=== PATIENT | female | born 1955 | race Caucasian/White ===

== ENCOUNTER 2022-11-17 13:17 | Inpatient (IN) | payer OTHER ==
[2022-11-17] MEDS ORDERED: SODIUM CHLORIDE 0.9% 500 ML INFUS.BAG IV ONE (14:03)
[2022-11-17] MEDS ORDERED: PIPERACILLIN/TAZOB 4.5 GM 4.5 GM in DEXTROSE 5%-WATER - 100 ML IVPB ONE (14:14)
[2022-11-17] MEDS ORDERED: PIPERACILLIN/TAZOB 4.5 GM 4.5 GM/100 ML BAG IVPB ONE (14:53)
[2022-11-17] MEDS ORDERED: VANCOMYCIN/WATER FOR INJ (PEG) 1,000 MG/200 ML BAG IVPB ONE (14:53)
[2022-11-17 14:56] LABS: VENOUS BASE EXCESS 1.3 mmol/L (-2-2); VENOUS O2 SATURATION 34.9 % (70-80)
[2022-11-17 14:58] LABS: VENOUS PH 7.189 (7.310-7.410)
[2022-11-17 14:59] LABS: VENOUS PCO2 88.9 mmHg (38-52)
[2022-11-17] MEDS ORDERED: AZITHROMYCIN IVPB 500 MG in DEXTROSE 5%-WATER - 250 ML IVPB ONE (15:01)
[2022-11-17] MEDS ORDERED: NOREPINEPHRINE BITARTRATE/D5W 8 MG/250 ML BAG IVPB ONE (15:26)
[2022-11-17 15:29] LABS: HEMATOCRIT 33.6 % (32.4-45.2); HEMOGLOBIN 10.1 GM/dL (10.7-15.3); MCH 27.7 pg (25.7-33.7); MCHC 30.1 g/dl (32.0-36.0); MEAN CELL VOLUME 92.3 fl (80-96); MEAN PLT VOLUME 8.8 fl (7.5-11.1); PLATELET COUNT 490 10^3/uL (134-434); RBC 3.64 M/mm3 (3.60-5.2); RDW 21.6 % (11.6-15.6); WHITE BLOOD COUNT 13.9 K/mm3 (4.0-10.0)
[2022-11-17 15:43] LABS: CHLORIDE 101 mmol/L (98-107); SODIUM 137 mmol/L (136-145)
[2022-11-17 15:45] LABS: BLOOD UREA NITROGEN 29.1 mg/dL (7-18); CALCIUM 9.4 mg/dL (8.5-10.1); CO2 33 mmol/L (21-32); GLUCOSE,RANDOM 143 mg/dL (74-106)
[2022-11-17 15:47] LABS: CREATININE 0.8 mg/dL (0.55-1.3)
[2022-11-17 15:49] LABS: SGOT/AST 71 U/L (15-37); SGPT/ALT 28 U/L (13-61)
[2022-11-17] MEDS ORDERED: HYDROCORTISONE SOD SUCCINATE 100 MG/2 ML VIAL IVPUSH ONE (15:49)
[2022-11-17 15:50] LABS: ALK PHOS 126 U/L (45-117); BILIRUBIN,TOTAL 0.4 mg/dL (0.2-1); TOT PROT 7.6 g/dl (6.4-8.2)
[2022-11-17 15:53] LABS: ANION GAP 3 MMOL/L (8-16); POTASSIUM 7.2 mmol/L (3.5-5.1)
[2022-11-17] MEDS ORDERED: HYDROCORTISONE SOD SUCCINATE 100 MG/2 ML VIAL ONE (16:20)
[2022-11-17] MEDS: VANCOMYCIN 1,000 MG in DEXTROSE 5%-WATER - 250 ML IVPB ONE ×2 (16:26→20:58)
[2022-11-17] MEDS: NOREPINEPHRINE BITARTRATE/D5W 8 MG/250 ML BAG IVPB SCH ×2 (16:28→20:00)
[2022-11-17] MEDS ORDERED: VANCOMYCIN 1 GM in D5W (PRE-DOCKED) 1,000 MG/250 ML (RESTRICTED TO ID ONLY IVPB SCH (16:30)
[2022-11-17] MEDS ORDERED: VANCOMYCIN 1 GM/200 ML PREMIX BAG (RESTRICTED TO ID ONLY) IVPB SCH (17:00)
[2022-11-17] MEDS: ALBUTEROL SO4 2.5/IPRATROPIUM 0.5 INH SOL 3 ML VIAL.NEB. NEB SCH ×4 (17:00→17:42)
[2022-11-17] MEDS: oxyCODONE HCL 5 MG TABLET GT SCH ×2 (18:56→21:27)
[2022-11-17] MEDS: MIDODRINE HCL 5 MG TABLET GT SCH (19:04)
[2022-11-17 20:16] LABS: ARTERIAL BLD GAS O2 SATURATION 97.3 % (95-98); ARTERIAL BLOOD GAS BASE EXCESS 3.8 mmol/L (-2-2); ARTERIAL BLOOD GAS PO2 95.4 mmHg (80-100); ARTERIAL BLOOD GAS pH 7.409 (7.350-7.450)
[2022-11-17 20:17] LABS: ALLENS TEST POSITIVE
[2022-11-17 20:18] LABS: VENT MODE A/C; VENT RATE 18
[2022-11-17 20:42] LABS: POTASSIUM 5.3 mmol/L (3.5-5.1)
[2022-11-17 20:42] LABS: VENOUS BASE EXCESS 2.7 mmol/L (-2-2); VENOUS O2 SATURATION 52.4 % (70-80); VENOUS PCO2 62.7 mmHg (38-52); VENOUS PH 7.307 (7.310-7.410)
[2022-11-17 20:45] LABS: CALCIUM 8.5 mg/dL (8.5-10.1)
[2022-11-17 20:46] LABS: BLOOD UREA NITROGEN 30.1 mg/dL (7-18)
[2022-11-17 20:48] LABS: CREATININE 0.6 mg/dL (0.55-1.3); PHOSPHOROUS 4.8 mg/dL (2.5-4.9)
[2022-11-17] MEDS: MUPIROCIN 2% TOPICAL OINTMENT FOR DECOLONIZATION NS SCH (21:25)
[2022-11-17] MEDS: methylPREDNISolone NA SUCC 40 MG/1 ML VIAL IVPUSH SCH (21:25)
[2022-11-17] MEDS: busPIRone HCL 10 MG TABLET (FP) NR SCH (21:25)
[2022-11-17] MEDS: LACTULOSE 20 GM/30 ML UDC (FOR ORAL USE ONLY) GT SCH (21:25)
[2022-11-17] MEDS: LORazepam 0.5 MG TABLET GT SCH (21:26)
[2022-11-17] MEDS: CHLORHEXIDINE GLUCONATE 4% CLEANSER FOR DECOLONIZATION TP SCH (21:27)
[2022-11-17] MEDS: CYCLOBENZAPRINE HCL 10 MG TABLET (FP) GT SCH (21:27)
[2022-11-17] MEDS: APIXABAN 5 MG TABLET GT SCH (21:27)
[2022-11-17] MEDS: BUDESONIDE/FORMETEROL FUMARATE 80/4.5 mcg INHALER IH SCH (21:28)
[2022-11-17] MEDS: METOPROLOL TARTRATE 50 MG TABLET (FP) GT SCH (21:28)
[2022-11-17] MEDS: GABAPENTIN 300 MG CAPSULE GT SCH (21:28)
[2022-11-17] MEDS: INSULIN SLIDING SCALE (NOVOLOG) 1 VIAL SQ SCH (21:38)
[2022-11-18] MEDS: oxyCODONE HCL 5 MG TABLET GT SCH ×6 (01:35→21:15)
[2022-11-18] MEDS: methylPREDNISolone NA SUCC 40 MG/1 ML VIAL IVPUSH SCH ×2 (02:14→09:46)
[2022-11-18] MEDS: GABAPENTIN 300 MG CAPSULE GT SCH ×3 (05:56→21:16)
[2022-11-18] MEDS: LACTULOSE 20 GM/30 ML UDC (FOR ORAL USE ONLY) GT SCH ×3 (05:57→21:15)
[2022-11-18] MEDS: CYCLOBENZAPRINE HCL 10 MG TABLET (FP) GT SCH ×3 (05:57→21:15)
[2022-11-18] MEDS: LEVOTHYROXINE NA 125 MCG TABLET (FP) GT SCH (06:00)
[2022-11-18] MEDS: busPIRone HCL 10 MG TABLET (FP) NR SCH ×3 (06:05→21:15)
[2022-11-18] MEDS: INSULIN SLIDING SCALE (NOVOLOG) 1 VIAL SQ SCH ×4 (06:05→21:32)
[2022-11-18 07:44] LABS: HEMATOCRIT 26.9 % (32.4-45.2); HEMOGLOBIN 8.2 GM/dL (10.7-15.3); MCH 28.2 pg (25.7-33.7); MCHC 30.6 g/dl (32.0-36.0); MEAN CELL VOLUME 92.1 fl (80-96); MEAN PLT VOLUME 8.7 fl (7.5-11.1); PLATELET COUNT 599 10^3/uL (134-434); RBC 2.92 M/mm3 (3.60-5.2); RDW 20.2 % (11.6-15.6); WHITE BLOOD COUNT 13.9 K/mm3 (4.0-10.0)
[2022-11-18 07:50] LABS: INR 1.44 (0.83-1.09); PROTHROMBIN TIME (PATIENT) 16.6 SEC (9.7-13.0)
[2022-11-18 08:04] LABS: POTASSIUM 5.8 mmol/L (3.5-5.1)
[2022-11-18 08:09] LABS: CALCIUM 8.8 mg/dL (8.5-10.1)
[2022-11-18 08:11] LABS: BLOOD UREA NITROGEN 29.6 mg/dL (7-18); CREATININE 0.7 mg/dL (0.55-1.3)
[2022-11-18 08:14] LABS: PHOSPHOROUS 5.2 mg/dL (2.5-4.9)
[2022-11-18 08:15] LABS: BILIRUBIN,TOTAL 0.2 mg/dL (0.2-1); TOT PROT 6.1 g/dl (6.4-8.2)
[2022-11-18] MEDS: PIPERACILLIN/TAZOB 4.5 GM 4.5 GM in DEXTROSE 5%-WATER 100 ML IVPB SCH ×2 (09:44→17:16)
[2022-11-18] MEDS: POLYETHYLENE GLYCOL (HEALTHYLAX) 3350 17 GM PACKET GT SCH ×2 (09:45→10:50)
[2022-11-18] MEDS: MIDODRINE HCL 5 MG TABLET GT SCH ×3 (09:46→17:16)
[2022-11-18] MEDS: FOLIC ACID 1 MG TABLET (FP) GT SCH (09:46)
[2022-11-18] MEDS: LORazepam 0.5 MG TABLET GT SCH ×2 (09:47→21:15)
[2022-11-18] MEDS: METOPROLOL TARTRATE 50 MG TABLET (FP) GT SCH (09:47)
[2022-11-18] MEDS: APIXABAN 5 MG TABLET GT SCH ×2 (09:47→21:16)
[2022-11-18] MEDS: BUDESONIDE/FORMETEROL FUMARATE 80/4.5 mcg INHALER IH SCH (09:48)
[2022-11-18 10:12] LABS: ANISOCYTOSIS 2+; MACROCYTOSIS 0; OVALOCYTE 2+; TOXIC GRANULATION 2+
[2022-11-18] MEDS: MUPIROCIN 2% TOPICAL OINTMENT FOR DECOLONIZATION NS SCH ×2 (10:40→21:15)
[2022-11-18] MEDS ORDERED: SODIUM ZIRCONIUM CYCLOSILICATE (LOKELMA) 5 GM PACKET PO ONE (13:34)
[2022-11-18] MEDS ORDERED: ALBUTEROL SO4 2.5/IPRATROPIUM 0.5 INH SOL 3 ML VIAL.NEB. NEB ONE (13:38)
[2022-11-18] MEDS ORDERED: LACTATED RINGERS SOLUTION 1,000 ML/1,000 ML INFUS.BAG IV STA (14:01)
[2022-11-18] MEDS ORDERED: LEVALBUTEROL HCL 0.31 MG/3 ML VIAL.NEB IH ONE (14:30)
[2022-11-18] MEDS: SODIUM HYPOCHLORITE 0.25%- 473 ML BULK BOTTLE TP SCH (15:11)
[2022-11-18] MEDS: COLLAGENASE CLOSTRIDIUM HIST. 30 GRAMS TUBE TP SCH (15:11)
[2022-11-18] MEDS: NYSTATIN POWDER 100,000 UNITS/GM - 15 GM TOPICAL POWDER TP SCH (17:14)
[2022-11-18] MEDS: VANCOMYCIN/WATER FOR INJ (PEG) 1,000 MG/200 ML BAG IVPB SCH (18:05)
[2022-11-18] MEDS: NOREPINEPHRINE BITARTRATE/D5W 8 MG/250 ML BAG IVPB SCH (21:13)
[2022-11-18] MEDS: SODIUM ZIRCONIUM CYCLOSILICATE (LOKELMA) 5 GM PACKET PO SCH (21:14)
[2022-11-18] MEDS: CHLORHEXIDINE GLUCONATE 4% CLEANSER FOR DECOLONIZATION TP SCH (21:16)
[2022-11-18 22:53] LABS: PH,URINE 5.5 (5.0-8.0); URINE APPEARANCE CLEAR; URINE BILIRUBIN NEGATIVE (NEGATIVE); URINE COLOR YELLOW; URINE GLUCOSE (UA) NEGATIVE (NEGATIVE); URINE KETONE NEGATIVE (NEGATIVE); URINE LEUK ESTERASE NEGATIVE (NEGATIVE); URINE NITRITE NEGATIVE (NEGATIVE); URINE PROTEIN NEGATIVE (NEGATIVE); URINE UROBILINOGEN 0.2 mg/dL (0.2-1.0)
[2022-11-19] MEDS: oxyCODONE HCL 5 MG TABLET GT SCH ×6 (02:08→21:39)
[2022-11-19] MEDS: PIPERACILLIN/TAZOB 4.5 GM 4.5 GM in DEXTROSE 5%-WATER 100 ML IVPB SCH ×2 (02:30→09:23)
[2022-11-19] MEDS: LEVOTHYROXINE NA 125 MCG TABLET (FP) GT SCH (06:36)
[2022-11-19] MEDS: busPIRone HCL 10 MG TABLET (FP) NR SCH ×3 (06:36→21:40)
[2022-11-19] MEDS: GABAPENTIN 300 MG CAPSULE GT SCH ×3 (06:36→21:39)
[2022-11-19] MEDS: CYCLOBENZAPRINE HCL 10 MG TABLET (FP) GT SCH ×3 (06:36→21:39)
[2022-11-19] MEDS: LACTULOSE 20 GM/30 ML UDC (FOR ORAL USE ONLY) GT SCH ×3 (06:36→21:40)
[2022-11-19] MEDS: INSULIN SLIDING SCALE (NOVOLOG) 1 VIAL SQ SCH ×4 (06:37→21:59)
[2022-11-19 07:25] LABS: HEMATOCRIT 24.4 % (32.4-45.2); HEMOGLOBIN 7.8 GM/dL (10.7-15.3); MCH 28.7 pg (25.7-33.7); MCHC 32.2 g/dl (32.0-36.0); MEAN CELL VOLUME 89.3 fl (80-96); MEAN PLT VOLUME 7.5 fl (7.5-11.1); PLATELET COUNT 481 10^3/uL (134-434); RBC 2.73 M/mm3 (3.60-5.2); RDW 21.3 % (11.6-15.6); WHITE BLOOD COUNT 15.9 K/mm3 (4.0-10.0)
[2022-11-19 07:30] LABS: POTASSIUM 4.6 mmol/L (3.5-5.1)
[2022-11-19 07:33] LABS: BLOOD UREA NITROGEN 32.8 mg/dL (7-18); CALCIUM 8.3 mg/dL (8.5-10.1)
[2022-11-19 07:38] LABS: BILIRUBIN,TOTAL 0.1 mg/dL (0.2-1); CREATININE 0.8 mg/dL (0.55-1.3); TOT PROT 5.8 g/dl (6.4-8.2)
[2022-11-19 07:39] LABS: PHOSPHOROUS 4.9 mg/dL (2.5-4.9)
[2022-11-19] MEDS: LORazepam 0.5 MG TABLET GT SCH ×2 (09:21→21:39)
[2022-11-19] MEDS: APIXABAN 5 MG TABLET GT SCH ×2 (09:22→21:40)
[2022-11-19] MEDS: FOLIC ACID 1 MG TABLET (FP) GT SCH (09:22)
[2022-11-19] MEDS: MIDODRINE HCL 5 MG TABLET GT SCH ×3 (09:22→18:04)
[2022-11-19] MEDS: PANTOPRAZOLE SODIUM 40 MG VIAL IVPUSH SCH (09:23)
[2022-11-19] MEDS: POLYETHYLENE GLYCOL (HEALTHYLAX) 3350 17 GM PACKET GT SCH (09:24)
[2022-11-19] MEDS: SODIUM HYPOCHLORITE 0.25%- 473 ML BULK BOTTLE TP SCH (09:25)
[2022-11-19] MEDS: COLLAGENASE CLOSTRIDIUM HIST. 30 GRAMS TUBE TP SCH (09:25)
[2022-11-19] MEDS: SODIUM ZIRCONIUM CYCLOSILICATE (LOKELMA) 5 GM PACKET PO SCH ×2 (09:26→15:00)
[2022-11-19] MEDS: NYSTATIN POWDER 100,000 UNITS/GM - 15 GM TOPICAL POWDER TP SCH (09:27)
[2022-11-19] MEDS: MUPIROCIN 2% TOPICAL OINTMENT FOR DECOLONIZATION NS SCH ×2 (09:27→21:41)
[2022-11-19 10:34] LABS: ANISOCYTOSIS 2+; MACROCYTOSIS 0
[2022-11-19] MEDS ORDERED: INSULIN (NOVOLOG) ASPART 100 UNITS/ML 10ML VIAL ONE ×2 (11:56→17:00)
[2022-11-19] MEDS: NOREPINEPHRINE BITARTRATE/D5W 8 MG/250 ML BAG IVPB SCH (18:01)
[2022-11-19] MEDS: MEROPENEM 1 GM in DEXTROSE 5%-WATER 100 ML IVPB SCH (18:02)
[2022-11-19] MEDS: VANCOMYCIN/WATER FOR INJ (PEG) 1,000 MG/200 ML BAG IVPB SCH (18:04)
[2022-11-19] MEDS: CHLORHEXIDINE GLUCONATE 4% CLEANSER FOR DECOLONIZATION TP SCH (21:41)
[2022-11-20] MEDS: MEROPENEM 1 GM in DEXTROSE 5%-WATER 100 ML IVPB SCH ×3 (02:31→17:33)
[2022-11-20] MEDS: oxyCODONE HCL 5 MG TABLET GT SCH ×6 (02:31→21:49)
[2022-11-20] MEDS: LACTULOSE 20 GM/30 ML UDC (FOR ORAL USE ONLY) GT SCH ×3 (05:31→21:50)
[2022-11-20] MEDS: GABAPENTIN 300 MG CAPSULE GT SCH ×3 (05:31→21:51)
[2022-11-20] MEDS: CYCLOBENZAPRINE HCL 10 MG TABLET (FP) GT SCH ×3 (05:31→21:49)
[2022-11-20] MEDS: busPIRone HCL 10 MG TABLET (FP) NR SCH ×3 (05:31→21:49)
[2022-11-20] MEDS: LEVOTHYROXINE NA 125 MCG TABLET (FP) GT SCH (06:09)
[2022-11-20] MEDS: INSULIN SLIDING SCALE (NOVOLOG) 1 VIAL SQ SCH ×4 (06:10→22:12)
[2022-11-20 07:33] LABS: POTASSIUM 3.7 mmol/L (3.5-5.1)
[2022-11-20 07:37] LABS: CALCIUM 8.3 mg/dL (8.5-10.1); MAGNESIUM 1.9 mg/dL (1.8-2.4)
[2022-11-20 07:38] LABS: BLOOD UREA NITROGEN 30.9 mg/dL (7-18)
[2022-11-20 07:39] LABS: PHOSPHOROUS 3.9 mg/dL (2.5-4.9)
[2022-11-20 07:41] LABS: CREATININE 0.7 mg/dL (0.55-1.3)
[2022-11-20 07:55] LABS: HEMATOCRIT 23.2 % (32.4-45.2); HEMOGLOBIN 7.5 GM/dL (10.7-15.3); MCH 29.2 pg (25.7-33.7); MCHC 32.3 g/dl (32.0-36.0); MEAN CELL VOLUME 90.7 fl (80-96); MEAN PLT VOLUME 7.6 fl (7.5-11.1); PLATELET COUNT 377 10^3/uL (134-434); RBC 2.56 M/mm3 (3.60-5.2); RDW 21.2 % (11.6-15.6); WHITE BLOOD COUNT 13.3 K/mm3 (4.0-10.0)
[2022-11-20] MEDS: POLYETHYLENE GLYCOL (HEALTHYLAX) 3350 17 GM PACKET GT SCH (09:42)
[2022-11-20] MEDS: PANTOPRAZOLE SODIUM 40 MG VIAL IVPUSH SCH (09:43)
[2022-11-20] MEDS: LORazepam 0.5 MG TABLET GT SCH ×2 (09:45→21:49)
[2022-11-20] MEDS: FOLIC ACID 1 MG TABLET (FP) GT SCH (09:47)
[2022-11-20] MEDS: APIXABAN 5 MG TABLET GT SCH ×2 (09:47→22:12)
[2022-11-20] MEDS: MIDODRINE HCL 5 MG TABLET GT SCH ×3 (09:47→17:33)
[2022-11-20] MEDS: SODIUM HYPOCHLORITE 0.25%- 473 ML BULK BOTTLE TP SCH (09:48)
[2022-11-20] MEDS: COLLAGENASE CLOSTRIDIUM HIST. 30 GRAMS TUBE TP SCH (09:49)
[2022-11-20] MEDS: NYSTATIN POWDER 100,000 UNITS/GM - 15 GM TOPICAL POWDER TP SCH (09:49)
[2022-11-20] MEDS: MUPIROCIN 2% TOPICAL OINTMENT FOR DECOLONIZATION NS SCH ×2 (09:50→21:50)
[2022-11-20] MEDS ORDERED: SODIUM ZIRCONIUM CYCLOSILICATE (LOKELMA) 5 GM PACKET PO SCH (10:00)
[2022-11-20 12:24] VITALS: BMI 27.1
[2022-11-20] MEDS: AMINO ACIDS/PROTEIN HYDROLYS 30 ML LIQUID.PKT GT SCH (17:34)
[2022-11-20] MEDS: VANCOMYCIN/WATER FOR INJ (PEG) 1,000 MG/200 ML BAG IVPB SCH (18:39)
[2022-11-20] MEDS: NOREPINEPHRINE BITARTRATE/D5W 8 MG/250 ML BAG IVPB SCH (18:44)
[2022-11-20] MEDS ORDERED: ALBUMIN HUMAN 5% 250 ML IV SOLUTION IV ONE (21:47)
[2022-11-20] MEDS: CHLORHEXIDINE GLUCONATE 4% CLEANSER FOR DECOLONIZATION TP SCH (21:50)
[2022-11-21] MEDS: oxyCODONE HCL 5 MG TABLET GT SCH ×6 (02:29→21:16)
[2022-11-21] MEDS: MEROPENEM 1 GM in DEXTROSE 5%-WATER 100 ML IVPB SCH ×3 (02:30→17:08)
[2022-11-21] MEDS: CYCLOBENZAPRINE HCL 10 MG TABLET (FP) GT SCH ×3 (05:06→21:18)
[2022-11-21] MEDS: GABAPENTIN 300 MG CAPSULE GT SCH ×3 (05:06→21:18)
[2022-11-21] MEDS: busPIRone HCL 10 MG TABLET (FP) NR SCH ×3 (05:07→21:18)
[2022-11-21] MEDS: LACTULOSE 20 GM/30 ML UDC (FOR ORAL USE ONLY) GT SCH ×3 (05:07→21:18)
[2022-11-21] MEDS: LEVOTHYROXINE NA 125 MCG TABLET (FP) GT SCH (06:29)
[2022-11-21] MEDS: INSULIN SLIDING SCALE (NOVOLOG) 1 VIAL SQ SCH ×4 (06:29→21:19)
[2022-11-21 07:18] LABS: BASO % 0.3 % (0-2.0); EOS % 1.9 % (0-4.5); HEMATOCRIT 21.6 % (32.4-45.2); HEMOGLOBIN 7.1 GM/dL (10.7-15.3); LYMPH % 10.5 % (8-40); MCH 30.1 pg (25.7-33.7); MCHC 32.9 g/dl (32.0-36.0); MEAN CELL VOLUME 91.5 fl (80-96); MEAN PLT VOLUME 7.5 fl (7.5-11.1); MONO % 3.2 % (3.8-10.2); NEUT % 84.1 % (42.8-82.8); PLATELET COUNT 335 10^3/uL (134-434); RBC 2.37 M/mm3 (3.60-5.2); RDW 22.8 % (11.6-15.6); WHITE BLOOD COUNT 12.9 K/mm3 (4.0-10.0)
[2022-11-21 07:35] LABS: POTASSIUM 3.4 mmol/L (3.5-5.1)
[2022-11-21 07:43] LABS: BLOOD UREA NITROGEN 25.3 mg/dL (7-18); PHOSPHOROUS 3.5 mg/dL (2.5-4.9)
[2022-11-21 07:44] LABS: BILIRUBIN,TOTAL 0.3 mg/dL (0.2-1); TOT PROT 5.3 g/dl (6.4-8.2)
[2022-11-21 07:45] LABS: CALCIUM 8.4 mg/dL (8.5-10.1); MAGNESIUM 1.9 mg/dL (1.8-2.4)
[2022-11-21 07:46] LABS: CREATININE 0.6 mg/dL (0.55-1.3)
[2022-11-21] MEDS ORDERED: POTASSIUM CHLORIDE ORAL LIQUID 20 MEQ/15 ML GT ONE (08:00)
[2022-11-21 08:09] LABS: ALBUMIN 1.3 g/dl (3.4-5.0)
[2022-11-21] MEDS: LORazepam 0.5 MG TABLET GT SCH ×2 (09:49→21:17)
[2022-11-21] MEDS: APIXABAN 5 MG TABLET GT SCH ×2 (09:50→21:18)
[2022-11-21] MEDS: PANTOPRAZOLE SODIUM 40 MG VIAL IVPUSH SCH (09:51)
[2022-11-21] MEDS: POLYETHYLENE GLYCOL (HEALTHYLAX) 3350 17 GM PACKET GT SCH (09:51)
[2022-11-21] MEDS: MIDODRINE HCL 5 MG TABLET GT SCH ×3 (09:51→17:07)
[2022-11-21] MEDS: AMINO ACIDS/PROTEIN HYDROLYS 30 ML LIQUID.PKT GT SCH ×2 (09:51→17:07)
[2022-11-21] MEDS: MUPIROCIN 2% TOPICAL OINTMENT FOR DECOLONIZATION NS SCH ×2 (09:56→21:18)
[2022-11-21] MEDS: NYSTATIN POWDER 100,000 UNITS/GM - 15 GM TOPICAL POWDER TP SCH (09:56)
[2022-11-21] MEDS: COLLAGENASE CLOSTRIDIUM HIST. 30 GRAMS TUBE TP SCH (09:57)
[2022-11-21] MEDS: SODIUM HYPOCHLORITE 0.25%- 473 ML BULK BOTTLE TP SCH (09:57)
[2022-11-21] MEDS: ASCORBIC ACID 500 MG/5 ML UNIT DOSE CUP GT SCH (10:14)
[2022-11-21] MEDS: FOLIC ACID 1 MG TABLET (FP) GT SCH (10:15)
[2022-11-21 12:16] LABS: ANISOCYTOSIS 2+; MACROCYTOSIS 0; OVALOCYTE 2+; TEAR DROP CELLS 1+
[2022-11-21] MEDS: NOREPINEPHRINE BITARTRATE/D5W 8 MG/250 ML BAG IVPB SCH (16:00)
[2022-11-21] MEDS: CHLORHEXIDINE GLUCONATE 4% CLEANSER FOR DECOLONIZATION TP SCH (21:18)
[2022-11-22] MEDS: MEROPENEM 1 GM in DEXTROSE 5%-WATER 100 ML IVPB SCH ×3 (01:30→17:33)
[2022-11-22] MEDS: oxyCODONE HCL 5 MG TABLET GT SCH ×6 (01:31→21:44)
[2022-11-22] MEDS: NOREPINEPHRINE BITARTRATE/D5W 8 MG/250 ML BAG IVPB SCH ×2 (03:08→19:27)
[2022-11-22] MEDS: LACTULOSE 20 GM/30 ML UDC (FOR ORAL USE ONLY) GT SCH ×3 (06:31→21:44)
[2022-11-22] MEDS: GABAPENTIN 300 MG CAPSULE GT SCH ×3 (06:32→21:43)
[2022-11-22] MEDS: LEVOTHYROXINE NA 125 MCG TABLET (FP) GT SCH (06:32)
[2022-11-22] MEDS: CYCLOBENZAPRINE HCL 10 MG TABLET (FP) GT SCH ×3 (06:32→21:43)
[2022-11-22] MEDS: busPIRone HCL 10 MG TABLET (FP) NR SCH ×3 (06:34→21:44)
[2022-11-22] MEDS: INSULIN SLIDING SCALE (NOVOLOG) 1 VIAL SQ SCH ×4 (06:34→23:05)
[2022-11-22 07:46] LABS: BASO % 0.6 % (0-2.0); EOS % 4.6 % (0-4.5); HEMATOCRIT 22.8 % (32.4-45.2); HEMOGLOBIN 7.4 GM/dL (10.7-15.3); LYMPH % 17.6 % (8-40); MCH 29.4 pg (25.7-33.7); MCHC 32.2 g/dl (32.0-36.0); MEAN CELL VOLUME 91.3 fl (80-96); MEAN PLT VOLUME 7.8 fl (7.5-11.1); MONO % 3.6 % (3.8-10.2); NEUT % 73.6 % (42.8-82.8); PLATELET COUNT 319 10^3/uL (134-434); RDW 22.9 % (11.6-15.6); WHITE BLOOD COUNT 11.2 K/mm3 (4.0-10.0)
[2022-11-22 07:51] LABS: POTASSIUM 3.7 mmol/L (3.5-5.1)
[2022-11-22 07:53] LABS: CALCIUM 8.6 mg/dL (8.5-10.1)
[2022-11-22 07:54] LABS: ALBUMIN 1.1 g/dl (3.4-5.0); BLOOD UREA NITROGEN 23.2 mg/dL (7-18); MAGNESIUM 1.7 mg/dL (1.8-2.4)
[2022-11-22 07:57] LABS: CREATININE 0.5 mg/dL (0.55-1.3); PHOSPHOROUS 3.2 mg/dL (2.5-4.9)
[2022-11-22 07:59] LABS: BILIRUBIN,TOTAL 0.2 mg/dL (0.2-1)
[2022-11-22] MEDS: AMINO ACIDS/PROTEIN HYDROLYS 30 ML LIQUID.PKT GT SCH ×2 (09:11→17:33)
[2022-11-22] MEDS: MIDODRINE HCL 5 MG TABLET GT SCH ×3 (09:12→17:42)
[2022-11-22] MEDS: FOLIC ACID 1 MG TABLET (FP) GT SCH (09:13)
[2022-11-22] MEDS: LORazepam 0.5 MG TABLET GT SCH ×2 (09:13→21:43)
[2022-11-22] MEDS: APIXABAN 5 MG TABLET GT SCH ×2 (09:13→21:44)
[2022-11-22] MEDS: PANTOPRAZOLE SODIUM 40 MG VIAL IVPUSH SCH (09:19)
[2022-11-22] MEDS ORDERED: METOPROLOL TARTRATE 25 MG TABLET (FP) PO SCH (12:30)
[2022-11-22] MEDS: POLYETHYLENE GLYCOL (HEALTHYLAX) 3350 17 GM PACKET GT SCH (13:59)
[2022-11-22] MEDS: MUPIROCIN 2% TOPICAL OINTMENT FOR DECOLONIZATION NS SCH (14:26)
[2022-11-22] MEDS: METOPROLOL TARTRATE 25 MG TABLET (FP) GT SCH ×2 (14:26→21:41)
[2022-11-22] MEDS: SODIUM HYPOCHLORITE 0.25%- 473 ML BULK BOTTLE TP SCH (14:27)
[2022-11-22] MEDS: COLLAGENASE CLOSTRIDIUM HIST. 30 GRAMS TUBE TP SCH (14:27)
[2022-11-22] MEDS: NYSTATIN POWDER 100,000 UNITS/GM - 15 GM TOPICAL POWDER TP SCH (14:27)
[2022-11-22] MEDS: ASCORBIC ACID 500 MG/5 ML UNIT DOSE CUP GT SCH (14:33)
[2022-11-22] MEDS ORDERED: MAGNESIUM SULF 50% (8.12 MEQ/2 ML-1 GM VIAL) IVPB ONE (16:41)
[2022-11-22] MEDS: CHLORHEXIDINE GLUCONATE 4% CLEANSER FOR DECOLONIZATION TP SCH (21:44)
[2022-11-23] MEDS: MEROPENEM 1 GM in DEXTROSE 5%-WATER 100 ML IVPB SCH ×3 (01:17→17:34)
[2022-11-23] MEDS: METOPROLOL TARTRATE 25 MG TABLET (FP) GT SCH ×3 (06:04→21:22)
[2022-11-23] MEDS: INSULIN SLIDING SCALE (NOVOLOG) 1 VIAL SQ SCH ×4 (06:04→21:02)
[2022-11-23] MEDS: busPIRone HCL 10 MG TABLET (FP) NR SCH ×3 (06:11→21:22)
[2022-11-23] MEDS: GABAPENTIN 300 MG CAPSULE GT SCH ×3 (06:11→21:17)
[2022-11-23] MEDS: oxyCODONE HCL 5 MG TABLET GT SCH ×6 (06:11→21:18)
[2022-11-23] MEDS: CYCLOBENZAPRINE HCL 10 MG TABLET (FP) GT SCH ×3 (06:11→21:17)
[2022-11-23] MEDS: LEVOTHYROXINE NA 125 MCG TABLET (FP) GT SCH (06:11)
[2022-11-23] MEDS: LACTULOSE 20 GM/30 ML UDC (FOR ORAL USE ONLY) GT SCH (06:12)
[2022-11-23 07:28] LABS: HEMATOCRIT 23.2 % (32.4-45.2); HEMOGLOBIN 7.5 GM/dL (10.7-15.3); MCH 29.8 pg (25.7-33.7); MCHC 32.4 g/dl (32.0-36.0); PLATELET COUNT 339 10^3/uL (134-434); RBC 2.52 M/mm3 (3.60-5.2); RDW 23.6 % (11.6-15.6); WHITE BLOOD COUNT 10.4 K/mm3 (4.0-10.0)
[2022-11-23 07:42] LABS: POTASSIUM 3.5 mmol/L (3.5-5.1)
[2022-11-23 07:45] LABS: CALCIUM 8.5 mg/dL (8.5-10.1)
[2022-11-23 07:46] LABS: BLOOD UREA NITROGEN 22.8 mg/dL (7-18); MAGNESIUM 1.6 mg/dL (1.8-2.4)
[2022-11-23 07:48] LABS: CREATININE 0.5 mg/dL (0.55-1.3); PHOSPHOROUS 3.1 mg/dL (2.5-4.9)
[2022-11-23 07:50] LABS: BILIRUBIN,TOTAL 0.2 mg/dL (0.2-1); TOT PROT 4.8 g/dl (6.4-8.2)
[2022-11-23 09:09] LABS: ANISOCYTOSIS 1+; MACROCYTOSIS 0
[2022-11-23] MEDS ORDERED: DIGOXIN 0.5 MG/2 ML AMPUL IVPUSH ONE (09:20)
[2022-11-23] MEDS: LORazepam 0.5 MG TABLET GT SCH ×2 (10:04→21:17)
[2022-11-23] MEDS: APIXABAN 5 MG TABLET GT SCH ×2 (10:05→21:17)
[2022-11-23] MEDS: SODIUM HYPOCHLORITE 0.25%- 473 ML BULK BOTTLE TP SCH (10:05)
[2022-11-23] MEDS: MIDODRINE HCL 5 MG TABLET GT SCH ×3 (10:05→17:35)
[2022-11-23] MEDS: FOLIC ACID 1 MG TABLET (FP) GT SCH (10:05)
[2022-11-23] MEDS: POLYETHYLENE GLYCOL (HEALTHYLAX) 3350 17 GM PACKET GT SCH (10:06)
[2022-11-23] MEDS: AMINO ACIDS/PROTEIN HYDROLYS 30 ML LIQUID.PKT GT SCH ×2 (10:06→17:34)
[2022-11-23] MEDS: PANTOPRAZOLE SODIUM 40 MG VIAL IVPUSH SCH (10:29)
[2022-11-23] MEDS: NYSTATIN POWDER 100,000 UNITS/GM - 15 GM TOPICAL POWDER TP SCH (12:00)
[2022-11-23] MEDS ORDERED: INSULIN (NOVOLOG) ASPART 100 UNITS/ML 10ML VIAL ONE (12:46)
[2022-11-23] MEDS: ASCORBIC ACID 500 MG/5 ML UNIT DOSE CUP GT SCH (12:48)
[2022-11-23] MEDS: COLLAGENASE CLOSTRIDIUM HIST. 30 GRAMS TUBE TP SCH (15:22)
[2022-11-23] MEDS ORDERED: DEXMEDETOMIDINE PREMIX 400 MCG/100 ML BAG IVPB SCH (16:00)
[2022-11-23] MEDS: DIGOXIN 0.5 MG/2 ML AMPUL IVPUSH SCH ×2 (16:14→21:18)
[2022-11-23] MEDS: NOREPINEPHRINE BITARTRATE/D5W 8 MG/250 ML BAG IVPB SCH (19:15)
[2022-11-23] MEDS: CHLORHEXIDINE GLUCONATE 4% CLEANSER FOR DECOLONIZATION TP SCH (21:22)
[2022-11-23] MEDS: ALBUTEROL SO4 2.5/IPRATROPIUM 0.5 INH SOL 3 ML VIAL.NEB. NEB PRN (21:44)
[2022-11-24] MEDS: oxyCODONE HCL 5 MG TABLET GT SCH ×6 (02:37→22:19)
[2022-11-24] MEDS: MEROPENEM 1 GM in DEXTROSE 5%-WATER 100 ML IVPB SCH ×3 (02:38→17:37)
[2022-11-24] MEDS: CYCLOBENZAPRINE HCL 10 MG TABLET (FP) GT SCH (05:55)
[2022-11-24] MEDS: GABAPENTIN 300 MG CAPSULE GT SCH ×3 (05:55→22:22)
[2022-11-24] MEDS: METOPROLOL TARTRATE 25 MG TABLET (FP) GT SCH ×3 (05:55→22:25)
[2022-11-24] MEDS: busPIRone HCL 10 MG TABLET (FP) NR SCH (05:55)
[2022-11-24] MEDS: LEVOTHYROXINE NA 125 MCG TABLET (FP) GT SCH (06:00)
[2022-11-24] MEDS: INSULIN SLIDING SCALE (NOVOLOG) 1 VIAL SQ SCH ×4 (06:00→23:00)
[2022-11-24] MEDS: ALBUTEROL SO4 2.5/IPRATROPIUM 0.5 INH SOL 3 ML VIAL.NEB. NEB PRN ×2 (06:29→10:07)
[2022-11-24 06:57] LABS: BASO % 0.7 % (0-2.0); EOS % 5.3 % (0-4.5); HEMATOCRIT 24.3 % (32.4-45.2); HEMOGLOBIN 7.8 GM/dL (10.7-15.3); LYMPH % 16.1 % (8-40); MCH 29.4 pg (25.7-33.7); MCHC 32.1 g/dl (32.0-36.0); MEAN CELL VOLUME 91.5 fl (80-96); MEAN PLT VOLUME 8.1 fl (7.5-11.1); MONO % 4.3 % (3.8-10.2); NEUT % 73.6 % (42.8-82.8); PLATELET COUNT 347 10^3/uL (134-434); RBC 2.65 M/mm3 (3.60-5.2); RDW 23.1 % (11.6-15.6); WHITE BLOOD COUNT 13.2 K/mm3 (4.0-10.0)
[2022-11-24 07:20] LABS: POTASSIUM 3.7 mmol/L (3.5-5.1)
[2022-11-24 07:23] LABS: BLOOD UREA NITROGEN 23.9 mg/dL (7-18)
[2022-11-24 07:25] LABS: MAGNESIUM 1.7 mg/dL (1.8-2.4)
[2022-11-24 07:26] LABS: CREATININE 0.4 mg/dL (0.55-1.3); PHOSPHOROUS 2.9 mg/dL (2.5-4.9)
[2022-11-24 07:27] LABS: BILIRUBIN,TOTAL 0.1 mg/dL (0.2-1); TOT PROT 4.9 g/dl (6.4-8.2)
[2022-11-24] MEDS ORDERED: MAGNESIUM SULF 50% (8.12 MEQ/2 ML-1 GM VIAL) IVPB ONE ×3 (08:15→09:00)
[2022-11-24] MEDS: LORazepam 0.5 MG TABLET GT SCH ×2 (09:20→22:21)
[2022-11-24] MEDS: PANTOPRAZOLE SODIUM 40 MG VIAL IVPUSH SCH (09:21)
[2022-11-24] MEDS: POLYETHYLENE GLYCOL (HEALTHYLAX) 3350 17 GM PACKET GT SCH (09:21)
[2022-11-24] MEDS: FOLIC ACID 1 MG TABLET (FP) GT SCH (09:21)
[2022-11-24] MEDS: APIXABAN 5 MG TABLET GT SCH ×2 (09:21→23:05)
[2022-11-24] MEDS: AMINO ACIDS/PROTEIN HYDROLYS 30 ML LIQUID.PKT GT SCH ×2 (09:21→17:37)
[2022-11-24] MEDS: MIDODRINE HCL 5 MG TABLET GT SCH ×3 (09:23→17:37)
[2022-11-24 10:24] LABS: ANISOCYTOSIS 2+; MACROCYTOSIS 0
[2022-11-24] MEDS: ASCORBIC ACID 500 MG/5 ML UNIT DOSE CUP GT SCH (11:06)
[2022-11-24] MEDS: COLLAGENASE CLOSTRIDIUM HIST. 30 GRAMS TUBE TP SCH (11:08)
[2022-11-24] MEDS: NYSTATIN POWDER 100,000 UNITS/GM - 15 GM TOPICAL POWDER TP SCH (11:08)
[2022-11-24] MEDS: SODIUM HYPOCHLORITE 0.25%- 473 ML BULK BOTTLE TP SCH (11:09)
[2022-11-24] MEDS ORDERED: INSULIN (NOVOLOG) ASPART 100 UNITS/ML 10ML VIAL ONE (11:41)
[2022-11-24] MEDS: NOREPINEPHRINE BITARTRATE/D5W 8 MG/250 ML BAG IVPB SCH (17:37)
[2022-11-24] MEDS: CHLORHEXIDINE GLUCONATE 4% CLEANSER FOR DECOLONIZATION TP SCH (22:23)
[2022-11-25] MEDS: oxyCODONE HCL 5 MG TABLET GT SCH ×2 (02:40→05:53)
[2022-11-25] MEDS: MEROPENEM 1 GM in DEXTROSE 5%-WATER 100 ML IVPB SCH ×2 (02:40→11:06)
[2022-11-25] MEDS: GABAPENTIN 300 MG CAPSULE GT SCH ×3 (05:53→21:20)
[2022-11-25] MEDS: METOPROLOL TARTRATE 25 MG TABLET (FP) GT SCH ×3 (05:54→21:21)
[2022-11-25] MEDS: LEVOTHYROXINE NA 125 MCG TABLET (FP) GT SCH (06:00)
[2022-11-25] MEDS: INSULIN SLIDING SCALE (NOVOLOG) 1 VIAL SQ SCH ×4 (06:06→21:21)
[2022-11-25 07:24] LABS: BASO % 0.9 % (0-2.0); EOS % 5.4 % (0-4.5); HEMATOCRIT 22.4 % (32.4-45.2); HEMOGLOBIN 7.4 GM/dL (10.7-15.3); LYMPH % 17.2 % (8-40); MCH 30.2 pg (25.7-33.7); MEAN CELL VOLUME 91.6 fl (80-96); MEAN PLT VOLUME 7.9 fl (7.5-11.1); MONO % 6.7 % (3.8-10.2); NEUT % 69.8 % (42.8-82.8); PLATELET COUNT 339 10^3/uL (134-434); RBC 2.45 M/mm3 (3.60-5.2); RDW 22.5 % (11.6-15.6); WHITE BLOOD COUNT 10.6 K/mm3 (4.0-10.0)
[2022-11-25 07:39] LABS: POTASSIUM 3.8 mmol/L (3.5-5.1)
[2022-11-25 07:41] LABS: BLOOD UREA NITROGEN 25.6 mg/dL (7-18); CALCIUM 9.2 mg/dL (8.5-10.1)
[2022-11-25 07:42] LABS: MAGNESIUM 1.9 mg/dL (1.8-2.4)
[2022-11-25 07:44] LABS: CREATININE 0.4 mg/dL (0.55-1.3); PHOSPHOROUS 2.9 mg/dL (2.5-4.9)
[2022-11-25 07:46] LABS: BILIRUBIN,TOTAL 0.2 mg/dL (0.2-1); TOT PROT 4.7 g/dl (6.4-8.2)
[2022-11-25] MEDS: AMINO ACIDS/PROTEIN HYDROLYS 30 ML LIQUID.PKT GT SCH ×2 (08:13→16:46)
[2022-11-25] MEDS ORDERED: MORPHINE SULFATE/0.9% NACL/PF 100 MG/100 ML BAG IVPB SCH (10:45)
[2022-11-25] MEDS: MIDODRINE HCL 5 MG TABLET GT SCH ×3 (11:06→18:30)
[2022-11-25] MEDS: POLYETHYLENE GLYCOL (HEALTHYLAX) 3350 17 GM PACKET GT SCH (11:06)
[2022-11-25] MEDS: PANTOPRAZOLE SODIUM 40 MG VIAL IVPUSH SCH (11:06)
[2022-11-25] MEDS: COLLAGENASE CLOSTRIDIUM HIST. 30 GRAMS TUBE TP SCH (11:06)
[2022-11-25] MEDS: LORazepam 0.5 MG TABLET GT SCH ×2 (11:07→21:21)
[2022-11-25] MEDS: FOLIC ACID 1 MG TABLET (FP) GT SCH (11:07)
[2022-11-25] MEDS: ASCORBIC ACID 500 MG/5 ML UNIT DOSE CUP GT SCH (11:07)
[2022-11-25] MEDS: APIXABAN 5 MG TABLET GT SCH ×2 (11:07→21:20)
[2022-11-25] MEDS: SODIUM HYPOCHLORITE 0.25%- 473 ML BULK BOTTLE TP SCH (11:08)
[2022-11-25] MEDS: NYSTATIN POWDER 100,000 UNITS/GM - 15 GM TOPICAL POWDER TP SCH (11:08)
[2022-11-25] MEDS ORDERED: LACTATED RINGERS SOLUTION 1000 ML INFUS.BAG IV ONE (11:11)
[2022-11-25] MEDS: NOREPINEPHRINE BITARTRATE/D5W 8 MG/250 ML BAG IVPB SCH (13:23)
[2022-11-25] MEDS ORDERED: INSULIN (NOVOLOG) ASPART 100 UNITS/ML 10ML VIAL ONE (16:37)
[2022-11-25] MEDS: CHLORHEXIDINE GLUCONATE 4% CLEANSER FOR DECOLONIZATION TP SCH (21:21)
[2022-11-26] MEDS: NOREPINEPHRINE BITARTRATE/D5W 8 MG/250 ML BAG IVPB SCH ×2 (03:29→12:00)
[2022-11-26] MEDS: GABAPENTIN 300 MG CAPSULE GT SCH ×3 (05:21→21:01)
[2022-11-26] MEDS: METOPROLOL TARTRATE 25 MG TABLET (FP) GT SCH ×3 (05:21→21:10)
[2022-11-26] MEDS: INSULIN SLIDING SCALE (NOVOLOG) 1 VIAL SQ SCH ×4 (06:25→21:00)
[2022-11-26] MEDS: LEVOTHYROXINE NA 125 MCG TABLET (FP) GT SCH (06:31)
[2022-11-26 07:07] LABS: EOS % 4.5 % (0-4.5); HEMATOCRIT 22.5 % (32.4-45.2); HEMOGLOBIN 7.3 GM/dL (10.7-15.3); LYMPH % 23.6 % (8-40); MCH 29.7 pg (25.7-33.7); MCHC 32.5 g/dl (32.0-36.0); MEAN CELL VOLUME 91.3 fl (80-96); MEAN PLT VOLUME 7.9 fl (7.5-11.1); MONO % 7.3 % (3.8-10.2); NEUT % 63.6 % (42.8-82.8); PLATELET COUNT 370 10^3/uL (134-434); RBC 2.46 M/mm3 (3.60-5.2); RDW 22.7 % (11.6-15.6); WHITE BLOOD COUNT 9.6 K/mm3 (4.0-10.0)
[2022-11-26 07:26] LABS: POTASSIUM 4.3 mmol/L (3.5-5.1)
[2022-11-26 07:28] LABS: CALCIUM 8.5 mg/dL (8.5-10.1)
[2022-11-26 07:29] LABS: ALBUMIN 0.9 g/dl (3.4-5.0); BLOOD UREA NITROGEN 23.1 mg/dL (7-18); MAGNESIUM 1.9 mg/dL (1.8-2.4)
[2022-11-26 07:31] LABS: CREATININE 0.4 mg/dL (0.55-1.3); PHOSPHOROUS 2.7 mg/dL (2.5-4.9)
[2022-11-26 07:33] LABS: BILIRUBIN,TOTAL 0.2 mg/dL (0.2-1)
[2022-11-26] MEDS: AMINO ACIDS/PROTEIN HYDROLYS 30 ML LIQUID.PKT GT SCH ×2 (09:18→17:56)
[2022-11-26] MEDS: FOLIC ACID 1 MG TABLET (FP) GT SCH (09:43)
[2022-11-26] MEDS: POLYETHYLENE GLYCOL (HEALTHYLAX) 3350 17 GM PACKET GT SCH (09:43)
[2022-11-26] MEDS: APIXABAN 5 MG TABLET GT SCH ×2 (09:43→21:01)
[2022-11-26] MEDS: PANTOPRAZOLE SODIUM 40 MG VIAL IVPUSH SCH (09:43)
[2022-11-26] MEDS: MIDODRINE HCL 5 MG TABLET GT SCH ×3 (09:43→17:55)
[2022-11-26] MEDS: LORazepam 0.5 MG TABLET GT SCH ×2 (09:44→21:02)
[2022-11-26] MEDS: ASCORBIC ACID 500 MG/5 ML UNIT DOSE CUP GT SCH (09:56)
[2022-11-26] MEDS: NYSTATIN POWDER 100,000 UNITS/GM - 15 GM TOPICAL POWDER TP SCH (11:00)
[2022-11-26] MEDS: COLLAGENASE CLOSTRIDIUM HIST. 30 GRAMS TUBE TP SCH (13:40)
[2022-11-26] MEDS: SODIUM HYPOCHLORITE 0.25%- 473 ML BULK BOTTLE TP SCH (13:40)
[2022-11-26] MEDS: CHLORHEXIDINE GLUCONATE 4% CLEANSER FOR DECOLONIZATION TP SCH (21:02)
[2022-11-27] MEDS: NOREPINEPHRINE BITARTRATE/D5W 8 MG/250 ML BAG IVPB SCH ×2 (03:09→21:34)
[2022-11-27] MEDS: GABAPENTIN 300 MG CAPSULE GT SCH ×3 (05:00→21:35)
[2022-11-27] MEDS: METOPROLOL TARTRATE 25 MG TABLET (FP) GT SCH ×3 (05:00→21:35)
[2022-11-27] MEDS: LEVOTHYROXINE NA 125 MCG TABLET (FP) GT SCH (06:24)
[2022-11-27] MEDS: INSULIN SLIDING SCALE (NOVOLOG) 1 VIAL SQ SCH ×3 (06:35→21:42)
[2022-11-27 07:22] LABS: POTASSIUM 4.2 mmol/L (3.5-5.1)
[2022-11-27 07:25] LABS: CALCIUM 8.3 mg/dL (8.5-10.1)
[2022-11-27 07:26] LABS: BLOOD UREA NITROGEN 23.6 mg/dL (7-18); MAGNESIUM 1.8 mg/dL (1.8-2.4)
[2022-11-27 07:29] LABS: CREATININE 0.4 mg/dL (0.55-1.3); PHOSPHOROUS 2.6 mg/dL (2.5-4.9)
[2022-11-27 07:30] LABS: BILIRUBIN,TOTAL 0.3 mg/dL (0.2-1); HEMATOCRIT 23.5 % (32.4-45.2); HEMOGLOBIN 7.5 GM/dL (10.7-15.3); MCH 29.1 pg (25.7-33.7); MCHC 31.8 g/dl (32.0-36.0); MEAN CELL VOLUME 91.4 fl (80-96); MEAN PLT VOLUME 7.9 fl (7.5-11.1); PLATELET COUNT 460 10^3/uL (134-434); RBC 2.57 M/mm3 (3.60-5.2); RDW 22.3 % (11.6-15.6); TOT PROT 5.4 g/dl (6.4-8.2); WHITE BLOOD COUNT 37.2 K/mm3 (4.0-10.0)
[2022-11-27] MEDS ORDERED: HYDROCORTISONE SOD SUCCINATE 100 MG/2 ML VIAL IVPUSH SCH (08:00)
[2022-11-27] MEDS ORDERED: VANCOMYCIN 1,000 MG in DEXTROSE 5%-WATER - 250 ML IVPB ONE (09:06)
[2022-11-27] MEDS ORDERED: VANCOMYCIN/WATER FOR INJ (PEG) 1,000 MG/200 ML BAG IVPB ONE (09:16)
[2022-11-27 09:21] LABS: ANISOCYTOSIS 1+; MACROCYTOSIS 0; ROULEAU 1+; TARGET CELLS 1+
[2022-11-27] MEDS ORDERED: LACTATED RINGERS SOLUTION 1,000 ML/1,000 ML INFUS.BAG IV STA (09:28)
[2022-11-27] MEDS: AMINO ACIDS/PROTEIN HYDROLYS 30 ML LIQUID.PKT GT SCH ×2 (09:49→17:00)
[2022-11-27] MEDS: PANTOPRAZOLE SODIUM 40 MG VIAL IVPUSH SCH (10:09)
[2022-11-27] MEDS: methylPREDNISolone NA SUCC 40 MG/1 ML VIAL IVPUSH SCH ×2 (10:09→17:04)
[2022-11-27] MEDS: PIPERACILLIN/TAZOB 3.375 GM 3.375 GM in DEXTROSE 5%-WATER - 50 ML IVPB SCH ×2 (10:10→17:03)
[2022-11-27] MEDS: FOLIC ACID 1 MG TABLET (FP) GT SCH (10:37)
[2022-11-27] MEDS: FLUDROCORTISONE ACETATE 0.1 MG TABLET (FP) PEG SCH (10:37)
[2022-11-27] MEDS: APIXABAN 5 MG TABLET GT SCH ×2 (10:37→21:35)
[2022-11-27] MEDS: LORazepam 0.5 MG TABLET GT SCH ×2 (10:37→21:35)
[2022-11-27] MEDS: NYSTATIN POWDER 100,000 UNITS/GM - 15 GM TOPICAL POWDER TP SCH (10:37)
[2022-11-27] MEDS: SODIUM HYPOCHLORITE 0.25%- 473 ML BULK BOTTLE TP SCH (10:37)
[2022-11-27] MEDS: ASCORBIC ACID 500 MG/5 ML UNIT DOSE CUP GT SCH (10:38)
[2022-11-27] MEDS: MIDODRINE HCL 5 MG TABLET GT SCH ×3 (10:38→17:04)
[2022-11-27] MEDS: COLLAGENASE CLOSTRIDIUM HIST. 30 GRAMS TUBE TP SCH (10:38)
[2022-11-27 12:09] LABS: EPI CELLS 5 /uL (0-25.1); HYALINE CASTS 10 /uL (0-3.1); PH,URINE 5.5 (5.0-8.0); URINE APPEARANCE CLOUDY; URINE BACTERIA 246 /uL (0-1359); URINE BILIRUBIN NEGATIVE (NEGATIVE); URINE COLOR DK YELLOW; URINE GLUCOSE (UA) NEGATIVE (NEGATIVE); URINE KETONE TRACE (NEGATIVE); URINE LEUK ESTERASE 2+ (NEGATIVE); URINE NITRITE NEGATIVE (NEGATIVE); URINE PROTEIN 1+ (NEGATIVE); URINE RBC 9 /uL (0-23.9); URINE UROBILINOGEN 0.2 mg/dL (0.2-1.0); URINE WBC 369 /uL (0-25.8)
[2022-11-27] MEDS: VANCOMYCIN ORAL SOLUTION 125 MG/2.5 ML PO SCH ×2 (13:00→17:04)
[2022-11-27] MEDS ORDERED: INSULIN (NOVOLOG) ASPART 100 UNITS/ML 10ML VIAL ONE ×2 (16:31→21:29)
[2022-11-27] MEDS: CHLORHEXIDINE GLUCONATE 4% CLEANSER FOR DECOLONIZATION TP SCH (21:35)
[2022-11-28] MEDS: VANCOMYCIN ORAL SOLUTION 125 MG/2.5 ML PO SCH ×4 (00:14→17:04)
[2022-11-28] MEDS: methylPREDNISolone NA SUCC 40 MG/1 ML VIAL IVPUSH SCH ×3 (01:55→17:02)
[2022-11-28] MEDS: PIPERACILLIN/TAZOB 3.375 GM 3.375 GM in DEXTROSE 5%-WATER - 50 ML IVPB SCH ×3 (01:55→17:03)
[2022-11-28] MEDS: INSULIN SLIDING SCALE (NOVOLOG) 1 VIAL SQ SCH ×5 (06:35→21:25)
[2022-11-28] MEDS: GABAPENTIN 300 MG CAPSULE GT SCH ×3 (06:36→21:25)
[2022-11-28] MEDS: METOPROLOL TARTRATE 25 MG TABLET (FP) GT SCH ×3 (06:36→21:25)
[2022-11-28] MEDS: LEVOTHYROXINE NA 125 MCG TABLET (FP) GT SCH (06:36)
[2022-11-28 07:06] LABS: HEMATOCRIT 24.8 % (32.4-45.2); HEMOGLOBIN 7.9 GM/dL (10.7-15.3); MCHC 31.8 g/dl (32.0-36.0); MEAN CELL VOLUME 91.4 fl (80-96); MEAN PLT VOLUME 7.8 fl (7.5-11.1); PLATELET COUNT 493 10^3/uL (134-434); RBC 2.71 M/mm3 (3.60-5.2); RDW 22.6 % (11.6-15.6)
[2022-11-28 07:27] LABS: POTASSIUM 4.6 mmol/L (3.5-5.1)
[2022-11-28 07:30] LABS: CALCIUM 8.1 mg/dL (8.5-10.1)
[2022-11-28 07:31] LABS: BLOOD UREA NITROGEN 34.3 mg/dL (7-18)
[2022-11-28 07:33] LABS: BILIRUBIN,DIRECT 0.1 mg/dL (0.0-0.2); CREATININE 0.5 mg/dL (0.55-1.3); PHOSPHOROUS 3.2 mg/dL (2.5-4.9)
[2022-11-28 07:35] LABS: BILIRUBIN,TOTAL 0.3 mg/dL (0.2-1); TOT PROT 5.6 g/dl (6.4-8.2)
[2022-11-28] MEDS: AMINO ACIDS/PROTEIN HYDROLYS 30 ML LIQUID.PKT GT SCH ×2 (08:14→16:32)
[2022-11-28] MEDS: PANTOPRAZOLE SODIUM 40 MG VIAL IVPUSH SCH (09:03)
[2022-11-28] MEDS: ASCORBIC ACID 500 MG/5 ML UNIT DOSE CUP GT SCH (09:03)
[2022-11-28] MEDS: APIXABAN 5 MG TABLET GT SCH ×2 (09:04→21:25)
[2022-11-28] MEDS: LORazepam 0.5 MG TABLET GT SCH ×2 (09:04→21:25)
[2022-11-28] MEDS: FOLIC ACID 1 MG TABLET (FP) GT SCH (09:04)
[2022-11-28] MEDS: FLUDROCORTISONE ACETATE 0.1 MG TABLET (FP) PEG SCH (09:04)
[2022-11-28] MEDS: MIDODRINE HCL 5 MG TABLET GT SCH ×3 (09:04→17:03)
[2022-11-28 09:17] LABS: ANISOCYTOSIS 1+; MACROCYTOSIS 0
[2022-11-28] MEDS ORDERED: INSULIN (NOVOLOG) ASPART 100 UNITS/ML 10ML VIAL ONE ×3 (11:00→21:04)
[2022-11-28] MEDS: COLLAGENASE CLOSTRIDIUM HIST. 30 GRAMS TUBE TP SCH (13:48)
[2022-11-28] MEDS: SODIUM HYPOCHLORITE 0.25%- 473 ML BULK BOTTLE TP SCH (13:48)
[2022-11-28] MEDS: NYSTATIN POWDER 100,000 UNITS/GM - 15 GM TOPICAL POWDER TP SCH (13:48)
[2022-11-28] MEDS: NOREPINEPHRINE BITARTRATE/D5W 8 MG/250 ML BAG IVPB SCH (16:16)
[2022-11-28] MEDS: CHLORHEXIDINE GLUCONATE 4% CLEANSER FOR DECOLONIZATION TP SCH (21:25)
[2022-11-29] MEDS: VANCOMYCIN ORAL SOLUTION 125 MG/2.5 ML PO SCH ×4 (00:50→17:20)
[2022-11-29] MEDS: PIPERACILLIN/TAZOB 3.375 GM 3.375 GM in DEXTROSE 5%-WATER - 50 ML IVPB SCH ×3 (01:38→17:19)
[2022-11-29] MEDS: methylPREDNISolone NA SUCC 40 MG/1 ML VIAL IVPUSH SCH ×3 (01:39→17:19)
[2022-11-29] MEDS: GABAPENTIN 300 MG CAPSULE GT SCH ×3 (05:59→21:29)
[2022-11-29] MEDS: LEVOTHYROXINE NA 125 MCG TABLET (FP) GT SCH (05:59)
[2022-11-29] MEDS: METOPROLOL TARTRATE 25 MG TABLET (FP) GT SCH ×3 (05:59→21:29)
[2022-11-29] MEDS: INSULIN SLIDING SCALE (NOVOLOG) 1 VIAL SQ SCH ×4 (05:59→22:50)
[2022-11-29 06:44] LABS: HEMATOCRIT 21.6 % (32.4-45.2); MCHC 31.8 g/dl (32.0-36.0); MEAN PLT VOLUME 7.9 fl (7.5-11.1); PLATELET COUNT 462 10^3/uL (134-434); RBC 2.38 M/mm3 (3.60-5.2); RDW 22.1 % (11.6-15.6); WHITE BLOOD COUNT 22.9 K/mm3 (4.0-10.0)
[2022-11-29 06:56] LABS: HEMOGLOBIN 6.9 GM/dL (10.7-15.3)
[2022-11-29 07:11] LABS: POTASSIUM 4.2 mmol/L (3.5-5.1)
[2022-11-29 07:14] LABS: CALCIUM 7.8 mg/dL (8.5-10.1)
[2022-11-29 07:15] LABS: BLOOD UREA NITROGEN 42.7 mg/dL (7-18); MAGNESIUM 2.1 mg/dL (1.8-2.4)
[2022-11-29 07:18] LABS: CREATININE 0.5 mg/dL (0.55-1.3); PHOSPHOROUS 3.2 mg/dL (2.5-4.9)
[2022-11-29 07:19] LABS: BILIRUBIN,TOTAL 0.2 mg/dL (0.2-1); TOT PROT 5.1 g/dl (6.4-8.2)
[2022-11-29 08:48] LABS: ANISOCYTOSIS 1+; MACROCYTOSIS 1+
[2022-11-29] MEDS ORDERED: oxyCODONE HCL 5 MG TABLET PO SCH (08:53)
[2022-11-29] MEDS ORDERED: oxyCODONE HCL 5 MG TABLET GT SCH (09:00)
[2022-11-29] MEDS: AMINO ACIDS/PROTEIN HYDROLYS 30 ML LIQUID.PKT GT SCH ×2 (09:08→17:20)
[2022-11-29] MEDS: MIDODRINE HCL 5 MG TABLET GT SCH ×3 (09:09→17:20)
[2022-11-29] MEDS: FLUDROCORTISONE ACETATE 0.1 MG TABLET (FP) PEG SCH (09:10)
[2022-11-29] MEDS: APIXABAN 5 MG TABLET GT SCH ×2 (09:10→21:28)
[2022-11-29] MEDS: LORazepam 0.5 MG TABLET GT SCH ×2 (09:10→21:27)
[2022-11-29] MEDS: FOLIC ACID 1 MG TABLET (FP) GT SCH (09:10)
[2022-11-29] MEDS: PANTOPRAZOLE SODIUM 40 MG VIAL IVPUSH SCH (09:11)
[2022-11-29] MEDS: NYSTATIN POWDER 100,000 UNITS/GM - 15 GM TOPICAL POWDER TP SCH (09:32)
[2022-11-29] MEDS: SODIUM HYPOCHLORITE 0.25%- 473 ML BULK BOTTLE TP SCH (09:33)
[2022-11-29] MEDS: COLLAGENASE CLOSTRIDIUM HIST. 30 GRAMS TUBE TP SCH (09:33)
[2022-11-29] MEDS: ASCORBIC ACID 500 MG/5 ML UNIT DOSE CUP GT SCH (09:35)
[2022-11-29] MEDS ORDERED: INSULIN (NOVOLOG) ASPART 100 UNITS/ML 10ML VIAL ONE ×2 (11:19→17:12)
[2022-11-29] MEDS: oxyCODONE HCL 5 MG TABLET GT SCH ×3 (14:18→21:25)
[2022-11-29] MEDS: NOREPINEPHRINE BITARTRATE/D5W 8 MG/250 ML BAG IVPB SCH (15:45)
[2022-11-29 19:39] LABS: HEMOGLOBIN 8.5 GM/dL (10.7-15.3); MCH 29.8 pg (25.7-33.7); MCHC 32.6 g/dl (32.0-36.0); MEAN CELL VOLUME 91.4 fl (80-96); MEAN PLT VOLUME 7.9 fl (7.5-11.1); PLATELET COUNT 472 10^3/uL (134-434); RBC 2.85 M/mm3 (3.60-5.2); RDW 19.4 % (11.6-15.6); WHITE BLOOD COUNT 15.9 K/mm3 (4.0-10.0)
[2022-11-29] MEDS: CHLORHEXIDINE GLUCONATE 4% CLEANSER FOR DECOLONIZATION TP SCH (21:28)
[2022-11-30] MEDS: VANCOMYCIN ORAL SOLUTION 125 MG/2.5 ML PO SCH ×4 (00:15→17:24)
[2022-11-30] MEDS: oxyCODONE HCL 5 MG TABLET GT SCH ×6 (00:45→21:29)
[2022-11-30] MEDS: methylPREDNISolone NA SUCC 40 MG/1 ML VIAL IVPUSH SCH ×3 (02:06→18:26)
[2022-11-30] MEDS: PIPERACILLIN/TAZOB 3.375 GM 3.375 GM in DEXTROSE 5%-WATER - 50 ML IVPB SCH ×2 (02:07→10:18)
[2022-11-30] MEDS ORDERED: INSULIN (NOVOLOG) ASPART 100 UNITS/ML 10ML VIAL ONE ×3 (05:45→17:17)
[2022-11-30] MEDS: METOPROLOL TARTRATE 25 MG TABLET (FP) GT SCH ×3 (05:59→21:29)
[2022-11-30] MEDS: GABAPENTIN 300 MG CAPSULE GT SCH ×3 (06:00→21:30)
[2022-11-30] MEDS: INSULIN SLIDING SCALE (NOVOLOG) 1 VIAL SQ SCH ×4 (06:00→22:34)
[2022-11-30] MEDS: LEVOTHYROXINE NA 125 MCG TABLET (FP) GT SCH (06:00)
[2022-11-30 06:48] LABS: BASO % 0.4 % (0-2.0); EOS % 0.3 % (0-4.5); HEMATOCRIT 25.7 % (32.4-45.2); HEMOGLOBIN 8.4 GM/dL (10.7-15.3); LYMPH % 13.3 % (8-40); MCH 29.6 pg (25.7-33.7); MCHC 32.5 g/dl (32.0-36.0); MEAN CELL VOLUME 91.1 fl (80-96); MEAN PLT VOLUME 7.9 fl (7.5-11.1); MONO % 4.1 % (3.8-10.2); NEUT % 81.9 % (42.8-82.8); PLATELET COUNT 437 10^3/uL (134-434); RBC 2.82 M/mm3 (3.60-5.2); RDW 19.3 % (11.6-15.6); WHITE BLOOD COUNT 11.2 K/mm3 (4.0-10.0)
[2022-11-30 07:08] LABS: POTASSIUM 4.1 mmol/L (3.5-5.1)
[2022-11-30 07:11] LABS: ALBUMIN 1.1 g/dl (3.4-5.0); CALCIUM 7.9 mg/dL (8.5-10.1)
[2022-11-30 07:12] LABS: BLOOD UREA NITROGEN 37.8 mg/dL (7-18)
[2022-11-30 07:14] LABS: CREATININE 0.5 mg/dL (0.55-1.3); PHOSPHOROUS 2.7 mg/dL (2.5-4.9)
[2022-11-30 07:16] LABS: BILIRUBIN,TOTAL 0.6 mg/dL (0.2-1); TOT PROT 5.2 g/dl (6.4-8.2)
[2022-11-30] MEDS: AMINO ACIDS/PROTEIN HYDROLYS 30 ML LIQUID.PKT GT SCH ×2 (08:25→17:24)
[2022-11-30] MEDS ORDERED: MIDODRINE HCL 5 MG TABLET GT SCH (10:04)
[2022-11-30] MEDS: PANTOPRAZOLE SODIUM 40 MG VIAL IVPUSH SCH (10:18)
[2022-11-30] MEDS: FOLIC ACID 1 MG TABLET (FP) GT SCH (10:18)
[2022-11-30] MEDS: APIXABAN 5 MG TABLET GT SCH ×2 (10:18→21:30)
[2022-11-30] MEDS: FLUDROCORTISONE ACETATE 0.1 MG TABLET (FP) PEG SCH (10:21)
[2022-11-30] MEDS: LORazepam 0.5 MG TABLET GT SCH ×2 (10:21→21:29)
[2022-11-30] MEDS: ASCORBIC ACID 500 MG/5 ML UNIT DOSE CUP GT SCH (10:22)
[2022-11-30] MEDS: MIDODRINE HCL 5 MG TABLET GT SCH ×3 (11:43→21:28)
[2022-11-30] MEDS: COLLAGENASE CLOSTRIDIUM HIST. 30 GRAMS TUBE TP SCH (11:52)
[2022-11-30] MEDS: NYSTATIN POWDER 100,000 UNITS/GM - 15 GM TOPICAL POWDER TP SCH (11:53)
[2022-11-30] MEDS: SODIUM HYPOCHLORITE 0.25%- 473 ML BULK BOTTLE TP SCH (11:53)
[2022-11-30] MEDS ORDERED: ARTIFICIAL TEARS (POLYVINYL ALCOHOL) OPTH DROPS OU PRN (14:03)
[2022-11-30] MEDS: NOREPINEPHRINE BITARTRATE/D5W 8 MG/250 ML BAG IVPB SCH (16:00)
[2022-11-30] MEDS: guaiFENesin/D-M SUGAR-FREE/ACLHOL-FREE 5 ML UNIT DOSE GT PRN (17:24)
[2022-11-30] MEDS: ALBUTEROL SO4 2.5/IPRATROPIUM 0.5 INH SOL 3 ML VIAL.NEB. NEB PRN (20:05)
[2022-11-30] MEDS: CHLORHEXIDINE GLUCONATE 4% CLEANSER FOR DECOLONIZATION TP SCH (21:30)
[2022-12-01] MEDS: VANCOMYCIN ORAL SOLUTION 125 MG/2.5 ML PO SCH ×4 (00:14→17:21)
[2022-12-01] MEDS: methylPREDNISolone NA SUCC 40 MG/1 ML VIAL IVPUSH SCH ×2 (01:21→09:43)
[2022-12-01] MEDS: oxyCODONE HCL 5 MG TABLET GT SCH ×6 (01:21→21:26)
[2022-12-01] MEDS: MIDODRINE HCL 5 MG TABLET GT SCH ×2 (04:09→17:20)
[2022-12-01] MEDS: METOPROLOL TARTRATE 25 MG TABLET (FP) GT SCH ×3 (05:28→21:26)
[2022-12-01] MEDS: GABAPENTIN 300 MG CAPSULE GT SCH ×3 (05:28→21:25)
[2022-12-01] MEDS: LEVOTHYROXINE NA 125 MCG TABLET (FP) GT SCH (06:35)
[2022-12-01] MEDS: INSULIN SLIDING SCALE (NOVOLOG) 1 VIAL SQ SCH ×4 (06:35→21:41)
[2022-12-01] MEDS ORDERED: INSULIN (NOVOLOG) ASPART 100 UNITS/ML 10ML VIAL ONE ×5 (06:37→21:41)
[2022-12-01 07:03] LABS: HEMATOCRIT 25.5 % (32.4-45.2); HEMOGLOBIN 8.4 GM/dL (10.7-15.3); MCH 30.2 pg (25.7-33.7); MCHC 33.1 g/dl (32.0-36.0); MEAN CELL VOLUME 91.4 fl (80-96); MEAN PLT VOLUME 7.9 fl (7.5-11.1); PLATELET COUNT 422 10^3/uL (134-434); RBC 2.79 M/mm3 (3.60-5.2); RDW 19.3 % (11.6-15.6); WHITE BLOOD COUNT 10.3 K/mm3 (4.0-10.0)
[2022-12-01 07:31] LABS: POTASSIUM 4.6 mmol/L (3.5-5.1)
[2022-12-01 07:34] LABS: ALBUMIN 1.2 g/dl (3.4-5.0); BLOOD UREA NITROGEN 40.4 mg/dL (7-18); CALCIUM 7.7 mg/dL (8.5-10.1); MAGNESIUM 2.1 mg/dL (1.8-2.4)
[2022-12-01 07:37] LABS: CREATININE 0.6 mg/dL (0.55-1.3); PHOSPHOROUS 2.9 mg/dL (2.5-4.9)
[2022-12-01 07:39] LABS: BILIRUBIN,TOTAL 0.2 mg/dL (0.2-1); TOT PROT 5.6 g/dl (6.4-8.2)
[2022-12-01 08:48] LABS: ANISOCYTOSIS 1+; MACROCYTOSIS 0
[2022-12-01] MEDS: AMINO ACIDS/PROTEIN HYDROLYS 30 ML LIQUID.PKT GT SCH ×2 (09:42→17:22)
[2022-12-01] MEDS: PANTOPRAZOLE SODIUM 40 MG VIAL IVPUSH SCH (09:45)
[2022-12-01] MEDS: FOLIC ACID 1 MG TABLET (FP) GT SCH (09:47)
[2022-12-01] MEDS: APIXABAN 5 MG TABLET GT SCH ×2 (09:47→21:26)
[2022-12-01] MEDS: LORazepam 0.5 MG TABLET GT SCH ×2 (09:48→21:25)
[2022-12-01] MEDS: ASCORBIC ACID 500 MG/5 ML UNIT DOSE CUP GT SCH (09:48)
[2022-12-01] MEDS: FLUDROCORTISONE ACETATE 0.1 MG TABLET (FP) PEG SCH (09:48)
[2022-12-01] MEDS: NYSTATIN POWDER 100,000 UNITS/GM - 15 GM TOPICAL POWDER TP SCH (09:49)
[2022-12-01] MEDS: SODIUM HYPOCHLORITE 0.25%- 473 ML BULK BOTTLE TP SCH (09:49)
[2022-12-01] MEDS: COLLAGENASE CLOSTRIDIUM HIST. 30 GRAMS TUBE TP SCH (09:49)
[2022-12-01] MEDS ORDERED: MIDODRINE HCL 5 MG TABLET GT SCH (10:02)
[2022-12-01] MEDS: LYTES/YERBA SANTA 240 ML BOTTLE MM SCH (11:36)
[2022-12-01] MEDS: CHLORHEXIDINE GLUCONATE 4% CLEANSER FOR DECOLONIZATION TP SCH (21:27)
[2022-12-01] MEDS ORDERED: methylPREDNISolone NA SUCC 40 MG/1 ML VIAL IVPUSH SCH (22:00)
[2022-12-02] MEDS: MIDODRINE HCL 5 MG TABLET GT SCH ×4 (01:20→21:09)
[2022-12-02] MEDS: VANCOMYCIN ORAL SOLUTION 125 MG/2.5 ML PO SCH ×4 (01:20→17:22)
[2022-12-02] MEDS: oxyCODONE HCL 5 MG TABLET GT SCH ×6 (01:21→21:09)
[2022-12-02] MEDS: METOPROLOL TARTRATE 25 MG TABLET (FP) GT SCH ×3 (05:31→21:09)
[2022-12-02] MEDS: GABAPENTIN 300 MG CAPSULE GT SCH ×3 (05:31→21:09)
[2022-12-02] MEDS: INSULIN SLIDING SCALE (NOVOLOG) 1 VIAL SQ SCH ×4 (06:20→21:17)
[2022-12-02] MEDS: LEVOTHYROXINE NA 125 MCG TABLET (FP) GT SCH (06:21)
[2022-12-02] MEDS ORDERED: INSULIN (NOVOLOG) ASPART 100 UNITS/ML 10ML VIAL ONE ×3 (06:38→16:26)
[2022-12-02 07:04] LABS: HEMATOCRIT 29.3 % (32.4-45.2); HEMOGLOBIN 9.4 GM/dL (10.7-15.3); MCH 29.3 pg (25.7-33.7); MEAN CELL VOLUME 91.7 fl (80-96); MEAN PLT VOLUME 7.8 fl (7.5-11.1); PLATELET COUNT 427 10^3/uL (134-434); RDW 19.6 % (11.6-15.6); WHITE BLOOD COUNT 11.8 K/mm3 (4.0-10.0)
[2022-12-02 07:17] LABS: POTASSIUM 4.7 mmol/L (3.5-5.1)
[2022-12-02 07:21] LABS: ALBUMIN 1.4 g/dl (3.4-5.0); BLOOD UREA NITROGEN 41.2 mg/dL (7-18); MAGNESIUM 2.1 mg/dL (1.8-2.4)
[2022-12-02 07:24] LABS: CREATININE 0.5 mg/dL (0.55-1.3); PHOSPHOROUS 2.6 mg/dL (2.5-4.9)
[2022-12-02 07:26] LABS: BILIRUBIN,TOTAL 0.5 mg/dL (0.2-1); TOT PROT 5.6 g/dl (6.4-8.2)
[2022-12-02 08:45] LABS: ANISOCYTOSIS 1+; MACROCYTOSIS 0
[2022-12-02] MEDS: AMINO ACIDS/PROTEIN HYDROLYS 30 ML LIQUID.PKT GT SCH ×3 (09:14→16:33)
[2022-12-02] MEDS: NYSTATIN POWDER 100,000 UNITS/GM - 15 GM TOPICAL POWDER TP SCH ×2 (09:16→09:17)
[2022-12-02] MEDS: LYTES/YERBA SANTA 240 ML BOTTLE MM SCH ×2 (09:16→09:40)
[2022-12-02] MEDS: PANTOPRAZOLE SODIUM 40 MG VIAL IVPUSH SCH (09:16)
[2022-12-02] MEDS: FOLIC ACID 1 MG TABLET (FP) GT SCH (09:16)
[2022-12-02] MEDS: LORazepam 0.5 MG TABLET GT SCH ×2 (09:16→21:10)
[2022-12-02] MEDS: COLLAGENASE CLOSTRIDIUM HIST. 30 GRAMS TUBE TP SCH ×2 (09:16→09:17)
[2022-12-02] MEDS: APIXABAN 5 MG TABLET GT SCH ×2 (09:17→21:09)
[2022-12-02] MEDS: SODIUM HYPOCHLORITE 0.25%- 473 ML BULK BOTTLE TP SCH ×2 (09:17)
[2022-12-02] MEDS: ASCORBIC ACID 500 MG/5 ML UNIT DOSE CUP GT SCH (09:19)
[2022-12-02] MEDS ORDERED: FLUDROCORTISONE ACETATE 0.1 MG TABLET (FP) PO ONE (10:00)
[2022-12-02] MEDS ORDERED: methylPREDNISolone NA SUCC 40 MG/1 ML VIAL IVPUSH SCH (10:00)
[2022-12-02] MEDS: ALBUTEROL SO4 2.5/IPRATROPIUM 0.5 INH SOL 3 ML VIAL.NEB. NEB PRN (20:12)
[2022-12-02] MEDS: CHLORHEXIDINE GLUCONATE 4% CLEANSER FOR DECOLONIZATION TP SCH (21:10)
[2022-12-02] MEDS: MELATONIN 5 MG TABLETS GT SCH (21:10)
[2022-12-03] MEDS: VANCOMYCIN ORAL SOLUTION 125 MG/2.5 ML PO SCH ×4 (00:45→18:16)
[2022-12-03] MEDS: oxyCODONE HCL 5 MG TABLET GT SCH ×6 (00:45→21:09)
[2022-12-03] MEDS: guaiFENesin/D-M SUGAR-FREE/ACLHOL-FREE 5 ML UNIT DOSE GT PRN ×2 (00:46→09:48)
[2022-12-03] MEDS: METOPROLOL TARTRATE 25 MG TABLET (FP) GT SCH ×3 (05:14→21:12)
[2022-12-03] MEDS: GABAPENTIN 300 MG CAPSULE GT SCH ×3 (05:14→21:12)
[2022-12-03] MEDS: MIDODRINE HCL 5 MG TABLET GT SCH ×3 (05:15→21:12)
[2022-12-03] MEDS ORDERED: INSULIN (NOVOLOG) ASPART 100 UNITS/ML 10ML VIAL ONE ×3 (06:14→11:14)
[2022-12-03] MEDS: INSULIN SLIDING SCALE (NOVOLOG) 1 VIAL SQ SCH ×4 (06:16→22:43)
[2022-12-03] MEDS: LEVOTHYROXINE NA 125 MCG TABLET (FP) GT SCH (06:16)
[2022-12-03] MEDS: FOLIC ACID 1 MG TABLET (FP) GT SCH (09:28)
[2022-12-03] MEDS: AMINO ACIDS/PROTEIN HYDROLYS 30 ML LIQUID.PKT GT SCH ×2 (09:29→18:16)
[2022-12-03] MEDS: APIXABAN 5 MG TABLET GT SCH ×2 (09:30→21:10)
[2022-12-03] MEDS: ASCORBIC ACID 500 MG/5 ML UNIT DOSE CUP GT SCH (09:30)
[2022-12-03] MEDS: PANTOPRAZOLE SODIUM 40 MG VIAL IVPUSH SCH (09:30)
[2022-12-03] MEDS: LORazepam 0.5 MG TABLET GT SCH ×2 (09:30→21:10)
[2022-12-03] MEDS: LYTES/YERBA SANTA 240 ML BOTTLE MM SCH (09:31)
[2022-12-03] MEDS: COLLAGENASE CLOSTRIDIUM HIST. 30 GRAMS TUBE TP SCH (10:00)
[2022-12-03] MEDS ORDERED: methylPREDNISolone NA SUCC 40 MG/1 ML VIAL IVPUSH ONE (10:00)
[2022-12-03] MEDS: NYSTATIN POWDER 100,000 UNITS/GM - 15 GM TOPICAL POWDER TP SCH (10:00)
[2022-12-03] MEDS: SODIUM HYPOCHLORITE 0.25%- 473 ML BULK BOTTLE TP SCH (10:00)
[2022-12-03] MEDS ORDERED: INSULIN (LEVEMIR) 100 UNITS/ML UNITS SQ ONE (11:12)
[2022-12-03] MEDS: CHLORHEXIDINE GLUCONATE 4% CLEANSER FOR DECOLONIZATION TP SCH (21:11)
[2022-12-03] MEDS: MELATONIN 5 MG TABLETS GT SCH (21:12)
[2022-12-04] MEDS: VANCOMYCIN ORAL SOLUTION 125 MG/2.5 ML PO SCH ×4 (00:17→17:56)
[2022-12-04] MEDS: oxyCODONE HCL 5 MG TABLET GT SCH ×6 (01:41→21:40)
[2022-12-04] MEDS: METOPROLOL TARTRATE 25 MG TABLET (FP) GT SCH ×3 (05:17→21:41)
[2022-12-04] MEDS: GABAPENTIN 300 MG CAPSULE GT SCH ×3 (05:17→21:42)
[2022-12-04] MEDS: MIDODRINE HCL 5 MG TABLET GT SCH ×3 (05:17→21:42)
[2022-12-04] MEDS: LEVOTHYROXINE NA 125 MCG TABLET (FP) GT SCH (06:12)
[2022-12-04] MEDS ORDERED: INSULIN (NOVOLOG) ASPART 100 UNITS/ML 10ML VIAL ONE ×2 (06:12→17:50)
[2022-12-04] MEDS: INSULIN SLIDING SCALE (NOVOLOG) 1 VIAL SQ SCH ×4 (06:13→22:10)
[2022-12-04 06:57] LABS: HEMATOCRIT 27.4 % (32.4-45.2); HEMOGLOBIN 8.9 GM/dL (10.7-15.3); MCHC 32.4 g/dl (32.0-36.0); MEAN CELL VOLUME 92.7 fl (80-96); MEAN PLT VOLUME 8.3 fl (7.5-11.1); PLATELET COUNT 459 10^3/uL (134-434); RBC 2.96 M/mm3 (3.60-5.2); RDW 19.5 % (11.6-15.6); WHITE BLOOD COUNT 14.4 K/mm3 (4.0-10.0)
[2022-12-04 07:16] LABS: POTASSIUM 4.9 mmol/L (3.5-5.1)
[2022-12-04 07:20] LABS: ALBUMIN 1.4 g/dl (3.4-5.0); BLOOD UREA NITROGEN 35.9 mg/dL (7-18); CALCIUM 7.7 mg/dL (8.5-10.1)
[2022-12-04 07:23] LABS: CREATININE 0.4 mg/dL (0.55-1.3); PHOSPHOROUS 2.4 mg/dL (2.5-4.9)
[2022-12-04 07:25] LABS: TOT PROT 5.5 g/dl (6.4-8.2)
[2022-12-04 07:26] LABS: BILIRUBIN,TOTAL 0.2 mg/dL (0.2-1)
[2022-12-04] MEDS: ASCORBIC ACID 500 MG/5 ML UNIT DOSE CUP GT SCH (10:46)
[2022-12-04] MEDS: AMINO ACIDS/PROTEIN HYDROLYS 30 ML LIQUID.PKT GT SCH ×2 (10:47→17:56)
[2022-12-04] MEDS: LORazepam 0.5 MG TABLET GT SCH ×2 (10:48→21:42)
[2022-12-04] MEDS: APIXABAN 5 MG TABLET GT SCH ×2 (10:51→21:42)
[2022-12-04] MEDS: FOLIC ACID 1 MG TABLET (FP) GT SCH (10:51)
[2022-12-04] MEDS: PANTOPRAZOLE SODIUM 40 MG VIAL IVPUSH SCH (10:53)
[2022-12-04] MEDS: SODIUM HYPOCHLORITE 0.25%- 473 ML BULK BOTTLE TP SCH (16:07)
[2022-12-04] MEDS: NYSTATIN POWDER 100,000 UNITS/GM - 15 GM TOPICAL POWDER TP SCH (16:07)
[2022-12-04] MEDS: LYTES/YERBA SANTA 240 ML BOTTLE MM SCH (16:07)
[2022-12-04] MEDS: COLLAGENASE CLOSTRIDIUM HIST. 30 GRAMS TUBE TP SCH (16:07)
[2022-12-04] MEDS ORDERED: INSULIN (LEVEMIR) 100 UNITS/ML UNITS SQ ONE (17:50)
[2022-12-04] MEDS: MELATONIN 5 MG TABLETS GT SCH (21:41)
[2022-12-04] MEDS: CHLORHEXIDINE GLUCONATE 4% CLEANSER FOR DECOLONIZATION TP SCH (21:42)
[2022-12-05] MEDS: VANCOMYCIN ORAL SOLUTION 125 MG/2.5 ML PO SCH ×4 (00:09→17:42)
[2022-12-05] MEDS: oxyCODONE HCL 5 MG TABLET GT SCH ×6 (01:09→20:29)
[2022-12-05] MEDS: GABAPENTIN 300 MG CAPSULE GT SCH ×3 (06:08→21:24)
[2022-12-05] MEDS: MIDODRINE HCL 5 MG TABLET GT SCH ×3 (06:08→21:24)
[2022-12-05] MEDS: METOPROLOL TARTRATE 25 MG TABLET (FP) GT SCH ×3 (06:08→21:24)
[2022-12-05] MEDS: LEVOTHYROXINE NA 125 MCG TABLET (FP) GT SCH ×2 (06:08→06:46)
[2022-12-05] MEDS: INSULIN SLIDING SCALE (NOVOLOG) 1 VIAL SQ SCH ×4 (06:09→23:30)
[2022-12-05 07:36] LABS: BASO % 0.4 % (0-2.0); EOS % 5.1 % (0-4.5); HEMATOCRIT 24.7 % (32.4-45.2); HEMOGLOBIN 8.1 GM/dL (10.7-15.3); LYMPH % 22.5 % (8-40); MCH 30.7 pg (25.7-33.7); MEAN CELL VOLUME 93.1 fl (80-96); MEAN PLT VOLUME 8.2 fl (7.5-11.1); MONO % 6.3 % (3.8-10.2); NEUT % 65.7 % (42.8-82.8); PLATELET COUNT 342 10^3/uL (134-434); RBC 2.65 M/mm3 (3.60-5.2); RDW 19.8 % (11.6-15.6); WHITE BLOOD COUNT 6.3 K/mm3 (4.0-10.0)
[2022-12-05 07:54] LABS: POTASSIUM 4.7 mmol/L (3.5-5.1)
[2022-12-05 07:55] LABS: CALCIUM 7.7 mg/dL (8.5-10.1)
[2022-12-05 07:56] LABS: BLOOD UREA NITROGEN 29.8 mg/dL (7-18); MAGNESIUM 1.9 mg/dL (1.8-2.4)
[2022-12-05 07:59] LABS: CREATININE 0.3 mg/dL (0.55-1.3)
[2022-12-05 08:00] LABS: PHOSPHOROUS 3.3 mg/dL (2.5-4.9)
[2022-12-05] MEDS: AMINO ACIDS/PROTEIN HYDROLYS 30 ML LIQUID.PKT GT SCH ×2 (10:48→17:42)
[2022-12-05] MEDS: PANTOPRAZOLE SODIUM 40 MG VIAL IVPUSH SCH (10:48)
[2022-12-05] MEDS: APIXABAN 5 MG TABLET GT SCH ×2 (10:48→21:23)
[2022-12-05] MEDS: ASCORBIC ACID 500 MG/5 ML UNIT DOSE CUP GT SCH (10:49)
[2022-12-05] MEDS: FOLIC ACID 1 MG TABLET (FP) GT SCH (10:49)
[2022-12-05] MEDS: LYTES/YERBA SANTA 240 ML BOTTLE MM SCH (10:50)
[2022-12-05] MEDS ORDERED: INSULIN (NOVOLOG) ASPART 100 UNITS/ML 10ML VIAL ONE (11:58)
[2022-12-05] MEDS: COLLAGENASE CLOSTRIDIUM HIST. 30 GRAMS TUBE TP SCH (13:00)
[2022-12-05] MEDS: NYSTATIN POWDER 100,000 UNITS/GM - 15 GM TOPICAL POWDER TP SCH (13:00)
[2022-12-05] MEDS: SODIUM HYPOCHLORITE 0.25%- 473 ML BULK BOTTLE TP SCH (13:00)
[2022-12-05] MEDS: MELATONIN 5 MG TABLETS GT SCH (21:24)
[2022-12-05] MEDS: CHLORHEXIDINE GLUCONATE 4% CLEANSER FOR DECOLONIZATION TP SCH (21:24)
[2022-12-06] MEDS ORDERED: ARTIFICIAL TEARS (POLYVINYL ALCOHOL) OPTH DROPS OU PRN (01:21)
[2022-12-06] MEDS ORDERED: guaiFENesin/D-M SUGAR-FREE/ACLHOL-FREE 5 ML UNIT DOSE GT PRN (01:21)
[2022-12-06] MEDS ORDERED: ALBUTEROL SO4 2.5/IPRATROPIUM 0.5 INH SOL 3 ML VIAL.NEB. NEB PRN ×2 (01:21→10:53)
[2022-12-06] MEDS: VANCOMYCIN ORAL SOLUTION 125 MG/2.5 ML GT SCH ×4 (02:35→18:03)
[2022-12-06] MEDS: oxyCODONE HCL 5 MG TABLET GT SCH ×6 (02:37→21:27)
[2022-12-06] MEDS ORDERED: VANCOMYCIN ORAL SOLUTION 125 MG/2.5 ML PO SCH (06:00)
[2022-12-06] MEDS: METOPROLOL TARTRATE 25 MG TABLET (FP) GT SCH ×3 (06:40→21:34)
[2022-12-06] MEDS: GABAPENTIN 300 MG CAPSULE GT SCH ×3 (06:41→21:33)
[2022-12-06] MEDS: MIDODRINE HCL 5 MG TABLET GT SCH ×3 (06:41→21:32)
[2022-12-06] MEDS: LEVOTHYROXINE NA 125 MCG TABLET (FP) GT SCH (06:47)
[2022-12-06] MEDS: INSULIN SLIDING SCALE (NOVOLOG) 1 VIAL SQ SCH ×4 (07:14→21:52)
[2022-12-06] MEDS: VANCOMYCIN ORAL SOLUTION 125 MG/2.5 ML PO SCH (08:02)
[2022-12-06] MEDS: APIXABAN 5 MG TABLET GT SCH ×2 (10:46→21:34)
[2022-12-06] MEDS: PANTOPRAZOLE SODIUM 40 MG VIAL IVPUSH SCH (10:57)
[2022-12-06] MEDS: AMINO ACIDS/PROTEIN HYDROLYS 30 ML LIQUID.PKT GT SCH ×2 (11:39→18:04)
[2022-12-06] MEDS: ASCORBIC ACID 500 MG/5 ML UNIT DOSE CUP GT SCH (11:40)
[2022-12-06] MEDS: SODIUM HYPOCHLORITE 0.25%- 473 ML BULK BOTTLE TP SCH (11:40)
[2022-12-06] MEDS: FOLIC ACID 1 MG TABLET (FP) GT SCH (11:40)
[2022-12-06] MEDS: NYSTATIN POWDER 100,000 UNITS/GM - 15 GM TOPICAL POWDER TP SCH (11:46)
[2022-12-06] MEDS: LYTES/YERBA SANTA 240 ML BOTTLE MM SCH (11:46)
[2022-12-06] MEDS: COLLAGENASE CLOSTRIDIUM HIST. 30 GRAMS TUBE TP SCH (11:47)
[2022-12-06] MEDS: MELATONIN 5 MG TABLETS GT SCH (21:33)
[2022-12-06] MEDS ORDERED: CHLORHEXIDINE GLUCONATE 4% CLEANSER FOR DECOLONIZATION TP SCH (22:00)
[2022-12-07] MEDS: oxyCODONE HCL 5 MG TABLET GT SCH ×6 (01:21→21:49)
[2022-12-07] MEDS: VANCOMYCIN ORAL SOLUTION 125 MG/2.5 ML GT SCH ×4 (03:58→18:01)
[2022-12-07] MEDS: MIDODRINE HCL 5 MG TABLET GT SCH ×3 (06:15→21:49)
[2022-12-07] MEDS: GABAPENTIN 300 MG CAPSULE GT SCH ×3 (06:15→21:50)
[2022-12-07] MEDS: METOPROLOL TARTRATE 25 MG TABLET (FP) GT SCH ×3 (06:37→21:49)
[2022-12-07] MEDS: INSULIN SLIDING SCALE (NOVOLOG) 1 VIAL SQ SCH ×4 (06:44→22:31)
[2022-12-07] MEDS: LEVOTHYROXINE NA 125 MCG TABLET (FP) GT SCH (06:53)
[2022-12-07] MEDS: APIXABAN 5 MG TABLET GT SCH ×2 (10:54→21:49)
[2022-12-07] MEDS: FOLIC ACID 1 MG TABLET (FP) GT SCH (10:57)
[2022-12-07] MEDS: PANTOPRAZOLE SODIUM 40 MG VIAL IVPUSH SCH (11:02)
[2022-12-07] MEDS: AMINO ACIDS/PROTEIN HYDROLYS 30 ML LIQUID.PKT GT SCH ×2 (11:02→17:57)
[2022-12-07] MEDS: ASCORBIC ACID 500 MG/5 ML UNIT DOSE CUP GT SCH (11:21)
[2022-12-07] MEDS: COLLAGENASE CLOSTRIDIUM HIST. 30 GRAMS TUBE TP SCH (11:44)
[2022-12-07] MEDS: NYSTATIN POWDER 100,000 UNITS/GM - 15 GM TOPICAL POWDER TP SCH (11:44)
[2022-12-07] MEDS: SODIUM HYPOCHLORITE 0.25%- 473 ML BULK BOTTLE TP SCH (11:46)
[2022-12-07] MEDS ORDERED: INSULIN (NOVOLOG) ASPART 100 UNITS/ML 10ML VIAL ONE (11:54)
[2022-12-07] MEDS: LYTES/YERBA SANTA 240 ML BOTTLE MM SCH (17:58)
[2022-12-07] MEDS: MELATONIN 5 MG TABLETS GT SCH (21:49)
[2022-12-08] MEDS: oxyCODONE HCL 5 MG TABLET GT SCH ×5 (01:50→16:48)
[2022-12-08] MEDS: VANCOMYCIN ORAL SOLUTION 125 MG/2.5 ML GT SCH ×4 (01:51→17:33)
[2022-12-08 04:50] VITALS: RESP 20
[2022-12-08] MEDS: LEVOTHYROXINE NA 125 MCG TABLET (FP) GT SCH (06:11)
[2022-12-08] MEDS: GABAPENTIN 300 MG CAPSULE GT SCH ×2 (06:11→13:03)
[2022-12-08] MEDS: MIDODRINE HCL 5 MG TABLET GT SCH ×2 (06:12→13:02)
[2022-12-08] MEDS: METOPROLOL TARTRATE 25 MG TABLET (FP) GT SCH ×2 (06:13→13:02)
[2022-12-08] MEDS: INSULIN SLIDING SCALE (NOVOLOG) 1 VIAL SQ SCH ×3 (06:15→16:50)
[2022-12-08] MEDS: AMINO ACIDS/PROTEIN HYDROLYS 30 ML LIQUID.PKT GT SCH ×2 (09:47→16:50)
[2022-12-08] MEDS: FOLIC ACID 1 MG TABLET (FP) GT SCH (09:47)
[2022-12-08] MEDS: APIXABAN 5 MG TABLET GT SCH (09:47)
[2022-12-08] MEDS: PANTOPRAZOLE SODIUM 40 MG VIAL IVPUSH SCH (09:48)
[2022-12-08] MEDS: COLLAGENASE CLOSTRIDIUM HIST. 30 GRAMS TUBE TP SCH (09:49)
[2022-12-08] MEDS: NYSTATIN POWDER 100,000 UNITS/GM - 15 GM TOPICAL POWDER TP SCH (09:50)
[2022-12-08] MEDS: SODIUM HYPOCHLORITE 0.25%- 473 ML BULK BOTTLE TP SCH (09:50)
[2022-12-08] MEDS: LYTES/YERBA SANTA 240 ML BOTTLE MM SCH (09:50)
[2022-12-08] MEDS: ASCORBIC ACID 500 MG/5 ML UNIT DOSE CUP GT SCH (09:52)
[2022-12-08] MEDS ORDERED: INSULIN (NOVOLOG) ASPART 100 UNITS/ML 10ML VIAL ONE (11:32)
[2022-12-08] MEDS ORDERED: METOPROLOL TARTRATE 50 MG TABLET (FP) GT SCH (13:48)
[2022-12-08] MEDS ORDERED: METOPROLOL TARTRATE 25 MG TABLET (FP) GT SCH (14:31)
[2022-12-08] MEDS ORDERED: METOPROLOL TARTRATE 25 MG TABLET (FP) GT ONE (14:33)
[2022-12-08 19:27] VITALS: BP 118/74; TEMP 98.4
[2022-12-08 21:10] VITALS: PULSE 112
== END 2022-12-08 21:15 | DRG 870 ==
LOC: JER 13:17 → JERBED 15:29 → JICU 17:11 → J8W 12-05 22:23
PROVIDERS: ADMIT Internal Medicine; ATTEND Nurse Practitioner Acute Care
PROC: 5A1955Z Respiratory Ventilation, Greater than 96 Consecutive Hours (ICD-10-PCS; principal; 2022-11-17)
PROC: 05HM33Z Insertion of Infusion Device into Right Internal Jugular Vein, Percutaneous Approach (ICD-10-PCS; 2022-11-17)
PROC: B543ZZA Ultrasonography of Right Jugular Veins, Guidance (ICD-10-PCS; 2022-11-17)
PROC: 05HN33Z Insertion of Infusion Device into Left Internal Jugular Vein, Percutaneous Approach (ICD-10-PCS; 2022-11-23)
PROC: B544ZZA Ultrasonography of Left Jugular Veins, Guidance (ICD-10-PCS; 2022-11-23)
PROC: 30233N1 Transfusion of Nonautologous Red Blood Cells into Peripheral Vein, Percutaneous Approach (ICD-10-PCS; 2022-11-29)
DX: A41.89 Other specified sepsis (principal); I50.33 Acute on chronic diastolic (congestive) heart failure; L89.154 Pressure ulcer of sacral region, stage 4; R65.21 Severe sepsis with septic shock; J96.21 Acute and chronic respiratory failure with hypoxia; I13.0 Hypertensive heart and chronic kidney disease with heart failure and stage 1 through stage 4 chronic kidney disease, or unspecified chronic kidney disease; E87.20 Acidosis, unspecified; A04.72 Enterocolitis due to Clostridium difficile, not specified as recurrent; N39.0 Urinary tract infection, site not specified; J93.9 Pneumothorax, unspecified; A04.8 Other specified bacterial intestinal infections; N18.9 Chronic kidney disease, unspecified; I73.9 Peripheral vascular disease, unspecified; I48.91 Unspecified atrial fibrillation; E03.9 Hypothyroidism, unspecified; E11.9 Type 2 diabetes mellitus without complications; D64.9 Anemia, unspecified; Z93.1 Gastrostomy status; Z93.0 Tracheostomy status; L89.320 Pressure ulcer of left buttock, unstageable; L89.222 Pressure ulcer of left hip, stage 2; L89.132 Pressure ulcer of right lower back, stage 2; K21.9 Gastro-esophageal reflux disease without esophagitis
CPT/HCPCS: 0241U-QW; 36415; 36430; 36600; 71045-TC-FY; 74018-TC-FY; 74177-TC; 74230-TC-FY; 80048; 80053; 80076; 80162; 81003; 82272; 82550; 82553; 82803; 82962; 83036; 83605; 83735; 84100; 84439; 84443; 84484; 85025; 85027; 85610; 86850; 86900; 86901; 86922; 87040; 87070; 87077; 87081; 87086; 87186; 87205; 87324; 87449; 87493; 87635; 92611-GN; 93005; 93010; 93306-TC; 94002; 94640; 99291; E0186; P9058; Q9967

== ENCOUNTER 2022-12-12 10:42 | Inpatient (IN) | payer MEDICARE, OTHER ==
[2022-12-12] MEDS ORDERED: PIPERACILLIN/TAZOBACTAM 4.5 GM VIAL IVPB ONE (10:44)
[2022-12-12] MEDS ORDERED: VANCOMYCIN 1,000 MG in DEXTROSE 5%-WATER - 250 ML IVPB ONE (10:44)
[2022-12-12] MEDS ORDERED: SODIUM CHLORIDE 0.9% 500 ML INFUS.BAG IV ONE (11:11)
[2022-12-12] MEDS ORDERED: PIPERACILLIN/TAZOB 4.5 GM 4.5 GM/100 ML BAG IVPB ONE (11:24)
[2022-12-12 11:41] LABS: HEMATOCRIT 25.7 % (32.4-45.2); MCH 30.4 pg (25.7-33.7); MCHC 31.1 g/dl (32.0-36.0); MEAN CELL VOLUME 97.7 fl (80-96); MEAN PLT VOLUME 8.4 fl (7.5-11.1); PLATELET COUNT 560 10^3/uL (134-434); RBC 2.63 M/mm3 (3.60-5.2); RDW 19.5 % (11.6-15.6); WHITE BLOOD COUNT 26.4 K/mm3 (4.0-10.0)
[2022-12-12 11:44] LABS: INR 2.05 (0.83-1.09); PROTHROMBIN TIME (PATIENT) 23.6 SEC (9.7-13.0)
[2022-12-12 11:47] LABS: ACTIVATED PTT 38.3 SECONDS (25.2-36.5)
[2022-12-12] MEDS ORDERED: VANCOMYCIN/WATER FOR INJ (PEG) 1,000 MG/200 ML BAG IVPB ONE (12:18)
[2022-12-12] MEDS ORDERED: SODIUM CHLORIDE 250 ML IV STA (12:21)
[2022-12-12 12:29] LABS: URINE APPEARANCE TURBID; URINE BILIRUBIN NEGATIVE (NEGATIVE); URINE COLOR YELLOW; URINE GLUCOSE (UA) NEGATIVE (NEGATIVE); URINE KETONE NEGATIVE (NEGATIVE)
[2022-12-12 12:30] LABS: URINE BACTERIA 3+ /uL (0-1359); URINE LEUK ESTERASE 4+ (NEGATIVE); URINE NITRITE NEGATIVE (NEGATIVE); URINE PROTEIN 2+ (NEGATIVE); URINE RBC 50-100 /uL (0-23.9); URINE UROBILINOGEN 0.2 mg/dL (0.2-1.0); URINE WBC TMTC /uL (0-25.8)
[2022-12-12 12:32] LABS: ANISOCYTOSIS 1+; MACROCYTOSIS 0
[2022-12-12 12:33] LABS: LACTIC ACID 6.4 mmol/L (0.4-2.0)
[2022-12-12 12:50] LABS: POTASSIUM 5.9 mmol/L (3.5-5.1)
[2022-12-12 12:53] LABS: ALBUMIN 1.3 g/dl (3.4-5.0); BLOOD UREA NITROGEN 30.8 mg/dL (7-18)
[2022-12-12 12:58] LABS: BILIRUBIN,TOTAL 0.2 mg/dL (0.2-1)
[2022-12-12 13:02] LABS: CALCIUM 9.1 mg/dL (8.5-10.1)
[2022-12-12] MEDS ORDERED: NOREPINEPHRINE BITARTRATE 16,000 MCG in SODIUM CHLORIDE 484 ML IV SCH (13:15)
[2022-12-12] MEDS ORDERED: NOREPINEPHRINE BITARTRATE/D5W 8 MG/250 ML BAG IVPB ONE (13:16)
[2022-12-12 13:24] LABS: ARTERIAL BLD GAS O2 SATURATION 82.6 % (95-98); ARTERIAL BLOOD GAS BASE EXCESS -11.7 mmol/L (-2-2); ARTERIAL BLOOD GAS PO2 67.3 mmHg (80-100); ARTERIAL BLOOD GAS pH 7.035 (7.350-7.450)
[2022-12-12 13:25] LABS: ALLENS TEST POSITIVE
[2022-12-12 13:26] LABS: VENT RATE 20
[2022-12-12] MEDS: NOREPINEPHRINE BITARTRATE/D5W 8 MG/250 ML BAG IVPB SCH ×2 (13:29→22:11)
[2022-12-12] MEDS ORDERED: INSULIN REGULAR HUMAN 100 UNITS/ML *VIAL IVPUSH ONE (14:56)
[2022-12-12] MEDS ORDERED: DEXTROSE 50%-WATER - 25 GM/50 ML VIAL IVPUSH ONE (14:56)
[2022-12-12] MEDS ORDERED: SODIUM ZIRCONIUM CYCLOSILICATE (LOKELMA) 5 GM PACKET GT SCH (14:57)
[2022-12-12] MEDS ORDERED: SODIUM CHLORIDE 1,000 ML IV STA (14:59)
[2022-12-12] MEDS ORDERED: PANTOPRAZOLE 40 MG TABLET PO SCH (15:45)
[2022-12-12] MEDS ORDERED: LEVOTHYROXINE NA 25 MCG TABLET (FP) GT SCH (15:45)
[2022-12-12] MEDS ORDERED: DEXMEDETOMIDINE PREMIX 400 MCG/100 ML BAG IVPB SCH (16:00)
[2022-12-12] MEDS ORDERED: PANTOPRAZOLE SODIUM 40 MG VIAL IVPUSH SCH (16:00)
[2022-12-12 16:20] LABS: LACTIC ACID 3.7 mmol/L (0.4-2.0)
[2022-12-12] MEDS: MEROPENEM 1 GM in DEXTROSE 5%-WATER 100 ML IVPB SCH ×2 (16:53→23:11)
[2022-12-12] MEDS: INSULIN SLIDING SCALE (NOVOLOG) 1 VIAL SQ SCH ×2 (17:13→21:22)
[2022-12-12] MEDS ORDERED: ALBUTEROL SO4 2.5/IPRATROPIUM 0.5 INH SOL 3 ML VIAL.NEB. NEB PRN (17:14)
[2022-12-12 17:28] LABS: HEMATOCRIT 25.2 % (32.4-45.2); HEMOGLOBIN 7.6 GM/dL (10.7-15.3); MCH 29.2 pg (25.7-33.7); MCHC 30.1 g/dl (32.0-36.0); MEAN PLT VOLUME 8.2 fl (7.5-11.1); PLATELET COUNT 496 10^3/uL (134-434)
[2022-12-12 17:53] LABS: WHITE BLOOD COUNT 33.1 K/mm3 (4.0-10.0)
[2022-12-12 17:57] LABS: POTASSIUM 4.9 mmol/L (3.5-5.1)
[2022-12-12 17:59] LABS: CALCIUM 7.8 mg/dL (8.5-10.1); MAGNESIUM 2.1 mg/dL (1.8-2.4)
[2022-12-12] MEDS ORDERED: ALBUTEROL SO4 HFA INHALER IH PRN (18:00)
[2022-12-12] MEDS ORDERED: MIDODRINE HCL 5 MG TABLET GT SCH (18:00)
[2022-12-12 18:02] LABS: CREATININE 0.8 mg/dL (0.55-1.3)
[2022-12-12 18:04] LABS: BILIRUBIN,TOTAL 0.3 mg/dL (0.2-1); TOT PROT 5.2 g/dl (6.4-8.2)
[2022-12-12] MEDS: SODIUM CHLORIDE 1,000 ML IV SCH (18:09)
[2022-12-12] MEDS ORDERED: dilTIAZem HCL 50 MG/10 ML - 10 ML VIAL IVPUSH ONE (18:30)
[2022-12-12 19:26] LABS: INR 1.98 (0.83-1.09); PROTHROMBIN TIME (PATIENT) 22.8 SEC (9.7-13.0)
[2022-12-12 19:30] LABS: HEMATOCRIT 26.8 % (32.4-45.2); HEMOGLOBIN 8.1 GM/dL (10.7-15.3); MCHC 30.1 g/dl (32.0-36.0); MEAN CELL VOLUME 96.2 fl (80-96); MEAN PLT VOLUME 7.8 fl (7.5-11.1); PLATELET COUNT 557 10^3/uL (134-434); RBC 2.79 M/mm3 (3.60-5.2); RDW 19.9 % (11.6-15.6)
[2022-12-12 19:32] LABS: WHITE BLOOD COUNT 38.6 K/mm3 (4.0-10.0)
[2022-12-12 19:35] LABS: ANISOCYTOSIS 1+; MACROCYTOSIS 0
[2022-12-12] MEDS: VASOPRESSIN 40 UNITS/100 ML BAG IV SCH (20:21)
[2022-12-12 20:23] LABS: ARTERIAL BLD GAS O2 SATURATION 88.4 % (95-98); ARTERIAL BLOOD GAS PO2 72.4 mmHg (80-100)
[2022-12-12 20:29] LABS: ARTERIAL BLOOD GAS pH 7.119 (7.350-7.450)
[2022-12-12 20:32] LABS: VENT RATE 24
[2022-12-12] MEDS: VANCOMYCIN/WATER 1250 MG 1,250 MG/250 ML BAG IVPB SCH (21:04)
[2022-12-12] MEDS: MUPIROCIN 2% TOPICAL OINTMENT FOR DECOLONIZATION NS SCH (21:16)
[2022-12-12] MEDS: CHLORHEXIDINE GLUCONATE 4% CLEANSER FOR DECOLONIZATION TP SCH (21:17)
[2022-12-12] MEDS: BUDESONIDE/FORMETEROL FUMARATE 80/4.5 mcg INHALER IH SCH (21:17)
[2022-12-12] MEDS ORDERED: LACTATED RINGERS SOLUTION 1,000 ML/1,000 ML INFUS.BAG IV ONE (22:35)
[2022-12-12] MEDS ORDERED: LACTATED RINGERS SOLUTION 1,000 ML/1,000 ML INFUS.BAG SCH (22:45)
[2022-12-12] MEDS: VANCOMYCIN ORAL SOLUTION 125 MG/2.5 ML PO SCH (23:12)
[2022-12-13 01:13] LABS: HEMOGLOBIN 7.8 GM/dL (10.7-15.3); MCH 29.6 pg (25.7-33.7); MCHC 31.3 g/dl (32.0-36.0); MEAN CELL VOLUME 94.6 fl (80-96); MEAN PLT VOLUME 7.9 fl (7.5-11.1); PLATELET COUNT 418 10^3/uL (134-434); RBC 2.65 M/mm3 (3.60-5.2); RDW 19.6 % (11.6-15.6)
[2022-12-13 01:14] LABS: ARTERIAL BLOOD GAS BASE EXCESS -8.3 mmol/L (-2-2); ARTERIAL BLOOD GAS PO2 42.6 mmHg (80-100); ARTERIAL BLOOD GAS pH 7.226 (7.350-7.450)
[2022-12-13 01:18] LABS: VENT MODE AC; VENT RATE 24
[2022-12-13 01:50] LABS: LACTIC ACID 3.2 mmol/L (0.4-2.0)
[2022-12-13] MEDS ORDERED: LACTATED RINGERS SOLUTION 1,000 ML/1,000 ML INFUS.BAG IV ONE (01:53)
[2022-12-13] MEDS ORDERED: DEXMEDETOMIDINE PREMIX 400 MCG/100 ML BAG IVPB SCH (02:15)
[2022-12-13] MEDS: PANTOPRAZOLE SODIUM 40 MG VIAL IVPUSH SCH ×3 (02:45→21:40)
[2022-12-13] MEDS ORDERED: AMIODARONE IN DEXTROSE,ISO-OSM 150 MG/100 ML BAG ONE (06:41)
[2022-12-13 06:53] LABS: ARTERIAL BLD GAS O2 SATURATION 98.9 % (95-98); ARTERIAL BLOOD GAS PO2 173.9 mmHg (80-100); ARTERIAL BLOOD GAS pH 7.232 (7.350-7.450)
[2022-12-13] MEDS: VANCOMYCIN ORAL SOLUTION 125 MG/2.5 ML PO SCH ×3 (06:56→17:26)
[2022-12-13] MEDS: INSULIN SLIDING SCALE (NOVOLOG) 1 VIAL SQ SCH ×4 (06:59→21:43)
[2022-12-13] MEDS: LEVOTHYROXINE SODIUM 100 MCG 5 ML VIAL IVPUSH SCH (07:01)
[2022-12-13] MEDS: MEROPENEM 1 GM in DEXTROSE 5%-WATER 100 ML IVPB SCH ×3 (07:01→09:35)
[2022-12-13] MEDS: AMIODARONE IN DEXTROSE,ISO-OSM 360 MG/200 ML BAG IV SCH ×2 (07:18→17:24)
[2022-12-13 07:25] LABS: HEMATOCRIT 25.4 % (32.4-45.2); HEMOGLOBIN 7.7 GM/dL (10.7-15.3); MCH 28.9 pg (25.7-33.7); MCHC 30.4 g/dl (32.0-36.0); MEAN PLT VOLUME 8.2 fl (7.5-11.1); PLATELET COUNT 430 10^3/uL (134-434); RBC 2.67 M/mm3 (3.60-5.2); RDW 19.6 % (11.6-15.6)
[2022-12-13 07:30] LABS: INR 1.85 (0.83-1.09); PROTHROMBIN TIME (PATIENT) 21.3 SEC (9.7-13.0)
[2022-12-13 07:34] LABS: WHITE BLOOD COUNT 42.4 K/mm3 (4.0-10.0)
[2022-12-13 07:39] LABS: POTASSIUM 4.8 mmol/L (3.5-5.1)
[2022-12-13 07:42] LABS: ALBUMIN 1.1 g/dl (3.4-5.0); BLOOD UREA NITROGEN 31.6 mg/dL (7-18); CALCIUM 8.1 mg/dL (8.5-10.1); MAGNESIUM 1.9 mg/dL (1.8-2.4)
[2022-12-13 07:45] LABS: CREATININE 0.9 mg/dL (0.55-1.3); PHOSPHOROUS 5.3 mg/dL (2.5-4.9)
[2022-12-13 07:47] LABS: BILIRUBIN,TOTAL 0.4 mg/dL (0.2-1); TOT PROT 5.3 g/dl (6.4-8.2)
[2022-12-13] MEDS: VANCOMYCIN/WATER 1250 MG 1,250 MG/250 ML BAG IVPB SCH (08:46)
[2022-12-13] MEDS: HYDROCORTISONE SOD SUCCINATE 100 MG/2 ML VIAL IVPB SCH ×2 (08:48→17:26)
[2022-12-13 08:55] LABS: ANISOCYTOSIS 0; HELMET CELLS 0; HOWELL-JOLLY BODIES 0; MACROCYTOSIS 0; OVALOCYTE 0; ROULEAU 0; SICKELED CELLS 0; TARGET CELLS 0; TEAR DROP CELLS 0; TOXIC GRANULATION 0
[2022-12-13] MEDS: MUPIROCIN 2% TOPICAL OINTMENT FOR DECOLONIZATION NS SCH ×2 (09:22→21:41)
[2022-12-13] MEDS: BUDESONIDE/FORMETEROL FUMARATE 80/4.5 mcg INHALER IH SCH ×2 (09:23→21:05)
[2022-12-13] MEDS: COLLAGENASE CLOSTRIDIUM HIST. 30 GRAMS TUBE TP SCH (09:23)
[2022-12-13] MEDS: VANCOMYCIN/WATER 1,250 MG/250 ML BAG (RESTRICTED TO ID ONLY) IVPB SCH (09:35)
[2022-12-13] MEDS: NOREPINEPHRINE BITARTRATE/D5W 8 MG/250 ML BAG IVPB SCH ×2 (10:32→19:31)
[2022-12-13] MEDS ORDERED: ALBUTEROL SO4 HFA INHALER IH PRN (10:33)
[2022-12-13] MEDS: SODIUM CHLORIDE 1,000 ML IV SCH (10:33)
[2022-12-13] MEDS: FLUDROCORTISONE ACETATE 0.1 MG TABLET (FP) PO SCH (10:46)
[2022-12-13] MEDS: PIPERACILLIN/TAZOB 3.375 GM 3.375 GM in DEXTROSE 5%-WATER - 50 ML IVPB SCH ×2 (11:18→17:24)
[2022-12-13 12:53] LABS: HEMOGLOBIN 7.2 GM/dL (10.7-15.3); MCHC 31.1 g/dl (32.0-36.0); MEAN CELL VOLUME 93.3 fl (80-96); MEAN PLT VOLUME 7.9 fl (7.5-11.1); PLATELET COUNT 339 10^3/uL (134-434); RBC 2.47 M/mm3 (3.60-5.2); RDW 19.4 % (11.6-15.6)
[2022-12-13] MEDS: DAPTOMYCIN 650 MG in SODIUM CHLORIDE 50 ML IVPB SCH (13:24)
[2022-12-13 13:57] LABS: ANISOCYTOSIS 1+; MACROCYTOSIS 0
[2022-12-13] MEDS ORDERED: ENOXAPARIN NA (PORCINE) 40 MG/0.4 ML DISP.SYRIN SQ SCH (14:00)
[2022-12-13] MEDS: DEXMEDETOMIDINE PREMIX 400 MCG/100 ML BAG IVPB SCH (16:24)
[2022-12-13] MEDS: CHLORHEXIDINE GLUCONATE 4% CLEANSER FOR DECOLONIZATION TP SCH (21:41)
[2022-12-14] MEDS: DEXMEDETOMIDINE PREMIX 400 MCG/100 ML BAG IVPB SCH (01:16)
[2022-12-14] MEDS: PIPERACILLIN/TAZOB 3.375 GM 3.375 GM in DEXTROSE 5%-WATER - 50 ML IVPB SCH ×2 (01:27→09:35)
[2022-12-14] MEDS: HYDROCORTISONE SOD SUCCINATE 100 MG/2 ML VIAL IVPB SCH ×3 (01:27→16:59)
[2022-12-14] MEDS: SODIUM CHLORIDE 1,000 ML IV SCH (01:33)
[2022-12-14] MEDS: VANCOMYCIN ORAL SOLUTION 125 MG/2.5 ML PO SCH ×5 (01:56→23:36)
[2022-12-14] MEDS: LEVOTHYROXINE SODIUM 100 MCG 5 ML VIAL IVPUSH SCH (06:23)
[2022-12-14] MEDS: INSULIN SLIDING SCALE (NOVOLOG) 1 VIAL SQ SCH ×4 (07:00→21:28)
[2022-12-14] MEDS ORDERED: CALCIUM GLUCONATE 10% - 1,000 MG/10 ML VIAL ONE (07:32)
[2022-12-14 07:35] LABS: HEMATOCRIT 20.8 % (32.4-45.2); MCH 29.6 pg (25.7-33.7); MCHC 31.6 g/dl (32.0-36.0); MEAN CELL VOLUME 93.8 fl (80-96); MEAN PLT VOLUME 8.2 fl (7.5-11.1); PLATELET COUNT 309 10^3/uL (134-434); RBC 2.22 M/mm3 (3.60-5.2); WHITE BLOOD COUNT 23.6 K/mm3 (4.0-10.0)
[2022-12-14 07:44] LABS: HEMOGLOBIN 6.6 GM/dL (10.7-15.3)
[2022-12-14] MEDS: NOREPINEPHRINE BITARTRATE/D5W 8 MG/250 ML BAG IVPB SCH ×2 (07:45→19:45)
[2022-12-14 08:00] LABS: POTASSIUM 4.5 mmol/L (3.5-5.1)
[2022-12-14 08:08] LABS: ALBUMIN 1.1 g/dl (3.4-5.0); BLOOD UREA NITROGEN 31.8 mg/dL (7-18)
[2022-12-14 08:09] LABS: BILIRUBIN,TOTAL 0.3 mg/dL (0.2-1)
[2022-12-14 08:10] LABS: CALCIUM 7.9 mg/dL (8.5-10.1)
[2022-12-14 08:11] LABS: CREATININE 0.7 mg/dL (0.55-1.3); MAGNESIUM 1.9 mg/dL (1.8-2.4); PHOSPHOROUS 4.3 mg/dL (2.5-4.9)
[2022-12-14] MEDS: AMIODARONE IN DEXTROSE,ISO-OSM 360 MG/200 ML BAG IV SCH ×2 (08:25→19:35)
[2022-12-14 08:55] LABS: ANISOCYTOSIS 1+; MACROCYTOSIS 1+
[2022-12-14] MEDS: ENOXAPARIN NA (PORCINE) 30 MG/0.3 ML DISP.SYRIN SQ SCH (09:35)
[2022-12-14] MEDS: PANTOPRAZOLE SODIUM 40 MG VIAL IVPUSH SCH ×2 (09:35→21:25)
[2022-12-14] MEDS: FLUDROCORTISONE ACETATE 0.1 MG TABLET (FP) PO SCH (09:36)
[2022-12-14] MEDS: BUDESONIDE/FORMETEROL FUMARATE 80/4.5 mcg INHALER IH SCH ×2 (09:36→21:34)
[2022-12-14] MEDS: MUPIROCIN 2% TOPICAL OINTMENT FOR DECOLONIZATION NS SCH ×2 (09:36→21:26)
[2022-12-14] MEDS ORDERED: INSULIN (NOVOLOG) ASPART 100 UNITS/ML 10ML VIAL ONE (10:13)
[2022-12-14] MEDS: VASOPRESSIN 40 UNITS/100 ML BAG IV SCH (10:16)
[2022-12-14] MEDS: COLLAGENASE CLOSTRIDIUM HIST. 30 GRAMS TUBE TP SCH (10:17)
[2022-12-14] MEDS: DAPTOMYCIN 650 MG in SODIUM CHLORIDE 50 ML IVPB SCH (12:08)
[2022-12-14] MEDS: ALPRAZolam 0.25 MG TABLET PO PRN (12:08)
[2022-12-14] MEDS: metoPROLOL SUCCINATE 25 MG TAB.SR.24H (FP) PO SCH (13:02)
[2022-12-14] MEDS ORDERED: METOPROLOL TARTRATE 5 MG/5 ML VIAL IVPUSH PRN (16:36)
[2022-12-14] MEDS ORDERED: METOPROLOL TARTRATE 5 MG/5 ML VIAL ONE (16:36)
[2022-12-14 16:54] LABS: BASO % 0.2 % (0-2.0); HEMATOCRIT 25.6 % (32.4-45.2); LYMPH % 4.4 % (8-40); MCH 28.6 pg (25.7-33.7); MCHC 31.3 g/dl (32.0-36.0); MEAN CELL VOLUME 91.4 fl (80-96); MEAN PLT VOLUME 7.6 fl (7.5-11.1); MONO % 1.8 % (3.8-10.2); NEUT % 92.6 % (42.8-82.8); PLATELET COUNT 369 10^3/uL (134-434); RDW 19.4 % (11.6-15.6)
[2022-12-14 16:56] LABS: WHITE BLOOD COUNT 35.6 K/mm3 (4.0-10.0)
[2022-12-14] MEDS: MEROPENEM 1 GM in DEXTROSE 5%-WATER 100 ML IVPB SCH (17:00)
[2022-12-14 17:59] LABS: ANISOCYTOSIS 1+; MACROCYTOSIS 1+
[2022-12-14] MEDS: CHLORHEXIDINE GLUCONATE 4% CLEANSER FOR DECOLONIZATION TP SCH (21:25)
[2022-12-15] MEDS: HYDROCORTISONE SOD SUCCINATE 100 MG/2 ML VIAL IVPB SCH ×3 (02:12→17:01)
[2022-12-15] MEDS: MEROPENEM 1 GM in DEXTROSE 5%-WATER 100 ML IVPB SCH ×3 (02:12→17:01)
[2022-12-15] MEDS: AMIODARONE IN DEXTROSE,ISO-OSM 360 MG/200 ML BAG IV SCH (05:09)
[2022-12-15] MEDS ORDERED: ONDANSETRON 4 MG/2 ML VIAL IVPUSH ONE (05:46)
[2022-12-15] MEDS: VANCOMYCIN ORAL SOLUTION 125 MG/2.5 ML PO SCH ×3 (05:54→17:01)
[2022-12-15] MEDS: LEVOTHYROXINE SODIUM 100 MCG 5 ML VIAL IVPUSH SCH (06:02)
[2022-12-15] MEDS: INSULIN SLIDING SCALE (NOVOLOG) 1 VIAL SQ SCH ×4 (06:22→21:34)
[2022-12-15 07:50] LABS: HEMATOCRIT 23.9 % (32.4-45.2); HEMOGLOBIN 7.7 GM/dL (10.7-15.3); MCH 29.9 pg (25.7-33.7); MCHC 32.1 g/dl (32.0-36.0); MEAN CELL VOLUME 93.1 fl (80-96); MEAN PLT VOLUME 8.2 fl (7.5-11.1); PLATELET COUNT 325 10^3/uL (134-434); RBC 2.57 M/mm3 (3.60-5.2); RDW 19.6 % (11.6-15.6); WHITE BLOOD COUNT 25.6 K/mm3 (4.0-10.0)
[2022-12-15 08:23] LABS: POTASSIUM 4.4 mmol/L (3.5-5.1)
[2022-12-15] MEDS: NOREPINEPHRINE BITARTRATE/D5W 8 MG/250 ML BAG IVPB SCH ×2 (08:28→22:13)
[2022-12-15 08:35] LABS: ALBUMIN 1.3 g/dl (3.4-5.0); BLOOD UREA NITROGEN 32.5 mg/dL (7-18); CALCIUM 8.1 mg/dL (8.5-10.1); MAGNESIUM 1.9 mg/dL (1.8-2.4)
[2022-12-15 08:38] LABS: CREATININE 0.9 mg/dL (0.55-1.3); PHOSPHOROUS 4.4 mg/dL (2.5-4.9)
[2022-12-15 08:39] LABS: BILIRUBIN,TOTAL 0.4 mg/dL (0.2-1); TOT PROT 5.7 g/dl (6.4-8.2)
[2022-12-15] MEDS: ENOXAPARIN NA (PORCINE) 30 MG/0.3 ML DISP.SYRIN SQ SCH (09:06)
[2022-12-15] MEDS: ALPRAZolam 0.25 MG TABLET PO PRN (09:07)
[2022-12-15] MEDS: PANTOPRAZOLE SODIUM 40 MG VIAL IVPUSH SCH ×2 (09:08→21:12)
[2022-12-15] MEDS: metoPROLOL SUCCINATE 25 MG TAB.SR.24H (FP) PO SCH (09:08)
[2022-12-15] MEDS: BUDESONIDE/FORMETEROL FUMARATE 80/4.5 mcg INHALER IH SCH ×3 (09:08→21:21)
[2022-12-15] MEDS: MUPIROCIN 2% TOPICAL OINTMENT FOR DECOLONIZATION NS SCH ×2 (09:08→21:12)
[2022-12-15] MEDS: FLUDROCORTISONE ACETATE 0.1 MG TABLET (FP) PO SCH (09:08)
[2022-12-15 09:31] LABS: ANISOCYTOSIS 1+; MACROCYTOSIS 1+
[2022-12-15] MEDS: COLLAGENASE CLOSTRIDIUM HIST. 30 GRAMS TUBE TP SCH (11:01)
[2022-12-15] MEDS ORDERED: INSULIN (NOVOLOG) ASPART 100 UNITS/ML 10ML VIAL ONE (11:31)
[2022-12-15] MEDS: DAPTOMYCIN 650 MG in SODIUM CHLORIDE 50 ML IVPB SCH (12:44)
[2022-12-15] MEDS: MIDODRINE HCL 5 MG TABLET GT SCH (17:01)
[2022-12-15] MEDS: METOPROLOL TARTRATE 50 MG TABLET (FP) GT SCH (21:12)
[2022-12-15] MEDS: CHLORHEXIDINE GLUCONATE 4% CLEANSER FOR DECOLONIZATION TP SCH (21:12)
[2022-12-16] MEDS: VANCOMYCIN ORAL SOLUTION 125 MG/2.5 ML PO SCH ×2 (00:56→06:50)
[2022-12-16] MEDS: MEROPENEM 1 GM in DEXTROSE 5%-WATER 100 ML IVPB SCH ×3 (01:01→17:11)
[2022-12-16] MEDS: HYDROCORTISONE SOD SUCCINATE 100 MG/2 ML VIAL IVPB SCH ×3 (01:02→17:11)
[2022-12-16] MEDS: INSULIN SLIDING SCALE (NOVOLOG) 1 VIAL SQ SCH ×4 (06:19→23:20)
[2022-12-16] MEDS: LEVOTHYROXINE SODIUM 100 MCG 5 ML VIAL IVPUSH SCH (06:50)
[2022-12-16 08:49] LABS: BASO % 0.2 % (0-2.0); HEMATOCRIT 24.5 % (32.4-45.2); HEMOGLOBIN 7.6 GM/dL (10.7-15.3); LYMPH % 4.1 % (8-40); MCH 29.1 pg (25.7-33.7); MEAN CELL VOLUME 93.7 fl (80-96); MEAN PLT VOLUME 8.1 fl (7.5-11.1); NEUT % 93.7 % (42.8-82.8); PLATELET COUNT 268 10^3/uL (134-434); RBC 2.62 M/mm3 (3.60-5.2); RDW 20.2 % (11.6-15.6); WHITE BLOOD COUNT 15.6 K/mm3 (4.0-10.0)
[2022-12-16 09:07] LABS: POTASSIUM 4.4 mmol/L (3.5-5.1)
[2022-12-16 09:12] LABS: ALBUMIN 1.3 g/dl (3.4-5.0); CALCIUM 8.4 mg/dL (8.5-10.1)
[2022-12-16 09:15] LABS: CREATININE 0.8 mg/dL (0.55-1.3); PHOSPHOROUS 3.9 mg/dL (2.5-4.9)
[2022-12-16 09:17] LABS: BILIRUBIN,TOTAL 0.1 mg/dL (0.2-1); TOT PROT 5.6 g/dl (6.4-8.2)
[2022-12-16 09:24] LABS: ANISOCYTOSIS 1+; MACROCYTOSIS 1+
[2022-12-16] MEDS: ENOXAPARIN NA (PORCINE) 30 MG/0.3 ML DISP.SYRIN SQ SCH (10:10)
[2022-12-16] MEDS: FLUDROCORTISONE ACETATE 0.1 MG TABLET (FP) PO SCH (10:10)
[2022-12-16] MEDS: PANTOPRAZOLE SODIUM 40 MG VIAL IVPUSH SCH ×2 (10:10→23:44)
[2022-12-16] MEDS: MIDODRINE HCL 5 MG TABLET GT SCH ×3 (10:10→17:11)
[2022-12-16] MEDS: METOPROLOL TARTRATE 50 MG TABLET (FP) GT SCH ×2 (10:10→23:44)
[2022-12-16] MEDS: MUPIROCIN 2% TOPICAL OINTMENT FOR DECOLONIZATION NS SCH ×2 (10:10→22:54)
[2022-12-16] MEDS: COLLAGENASE CLOSTRIDIUM HIST. 30 GRAMS TUBE TP SCH (10:31)
[2022-12-16 12:02] VITALS: BMI 28.6
[2022-12-16] MEDS: DAPTOMYCIN 650 MG in SODIUM CHLORIDE 50 ML IVPB SCH (12:40)
[2022-12-16] MEDS ORDERED: ONDANSETRON 4 MG/2 ML VIAL IVPUSH PRN (12:47)
[2022-12-16] MEDS: BUDESONIDE/FORMETEROL FUMARATE 80/4.5 mcg INHALER IH SCH (22:53)
[2022-12-16] MEDS: CHLORHEXIDINE GLUCONATE 4% CLEANSER FOR DECOLONIZATION TP SCH (22:54)
[2022-12-17] MEDS: HYDROCORTISONE SOD SUCCINATE 100 MG/2 ML VIAL IVPB SCH (02:03)
[2022-12-17] MEDS: MEROPENEM 1 GM in DEXTROSE 5%-WATER 100 ML IVPB SCH ×3 (02:03→17:41)
[2022-12-17] MEDS: INSULIN SLIDING SCALE (NOVOLOG) 1 VIAL SQ SCH ×4 (06:30→21:14)
[2022-12-17] MEDS: LEVOTHYROXINE SODIUM 100 MCG 5 ML VIAL IVPUSH SCH (06:32)
[2022-12-17] MEDS: VASOPRESSIN 40 UNITS/100 ML BAG IV SCH (07:00)
[2022-12-17 07:20] LABS: HEMATOCRIT 22.6 % (32.4-45.2); HEMOGLOBIN 7.3 GM/dL (10.7-15.3); MCHC 32.2 g/dl (32.0-36.0); MEAN CELL VOLUME 93.3 fl (80-96); MEAN PLT VOLUME 8.2 fl (7.5-11.1); PLATELET COUNT 209 10^3/uL (134-434); RBC 2.42 M/mm3 (3.60-5.2); RDW 19.7 % (11.6-15.6); WHITE BLOOD COUNT 11.5 K/mm3 (4.0-10.0)
[2022-12-17 07:37] LABS: POTASSIUM 4.6 mmol/L (3.5-5.1)
[2022-12-17 07:46] LABS: CALCIUM 8.3 mg/dL (8.5-10.1)
[2022-12-17 07:47] LABS: ALBUMIN 1.2 g/dl (3.4-5.0); BLOOD UREA NITROGEN 35.2 mg/dL (7-18)
[2022-12-17 07:50] LABS: CREATININE 0.7 mg/dL (0.55-1.3); PHOSPHOROUS 2.9 mg/dL (2.5-4.9)
[2022-12-17 07:51] LABS: BILIRUBIN,TOTAL 0.3 mg/dL (0.2-1)
[2022-12-17 07:52] LABS: TOT PROT 5.5 g/dl (6.4-8.2)
[2022-12-17] MEDS ORDERED: ALBUTEROL SO4 0.083% IH SOL 2.5 MG/3 ML VIAL.NEB. NEB PRN (08:48)
[2022-12-17 10:10] LABS: ANISOCYTOSIS 3+; MACROCYTOSIS 3+
[2022-12-17] MEDS: PANTOPRAZOLE 20 MG TABLET PO SCH ×2 (10:38→21:13)
[2022-12-17] MEDS: APIXABAN 5 MG TABLET PEG SCH ×2 (10:38→21:13)
[2022-12-17] MEDS: AMIODARONE HCL 200 MG TABLET PO SCH ×2 (10:39→21:13)
[2022-12-17] MEDS: LORazepam 0.5 MG TABLET GT PRN ×2 (10:39→21:13)
[2022-12-17] MEDS: MIDODRINE HCL 5 MG TABLET GT SCH ×3 (10:39→18:11)
[2022-12-17] MEDS: MUPIROCIN 2% TOPICAL OINTMENT FOR DECOLONIZATION NS SCH (10:40)
[2022-12-17] MEDS: COLLAGENASE CLOSTRIDIUM HIST. 30 GRAMS TUBE TP SCH (10:40)
[2022-12-17] MEDS ORDERED: INSULIN (NOVOLOG) ASPART 100 UNITS/ML 10ML VIAL ONE ×2 (11:06→18:07)
[2022-12-17] MEDS: DAPTOMYCIN 650 MG in SODIUM CHLORIDE 50 ML IVPB SCH (12:31)
[2022-12-17] MEDS: CHLORHEXIDINE GLUCONATE 4% CLEANSER FOR DECOLONIZATION TP SCH (21:13)
[2022-12-18] MEDS: MEROPENEM 1 GM in DEXTROSE 5%-WATER 100 ML IVPB SCH ×3 (01:37→18:23)
[2022-12-18] MEDS: LEVOTHYROXINE SODIUM 100 MCG 5 ML VIAL IVPUSH SCH (06:19)
[2022-12-18] MEDS: INSULIN SLIDING SCALE (NOVOLOG) 1 VIAL SQ SCH ×4 (06:23→22:09)
[2022-12-18 07:58] LABS: BASO % 0.3 % (0-2.0); EOS % 0.3 % (0-4.5); HEMATOCRIT 26.3 % (32.4-45.2); HEMOGLOBIN 8.1 GM/dL (10.7-15.3); LYMPH % 12.2 % (8-40); MCH 29.1 pg (25.7-33.7); MEAN CELL VOLUME 94.1 fl (80-96); MEAN PLT VOLUME 8.6 fl (7.5-11.1); MONO % 2.7 % (3.8-10.2); NEUT % 84.5 % (42.8-82.8); PLATELET COUNT 243 10^3/uL (134-434); RBC 2.79 M/mm3 (3.60-5.2); WHITE BLOOD COUNT 13.7 K/mm3 (4.0-10.0)
[2022-12-18] MEDS: AMIODARONE HCL 200 MG TABLET PO SCH ×3 (08:11→21:50)
[2022-12-18] MEDS: LORazepam 0.5 MG TABLET GT PRN (08:11)
[2022-12-18 08:13] LABS: POTASSIUM 4.7 mmol/L (3.5-5.1)
[2022-12-18 08:16] LABS: ALBUMIN 1.4 g/dl (3.4-5.0); CALCIUM 8.3 mg/dL (8.5-10.1)
[2022-12-18 08:17] LABS: BLOOD UREA NITROGEN 34.9 mg/dL (7-18)
[2022-12-18 08:19] LABS: CREATININE 0.5 mg/dL (0.55-1.3); PHOSPHOROUS 2.1 mg/dL (2.5-4.9)
[2022-12-18 08:21] LABS: BILIRUBIN,TOTAL 0.1 mg/dL (0.2-1); TOT PROT 5.8 g/dl (6.4-8.2)
[2022-12-18] MEDS ORDERED: METOPROLOL TARTRATE 5 MG/5 ML VIAL IVPUSH ONE (09:52)
[2022-12-18] MEDS ORDERED: METOPROLOL TARTRATE 5 MG/5 ML VIAL IVPUSH PRN (09:52)
[2022-12-18] MEDS: APIXABAN 5 MG TABLET PEG SCH ×2 (10:00→21:50)
[2022-12-18] MEDS: MIDODRINE HCL 5 MG TABLET GT SCH ×2 (10:01→18:22)
[2022-12-18] MEDS: PANTOPRAZOLE 20 MG TABLET PO SCH (10:31)
[2022-12-18] MEDS: METOPROLOL TARTRATE 50 MG TABLET (FP) PO SCH ×2 (10:31→21:50)
[2022-12-18] MEDS: COLLAGENASE CLOSTRIDIUM HIST. 30 GRAMS TUBE TP SCH (10:32)
[2022-12-18] MEDS: DAPTOMYCIN 650 MG in SODIUM CHLORIDE 50 ML IVPB SCH (12:59)
[2022-12-18] MEDS: FAMOTIDINE 40 MG/5 ML ORAL SUSPENSION GT SCH ×2 (13:26→21:51)
[2022-12-18] MEDS ORDERED: FUROSEMIDE 40 MG/4 ML INJECTABLE VIAL IVPUSH ONE (14:51)
[2022-12-18] MEDS ORDERED: FUROSEMIDE 40 MG/4 ML INJECTABLE VIAL ONE (14:54)
[2022-12-18] MEDS ORDERED: INSULIN (NOVOLOG) ASPART 100 UNITS/ML 10ML VIAL ONE ×2 (18:47→21:53)
[2022-12-18] MEDS: CHLORHEXIDINE GLUCONATE 4% CLEANSER FOR DECOLONIZATION TP SCH (21:51)
[2022-12-19] MEDS: MEROPENEM 1 GM in DEXTROSE 5%-WATER 100 ML IVPB SCH ×3 (02:24→17:13)
[2022-12-19] MEDS: MIDODRINE HCL 5 MG TABLET GT SCH ×3 (02:24→17:15)
[2022-12-19] MEDS: INSULIN SLIDING SCALE (NOVOLOG) 1 VIAL SQ SCH ×4 (06:29→21:22)
[2022-12-19] MEDS: LEVOTHYROXINE SODIUM 100 MCG 5 ML VIAL IVPUSH SCH (06:29)
[2022-12-19 07:11] LABS: HEMATOCRIT 22.9 % (32.4-45.2); HEMOGLOBIN 7.5 GM/dL (10.7-15.3); MCH 30.9 pg (25.7-33.7); MCHC 32.7 g/dl (32.0-36.0); MEAN CELL VOLUME 94.6 fl (80-96); MEAN PLT VOLUME 8.9 fl (7.5-11.1); PLATELET COUNT 186 10^3/uL (134-434); RBC 2.42 M/mm3 (3.60-5.2); WHITE BLOOD COUNT 7.3 K/mm3 (4.0-10.0)
[2022-12-19 07:26] LABS: POTASSIUM 4.8 mmol/L (3.5-5.1)
[2022-12-19 07:31] LABS: ALBUMIN 1.2 g/dl (3.4-5.0)
[2022-12-19 07:32] LABS: BLOOD UREA NITROGEN 34.3 mg/dL (7-18); MAGNESIUM 1.8 mg/dL (1.8-2.4)
[2022-12-19 07:35] LABS: CREATININE 0.5 mg/dL (0.55-1.3); PHOSPHOROUS 1.8 mg/dL (2.5-4.9)
[2022-12-19 07:36] LABS: BILIRUBIN,TOTAL 0.3 mg/dL (0.2-1); TOT PROT 5.1 g/dl (6.4-8.2)
[2022-12-19 08:41] LABS: ANISOCYTOSIS 1+; MACROCYTOSIS 0
[2022-12-19] MEDS: APIXABAN 5 MG TABLET PEG SCH ×2 (09:16→21:02)
[2022-12-19] MEDS: AMIODARONE HCL 200 MG TABLET PO SCH (09:16)
[2022-12-19] MEDS ORDERED: FAMOTIDINE 20 MG/2.5 ML ORAL LIQUID GT SCH (10:00)
[2022-12-19] MEDS: COLLAGENASE CLOSTRIDIUM HIST. 30 GRAMS TUBE TP SCH (10:01)
[2022-12-19] MEDS: METOPROLOL TARTRATE 50 MG TABLET (FP) PO SCH ×2 (12:16→21:03)
[2022-12-19] MEDS: LORazepam 0.5 MG TABLET GT PRN (12:18)
[2022-12-19] MEDS: DAPTOMYCIN 650 MG in SODIUM CHLORIDE 50 ML IVPB SCH (12:58)
[2022-12-19] MEDS ORDERED: ONDANSETRON 4 MG/2 ML VIAL IVPUSH PRN (14:35)
[2022-12-19] MEDS ORDERED: METOPROLOL TARTRATE 5 MG/5 ML VIAL IVPUSH PRN (14:35)
[2022-12-19] MEDS: AMIODARONE HCL 200 MG TABLET GT SCH (21:02)
[2022-12-19] MEDS: CHLORHEXIDINE GLUCONATE 4% CLEANSER FOR DECOLONIZATION TP SCH (21:03)
[2022-12-19] MEDS: FAMOTIDINE 20 MG/2.5 ML ORAL LIQUID GT SCH (21:03)
[2022-12-20] MEDS: MEROPENEM 1 GM in DEXTROSE 5%-WATER 100 ML IVPB SCH ×3 (01:24→18:24)
[2022-12-20] MEDS: MIDODRINE HCL 5 MG TABLET GT SCH ×3 (01:25→18:25)
[2022-12-20] MEDS: INSULIN SLIDING SCALE (NOVOLOG) 1 VIAL SQ SCH ×4 (06:06→21:49)
[2022-12-20] MEDS: LEVOTHYROXINE SODIUM 100 MCG 5 ML VIAL IVPUSH SCH (06:51)
[2022-12-20 07:11] LABS: HEMATOCRIT 26.5 % (32.4-45.2); HEMOGLOBIN 8.6 GM/dL (10.7-15.3); MCH 30.4 pg (25.7-33.7); MCHC 32.6 g/dl (32.0-36.0); MEAN CELL VOLUME 93.4 fl (80-96); MEAN PLT VOLUME 8.7 fl (7.5-11.1); PLATELET COUNT 231 10^3/uL (134-434); RBC 2.83 M/mm3 (3.60-5.2); RDW 19.7 % (11.6-15.6); WHITE BLOOD COUNT 8.6 K/mm3 (4.0-10.0)
[2022-12-20 07:41] LABS: POTASSIUM 4.6 mmol/L (3.5-5.1)
[2022-12-20 07:43] LABS: ALBUMIN 1.3 g/dl (3.4-5.0); CALCIUM 8.4 mg/dL (8.5-10.1)
[2022-12-20 07:44] LABS: BLOOD UREA NITROGEN 27.7 mg/dL (7-18); MAGNESIUM 1.8 mg/dL (1.8-2.4)
[2022-12-20 07:46] LABS: CREATININE 0.5 mg/dL (0.55-1.3); PHOSPHOROUS 1.6 mg/dL (2.5-4.9)
[2022-12-20 07:48] LABS: BILIRUBIN,TOTAL 0.5 mg/dL (0.2-1); TOT PROT 5.6 g/dl (6.4-8.2)
[2022-12-20 08:56] LABS: ANISOCYTOSIS 2+; MACROCYTOSIS 0
[2022-12-20] MEDS: APIXABAN 5 MG TABLET PEG SCH ×2 (10:14→21:46)
[2022-12-20] MEDS: ASCORBIC ACID 500 MG TABLET (FP) GT SCH (10:14)
[2022-12-20] MEDS: AMIODARONE HCL 200 MG TABLET GT SCH ×2 (10:14→21:46)
[2022-12-20] MEDS: AMINO ACIDS/PROTEIN HYDROLYS 30 ML LIQUID.PKT GT SCH (10:14)
[2022-12-20] MEDS: LORazepam 0.5 MG TABLET GT PRN (10:15)
[2022-12-20] MEDS: METOPROLOL TARTRATE 50 MG TABLET (FP) PO SCH (10:15)
[2022-12-20] MEDS: FAMOTIDINE 20 MG/2.5 ML ORAL LIQUID GT SCH ×2 (10:40→21:46)
[2022-12-20] MEDS: DAPTOMYCIN 650 MG in SODIUM CHLORIDE 50 ML IVPB SCH (12:55)
[2022-12-20] MEDS: COLLAGENASE CLOSTRIDIUM HIST. 30 GRAMS TUBE TP SCH (13:40)
[2022-12-20] MEDS ORDERED: METOPROLOL TARTRATE 50 MG TABLET (FP) GT SCH (18:00)
[2022-12-20] MEDS: METOPROLOL TARTRATE 25 MG TABLET (FP) GT SCH ×2 (18:25→21:45)
[2022-12-20] MEDS: CHLORHEXIDINE GLUCONATE 4% CLEANSER FOR DECOLONIZATION TP SCH (21:46)
[2022-12-21] MEDS ORDERED: SODIUM CHLORIDE 500 ML IV STA (00:13)
[2022-12-21] MEDS: MIDODRINE HCL 5 MG TABLET GT SCH ×3 (01:02→18:14)
[2022-12-21] MEDS: MEROPENEM 1 GM in DEXTROSE 5%-WATER 100 ML IVPB SCH ×3 (01:02→18:14)
[2022-12-21] MEDS: INSULIN SLIDING SCALE (NOVOLOG) 1 VIAL SQ SCH ×4 (06:17→21:08)
[2022-12-21] MEDS: LEVOTHYROXINE SODIUM 100 MCG 5 ML VIAL IVPUSH SCH (06:18)
[2022-12-21 07:14] LABS: HEMATOCRIT 25.5 % (32.4-45.2); HEMOGLOBIN 8.5 GM/dL (10.7-15.3); MCH 31.9 pg (25.7-33.7); MCHC 33.4 g/dl (32.0-36.0); MEAN CELL VOLUME 95.4 fl (80-96); MEAN PLT VOLUME 9.4 fl (7.5-11.1); PLATELET COUNT 275 10^3/uL (134-434); RBC 2.67 M/mm3 (3.60-5.2); RDW 20.2 % (11.6-15.6); WHITE BLOOD COUNT 7.8 K/mm3 (4.0-10.0)
[2022-12-21 07:33] LABS: POTASSIUM 5.1 mmol/L (3.5-5.1)
[2022-12-21 07:48] LABS: ALBUMIN 1.2 g/dl (3.4-5.0); BLOOD UREA NITROGEN 27.2 mg/dL (7-18); CALCIUM 8.4 mg/dL (8.5-10.1); MAGNESIUM 1.9 mg/dL (1.8-2.4)
[2022-12-21 07:51] LABS: CREATININE 0.5 mg/dL (0.55-1.3); PHOSPHOROUS 2.2 mg/dL (2.5-4.9)
[2022-12-21 07:52] LABS: BILIRUBIN,TOTAL 0.4 mg/dL (0.2-1)
[2022-12-21 07:53] LABS: TOT PROT 5.3 g/dl (6.4-8.2)
[2022-12-21] MEDS: AMINO ACIDS/PROTEIN HYDROLYS 30 ML LIQUID.PKT GT SCH (08:12)
[2022-12-21 09:01] LABS: ANISOCYTOSIS 1+; MACROCYTOSIS 0
[2022-12-21] MEDS: FAMOTIDINE 20 MG/2.5 ML ORAL LIQUID GT SCH ×2 (10:15→21:08)
[2022-12-21] MEDS: APIXABAN 5 MG TABLET PEG SCH ×2 (10:16→21:07)
[2022-12-21] MEDS: METOPROLOL TARTRATE 25 MG TABLET (FP) GT SCH ×4 (10:16→21:08)
[2022-12-21] MEDS: ASCORBIC ACID 500 MG TABLET (FP) GT SCH (10:16)
[2022-12-21] MEDS: DIGOXIN 0.125 MG TABLET PO SCH (10:16)
[2022-12-21] MEDS: AMIODARONE HCL 200 MG TABLET GT SCH ×2 (10:16→21:07)
[2022-12-21] MEDS: COLLAGENASE CLOSTRIDIUM HIST. 30 GRAMS TUBE TP SCH (10:17)
[2022-12-21] MEDS: DAPTOMYCIN 650 MG in SODIUM CHLORIDE 50 ML IVPB SCH (13:22)
[2022-12-21] MEDS: LORazepam 0.5 MG TABLET GT PRN (21:08)
[2022-12-21] MEDS: CHLORHEXIDINE GLUCONATE 4% CLEANSER FOR DECOLONIZATION TP SCH (21:08)
[2022-12-22] MEDS: MEROPENEM 1 GM in DEXTROSE 5%-WATER 100 ML IVPB SCH ×3 (02:20→17:58)
[2022-12-22] MEDS: MIDODRINE HCL 5 MG TABLET GT SCH ×3 (02:21→17:57)
[2022-12-22] MEDS: INSULIN SLIDING SCALE (NOVOLOG) 1 VIAL SQ SCH ×4 (06:30→21:36)
[2022-12-22] MEDS: LEVOTHYROXINE SODIUM 100 MCG 5 ML VIAL IVPUSH SCH (06:42)
[2022-12-22] MEDS: LORazepam 0.5 MG TABLET GT PRN (07:51)
[2022-12-22 08:00] LABS: MCH 29.5 pg (25.7-33.7); MEAN CELL VOLUME 95.2 fl (80-96); MEAN PLT VOLUME 9.7 fl (7.5-11.1); PLATELET COUNT 345 10^3/uL (134-434); RBC 3.04 M/mm3 (3.60-5.2); RDW 20.6 % (11.6-15.6); WHITE BLOOD COUNT 12.8 K/mm3 (4.0-10.0)
[2022-12-22 08:11] LABS: POTASSIUM 5.1 mmol/L (3.5-5.1)
[2022-12-22 08:14] LABS: CALCIUM 8.1 mg/dL (8.5-10.1)
[2022-12-22 08:15] LABS: ALBUMIN 1.2 g/dl (3.4-5.0); BLOOD UREA NITROGEN 25.2 mg/dL (7-18); MAGNESIUM 1.9 mg/dL (1.8-2.4)
[2022-12-22 08:18] LABS: CREATININE 0.4 mg/dL (0.55-1.3); PHOSPHOROUS 2.9 mg/dL (2.5-4.9)
[2022-12-22 08:19] LABS: BILIRUBIN,TOTAL 0.2 mg/dL (0.2-1); TOT PROT 5.5 g/dl (6.4-8.2)
[2022-12-22 08:39] LABS: ANISOCYTOSIS 1+; MACROCYTOSIS 1+
[2022-12-22] MEDS: FAMOTIDINE 20 MG/2.5 ML ORAL LIQUID GT SCH ×2 (10:08→21:39)
[2022-12-22] MEDS: ASCORBIC ACID 500 MG TABLET (FP) GT SCH (10:08)
[2022-12-22] MEDS: APIXABAN 5 MG TABLET PEG SCH ×2 (10:08→21:36)
[2022-12-22] MEDS: AMINO ACIDS/PROTEIN HYDROLYS 30 ML LIQUID.PKT GT SCH (10:08)
[2022-12-22] MEDS: METOPROLOL TARTRATE 25 MG TABLET (FP) GT SCH ×4 (10:08→21:35)
[2022-12-22] MEDS: AMIODARONE HCL 200 MG TABLET GT SCH ×2 (10:08→21:36)
[2022-12-22] MEDS: COLLAGENASE CLOSTRIDIUM HIST. 30 GRAMS TUBE TP SCH (10:09)
[2022-12-22] MEDS: DIGOXIN 0.125 MG TABLET PO SCH (10:10)
[2022-12-22] MEDS ORDERED: INSULIN (NOVOLOG) ASPART 100 UNITS/ML 10ML VIAL ONE ×2 (12:01→21:24)
[2022-12-22] MEDS: DAPTOMYCIN 650 MG in SODIUM CHLORIDE 50 ML IVPB SCH (12:21)
[2022-12-22] MEDS: CHLORHEXIDINE GLUCONATE 4% CLEANSER FOR DECOLONIZATION TP SCH (21:36)
[2022-12-23] MEDS: MEROPENEM 1 GM in DEXTROSE 5%-WATER 100 ML IVPB SCH ×2 (01:02→10:20)
[2022-12-23] MEDS: MIDODRINE HCL 5 MG TABLET GT SCH ×3 (01:02→17:30)
[2022-12-23] MEDS: AMIODARONE HCL 200 MG TABLET GT SCH ×3 (06:03→21:35)
[2022-12-23] MEDS: INSULIN SLIDING SCALE (NOVOLOG) 1 VIAL SQ SCH ×4 (06:21→21:36)
[2022-12-23] MEDS: LEVOTHYROXINE SODIUM 100 MCG 5 ML VIAL IVPUSH SCH (06:53)
[2022-12-23 07:24] LABS: HEMATOCRIT 23.8 % (32.4-45.2); HEMOGLOBIN 7.6 GM/dL (10.7-15.3); MCH 30.2 pg (25.7-33.7); MEAN CELL VOLUME 94.4 fl (80-96); MEAN PLT VOLUME 9.2 fl (7.5-11.1); PLATELET COUNT 285 10^3/uL (134-434); RBC 2.52 M/mm3 (3.60-5.2); RDW 20.3 % (11.6-15.6); WHITE BLOOD COUNT 12.2 K/mm3 (4.0-10.0)
[2022-12-23 07:42] LABS: POTASSIUM 4.9 mmol/L (3.5-5.1)
[2022-12-23 07:48] LABS: ALBUMIN 1.1 g/dl (3.4-5.0); CALCIUM 7.9 mg/dL (8.5-10.1)
[2022-12-23 07:49] LABS: BLOOD UREA NITROGEN 26.5 mg/dL (7-18)
[2022-12-23 07:51] LABS: CREATININE 0.5 mg/dL (0.55-1.3)
[2022-12-23 07:52] LABS: BILIRUBIN,TOTAL 0.3 mg/dL (0.2-1); PHOSPHOROUS 2.9 mg/dL (2.5-4.9); TOT PROT 5.1 g/dl (6.4-8.2)
[2022-12-23] MEDS: FAMOTIDINE 20 MG/2.5 ML ORAL LIQUID GT SCH ×2 (10:20→21:35)
[2022-12-23] MEDS: ASCORBIC ACID 500 MG TABLET (FP) GT SCH (10:20)
[2022-12-23] MEDS: METOPROLOL TARTRATE 25 MG TABLET (FP) GT SCH ×4 (10:21→21:35)
[2022-12-23] MEDS: APIXABAN 5 MG TABLET PEG SCH ×2 (10:21→21:35)
[2022-12-23] MEDS: COLLAGENASE CLOSTRIDIUM HIST. 30 GRAMS TUBE TP SCH (10:22)
[2022-12-23] MEDS: AMINO ACIDS/PROTEIN HYDROLYS 30 ML LIQUID.PKT GT SCH (10:23)
[2022-12-23] MEDS: DIGOXIN 0.125 MG TABLET PO SCH (10:23)
[2022-12-23] MEDS: DAPTOMYCIN 650 MG in SODIUM CHLORIDE 50 ML IVPB SCH (12:40)
[2022-12-23] MEDS: ALBUTEROL SO4 0.083% IH SOL 2.5 MG/3 ML VIAL.NEB. NEB PRN (18:39)
[2022-12-23] MEDS: CHLORHEXIDINE GLUCONATE 4% CLEANSER FOR DECOLONIZATION TP SCH (21:35)
[2022-12-23] MEDS: BANATROL PLUS POWDER PACKET PO SCH (21:35)
[2022-12-24] MEDS: MIDODRINE HCL 5 MG TABLET GT SCH ×3 (02:07→18:10)
[2022-12-24] MEDS: AMIODARONE HCL 200 MG TABLET GT SCH ×3 (05:04→22:03)
[2022-12-24] MEDS: BANATROL PLUS POWDER PACKET PO SCH ×3 (05:04→22:03)
[2022-12-24] MEDS: LEVOTHYROXINE SODIUM 100 MCG 5 ML VIAL IVPUSH SCH (06:03)
[2022-12-24] MEDS: INSULIN SLIDING SCALE (NOVOLOG) 1 VIAL SQ SCH ×4 (06:19→22:03)
[2022-12-24] MEDS ORDERED: INSULIN (NOVOLOG) ASPART 100 UNITS/ML 10ML VIAL ONE ×2 (06:19→21:54)
[2022-12-24 07:17] LABS: HEMATOCRIT 26.3 % (32.4-45.2); HEMOGLOBIN 8.3 GM/dL (10.7-15.3); MCH 29.9 pg (25.7-33.7); MCHC 31.7 g/dl (32.0-36.0); MEAN CELL VOLUME 94.2 fl (80-96); MEAN PLT VOLUME 9.4 fl (7.5-11.1); PLATELET COUNT 387 10^3/uL (134-434); RBC 2.79 M/mm3 (3.60-5.2); RDW 18.9 % (11.6-15.6); WHITE BLOOD COUNT 12.8 K/mm3 (4.0-10.0)
[2022-12-24 07:39] LABS: CHLORIDE 102 mmol/L (98-107); POTASSIUM 5.3 mmol/L (3.5-5.1); SODIUM 138 mmol/L (136-145)
[2022-12-24 07:41] LABS: ALBUMIN 1.1 g/dl (3.4-5.0); ANION GAP 5 MMOL/L (8-16); CO2 32 mmol/L (21-32); GLUCOSE,RANDOM 182 mg/dL (74-106)
[2022-12-24 07:42] LABS: BLOOD UREA NITROGEN 25.3 mg/dL (7-18)
[2022-12-24 07:44] LABS: CREATININE 0.5 mg/dL (0.55-1.3); PHOSPHOROUS 3.5 mg/dL (2.5-4.9); SGPT/ALT 23 U/L (13-61)
[2022-12-24 07:45] LABS: SGOT/AST 34 U/L (15-37)
[2022-12-24 07:46] LABS: BILIRUBIN,TOTAL < 0.1 mg/dL (0.2-1); TOT PROT 5.8 g/dl (6.4-8.2)
[2022-12-24 07:47] LABS: ALK PHOS 140 U/L (45-117)
[2022-12-24] MEDS: AMINO ACIDS/PROTEIN HYDROLYS 30 ML LIQUID.PKT GT SCH (08:59)
[2022-12-24] MEDS: DIGOXIN 0.125 MG TABLET PO SCH (09:05)
[2022-12-24] MEDS: APIXABAN 5 MG TABLET PEG SCH ×2 (09:05→22:05)
[2022-12-24] MEDS: FAMOTIDINE 20 MG/2.5 ML ORAL LIQUID GT SCH ×2 (09:06→22:38)
[2022-12-24] MEDS: ASCORBIC ACID 500 MG TABLET (FP) GT SCH (09:06)
[2022-12-24] MEDS: METOPROLOL TARTRATE 25 MG TABLET (FP) GT SCH ×4 (09:06→22:03)
[2022-12-24] MEDS: LORazepam 0.5 MG TABLET GT PRN (10:00)
[2022-12-24] MEDS: DAPTOMYCIN 650 MG in SODIUM CHLORIDE 50 ML IVPB SCH (11:24)
[2022-12-24] MEDS: COLLAGENASE CLOSTRIDIUM HIST. 30 GRAMS TUBE TP SCH (11:25)
[2022-12-24] MEDS ORDERED: LORazepam 0.5 MG TABLET PO PRN (17:31)
[2022-12-24] MEDS: CHLORHEXIDINE GLUCONATE 4% CLEANSER FOR DECOLONIZATION TP SCH (22:05)
[2022-12-25] MEDS: MIDODRINE HCL 5 MG TABLET GT SCH ×3 (01:03→18:13)
[2022-12-25] MEDS: AMIODARONE HCL 200 MG TABLET GT SCH ×3 (05:15→21:07)
[2022-12-25] MEDS: BANATROL PLUS POWDER PACKET PO SCH ×3 (05:15→21:07)
[2022-12-25] MEDS: INSULIN SLIDING SCALE (NOVOLOG) 1 VIAL SQ SCH ×4 (06:11→21:08)
[2022-12-25] MEDS: LEVOTHYROXINE SODIUM 100 MCG 5 ML VIAL IVPUSH SCH (06:41)
[2022-12-25] MEDS: AMINO ACIDS/PROTEIN HYDROLYS 30 ML LIQUID.PKT GT SCH (09:10)
[2022-12-25] MEDS: DIGOXIN 0.125 MG TABLET GT SCH (09:11)
[2022-12-25] MEDS: ASCORBIC ACID 500 MG TABLET (FP) GT SCH (09:11)
[2022-12-25] MEDS: APIXABAN 5 MG TABLET PEG SCH ×2 (09:12→21:07)
[2022-12-25] MEDS: COLLAGENASE CLOSTRIDIUM HIST. 30 GRAMS TUBE TP SCH (09:13)
[2022-12-25 09:22] LABS: BASO % 0.6 % (0-2.0); EOS % 0.6 % (0-4.5); HEMATOCRIT 24.2 % (32.4-45.2); HEMOGLOBIN 7.7 GM/dL (10.7-15.3); LYMPH % 10.1 % (8-40); MCHC 31.8 g/dl (32.0-36.0); MEAN CELL VOLUME 94.3 fl (80-96); MEAN PLT VOLUME 9.3 fl (7.5-11.1); MONO % 4.4 % (3.8-10.2); NEUT % 84.3 % (42.8-82.8); PLATELET COUNT 312 10^3/uL (134-434); RBC 2.57 M/mm3 (3.60-5.2); RDW 19.1 % (11.6-15.6); WHITE BLOOD COUNT 13.2 K/mm3 (4.0-10.0)
[2022-12-25] MEDS: METOPROLOL TARTRATE 25 MG TABLET (FP) GT SCH ×4 (09:25→21:07)
[2022-12-25 10:02] LABS: POTASSIUM 5.2 mmol/L (3.5-5.1)
[2022-12-25 10:04] LABS: BLOOD UREA NITROGEN 25.9 mg/dL (7-18); CALCIUM 8.1 mg/dL (8.5-10.1)
[2022-12-25 10:07] LABS: PHOSPHOROUS 3.7 mg/dL (2.5-4.9)
[2022-12-25 10:08] LABS: CREATININE 0.5 mg/dL (0.55-1.3)
[2022-12-25 10:09] LABS: TOT PROT 5.2 g/dl (6.4-8.2)
[2022-12-25] MEDS: FAMOTIDINE 20 MG/2.5 ML ORAL LIQUID GT SCH ×2 (11:51→21:08)
[2022-12-25] MEDS: DAPTOMYCIN 650 MG in SODIUM CHLORIDE 50 ML IVPB SCH (13:22)
[2022-12-25] MEDS ORDERED: ACETYLCYSTEINE 20% 200MG/ML 4 ML VIAL *FOR ORAL / INH USE ONLY NEB ONE (17:00)
[2022-12-25] MEDS: ALBUTEROL SO4 0.083% IH SOL 2.5 MG/3 ML VIAL.NEB. NEB PRN (20:07)
[2022-12-25] MEDS ORDERED: PIPERACILLIN/TAZOB 3.375 GM 3.375 GM in DEXTROSE 5%-WATER - 50 ML IVPB SCH (21:00)
[2022-12-25] MEDS: CHLORHEXIDINE GLUCONATE 4% CLEANSER FOR DECOLONIZATION TP SCH (21:08)
[2022-12-25] MEDS: PIPERACILLIN/TAZOB 3.375 GM 3.375 GM in DEXTROSE 5%-WATER - 50 ML IVPB SCH (21:20)
[2022-12-26] MEDS: PIPERACILLIN/TAZOB 3.375 GM 3.375 GM in DEXTROSE 5%-WATER - 50 ML IVPB SCH ×3 (01:43→19:17)
[2022-12-26] MEDS: MIDODRINE HCL 5 MG TABLET GT SCH ×3 (01:43→19:18)
[2022-12-26] MEDS ORDERED: SODIUM CHLORIDE 500 ML IV STA ×2 (04:14→05:16)
[2022-12-26] MEDS: INSULIN SLIDING SCALE (NOVOLOG) 1 VIAL SQ SCH ×3 (06:43→21:18)
[2022-12-26] MEDS: LEVOTHYROXINE SODIUM 100 MCG 5 ML VIAL IVPUSH SCH (06:43)
[2022-12-26] MEDS: AMIODARONE HCL 200 MG TABLET GT SCH (06:43)
[2022-12-26] MEDS: BANATROL PLUS POWDER PACKET PO SCH ×3 (06:43→21:19)
[2022-12-26 07:20] LABS: POTASSIUM 5.2 mmol/L (3.5-5.1)
[2022-12-26 07:29] LABS: BLOOD UREA NITROGEN 29.6 mg/dL (7-18); CALCIUM 7.5 mg/dL (8.5-10.1)
[2022-12-26 07:30] LABS: ALBUMIN 0.9 g/dl (3.4-5.0); BASO % 0.6 % (0-2.0); EOS % 0.7 % (0-4.5); HEMATOCRIT 20.6 % (32.4-45.2); LYMPH % 14.6 % (8-40); MCH 29.7 pg (25.7-33.7); MCHC 31.5 g/dl (32.0-36.0); MEAN CELL VOLUME 94.1 fl (80-96); MONO % 3.7 % (3.8-10.2); NEUT % 80.4 % (42.8-82.8); PLATELET COUNT 303 10^3/uL (134-434); RBC 2.18 M/mm3 (3.60-5.2); RDW 18.1 % (11.6-15.6); WHITE BLOOD COUNT 11.4 K/mm3 (4.0-10.0)
[2022-12-26 07:33] LABS: BILIRUBIN,TOTAL 0.1 mg/dL (0.2-1); CREATININE 0.6 mg/dL (0.55-1.3); PHOSPHOROUS 4.1 mg/dL (2.5-4.9); TOT PROT 4.9 g/dl (6.4-8.2)
[2022-12-26 07:45] LABS: HEMOGLOBIN 6.5 GM/dL (10.7-15.3)
[2022-12-26] MEDS ORDERED: SODIUM CHLORIDE 0.9% 500 ML INFUS.BAG IV ONE (08:58)
[2022-12-26] MEDS ORDERED: DIGOXIN 0.125 MG TABLET GT SCH (10:00)
[2022-12-26] MEDS ORDERED: PANTOPRAZOLE SODIUM 40 MG VIAL IVPUSH SCH ×2 (10:00→22:00)
[2022-12-26] MEDS ORDERED: SODIUM CHLORIDE 1,000 ML IV STA ×3 (10:19→12:38)
[2022-12-26] MEDS: ASCORBIC ACID 500 MG TABLET (FP) GT SCH (10:20)
[2022-12-26] MEDS: DIGOXIN 0.125 MG TABLET GT SCH (10:20)
[2022-12-26] MEDS: AMINO ACIDS/PROTEIN HYDROLYS 30 ML LIQUID.PKT GT SCH (10:20)
[2022-12-26] MEDS: METOPROLOL TARTRATE 25 MG TABLET (FP) GT SCH ×4 (10:21→21:19)
[2022-12-26] MEDS: COLLAGENASE CLOSTRIDIUM HIST. 30 GRAMS TUBE TP SCH (10:22)
[2022-12-26] MEDS ORDERED: METOPROLOL TARTRATE 5 MG/5 ML VIAL IVPUSH PRN ×2 (10:41→12:38)
[2022-12-26] MEDS ORDERED: LORazepam 0.5 MG TABLET PO PRN (10:41)
[2022-12-26] MEDS ORDERED: ALBUTEROL SO4 0.083% IH SOL 2.5 MG/3 ML VIAL.NEB. NEB PRN ×2 (10:41→12:38)
[2022-12-26] MEDS ORDERED: INSULIN SLIDING SCALE (NOVOLOG) 1 VIAL SQ SCH (11:00)
[2022-12-26] MEDS ORDERED: MUPIROCIN 2% TOPICAL OINTMENT FOR DECOLONIZATION NS SCH ×2 (11:30→22:00)
[2022-12-26] MEDS ORDERED: FAMOTIDINE 20 MG/50 ML IVPB 20 MG/50 ML MG IVPB SCH (11:30)
[2022-12-26] MEDS ORDERED: DAPTOMYCIN 650 MG in SODIUM CHLORIDE 50 ML IVPB SCH (12:00)
[2022-12-26] MEDS ORDERED: AMIODARONE HCL 200 MG TABLET GT SCH ×2 (14:00)
[2022-12-26] MEDS ORDERED: BANATROL PLUS POWDER PACKET PO SCH (14:00)
[2022-12-26] MEDS ORDERED: METOPROLOL TARTRATE 25 MG TABLET (FP) GT SCH (14:00)
[2022-12-26] MEDS: NOREPINEPHRINE 0.9 % NACL 8 MG/250 ML BAG IVPB SCH (15:43)
[2022-12-26] MEDS ORDERED: PIPERACILLIN/TAZOB 3.375 GM 3.375 GM in DEXTROSE 5%-WATER - 50 ML IVPB SCH (18:00)
[2022-12-26] MEDS ORDERED: MIDODRINE HCL 5 MG TABLET GT SCH (18:00)
[2022-12-26 20:11] LABS: BASO % 0.4 % (0-2.0); EOS % 0.3 % (0-4.5); HEMATOCRIT 23.9 % (32.4-45.2); HEMOGLOBIN 7.6 GM/dL (10.7-15.3); LYMPH % 7.2 % (8-40); MCHC 31.7 g/dl (32.0-36.0); MEAN CELL VOLUME 91.4 fl (80-96); MEAN PLT VOLUME 8.9 fl (7.5-11.1); MONO % 3.2 % (3.8-10.2); NEUT % 88.9 % (42.8-82.8); PLATELET COUNT 308 10^3/uL (134-434); RBC 2.62 M/mm3 (3.60-5.2); RDW 20.2 % (11.6-15.6)
[2022-12-26 20:18] LABS: INR 1.79 (0.83-1.09); PROTHROMBIN TIME (PATIENT) 20.6 SEC (9.7-13.0)
[2022-12-26 20:21] LABS: ACTIVATED PTT 36.3 SECONDS (25.2-36.5)
[2022-12-26] MEDS: MUPIROCIN 2% TOPICAL OINTMENT FOR DECOLONIZATION NS SCH (21:18)
[2022-12-26] MEDS: PANTOPRAZOLE SODIUM 40 MG VIAL IVPUSH SCH (21:19)
[2022-12-26] MEDS: CHLORHEXIDINE GLUCONATE 4% CLEANSER FOR DECOLONIZATION TP SCH (21:19)
[2022-12-26] MEDS ORDERED: CHLORHEXIDINE GLUCONATE 4% CLEANSER FOR DECOLONIZATION TP SCH (22:00)
[2022-12-27] MEDS: PIPERACILLIN/TAZOB 3.375 GM 3.375 GM in DEXTROSE 5%-WATER - 50 ML IVPB SCH ×3 (01:19→17:58)
[2022-12-27] MEDS: MIDODRINE HCL 5 MG TABLET GT SCH ×3 (01:19→17:58)
[2022-12-27] MEDS: BANATROL PLUS POWDER PACKET PO SCH ×3 (05:41→21:19)
[2022-12-27] MEDS ORDERED: INSULIN (NOVOLOG) ASPART 100 UNITS/ML 10ML VIAL ONE ×2 (05:48→15:50)
[2022-12-27] MEDS: LEVOTHYROXINE SODIUM 100 MCG 5 ML VIAL IVPUSH SCH (06:39)
[2022-12-27] MEDS: INSULIN SLIDING SCALE (NOVOLOG) 1 VIAL SQ SCH ×4 (06:40→21:19)
[2022-12-27 06:56] LABS: BASO % 0.6 % (0-2.0); EOS % 0.8 % (0-4.5); HEMOGLOBIN 7.7 GM/dL (10.7-15.3); LYMPH % 10.7 % (8-40); MCH 29.1 pg (25.7-33.7); MCHC 31.8 g/dl (32.0-36.0); MEAN CELL VOLUME 91.5 fl (80-96); MEAN PLT VOLUME 8.9 fl (7.5-11.1); MONO % 3.7 % (3.8-10.2); NEUT % 84.2 % (42.8-82.8); PLATELET COUNT 324 10^3/uL (134-434); RBC 2.63 M/mm3 (3.60-5.2); RDW 20.3 % (11.6-15.6); WHITE BLOOD COUNT 11.2 K/mm3 (4.0-10.0)
[2022-12-27] MEDS ORDERED: LEVOTHYROXINE SODIUM 100 MCG 5 ML VIAL IVPUSH SCH (07:00)
[2022-12-27 07:06] LABS: CALCIUM 7.6 mg/dL (8.5-10.1)
[2022-12-27 07:08] LABS: BLOOD UREA NITROGEN 25.2 mg/dL (7-18); MAGNESIUM 1.8 mg/dL (1.8-2.4)
[2022-12-27 07:10] LABS: CREATININE 0.6 mg/dL (0.55-1.3); PHOSPHOROUS 3.6 mg/dL (2.5-4.9)
[2022-12-27 07:12] LABS: TOT PROT 5.4 g/dl (6.4-8.2)
[2022-12-27 07:13] LABS: BILIRUBIN,TOTAL 0.2 mg/dL (0.2-1)
[2022-12-27] MEDS ORDERED: AMINO ACIDS/PROTEIN HYDROLYS 30 ML LIQUID.PKT GT SCH (08:00)
[2022-12-27] MEDS: COLLAGENASE CLOSTRIDIUM HIST. 30 GRAMS TUBE TP SCH (08:55)
[2022-12-27] MEDS ORDERED: DIGOXIN 0.125 MG TABLET GT SCH (10:00)
[2022-12-27] MEDS ORDERED: COLLAGENASE CLOSTRIDIUM HIST. 30 GRAMS TUBE TP SCH (10:00)
[2022-12-27] MEDS ORDERED: ASCORBIC ACID 500 MG/5 ML UNIT DOSE CUP GT SCH (10:00)
[2022-12-27] MEDS: PANTOPRAZOLE SODIUM 40 MG VIAL IVPUSH SCH ×2 (10:18→21:19)
[2022-12-27] MEDS: DIGOXIN 0.125 MG TABLET GT SCH (10:19)
[2022-12-27] MEDS: AMINO ACIDS/PROTEIN HYDROLYS 30 ML LIQUID.PKT GT SCH (10:19)
[2022-12-27] MEDS: ASCORBIC ACID 500 MG TABLET (FP) GT SCH (10:20)
[2022-12-27] MEDS: METOPROLOL TARTRATE 25 MG TABLET (FP) GT SCH (10:20)
[2022-12-27] MEDS: MUPIROCIN 2% TOPICAL OINTMENT FOR DECOLONIZATION NS SCH ×2 (10:24→21:19)
[2022-12-27] MEDS ORDERED: DAPTOMYCIN 650 MG in SODIUM CHLORIDE 50 ML IVPB SCH (12:00)
[2022-12-27] MEDS: NOREPINEPHRINE 0.9 % NACL 8 MG/250 ML BAG IVPB SCH (15:31)
[2022-12-27] MEDS: CHLORHEXIDINE GLUCONATE 4% CLEANSER FOR DECOLONIZATION TP SCH (21:19)
[2022-12-27] MEDS: LORazepam 0.5 MG TABLET PO PRN (21:19)
[2022-12-28] MEDS: MIDODRINE HCL 5 MG TABLET GT SCH ×4 (02:39→21:02)
[2022-12-28] MEDS: PIPERACILLIN/TAZOB 3.375 GM 3.375 GM in DEXTROSE 5%-WATER - 50 ML IVPB SCH ×3 (02:39→17:23)
[2022-12-28] MEDS: LEVOTHYROXINE SODIUM 100 MCG 5 ML VIAL IVPUSH SCH (06:23)
[2022-12-28] MEDS: BANATROL PLUS POWDER PACKET PO SCH ×3 (06:23→21:02)
[2022-12-28] MEDS: INSULIN SLIDING SCALE (NOVOLOG) 1 VIAL SQ SCH ×4 (06:23→21:02)
[2022-12-28 07:29] LABS: CALCIUM 7.7 mg/dL (8.5-10.1)
[2022-12-28 07:31] LABS: ALBUMIN 0.9 g/dl (3.4-5.0); BLOOD UREA NITROGEN 24.4 mg/dL (7-18)
[2022-12-28 07:34] LABS: BASO % 1.1 % (0-2.0); CREATININE 0.5 mg/dL (0.55-1.3); EOS % 2.7 % (0-4.5); HEMATOCRIT 21.8 % (32.4-45.2); HEMOGLOBIN 7.2 GM/dL (10.7-15.3); LYMPH % 12.2 % (8-40); MCH 30.1 pg (25.7-33.7); MCHC 33.2 g/dl (32.0-36.0); MEAN CELL VOLUME 90.7 fl (80-96); MEAN PLT VOLUME 8.1 fl (7.5-11.1); MONO % 5.3 % (3.8-10.2); NEUT % 78.7 % (42.8-82.8); PHOSPHOROUS 3.6 mg/dL (2.5-4.9); PLATELET COUNT 300 10^3/uL (134-434); RDW 19.9 % (11.6-15.6); WHITE BLOOD COUNT 7.4 K/mm3 (4.0-10.0)
[2022-12-28 07:35] LABS: BILIRUBIN,TOTAL 0.2 mg/dL (0.2-1)
[2022-12-28] MEDS: PANTOPRAZOLE SODIUM 40 MG VIAL IVPUSH SCH ×2 (09:20→21:02)
[2022-12-28] MEDS: DIGOXIN 0.125 MG TABLET GT SCH (09:21)
[2022-12-28] MEDS: AMINO ACIDS/PROTEIN HYDROLYS 30 ML LIQUID.PKT GT SCH (09:21)
[2022-12-28] MEDS: ASCORBIC ACID 500 MG TABLET (FP) GT SCH (09:21)
[2022-12-28] MEDS: MUPIROCIN 2% TOPICAL OINTMENT FOR DECOLONIZATION NS SCH ×2 (09:22→21:02)
[2022-12-28] MEDS: COLLAGENASE CLOSTRIDIUM HIST. 30 GRAMS TUBE TP SCH (09:22)
[2022-12-28] MEDS ORDERED: FENTANYL PATCH WASTE TD PRN (11:08)
[2022-12-28] MEDS ORDERED: MIDODRINE HCL 5 MG TABLET GT ONE (11:10)
[2022-12-28] MEDS ORDERED: fentaNYL 12mcg/hr PATCH.TD72 TD SCH (11:15)
[2022-12-28] MEDS: NOREPINEPHRINE 0.9 % NACL 8 MG/250 ML BAG IVPB SCH (19:31)
[2022-12-28] MEDS: LORazepam 0.5 MG TABLET PO PRN (21:02)
[2022-12-28] MEDS: CHLORHEXIDINE GLUCONATE 4% CLEANSER FOR DECOLONIZATION TP SCH (21:02)
[2022-12-29] MEDS: PIPERACILLIN/TAZOB 3.375 GM 3.375 GM in DEXTROSE 5%-WATER - 50 ML IVPB SCH (01:37)
[2022-12-29] MEDS: BANATROL PLUS POWDER PACKET PO SCH ×3 (06:20→21:29)
[2022-12-29] MEDS: LEVOTHYROXINE SODIUM 100 MCG 5 ML VIAL IVPUSH SCH (06:20)
[2022-12-29] MEDS: MIDODRINE HCL 5 MG TABLET GT SCH ×3 (06:20→21:29)
[2022-12-29] MEDS: INSULIN SLIDING SCALE (NOVOLOG) 1 VIAL SQ SCH ×4 (06:24→21:30)
[2022-12-29 07:31] LABS: BASO % 1.1 % (0-2.0); EOS % 2.3 % (0-4.5); HEMATOCRIT 22.4 % (32.4-45.2); HEMOGLOBIN 7.2 GM/dL (10.7-15.3); LYMPH % 16.4 % (8-40); MCH 29.3 pg (25.7-33.7); MCHC 32.4 g/dl (32.0-36.0); MEAN CELL VOLUME 90.7 fl (80-96); MEAN PLT VOLUME 7.9 fl (7.5-11.1); MONO % 5.9 % (3.8-10.2); NEUT % 74.3 % (42.8-82.8); PLATELET COUNT 314 10^3/uL (134-434); RBC 2.47 M/mm3 (3.60-5.2); RDW 19.4 % (11.6-15.6); WHITE BLOOD COUNT 6.4 K/mm3 (4.0-10.0)
[2022-12-29 07:53] LABS: POTASSIUM 4.8 mmol/L (3.5-5.1)
[2022-12-29 08:07] LABS: CALCIUM 7.8 mg/dL (8.5-10.1)
[2022-12-29 08:08] LABS: ALBUMIN 0.9 g/dl (3.4-5.0); BLOOD UREA NITROGEN 22.4 mg/dL (7-18)
[2022-12-29 08:11] LABS: CREATININE 0.5 mg/dL (0.55-1.3); PHOSPHOROUS 3.4 mg/dL (2.5-4.9)
[2022-12-29 08:12] LABS: BILIRUBIN,TOTAL 0.9 mg/dL (0.2-1)
[2022-12-29] MEDS: ASCORBIC ACID 500 MG TABLET (FP) GT SCH (09:06)
[2022-12-29] MEDS: PANTOPRAZOLE SODIUM 40 MG VIAL IVPUSH SCH ×2 (09:06→21:29)
[2022-12-29] MEDS: AMINO ACIDS/PROTEIN HYDROLYS 30 ML LIQUID.PKT GT SCH (09:06)
[2022-12-29] MEDS: DIGOXIN 0.125 MG TABLET GT SCH (09:06)
[2022-12-29] MEDS: MUPIROCIN 2% TOPICAL OINTMENT FOR DECOLONIZATION NS SCH ×2 (09:07→21:31)
[2022-12-29] MEDS ORDERED: ERTAPENEM SODIUM 1 GM in SODIUM CHLORIDE 50 ML IVPB SCH (10:00)
[2022-12-29] MEDS: LORazepam 0.5 MG TABLET PO PRN (14:41)
[2022-12-29] MEDS: COLLAGENASE CLOSTRIDIUM HIST. 30 GRAMS TUBE TP SCH (14:42)
[2022-12-29] MEDS ORDERED: METOPROLOL TARTRATE 5 MG/5 ML VIAL ONE (15:37)
[2022-12-29] MEDS: NOREPINEPHRINE 0.9 % NACL 8 MG/250 ML BAG IVPB SCH (16:46)
[2022-12-29] MEDS: METOPROLOL TARTRATE 25 MG TABLET (FP) GT SCH ×2 (16:47→21:30)
[2022-12-29] MEDS: CHLORHEXIDINE GLUCONATE 4% CLEANSER FOR DECOLONIZATION TP SCH (21:31)
[2022-12-30] MEDS: LEVOTHYROXINE SODIUM 100 MCG 5 ML VIAL IVPUSH SCH (06:27)
[2022-12-30] MEDS: BANATROL PLUS POWDER PACKET PO SCH ×3 (06:28→21:12)
[2022-12-30] MEDS: MIDODRINE HCL 5 MG TABLET GT SCH ×3 (06:28→21:13)
[2022-12-30] MEDS: INSULIN SLIDING SCALE (NOVOLOG) 1 VIAL SQ SCH ×4 (06:28→21:13)
[2022-12-30 07:06] LABS: EOS % 0.9 % (0-4.5); HEMATOCRIT 22.2 % (32.4-45.2); HEMOGLOBIN 7.2 GM/dL (10.7-15.3); LYMPH % 20.3 % (8-40); MCH 29.8 pg (25.7-33.7); MCHC 32.3 g/dl (32.0-36.0); MEAN CELL VOLUME 92.1 fl (80-96); MEAN PLT VOLUME 8.1 fl (7.5-11.1); MONO % 2.9 % (3.8-10.2); NEUT % 73.9 % (42.8-82.8); PLATELET COUNT 362 10^3/uL (134-434); RBC 2.41 M/mm3 (3.60-5.2); RDW 18.8 % (11.6-15.6)
[2022-12-30 07:19] LABS: POTASSIUM 4.9 mmol/L (3.5-5.1)
[2022-12-30 07:27] LABS: ALBUMIN 0.9 g/dl (3.4-5.0); BLOOD UREA NITROGEN 23.1 mg/dL (7-18); CALCIUM 7.8 mg/dL (8.5-10.1)
[2022-12-30 07:29] LABS: PHOSPHOROUS 3.6 mg/dL (2.5-4.9)
[2022-12-30 07:30] LABS: CREATININE 0.6 mg/dL (0.55-1.3)
[2022-12-30 07:32] LABS: BILIRUBIN,TOTAL 0.1 mg/dL (0.2-1); TOT PROT 5.3 g/dl (6.4-8.2)
[2022-12-30] MEDS: DIGOXIN 0.125 MG TABLET GT SCH (09:24)
[2022-12-30] MEDS: ERTAPENEM SODIUM 1 GM in SODIUM CHLORIDE 50 ML IVPB SCH (09:24)
[2022-12-30] MEDS: PANTOPRAZOLE SODIUM 40 MG VIAL IVPUSH SCH ×2 (09:24→21:13)
[2022-12-30] MEDS: MUPIROCIN 2% TOPICAL OINTMENT FOR DECOLONIZATION NS SCH ×2 (09:24→21:12)
[2022-12-30] MEDS: AMINO ACIDS/PROTEIN HYDROLYS 30 ML LIQUID.PKT GT SCH (09:24)
[2022-12-30] MEDS: ASCORBIC ACID 500 MG TABLET (FP) GT SCH (09:25)
[2022-12-30] MEDS ORDERED: FENTANYL PATCH WASTE TD PRN (11:17)
[2022-12-30] MEDS: fentaNYL 25mcg/hr PATCH.TD72 TD SCH (12:23)
[2022-12-30] MEDS: COLLAGENASE CLOSTRIDIUM HIST. 30 GRAMS TUBE TP SCH (14:00)
[2022-12-30] MEDS: morphine SULFATE 4 MG/ML VIAL IVPUSH PRN ×4 (14:25→23:57)
[2022-12-30] MEDS ORDERED: INSULIN (NOVOLOG) ASPART 100 UNITS/ML 10ML VIAL ONE (20:49)
[2022-12-30] MEDS: CHLORHEXIDINE GLUCONATE 4% CLEANSER FOR DECOLONIZATION TP SCH (21:13)
[2022-12-30] MEDS: NOREPINEPHRINE 0.9 % NACL 8 MG/250 ML BAG IVPB SCH (23:57)
[2022-12-31] MEDS: morphine SULFATE 4 MG/ML VIAL IVPUSH PRN ×3 (06:01→14:48)
[2022-12-31] MEDS: INSULIN SLIDING SCALE (NOVOLOG) 1 VIAL SQ SCH ×4 (06:02→21:55)
[2022-12-31] MEDS: MIDODRINE HCL 5 MG TABLET GT SCH ×3 (06:02→21:55)
[2022-12-31] MEDS: BANATROL PLUS POWDER PACKET PO SCH ×3 (06:02→21:55)
[2022-12-31 07:03] LABS: BASO % 1.3 % (0-2.0); EOS % 2.2 % (0-4.5); HEMATOCRIT 22.1 % (32.4-45.2); HEMOGLOBIN 7.3 GM/dL (10.7-15.3); MCH 30.5 pg (25.7-33.7); MEAN CELL VOLUME 92.6 fl (80-96); MEAN PLT VOLUME 7.9 fl (7.5-11.1); MONO % 3.4 % (3.8-10.2); NEUT % 73.1 % (42.8-82.8); PLATELET COUNT 297 10^3/uL (134-434); RBC 2.39 M/mm3 (3.60-5.2); RDW 19.2 % (11.6-15.6); WHITE BLOOD COUNT 6.9 K/mm3 (4.0-10.0)
[2022-12-31 07:21] LABS: POTASSIUM 5.2 mmol/L (3.5-5.1)
[2022-12-31 07:28] LABS: ALBUMIN 0.9 g/dl (3.4-5.0); CALCIUM 7.7 mg/dL (8.5-10.1); MAGNESIUM 1.9 mg/dL (1.8-2.4)
[2022-12-31 07:29] LABS: BLOOD UREA NITROGEN 24.2 mg/dL (7-18)
[2022-12-31 07:32] LABS: CREATININE 0.6 mg/dL (0.55-1.3); PHOSPHOROUS 3.6 mg/dL (2.5-4.9)
[2022-12-31 07:33] LABS: BILIRUBIN,TOTAL 0.2 mg/dL (0.2-1); TOT PROT 5.4 g/dl (6.4-8.2)
[2022-12-31] MEDS: AMINO ACIDS/PROTEIN HYDROLYS 30 ML LIQUID.PKT GT SCH (08:35)
[2022-12-31] MEDS: LEVOTHYROXINE SODIUM 100 MCG 5 ML VIAL IVPUSH SCH (10:13)
[2022-12-31] MEDS: DIGOXIN 0.125 MG TABLET GT SCH (10:17)
[2022-12-31] MEDS: ASCORBIC ACID 500 MG TABLET (FP) GT SCH (10:18)
[2022-12-31] MEDS: PANTOPRAZOLE SODIUM 40 MG VIAL IVPUSH SCH ×2 (10:21→21:54)
[2022-12-31] MEDS: ERTAPENEM SODIUM 1 GM in SODIUM CHLORIDE 50 ML IVPB SCH (10:55)
[2022-12-31] MEDS: MUPIROCIN 2% TOPICAL OINTMENT FOR DECOLONIZATION NS SCH (10:55)
[2022-12-31] MEDS ORDERED: SODIUM ZIRCONIUM CYCLOSILICATE (LOKELMA) 5 GM PACKET PO ONE (11:30)
[2022-12-31] MEDS: COLLAGENASE CLOSTRIDIUM HIST. 30 GRAMS TUBE TP SCH (13:37)
[2022-12-31] MEDS: CHLORHEXIDINE GLUCONATE 4% CLEANSER FOR DECOLONIZATION TP SCH (21:55)
[2023-01-01] MEDS: MIDODRINE HCL 5 MG TABLET GT SCH ×3 (06:09→22:06)
[2023-01-01] MEDS: BANATROL PLUS POWDER PACKET PO SCH ×3 (06:09→22:06)
[2023-01-01] MEDS: morphine SULFATE 4 MG/ML VIAL IVPUSH PRN ×5 (06:09→22:14)
[2023-01-01] MEDS: INSULIN SLIDING SCALE (NOVOLOG) 1 VIAL SQ SCH ×4 (06:16→22:15)
[2023-01-01] MEDS: NOREPINEPHRINE 0.9 % NACL 8 MG/250 ML BAG IVPB SCH ×2 (07:17→16:18)
[2023-01-01 07:44] LABS: CALCIUM 7.4 mg/dL (8.5-10.1)
[2023-01-01 07:45] LABS: BLOOD UREA NITROGEN 23.1 mg/dL (7-18)
[2023-01-01 07:48] LABS: CREATININE 0.5 mg/dL (0.55-1.3)
[2023-01-01 07:49] LABS: BILIRUBIN,TOTAL 0.2 mg/dL (0.2-1); TOT PROT 5.4 g/dl (6.4-8.2)
[2023-01-01] MEDS: ASCORBIC ACID 500 MG TABLET (FP) GT SCH (09:11)
[2023-01-01] MEDS: DIGOXIN 0.125 MG TABLET GT SCH (09:11)
[2023-01-01] MEDS: LEVOTHYROXINE SODIUM 100 MCG 5 ML VIAL IVPUSH SCH (09:11)
[2023-01-01] MEDS: PANTOPRAZOLE SODIUM 40 MG VIAL IVPUSH SCH ×2 (09:11→22:06)
[2023-01-01] MEDS: COLLAGENASE CLOSTRIDIUM HIST. 30 GRAMS TUBE TP SCH (09:12)
[2023-01-01] MEDS: ERTAPENEM SODIUM 1 GM in SODIUM CHLORIDE 50 ML IVPB SCH (09:12)
[2023-01-01] MEDS: AMINO ACIDS/PROTEIN HYDROLYS 30 ML LIQUID.PKT GT SCH (09:12)
[2023-01-01] MEDS: CHLORHEXIDINE GLUCONATE 4% CLEANSER FOR DECOLONIZATION TP SCH (22:06)
[2023-01-02] MEDS: morphine SULFATE 4 MG/ML VIAL IVPUSH PRN (03:11)
[2023-01-02] MEDS: BANATROL PLUS POWDER PACKET PO SCH ×3 (05:53→21:51)
[2023-01-02] MEDS: MIDODRINE HCL 5 MG TABLET GT SCH ×3 (05:54→21:51)
[2023-01-02] MEDS: INSULIN SLIDING SCALE (NOVOLOG) 1 VIAL SQ SCH ×4 (06:09→21:45)
[2023-01-02 07:31] LABS: HEMATOCRIT 22.7 % (32.4-45.2); HEMOGLOBIN 7.2 GM/dL (10.7-15.3); MCH 29.5 pg (25.7-33.7); MCHC 31.8 g/dl (32.0-36.0); MEAN CELL VOLUME 92.8 fl (80-96); MEAN PLT VOLUME 8.1 fl (7.5-11.1); PLATELET COUNT 299 10^3/uL (134-434); RBC 2.44 M/mm3 (3.60-5.2); RDW 18.9 % (11.6-15.6); WHITE BLOOD COUNT 5.8 K/mm3 (4.0-10.0)
[2023-01-02 07:48] LABS: POTASSIUM 5.1 mmol/L (3.5-5.1)
[2023-01-02 07:54] LABS: ALBUMIN 0.9 g/dl (3.4-5.0); BLOOD UREA NITROGEN 23.8 mg/dL (7-18); CALCIUM 7.5 mg/dL (8.5-10.1); MAGNESIUM 1.9 mg/dL (1.8-2.4)
[2023-01-02 07:57] LABS: CREATININE 0.5 mg/dL (0.55-1.3); PHOSPHOROUS 3.6 mg/dL (2.5-4.9)
[2023-01-02 07:59] LABS: BILIRUBIN,TOTAL 0.2 mg/dL (0.2-1); TOT PROT 5.4 g/dl (6.4-8.2)
[2023-01-02 09:07] LABS: ANISOCYTOSIS 2+
[2023-01-02] MEDS: DIGOXIN 0.125 MG TABLET GT SCH (09:31)
[2023-01-02] MEDS: AMINO ACIDS/PROTEIN HYDROLYS 30 ML LIQUID.PKT GT SCH (09:31)
[2023-01-02] MEDS: PANTOPRAZOLE SODIUM 40 MG VIAL IVPUSH SCH ×2 (09:31→22:03)
[2023-01-02] MEDS: LEVOTHYROXINE SODIUM 100 MCG 5 ML VIAL IVPUSH SCH (09:31)
[2023-01-02] MEDS: ERTAPENEM SODIUM 1 GM in SODIUM CHLORIDE 50 ML IVPB SCH (09:31)
[2023-01-02] MEDS: ASCORBIC ACID 500 MG TABLET (FP) GT SCH (09:31)
[2023-01-02] MEDS: FENTANYL PATCH WASTE TD PRN (10:45)
[2023-01-02] MEDS: fentaNYL 25mcg/hr PATCH.TD72 TD SCH (11:55)
[2023-01-02] MEDS: GABAPENTIN 100 MG CAPSULE GT SCH ×2 (15:00→21:51)
[2023-01-02] MEDS: COLLAGENASE CLOSTRIDIUM HIST. 30 GRAMS TUBE TP SCH (15:47)
[2023-01-02] MEDS: MULTIVIT-MINERALS ORAL LIQUID GT SCH (15:47)
[2023-01-02] MEDS: CHLORHEXIDINE GLUCONATE 4% CLEANSER FOR DECOLONIZATION TP SCH (21:51)
[2023-01-02] MEDS: NOREPINEPHRINE 0.9 % NACL 8 MG/250 ML BAG IVPB SCH (22:04)
[2023-01-03] MEDS: BANATROL PLUS POWDER PACKET PO SCH ×3 (06:41→22:02)
[2023-01-03] MEDS: MIDODRINE HCL 5 MG TABLET GT SCH ×3 (06:42→22:02)
[2023-01-03] MEDS: GABAPENTIN 100 MG CAPSULE GT SCH ×3 (06:42→22:01)
[2023-01-03] MEDS ORDERED: INSULIN (NOVOLOG) ASPART 100 UNITS/ML 10ML VIAL ONE (06:48)
[2023-01-03] MEDS: INSULIN SLIDING SCALE (NOVOLOG) 1 VIAL SQ SCH ×4 (06:50→22:02)
[2023-01-03] MEDS: ASCORBIC ACID 500 MG TABLET (FP) GT SCH (09:37)
[2023-01-03] MEDS: PANTOPRAZOLE SODIUM 40 MG VIAL IVPUSH SCH ×2 (09:37→22:01)
[2023-01-03] MEDS: AMINO ACIDS/PROTEIN HYDROLYS 30 ML LIQUID.PKT GT SCH (09:38)
[2023-01-03] MEDS: DIGOXIN 0.125 MG TABLET GT SCH (09:38)
[2023-01-03] MEDS: MULTIVIT-MINERALS ORAL LIQUID GT SCH (09:38)
[2023-01-03] MEDS: LEVOTHYROXINE SODIUM 100 MCG 5 ML VIAL IVPUSH SCH (09:38)
[2023-01-03] MEDS: ERTAPENEM SODIUM 1 GM in SODIUM CHLORIDE 50 ML IVPB SCH (09:40)
[2023-01-03] MEDS ORDERED: fentaNYL 50mcg/hr PATCH.TD72 TD SCH (10:30)
[2023-01-03 10:46] LABS: HEMATOCRIT 22.3 % (32.4-45.2); HEMOGLOBIN 7.2 GM/dL (10.7-15.3); MCH 29.7 pg (25.7-33.7); MCHC 32.2 g/dl (32.0-36.0); MEAN CELL VOLUME 92.3 fl (80-96); MEAN PLT VOLUME 7.9 fl (7.5-11.1); PLATELET COUNT 306 10^3/uL (134-434); RBC 2.42 M/mm3 (3.60-5.2); RDW 18.9 % (11.6-15.6); WHITE BLOOD COUNT 5.7 K/mm3 (4.0-10.0)
[2023-01-03 11:06] LABS: CHLORIDE 102 mmol/L (98-107); SODIUM 140 mmol/L (136-145)
[2023-01-03 11:08] LABS: CALCIUM 7.5 mg/dL (8.5-10.1)
[2023-01-03 11:09] LABS: ALBUMIN 0.9 g/dl (3.4-5.0); ANION GAP 4 MMOL/L (8-16); BLOOD UREA NITROGEN 21.2 mg/dL (7-18); CO2 33 mmol/L (21-32); GLUCOSE,RANDOM 147 mg/dL (74-106)
[2023-01-03 11:12] LABS: CREATININE 0.5 mg/dL (0.55-1.3); PHOSPHOROUS 3.6 mg/dL (2.5-4.9); SGOT/AST 27 U/L (15-37); SGPT/ALT 23 U/L (13-61)
[2023-01-03 11:13] LABS: BILIRUBIN,TOTAL < 0.1 mg/dL (0.2-1)
[2023-01-03 11:14] LABS: TOT PROT 5.4 g/dl (6.4-8.2)
[2023-01-03 11:15] LABS: ALK PHOS 110 U/L (45-117)
[2023-01-03] MEDS ORDERED: FENTANYL PATCH WASTE TD PRN (12:08)
[2023-01-03 12:56] LABS: ANISOCYTOSIS 2+; MACROCYTOSIS 0
[2023-01-03] MEDS: fentaNYL 25mcg/hr PATCH.TD72 TD SCH (15:16)
[2023-01-03] MEDS: fentaNYL 12mcg/hr PATCH.TD72 TD SCH (15:16)
[2023-01-03] MEDS: FENTANYL PATCH WASTE TD PRN (15:26)
[2023-01-03] MEDS: CHLORHEXIDINE GLUCONATE 4% CLEANSER FOR DECOLONIZATION TP SCH (22:02)
[2023-01-04] MEDS: NOREPINEPHRINE 0.9 % NACL 8 MG/250 ML BAG IVPB SCH (01:11)
[2023-01-04] MEDS: BANATROL PLUS POWDER PACKET PO SCH ×3 (05:34→21:09)
[2023-01-04] MEDS: MIDODRINE HCL 5 MG TABLET GT SCH ×3 (05:34→21:10)
[2023-01-04] MEDS: GABAPENTIN 100 MG CAPSULE GT SCH ×3 (05:35→21:10)
[2023-01-04] MEDS: INSULIN SLIDING SCALE (NOVOLOG) 1 VIAL SQ SCH ×4 (06:07→21:09)
[2023-01-04] MEDS: LEVOTHYROXINE SODIUM 100 MCG 5 ML VIAL IVPUSH SCH (06:38)
[2023-01-04 08:07] LABS: HEMATOCRIT 22.4 % (32.4-45.2); HEMOGLOBIN 7.4 GM/dL (10.7-15.3); MCH 30.4 pg (25.7-33.7); MCHC 32.9 g/dl (32.0-36.0); MEAN CELL VOLUME 92.4 fl (80-96); MEAN PLT VOLUME 8.4 fl (7.5-11.1); PLATELET COUNT 355 10^3/uL (134-434); RBC 2.42 M/mm3 (3.60-5.2); RDW 19.3 % (11.6-15.6); WHITE BLOOD COUNT 7.1 K/mm3 (4.0-10.0)
[2023-01-04 08:18] LABS: POTASSIUM 5.4 mmol/L (3.5-5.1)
[2023-01-04 08:22] LABS: ALBUMIN 0.9 g/dl (3.4-5.0); CALCIUM 7.4 mg/dL (8.5-10.1)
[2023-01-04 08:23] LABS: BLOOD UREA NITROGEN 22.6 mg/dL (7-18); MAGNESIUM 1.9 mg/dL (1.8-2.4)
[2023-01-04 08:26] LABS: CREATININE 0.5 mg/dL (0.55-1.3)
[2023-01-04 08:27] LABS: BILIRUBIN,TOTAL 0.2 mg/dL (0.2-1); TOT PROT 5.3 g/dl (6.4-8.2)
[2023-01-04 08:56] LABS: ANISOCYTOSIS 1+; MACROCYTOSIS 1+
[2023-01-04] MEDS: ASCORBIC ACID 500 MG TABLET (FP) GT SCH (09:58)
[2023-01-04] MEDS: PANTOPRAZOLE SODIUM 40 MG VIAL IVPUSH SCH ×2 (09:58→21:10)
[2023-01-04] MEDS: AMINO ACIDS/PROTEIN HYDROLYS 30 ML LIQUID.PKT GT SCH (09:58)
[2023-01-04] MEDS: MULTIVIT-MINERALS ORAL LIQUID GT SCH (09:58)
[2023-01-04] MEDS: DIGOXIN 0.125 MG TABLET GT SCH (10:18)
[2023-01-04] MEDS: ERTAPENEM SODIUM 1 GM in SODIUM CHLORIDE 50 ML IVPB SCH (10:50)
[2023-01-04] MEDS ORDERED: LEVOTHYROXINE NA 125 MCG TABLET (FP) GT SCH (14:00)
[2023-01-04] MEDS: COLLAGENASE CLOSTRIDIUM HIST. 30 GRAMS TUBE TP SCH (15:08)
[2023-01-04] MEDS: CHLORHEXIDINE GLUCONATE 4% CLEANSER FOR DECOLONIZATION TP SCH (21:10)
[2023-01-05] MEDS: MIDODRINE HCL 5 MG TABLET GT SCH ×3 (05:22→21:36)
[2023-01-05] MEDS: BANATROL PLUS POWDER PACKET PO SCH ×3 (05:22→21:36)
[2023-01-05] MEDS: GABAPENTIN 100 MG CAPSULE GT SCH ×3 (05:22→21:37)
[2023-01-05] MEDS: INSULIN SLIDING SCALE (NOVOLOG) 1 VIAL SQ SCH ×4 (06:00→21:37)
[2023-01-05] MEDS: LEVOTHYROXINE NA 125 MCG TABLET (FP) GT SCH (06:01)
[2023-01-05] MEDS ORDERED: LEVOTHYROXINE NA 125 MCG TABLET (FP) GT SCH (07:00)
[2023-01-05 07:56] LABS: HEMATOCRIT 23.2 % (32.4-45.2); HEMOGLOBIN 7.5 GM/dL (10.7-15.3); MCH 30.2 pg (25.7-33.7); MCHC 32.5 g/dl (32.0-36.0); MEAN PLT VOLUME 8.2 fl (7.5-11.1); PLATELET COUNT 396 10^3/uL (134-434); RDW 19.2 % (11.6-15.6); WHITE BLOOD COUNT 8.3 K/mm3 (4.0-10.0)
[2023-01-05 08:20] LABS: CHLORIDE 99 mmol/L (98-107); POTASSIUM 5.4 mmol/L (3.5-5.1); SODIUM 137 mmol/L (136-145)
[2023-01-05 08:51] LABS: SGPT/ALT 25 U/L (13-61)
[2023-01-05 08:52] LABS: BLOOD UREA NITROGEN 22.6 mg/dL (7-18); CALCIUM 7.6 mg/dL (8.5-10.1); GLUCOSE,RANDOM 144 mg/dL (74-106); PHOSPHOROUS 4.2 mg/dL (2.5-4.9)
[2023-01-05 08:53] LABS: ANION GAP 3 MMOL/L (8-16); BILIRUBIN,TOTAL < 0.1 mg/dL (0.2-1); CO2 35 mmol/L (21-32); MAGNESIUM 2.1 mg/dL (1.8-2.4); TOT PROT 5.7 g/dl (6.4-8.2)
[2023-01-05 08:54] LABS: ALK PHOS 116 U/L (45-117)
[2023-01-05 08:55] LABS: CREATININE 0.5 mg/dL (0.55-1.3); SGOT/AST 31 U/L (15-37)
[2023-01-05] MEDS: ERTAPENEM SODIUM 1 GM in SODIUM CHLORIDE 50 ML IVPB SCH (09:21)
[2023-01-05] MEDS: PANTOPRAZOLE SODIUM 40 MG VIAL IVPUSH SCH ×2 (09:24→21:36)
[2023-01-05] MEDS: ASCORBIC ACID 500 MG TABLET (FP) GT SCH (09:24)
[2023-01-05] MEDS: DIGOXIN 0.125 MG TABLET GT SCH (09:24)
[2023-01-05] MEDS: AMINO ACIDS/PROTEIN HYDROLYS 30 ML LIQUID.PKT GT SCH (09:25)
[2023-01-05] MEDS: MULTIVIT-MINERALS ORAL LIQUID GT SCH (09:25)
[2023-01-05] MEDS: COLLAGENASE CLOSTRIDIUM HIST. 30 GRAMS TUBE TP SCH (09:25)
[2023-01-05 09:42] LABS: ANISOCYTOSIS 1+; MACROCYTOSIS 0
[2023-01-05] MEDS: NOREPINEPHRINE 0.9 % NACL 8 MG/250 ML BAG IVPB SCH (13:32)
[2023-01-05] MEDS ORDERED: MIDODRINE HCL 5 MG TABLET GT SCH (21:30)
[2023-01-05] MEDS: CHLORHEXIDINE GLUCONATE 4% CLEANSER FOR DECOLONIZATION TP SCH (21:37)
[2023-01-06] MEDS: MIDODRINE HCL 5 MG TABLET GT SCH ×3 (05:21→21:40)
[2023-01-06] MEDS: BANATROL PLUS POWDER PACKET PO SCH ×3 (05:21→21:40)
[2023-01-06] MEDS: GABAPENTIN 100 MG CAPSULE GT SCH ×3 (05:22→21:40)
[2023-01-06] MEDS: LEVOTHYROXINE NA 125 MCG TABLET (FP) GT SCH (06:22)
[2023-01-06] MEDS: INSULIN SLIDING SCALE (NOVOLOG) 1 VIAL SQ SCH (06:51)
[2023-01-06] MEDS: AMINO ACIDS/PROTEIN HYDROLYS 30 ML LIQUID.PKT GT SCH (09:01)
[2023-01-06 09:06] LABS: CHLORIDE 100 mmol/L (98-107); POTASSIUM 5.3 mmol/L (3.5-5.1); SODIUM 138 mmol/L (136-145)
[2023-01-06 09:09] LABS: ALBUMIN 0.9 g/dl (3.4-5.0); ANION GAP 2 MMOL/L (8-16); BLOOD UREA NITROGEN 21.6 mg/dL (7-18); CALCIUM 7.4 mg/dL (8.5-10.1); CO2 36 mmol/L (21-32); GLUCOSE,RANDOM 136 mg/dL (74-106)
[2023-01-06 09:12] LABS: CREATININE 0.5 mg/dL (0.55-1.3); SGOT/AST 37 U/L (15-37); SGPT/ALT 25 U/L (13-61)
[2023-01-06 09:14] LABS: BILIRUBIN,TOTAL < 0.1 mg/dL (0.2-1); TOT PROT 5.7 g/dl (6.4-8.2)
[2023-01-06 09:15] LABS: ALK PHOS 110 U/L (45-117)
[2023-01-06] MEDS: ERTAPENEM SODIUM 1 GM in SODIUM CHLORIDE 50 ML IVPB SCH (09:57)
[2023-01-06] MEDS: PANTOPRAZOLE SODIUM 40 MG VIAL IVPUSH SCH ×2 (09:57→21:39)
[2023-01-06] MEDS: MULTIVIT-MINERALS ORAL LIQUID GT SCH (09:57)
[2023-01-06] MEDS: DIGOXIN 0.125 MG TABLET GT SCH (09:59)
[2023-01-06] MEDS: ASCORBIC ACID 500 MG TABLET (FP) GT SCH (09:59)
[2023-01-06 11:10] LABS: HEMATOCRIT 22.7 % (32.4-45.2); HEMOGLOBIN 7.2 GM/dL (10.7-15.3); MCH 29.5 pg (25.7-33.7); MCHC 31.5 g/dl (32.0-36.0); MEAN CELL VOLUME 93.7 fl (80-96); MEAN PLT VOLUME 8.1 fl (7.5-11.1); PLATELET COUNT 374 10^3/uL (134-434); RBC 2.42 M/mm3 (3.60-5.2); RDW 19.7 % (11.6-15.6); WHITE BLOOD COUNT 6.6 K/mm3 (4.0-10.0)
[2023-01-06] MEDS ORDERED: LACTATED RINGERS SOLUTION 1000 ML INFUS.BAG IV ONE (11:31)
[2023-01-06] MEDS: COLLAGENASE CLOSTRIDIUM HIST. 30 GRAMS TUBE TP SCH (11:57)
[2023-01-06] MEDS: fentaNYL 25mcg/hr PATCH.TD72 TD SCH (11:58)
[2023-01-06] MEDS: fentaNYL 12mcg/hr PATCH.TD72 TD SCH (11:59)
[2023-01-06 12:01] LABS: ANISOCYTOSIS 1+; MACROCYTOSIS 1+
[2023-01-06] MEDS: ACETAMINOPHEN 1000 MG/100 ML BAG IVPB PRN (12:57)
[2023-01-06] MEDS: CHLORHEXIDINE GLUCONATE 4% CLEANSER FOR DECOLONIZATION TP SCH (21:40)
[2023-01-06] MEDS: NOREPINEPHRINE 0.9 % NACL 8 MG/250 ML BAG IVPB SCH (21:42)
[2023-01-07] MEDS: LEVOTHYROXINE NA 125 MCG TABLET (FP) GT SCH (06:47)
[2023-01-07] MEDS: GABAPENTIN 100 MG CAPSULE GT SCH ×3 (06:47→21:07)
[2023-01-07] MEDS: BANATROL PLUS POWDER PACKET PO SCH ×3 (06:47→21:07)
[2023-01-07] MEDS: MIDODRINE HCL 5 MG TABLET GT SCH ×3 (06:47→21:06)
[2023-01-07 08:59] LABS: HEMATOCRIT 24.4 % (32.4-45.2); HEMOGLOBIN 7.9 GM/dL (10.7-15.3); MCHC 32.2 g/dl (32.0-36.0); MEAN CELL VOLUME 93.3 fl (80-96); MEAN PLT VOLUME 8.1 fl (7.5-11.1); PLATELET COUNT 398 10^3/uL (134-434); RBC 2.62 M/mm3 (3.60-5.2); RDW 19.3 % (11.6-15.6); WHITE BLOOD COUNT 7.5 K/mm3 (4.0-10.0)
[2023-01-07] MEDS ORDERED: TUBE FEED DECLOGGING SOLUTION 12,000 UNITS GT ONE (09:00)
[2023-01-07] MEDS: PANTOPRAZOLE SODIUM 40 MG VIAL IVPUSH SCH ×2 (09:16→21:07)
[2023-01-07] MEDS: ERTAPENEM SODIUM 1 GM in SODIUM CHLORIDE 50 ML IVPB SCH (09:16)
[2023-01-07 09:23] LABS: CHLORIDE 100 mmol/L (98-107); SODIUM 138 mmol/L (136-145)
[2023-01-07 09:25] LABS: CALCIUM 7.4 mg/dL (8.5-10.1)
[2023-01-07 09:26] LABS: ANION GAP 3 MMOL/L (8-16); BLOOD UREA NITROGEN 19.8 mg/dL (7-18); CO2 36 mmol/L (21-32); GLUCOSE,RANDOM 101 mg/dL (74-106); MAGNESIUM 2.1 mg/dL (1.8-2.4)
[2023-01-07 09:29] LABS: CREATININE 0.5 mg/dL (0.55-1.3); PHOSPHOROUS 3.7 mg/dL (2.5-4.9); SGOT/AST 44 U/L (15-37); SGPT/ALT 27 U/L (13-61)
[2023-01-07 09:31] LABS: BILIRUBIN,TOTAL < 0.1 mg/dL (0.2-1); TOT PROT 5.6 g/dl (6.4-8.2)
[2023-01-07 09:32] LABS: ALK PHOS 105 U/L (45-117)
[2023-01-07 09:58] LABS: ANISOCYTOSIS 2+; MACROCYTOSIS 0
[2023-01-07] MEDS: MULTIVIT-MINERALS ORAL LIQUID GT SCH (11:02)
[2023-01-07] MEDS: AMINO ACIDS/PROTEIN HYDROLYS 30 ML LIQUID.PKT GT SCH (11:02)
[2023-01-07] MEDS: ASCORBIC ACID 500 MG TABLET (FP) GT SCH (11:03)
[2023-01-07] MEDS: DIGOXIN 0.125 MG TABLET GT SCH (11:03)
[2023-01-07] MEDS: ACETAMINOPHEN 1000 MG/100 ML BAG IVPB PRN (11:08)
[2023-01-07] MEDS: COLLAGENASE CLOSTRIDIUM HIST. 30 GRAMS TUBE TP SCH (16:36)
[2023-01-07] MEDS: CHLORHEXIDINE GLUCONATE 4% CLEANSER FOR DECOLONIZATION TP SCH (21:07)
[2023-01-08] MEDS: BANATROL PLUS POWDER PACKET PO SCH ×3 (05:51→23:04)
[2023-01-08] MEDS: LEVOTHYROXINE NA 125 MCG TABLET (FP) GT SCH (06:04)
[2023-01-08] MEDS: MIDODRINE HCL 5 MG TABLET GT SCH ×3 (06:04→21:34)
[2023-01-08] MEDS: GABAPENTIN 100 MG CAPSULE GT SCH ×3 (06:04→21:35)
[2023-01-08 07:38] LABS: BASO % 2.5 % (0-2.0); EOS % 5.2 % (0-4.5); HEMATOCRIT 23.5 % (32.4-45.2); HEMOGLOBIN 7.5 GM/dL (10.7-15.3); LYMPH % 39.9 % (8-40); MCH 29.5 pg (25.7-33.7); MCHC 31.8 g/dl (32.0-36.0); MEAN CELL VOLUME 92.6 fl (80-96); MONO % 8.2 % (3.8-10.2); NEUT % 44.2 % (42.8-82.8); PLATELET COUNT 427 10^3/uL (134-434); RBC 2.54 M/mm3 (3.60-5.2); RDW 19.7 % (11.6-15.6); WHITE BLOOD COUNT 5.6 K/mm3 (4.0-10.0)
[2023-01-08 07:51] LABS: POTASSIUM 4.8 mmol/L (3.5-5.1)
[2023-01-08 07:56] LABS: CALCIUM 7.2 mg/dL (8.5-10.1); MAGNESIUM 1.8 mg/dL (1.8-2.4)
[2023-01-08 07:57] LABS: BLOOD UREA NITROGEN 18.6 mg/dL (7-18)
[2023-01-08 07:59] LABS: CREATININE 0.5 mg/dL (0.55-1.3); PHOSPHOROUS 3.5 mg/dL (2.5-4.9)
[2023-01-08 08:53] LABS: ANISOCYTOSIS 3+; MACROCYTOSIS 0; OVALOCYTE 1+
[2023-01-08] MEDS: DIGOXIN 0.125 MG TABLET GT SCH (10:16)
[2023-01-08] MEDS: ASCORBIC ACID 500 MG TABLET (FP) GT SCH (10:16)
[2023-01-08] MEDS: ERTAPENEM SODIUM 1 GM in SODIUM CHLORIDE 50 ML IVPB SCH (10:17)
[2023-01-08] MEDS: PANTOPRAZOLE SODIUM 40 MG VIAL IVPUSH SCH ×2 (10:18→21:29)
[2023-01-08] MEDS: AMINO ACIDS/PROTEIN HYDROLYS 30 ML LIQUID.PKT GT SCH (10:18)
[2023-01-08] MEDS: COLLAGENASE CLOSTRIDIUM HIST. 30 GRAMS TUBE TP SCH (10:19)
[2023-01-08] MEDS ORDERED: NOREPINEPHRINE 0.9 % NACL 8 MG/250 ML BAG IVPB SCH (11:41)
[2023-01-08] MEDS: oxyCODONE HCL 5 MG TABLET PO PRN (14:48)
[2023-01-08] MEDS: MULTIVIT-MINERALS ORAL LIQUID GT SCH (14:55)
[2023-01-08] MEDS: CHLORHEXIDINE GLUCONATE 4% CLEANSER FOR DECOLONIZATION TP SCH (23:04)
[2023-01-09] MEDS: BANATROL PLUS POWDER PACKET PO SCH ×3 (06:01→21:07)
[2023-01-09] MEDS: GABAPENTIN 100 MG CAPSULE GT SCH ×3 (06:01→21:07)
[2023-01-09] MEDS: MIDODRINE HCL 5 MG TABLET GT SCH ×3 (06:02→21:07)
[2023-01-09] MEDS: oxyCODONE HCL 5 MG TABLET PO PRN (06:25)
[2023-01-09 07:52] LABS: POTASSIUM 4.9 mmol/L (3.5-5.1)
[2023-01-09 07:53] LABS: HEMATOCRIT 21.6 % (32.4-45.2); MCH 29.9 pg (25.7-33.7); MCHC 32.4 g/dl (32.0-36.0); MEAN CELL VOLUME 92.1 fl (80-96); MEAN PLT VOLUME 8.2 fl (7.5-11.1); PLATELET COUNT 404 10^3/uL (134-434); RBC 2.35 M/mm3 (3.60-5.2); RDW 18.9 % (11.6-15.6); WHITE BLOOD COUNT 5.4 K/mm3 (4.0-10.0)
[2023-01-09 07:55] LABS: ALBUMIN 0.9 g/dl (3.4-5.0); BLOOD UREA NITROGEN 18.1 mg/dL (7-18)
[2023-01-09 07:57] LABS: CALCIUM 7.4 mg/dL (8.5-10.1); MAGNESIUM 1.8 mg/dL (1.8-2.4)
[2023-01-09 07:58] LABS: CREATININE 0.4 mg/dL (0.55-1.3); PHOSPHOROUS 3.9 mg/dL (2.5-4.9)
[2023-01-09 07:59] LABS: BILIRUBIN,TOTAL 0.2 mg/dL (0.2-1)
[2023-01-09 08:00] LABS: TOT PROT 5.3 g/dl (6.4-8.2)
[2023-01-09] MEDS: LEVOTHYROXINE NA 125 MCG TABLET (FP) GT SCH (08:15)
[2023-01-09] MEDS: AMINO ACIDS/PROTEIN HYDROLYS 30 ML LIQUID.PKT GT SCH (08:15)
[2023-01-09] MEDS: ASCORBIC ACID 500 MG TABLET (FP) GT SCH (09:07)
[2023-01-09] MEDS: PANTOPRAZOLE SODIUM 40 MG VIAL IVPUSH SCH ×2 (09:07→21:07)
[2023-01-09] MEDS: DIGOXIN 0.125 MG TABLET GT SCH (09:07)
[2023-01-09 09:08] LABS: ANISOCYTOSIS 1+; MACROCYTOSIS 0
[2023-01-09] MEDS: ERTAPENEM SODIUM 1 GM in SODIUM CHLORIDE 50 ML IVPB SCH (09:11)
[2023-01-09] MEDS: MULTIVIT-MINERALS ORAL LIQUID GT SCH (09:13)
[2023-01-09] MEDS: FENTANYL PATCH WASTE TD PRN ×2 (13:04→13:05)
[2023-01-09] MEDS: fentaNYL 12mcg/hr PATCH.TD72 TD SCH (13:06)
[2023-01-09] MEDS: fentaNYL 25mcg/hr PATCH.TD72 TD SCH (13:07)
[2023-01-09] MEDS: morphine SULFATE 10 MG/5 ML UNIT-DOSE CUP GT PRN ×2 (15:05→21:08)
[2023-01-09] MEDS: COLLAGENASE CLOSTRIDIUM HIST. 30 GRAMS TUBE TP SCH (16:52)
[2023-01-09] MEDS: CHLORHEXIDINE GLUCONATE 4% CLEANSER FOR DECOLONIZATION TP SCH (21:08)
[2023-01-10] MEDS: morphine SULFATE 10 MG/5 ML UNIT-DOSE CUP GT PRN ×3 (05:58→21:36)
[2023-01-10] MEDS: MIDODRINE HCL 5 MG TABLET GT SCH ×3 (05:58→21:36)
[2023-01-10] MEDS: BANATROL PLUS POWDER PACKET PO SCH ×3 (05:58→21:39)
[2023-01-10] MEDS: GABAPENTIN 100 MG CAPSULE GT SCH ×3 (05:58→21:38)
[2023-01-10] MEDS: LEVOTHYROXINE NA 125 MCG TABLET (FP) GT SCH (05:59)
[2023-01-10] MEDS: ERTAPENEM SODIUM 1 GM in SODIUM CHLORIDE 50 ML IVPB SCH (10:09)
[2023-01-10] MEDS: DIGOXIN 0.125 MG TABLET GT SCH (10:10)
[2023-01-10] MEDS: MULTIVIT-MINERALS ORAL LIQUID GT SCH (10:10)
[2023-01-10] MEDS: PANTOPRAZOLE SODIUM 40 MG VIAL IVPUSH SCH ×2 (10:10→21:39)
[2023-01-10] MEDS: AMINO ACIDS/PROTEIN HYDROLYS 30 ML LIQUID.PKT GT SCH ×2 (10:11→18:07)
[2023-01-10] MEDS: COLLAGENASE CLOSTRIDIUM HIST. 30 GRAMS TUBE TP SCH (10:11)
[2023-01-10] MEDS: ASCORBIC ACID 500 MG TABLET (FP) GT SCH (10:12)
[2023-01-10 11:56] LABS: HEMATOCRIT 20.7 % (32.4-45.2); MCHC 32.4 g/dl (32.0-36.0); MEAN CELL VOLUME 92.6 fl (80-96); MEAN PLT VOLUME 7.4 fl (7.5-11.1); PLATELET COUNT 366 10^3/uL (134-434); RBC 2.24 M/mm3 (3.60-5.2); WHITE BLOOD COUNT 5.1 K/mm3 (4.0-10.0)
[2023-01-10 12:04] LABS: HEMOGLOBIN 6.7 GM/dL (10.7-15.3)
[2023-01-10 12:17] LABS: CHLORIDE 100 mmol/L (98-107); POTASSIUM 5.3 mmol/L (3.5-5.1); SODIUM 137 mmol/L (136-145)
[2023-01-10 12:22] LABS: CALCIUM 7.1 mg/dL (8.5-10.1)
[2023-01-10 12:23] LABS: ANION GAP 3 MMOL/L (8-16); CO2 34 mmol/L (21-32); GLUCOSE,RANDOM 123 mg/dL (74-106)
[2023-01-10 12:25] LABS: CREATININE 0.6 mg/dL (0.55-1.3); PHOSPHOROUS 4.5 mg/dL (2.5-4.9); SGPT/ALT 24 U/L (13-61)
[2023-01-10 12:26] LABS: ANISOCYTOSIS 2+; MACROCYTOSIS 0; SGOT/AST 22 U/L (15-37)
[2023-01-10 12:27] LABS: BILIRUBIN,TOTAL < 0.1 mg/dL (0.2-1); TOT PROT 5.6 g/dl (6.4-8.2)
[2023-01-10 12:28] LABS: ALK PHOS 107 U/L (45-117)
[2023-01-10] MEDS: CHLORHEXIDINE GLUCONATE 4% CLEANSER FOR DECOLONIZATION TP SCH (21:38)
[2023-01-11] MEDS ORDERED: METOPROLOL TARTRATE 5 MG/5 ML VIAL IVPUSH PRN (00:20)
[2023-01-11] MEDS ORDERED: FENTANYL PATCH WASTE TD PRN ×3 (00:20)
[2023-01-11] MEDS: MIDODRINE HCL 5 MG TABLET GT SCH ×3 (04:55→21:23)
[2023-01-11] MEDS: BANATROL PLUS POWDER PACKET PO SCH ×3 (05:34→21:23)
[2023-01-11] MEDS: GABAPENTIN 100 MG CAPSULE GT SCH ×3 (05:34→21:24)
[2023-01-11] MEDS: LEVOTHYROXINE NA 125 MCG TABLET (FP) GT SCH (06:25)
[2023-01-11 08:25] LABS: POTASSIUM 5.5 mmol/L (3.5-5.1)
[2023-01-11] MEDS ORDERED: SODIUM ZIRCONIUM CYCLOSILICATE (LOKELMA) 5 GM PACKET GT ONE (08:26)
[2023-01-11 08:28] LABS: BLOOD UREA NITROGEN 22.9 mg/dL (7-18); CALCIUM 7.4 mg/dL (8.5-10.1); MAGNESIUM 2.1 mg/dL (1.8-2.4)
[2023-01-11 08:31] LABS: CREATININE 0.7 mg/dL (0.55-1.3); PHOSPHOROUS 4.4 mg/dL (2.5-4.9)
[2023-01-11 08:33] LABS: BILIRUBIN,TOTAL 0.1 mg/dL (0.2-1); TOT PROT 5.8 g/dl (6.4-8.2)
[2023-01-11] MEDS: AMINO ACIDS/PROTEIN HYDROLYS 30 ML LIQUID.PKT GT SCH ×2 (09:39→17:02)
[2023-01-11] MEDS: MULTIVIT-MINERALS ORAL LIQUID GT SCH (09:40)
[2023-01-11] MEDS: PANTOPRAZOLE SODIUM 40 MG VIAL IVPUSH SCH ×2 (09:40→21:23)
[2023-01-11] MEDS: ERTAPENEM SODIUM 1 GM in SODIUM CHLORIDE 50 ML IVPB SCH (09:41)
[2023-01-11] MEDS: DIGOXIN 0.125 MG TABLET GT SCH (09:43)
[2023-01-11] MEDS: ASCORBIC ACID 500 MG TABLET (FP) GT SCH (09:43)
[2023-01-11] MEDS: morphine SULFATE 10 MG/5 ML UNIT-DOSE CUP GT PRN ×3 (10:21→21:46)
[2023-01-11] MEDS ORDERED: NALOXONE HCL 0.4 MG/ML VIAL IVPUSH PRN (11:12)
[2023-01-11 13:26] LABS: BASO % 0.6 % (0-2.0); EOS % 2.3 % (0-4.5); HEMATOCRIT 23.1 % (32.4-45.2); HEMOGLOBIN 7.7 GM/dL (10.7-15.3); LYMPH % 31.1 % (8-40); MCH 30.4 pg (25.7-33.7); MCHC 33.4 g/dl (32.0-36.0); MEAN CELL VOLUME 91.1 fl (80-96); MEAN PLT VOLUME 7.4 fl (7.5-11.1); MONO % 6.3 % (3.8-10.2); NEUT % 59.7 % (42.8-82.8); PLATELET COUNT 323 10^3/uL (134-434); RBC 2.54 M/mm3 (3.60-5.2); WHITE BLOOD COUNT 6.3 K/mm3 (4.0-10.0)
[2023-01-11] MEDS: COLLAGENASE CLOSTRIDIUM HIST. 30 GRAMS TUBE TP SCH (16:00)
[2023-01-11] MEDS: CHLORHEXIDINE GLUCONATE 4% CLEANSER FOR DECOLONIZATION TP SCH (21:24)
[2023-01-12] MEDS: GABAPENTIN 100 MG CAPSULE GT SCH ×3 (05:57→21:04)
[2023-01-12] MEDS: BANATROL PLUS POWDER PACKET PO SCH ×3 (05:58→21:05)
[2023-01-12] MEDS: MIDODRINE HCL 5 MG TABLET GT SCH ×3 (05:58→21:05)
[2023-01-12] MEDS: LEVOTHYROXINE NA 125 MCG TABLET (FP) GT SCH (06:01)
[2023-01-12] MEDS: oxyCODONE HCL 5 MG TABLET PO PRN ×3 (06:10→19:30)
[2023-01-12] MEDS: AMINO ACIDS/PROTEIN HYDROLYS 30 ML LIQUID.PKT GT SCH ×2 (07:36→16:50)
[2023-01-12] MEDS: MULTIVIT-MINERALS ORAL LIQUID GT SCH (09:20)
[2023-01-12] MEDS: DIGOXIN 0.125 MG TABLET GT SCH (09:20)
[2023-01-12] MEDS: PANTOPRAZOLE SODIUM 40 MG VIAL IVPUSH SCH ×2 (09:20→21:03)
[2023-01-12] MEDS: ASCORBIC ACID 500 MG TABLET (FP) GT SCH (09:20)
[2023-01-12] MEDS: ERTAPENEM SODIUM 1 GM in SODIUM CHLORIDE 50 ML IVPB SCH (09:20)
[2023-01-12] MEDS: COLLAGENASE CLOSTRIDIUM HIST. 30 GRAMS TUBE TP SCH (10:20)
[2023-01-12 14:07] LABS: BASO % 1.2 % (0-2.0); HEMATOCRIT 26.5 % (32.4-45.2); HEMOGLOBIN 8.1 GM/dL (10.7-15.3); LYMPH % 21.4 % (8-40); MCH 28.9 pg (25.7-33.7); MCHC 30.8 g/dl (32.0-36.0); MONO % 5.4 % (3.8-10.2); PLATELET COUNT 347 10^3/uL (134-434); RBC 2.82 M/mm3 (3.60-5.2); RDW 19.9 % (11.6-15.6); WHITE BLOOD COUNT 7.7 K/mm3 (4.0-10.0)
[2023-01-12 14:30] LABS: POTASSIUM 5.3 mmol/L (3.5-5.1)
[2023-01-12 14:32] LABS: ALBUMIN 1.1 g/dl (3.4-5.0); BLOOD UREA NITROGEN 24.1 mg/dL (7-18); CALCIUM 7.7 mg/dL (8.5-10.1)
[2023-01-12 14:35] LABS: CREATININE 0.6 mg/dL (0.55-1.3)
[2023-01-12 14:37] LABS: TOT PROT 6.2 g/dl (6.4-8.2)
[2023-01-12 14:40] LABS: BILIRUBIN,TOTAL 0.4 mg/dL (0.2-1)
[2023-01-12] MEDS: CHLORHEXIDINE GLUCONATE 4% CLEANSER FOR DECOLONIZATION TP SCH (21:04)
[2023-01-12] MEDS: morphine SULFATE 10 MG/5 ML UNIT-DOSE CUP GT PRN (22:06)
[2023-01-13] MEDS: BANATROL PLUS POWDER PACKET PO SCH ×3 (05:24→21:04)
[2023-01-13] MEDS: MIDODRINE HCL 5 MG TABLET GT SCH ×3 (05:24→21:05)
[2023-01-13] MEDS: GABAPENTIN 100 MG CAPSULE GT SCH ×3 (05:24→21:04)
[2023-01-13] MEDS: morphine SULFATE 10 MG/5 ML UNIT-DOSE CUP GT PRN ×2 (05:27→12:02)
[2023-01-13] MEDS: LEVOTHYROXINE NA 125 MCG TABLET (FP) GT SCH (06:11)
[2023-01-13] MEDS: DIGOXIN 0.125 MG TABLET GT SCH (09:07)
[2023-01-13] MEDS: oxyCODONE HCL 5 MG TABLET PO PRN ×2 (09:07→16:13)
[2023-01-13] MEDS: PANTOPRAZOLE SODIUM 40 MG VIAL IVPUSH SCH ×2 (09:07→21:04)
[2023-01-13] MEDS: COLLAGENASE CLOSTRIDIUM HIST. 30 GRAMS TUBE TP SCH (09:08)
[2023-01-13] MEDS: SODIUM ZIRCONIUM CYCLOSILICATE (LOKELMA) 5 GM PACKET PO SCH (09:08)
[2023-01-13] MEDS: ASCORBIC ACID 500 MG TABLET (FP) GT SCH (09:08)
[2023-01-13] MEDS: AMINO ACIDS/PROTEIN HYDROLYS 30 ML LIQUID.PKT GT SCH ×2 (09:08→18:00)
[2023-01-13] MEDS: MULTIVIT-MINERALS ORAL LIQUID GT SCH (10:45)
[2023-01-13 13:15] LABS: HEMATOCRIT 26.4 % (32.4-45.2); HEMOGLOBIN 8.5 GM/dL (10.7-15.3); MCH 29.7 pg (25.7-33.7); MEAN CELL VOLUME 92.8 fl (80-96); MEAN PLT VOLUME 8.3 fl (7.5-11.1); PLATELET COUNT 400 10^3/uL (134-434); RBC 2.84 M/mm3 (3.60-5.2); RDW 19.7 % (11.6-15.6); WHITE BLOOD COUNT 8.5 K/mm3 (4.0-10.0)
[2023-01-13 14:26] LABS: MAGNESIUM 2.3 mg/dL (1.8-2.4)
[2023-01-13 14:29] LABS: CREATININE 0.6 mg/dL (0.55-1.3)
[2023-01-13 14:33] LABS: ALBUMIN 1.1 g/dl (3.4-5.0); BILIRUBIN,TOTAL 0.2 mg/dL (0.2-1); BLOOD UREA NITROGEN 28.4 mg/dL (7-18); PHOSPHOROUS 4.9 mg/dL (2.5-4.9); POTASSIUM 5.5 mmol/L (3.5-5.1); TOT PROT 6.5 g/dl (6.4-8.2)
[2023-01-13 18:19] LABS: POTASSIUM 5.9 mmol/L (3.5-5.1)
[2023-01-13 18:20] LABS: CALCIUM 7.9 mg/dL (8.5-10.1)
[2023-01-13 18:21] LABS: BLOOD UREA NITROGEN 26.3 mg/dL (7-18)
[2023-01-13 18:24] LABS: CREATININE 0.6 mg/dL (0.55-1.3)
[2023-01-13] MEDS ORDERED: SODIUM ZIRCONIUM CYCLOSILICATE (LOKELMA) 5 GM PACKET PO ONE (18:29)
[2023-01-13] MEDS ORDERED: DEXTROSE 50%-WATER - 25 GM/50 ML VIAL IVPUSH ONE (19:07)
[2023-01-13] MEDS ORDERED: INSULIN (NOVOLOG) ASPART 100 UNITS/ML 10ML VIAL SQ ONE (19:07)
[2023-01-13] MEDS ORDERED: DEXTROSE 50%-WATER 25 GM/50 ML DISP.SYRIN ONE (19:35)
[2023-01-13] MEDS ORDERED: INSULIN REGULAR HUMAN 100 UNITS/ML *VIAL IVPUSH ONE (20:01)
[2023-01-13] MEDS: CHLORHEXIDINE GLUCONATE 4% CLEANSER FOR DECOLONIZATION TP SCH (21:05)
[2023-01-13 23:24] LABS: POTASSIUM 5.3 mmol/L (3.5-5.1)
[2023-01-13 23:26] LABS: CALCIUM 7.6 mg/dL (8.5-10.1)
[2023-01-13 23:27] LABS: BLOOD UREA NITROGEN 28.4 mg/dL (7-18); MAGNESIUM 2.2 mg/dL (1.8-2.4)
[2023-01-13 23:30] LABS: CREATININE 0.7 mg/dL (0.55-1.3)
[2023-01-14] MEDS ORDERED: SODIUM ZIRCONIUM CYCLOSILICATE (LOKELMA) 5 GM PACKET PO ONE (00:11)
[2023-01-14] MEDS: BANATROL PLUS POWDER PACKET PO SCH ×3 (06:10→21:14)
[2023-01-14] MEDS: LEVOTHYROXINE NA 125 MCG TABLET (FP) GT SCH (06:10)
[2023-01-14] MEDS: MIDODRINE HCL 5 MG TABLET GT SCH ×3 (06:10→21:15)
[2023-01-14] MEDS: GABAPENTIN 100 MG CAPSULE GT SCH ×3 (06:11→21:14)
[2023-01-14 07:17] LABS: HEMATOCRIT 23.2 % (32.4-45.2); HEMOGLOBIN 7.4 GM/dL (10.7-15.3); MCH 29.6 pg (25.7-33.7); MEAN CELL VOLUME 92.7 fl (80-96); PLATELET COUNT 322 10^3/uL (134-434); RDW 18.9 % (11.6-15.6); WHITE BLOOD COUNT 6.1 K/mm3 (4.0-10.0)
[2023-01-14 07:41] LABS: POTASSIUM 5.3 mmol/L (3.5-5.1)
[2023-01-14 07:42] LABS: CALCIUM 7.6 mg/dL (8.5-10.1)
[2023-01-14 07:43] LABS: BLOOD UREA NITROGEN 29.8 mg/dL (7-18); MAGNESIUM 2.2 mg/dL (1.8-2.4)
[2023-01-14 07:46] LABS: CREATININE 0.6 mg/dL (0.55-1.3); PHOSPHOROUS 4.7 mg/dL (2.5-4.9)
[2023-01-14 07:47] LABS: TOT PROT 5.8 g/dl (6.4-8.2)
[2023-01-14 07:48] LABS: BILIRUBIN,TOTAL 0.2 mg/dL (0.2-1)
[2023-01-14] MEDS: AMINO ACIDS/PROTEIN HYDROLYS 30 ML LIQUID.PKT GT SCH ×2 (08:20→16:59)
[2023-01-14 08:46] LABS: ANISOCYTOSIS 2+; MACROCYTOSIS 0; TARGET CELLS 1+
[2023-01-14] MEDS: COLLAGENASE CLOSTRIDIUM HIST. 30 GRAMS TUBE TP SCH (10:38)
[2023-01-14] MEDS: MULTIVIT-MINERALS ORAL LIQUID GT SCH (10:38)
[2023-01-14] MEDS: SODIUM ZIRCONIUM CYCLOSILICATE (LOKELMA) 5 GM PACKET PO SCH (10:39)
[2023-01-14] MEDS: DIGOXIN 0.125 MG TABLET GT SCH (10:39)
[2023-01-14] MEDS: ASCORBIC ACID 500 MG TABLET (FP) GT SCH (10:39)
[2023-01-14] MEDS: PANTOPRAZOLE SODIUM 40 MG VIAL IVPUSH SCH ×2 (10:39→21:14)
[2023-01-14] MEDS: morphine SULFATE 10 MG/5 ML UNIT-DOSE CUP GT PRN ×3 (10:55→21:15)
[2023-01-14] MEDS: CHLORHEXIDINE GLUCONATE 4% CLEANSER FOR DECOLONIZATION TP SCH (21:15)
[2023-01-15] MEDS: GABAPENTIN 100 MG CAPSULE GT SCH ×3 (06:04→21:04)
[2023-01-15] MEDS: morphine SULFATE 10 MG/5 ML UNIT-DOSE CUP GT PRN ×2 (06:04→12:19)
[2023-01-15] MEDS: MIDODRINE HCL 5 MG TABLET GT SCH ×3 (06:04→21:04)
[2023-01-15] MEDS: LEVOTHYROXINE NA 125 MCG TABLET (FP) GT SCH (06:04)
[2023-01-15] MEDS: BANATROL PLUS POWDER PACKET PO SCH ×3 (06:04→21:04)
[2023-01-15 07:28] LABS: POTASSIUM 5.4 mmol/L (3.5-5.1)
[2023-01-15 07:33] LABS: CALCIUM 7.6 mg/dL (8.5-10.1)
[2023-01-15 07:34] LABS: BLOOD UREA NITROGEN 30.1 mg/dL (7-18); MAGNESIUM 2.3 mg/dL (1.8-2.4)
[2023-01-15 07:37] LABS: CREATININE 0.6 mg/dL (0.55-1.3); PHOSPHOROUS 4.6 mg/dL (2.5-4.9)
[2023-01-15 07:38] LABS: BILIRUBIN,TOTAL 0.2 mg/dL (0.2-1)
[2023-01-15 07:52] LABS: HEMATOCRIT 23.4 % (32.4-45.2); HEMOGLOBIN 7.5 GM/dL (10.7-15.3); MCH 29.7 pg (25.7-33.7); MCHC 32.1 g/dl (32.0-36.0); MEAN CELL VOLUME 92.6 fl (80-96); MEAN PLT VOLUME 8.3 fl (7.5-11.1); PLATELET COUNT 282 10^3/uL (134-434); RBC 2.52 M/mm3 (3.60-5.2); WHITE BLOOD COUNT 6.3 K/mm3 (4.0-10.0)
[2023-01-15] MEDS: AMINO ACIDS/PROTEIN HYDROLYS 30 ML LIQUID.PKT GT SCH ×2 (08:26→17:35)
[2023-01-15] MEDS: SODIUM ZIRCONIUM CYCLOSILICATE (LOKELMA) 5 GM PACKET PO SCH (09:03)
[2023-01-15] MEDS: oxyCODONE HCL 5 MG TABLET PO PRN ×2 (09:04→23:00)
[2023-01-15] MEDS: ASCORBIC ACID 500 MG TABLET (FP) GT SCH (09:05)
[2023-01-15] MEDS: PANTOPRAZOLE SODIUM 40 MG VIAL IVPUSH SCH ×2 (09:05→21:04)
[2023-01-15] MEDS: DIGOXIN 0.125 MG TABLET GT SCH (09:08)
[2023-01-15] MEDS: COLLAGENASE CLOSTRIDIUM HIST. 30 GRAMS TUBE TP SCH (09:09)
[2023-01-15] MEDS: MULTIVIT-MINERALS ORAL LIQUID GT SCH (09:13)
[2023-01-15 09:33] LABS: ANISOCYTOSIS 0; MACROCYTOSIS 0
[2023-01-15] MEDS ORDERED: POLYETHYLENE GLYCOL (HEALTHYLAX) 3350 17 GM PACKET GT PRN (12:32)
[2023-01-15] MEDS: CHLORHEXIDINE GLUCONATE 4% CLEANSER FOR DECOLONIZATION TP SCH (21:04)
[2023-01-15] MEDS: ASCORBIC ACID 500 MG TABLET (FP) PO SCH (21:04)
[2023-01-16] MEDS: GABAPENTIN 100 MG CAPSULE GT SCH ×2 (06:05→13:50)
[2023-01-16] MEDS: BANATROL PLUS POWDER PACKET PO SCH ×3 (06:05→21:04)
[2023-01-16] MEDS: LEVOTHYROXINE NA 125 MCG TABLET (FP) GT SCH (06:05)
[2023-01-16] MEDS: MIDODRINE HCL 5 MG TABLET GT SCH ×3 (06:05→21:04)
[2023-01-16 07:16] LABS: HEMATOCRIT 23.4 % (32.4-45.2); HEMOGLOBIN 7.6 GM/dL (10.7-15.3); MCH 30.2 pg (25.7-33.7); MCHC 32.6 g/dl (32.0-36.0); MEAN CELL VOLUME 92.6 fl (80-96); MEAN PLT VOLUME 8.1 fl (7.5-11.1); PLATELET COUNT 283 10^3/uL (134-434); RBC 2.52 M/mm3 (3.60-5.2); RDW 18.9 % (11.6-15.6); WHITE BLOOD COUNT 6.6 K/mm3 (4.0-10.0)
[2023-01-16 08:21] LABS: POTASSIUM 5.2 mmol/L (3.5-5.1)
[2023-01-16 08:27] LABS: BLOOD UREA NITROGEN 28.9 mg/dL (7-18); CALCIUM 7.5 mg/dL (8.5-10.1)
[2023-01-16 08:29] LABS: ALBUMIN 1.1 g/dl (3.4-5.0); MAGNESIUM 2.4 mg/dL (1.8-2.4)
[2023-01-16 08:30] LABS: BILIRUBIN,TOTAL 0.2 mg/dL (0.2-1); TOT PROT 6.2 g/dl (6.4-8.2)
[2023-01-16 08:31] LABS: PHOSPHOROUS 4.4 mg/dL (2.5-4.9)
[2023-01-16 08:33] LABS: CREATININE 0.7 mg/dL (0.55-1.3)
[2023-01-16 09:10] LABS: ANISOCYTOSIS 0; HELMET CELLS 0; HOWELL-JOLLY BODIES 0; MACROCYTOSIS 0; OVALOCYTE 0; ROULEAU 0; SICKELED CELLS 0; TARGET CELLS 0; TEAR DROP CELLS 0; TOXIC GRANULATION 0
[2023-01-16] MEDS: oxyCODONE HCL 5 MG TABLET PO PRN ×3 (10:00→17:53)
[2023-01-16] MEDS: SODIUM ZIRCONIUM CYCLOSILICATE (LOKELMA) 5 GM PACKET PO SCH (10:06)
[2023-01-16] MEDS: PANTOPRAZOLE SODIUM 40 MG VIAL IVPUSH SCH ×2 (10:06→21:04)
[2023-01-16] MEDS: DIGOXIN 0.125 MG TABLET GT SCH (10:06)
[2023-01-16] MEDS: ZINC SULFATE 220 MG CAPSULE (FP) PO SCH (10:06)
[2023-01-16] MEDS: ASCORBIC ACID 500 MG TABLET (FP) GT SCH (10:06)
[2023-01-16] MEDS: AMINO ACIDS/PROTEIN HYDROLYS 30 ML LIQUID.PKT GT SCH ×2 (10:07→17:53)
[2023-01-16] MEDS: ASCORBIC ACID 500 MG TABLET (FP) PO SCH ×2 (10:07→21:04)
[2023-01-16] MEDS: MULTIVIT-MINERALS ORAL LIQUID GT SCH (10:07)
[2023-01-16] MEDS: COLLAGENASE CLOSTRIDIUM HIST. 30 GRAMS TUBE TP SCH (12:08)
[2023-01-16] MEDS: ALBUTEROL SO4 0.083% IH SOL 2.5 MG/3 ML VIAL.NEB. NEB SCH ×2 (14:45→20:36)
[2023-01-16] MEDS: GABAPENTIN 250 MG/5 ML ORAL SOLUTION, 470 ML BOTTLE GT SCH ×2 (15:00→21:05)
[2023-01-16] MEDS ORDERED: oxyCODONE HCL 5 MG TABLET PO PRN (16:49)
[2023-01-16] MEDS: CHLORHEXIDINE GLUCONATE 4% CLEANSER FOR DECOLONIZATION TP SCH (21:05)
[2023-01-16] MEDS ORDERED: IBUPROFEN 800 MG/8 ML IJ IVPB ONE (21:07)
[2023-01-17] MEDS: SODIUM ZIRCONIUM CYCLOSILICATE (LOKELMA) 5 GM PACKET PO SCH ×3 (00:45→21:12)
[2023-01-17] MEDS: MIDODRINE HCL 5 MG TABLET GT SCH ×3 (05:32→21:12)
[2023-01-17] MEDS: GABAPENTIN 250 MG/5 ML ORAL SOLUTION, 470 ML BOTTLE GT SCH ×3 (05:32→21:13)
[2023-01-17] MEDS: BANATROL PLUS POWDER PACKET PO SCH ×3 (05:32→21:12)
[2023-01-17] MEDS: oxyCODONE HCL 5 MG TABLET PO PRN ×6 (05:33→22:40)
[2023-01-17] MEDS: LEVOTHYROXINE NA 125 MCG TABLET (FP) GT SCH (06:33)
[2023-01-17 08:01] LABS: HEMATOCRIT 22.2 % (32.4-45.2); HEMOGLOBIN 7.3 GM/dL (10.7-15.3); MCH 30.6 pg (25.7-33.7); MEAN CELL VOLUME 92.6 fl (80-96); MEAN PLT VOLUME 8.3 fl (7.5-11.1); PLATELET COUNT 260 10^3/uL (134-434); RDW 18.3 % (11.6-15.6); WHITE BLOOD COUNT 5.8 K/mm3 (4.0-10.0)
[2023-01-17] MEDS: ALBUTEROL SO4 0.083% IH SOL 2.5 MG/3 ML VIAL.NEB. NEB SCH ×3 (08:30→20:05)
[2023-01-17 08:38] LABS: CHLORIDE 95 mmol/L (98-107); POTASSIUM 5.2 mmol/L (3.5-5.1); SODIUM 134 mmol/L (136-145)
[2023-01-17 08:40] LABS: CALCIUM 7.8 mg/dL (8.5-10.1)
[2023-01-17 08:41] LABS: ALBUMIN 1.1 g/dl (3.4-5.0); ANION GAP 3 MMOL/L (8-16); BLOOD UREA NITROGEN 31.3 mg/dL (7-18); CO2 36 mmol/L (21-32); GLUCOSE,RANDOM 116 mg/dL (74-106); MAGNESIUM 2.4 mg/dL (1.8-2.4)
[2023-01-17 08:43] LABS: SGPT/ALT 40 U/L (13-61)
[2023-01-17 08:44] LABS: CREATININE 0.7 mg/dL (0.55-1.3); PHOSPHOROUS 4.5 mg/dL (2.5-4.9); SGOT/AST 59 U/L (15-37)
[2023-01-17 08:46] LABS: BILIRUBIN,TOTAL < 0.1 mg/dL (0.2-1)
[2023-01-17 08:47] LABS: ALK PHOS 117 U/L (45-117)
[2023-01-17] MEDS: AMINO ACIDS/PROTEIN HYDROLYS 30 ML LIQUID.PKT GT SCH ×2 (09:24→18:03)
[2023-01-17] MEDS: PANTOPRAZOLE SODIUM 40 MG VIAL IVPUSH SCH ×2 (09:24→21:12)
[2023-01-17] MEDS: ASCORBIC ACID 500 MG TABLET (FP) GT SCH (09:25)
[2023-01-17] MEDS: MULTIVIT-MINERALS ORAL LIQUID GT SCH (09:25)
[2023-01-17] MEDS: ZINC SULFATE 220 MG CAPSULE (FP) PO SCH (09:26)
[2023-01-17] MEDS: DIGOXIN 0.125 MG TABLET GT SCH (09:26)
[2023-01-17] MEDS: COLLAGENASE CLOSTRIDIUM HIST. 30 GRAMS TUBE TP SCH (09:27)
[2023-01-17] MEDS: ASCORBIC ACID 500 MG TABLET (FP) PO SCH ×2 (09:27→21:12)
[2023-01-17 11:04] LABS: ANISOCYTOSIS 0; HELMET CELLS 0; HOWELL-JOLLY BODIES 0; MACROCYTOSIS 0; OVALOCYTE 0; ROULEAU 0; SICKELED CELLS 0; TARGET CELLS 0; TEAR DROP CELLS 0; TOXIC GRANULATION 0
[2023-01-17] MEDS: CHLORHEXIDINE GLUCONATE 4% CLEANSER FOR DECOLONIZATION TP SCH (21:13)
[2023-01-18] MEDS: GABAPENTIN 250 MG/5 ML ORAL SOLUTION, 470 ML BOTTLE GT SCH ×3 (05:45→21:29)
[2023-01-18] MEDS: MIDODRINE HCL 5 MG TABLET GT SCH ×3 (05:46→17:36)
[2023-01-18] MEDS: BANATROL PLUS POWDER PACKET PO SCH ×3 (05:46→21:29)
[2023-01-18] MEDS: LEVOTHYROXINE NA 125 MCG TABLET (FP) GT SCH (06:27)
[2023-01-18] MEDS: oxyCODONE HCL 5 MG TABLET PO PRN ×5 (06:58→17:37)
[2023-01-18 07:09] LABS: BASO % 0.7 % (0-2.0); EOS % 1.7 % (0-4.5); HEMATOCRIT 25.9 % (32.4-45.2); HEMOGLOBIN 8.3 GM/dL (10.7-15.3); MCH 29.7 pg (25.7-33.7); MCHC 31.9 g/dl (32.0-36.0); MEAN PLT VOLUME 8.2 fl (7.5-11.1); MONO % 7.9 % (3.8-10.2); NEUT % 59.7 % (42.8-82.8); PLATELET COUNT 322 10^3/uL (134-434); RBC 2.79 M/mm3 (3.60-5.2)
[2023-01-18 07:23] LABS: POTASSIUM 5.2 mmol/L (3.5-5.1)
[2023-01-18 07:26] LABS: ALBUMIN 1.2 g/dl (3.4-5.0); BLOOD UREA NITROGEN 32.7 mg/dL (7-18)
[2023-01-18 07:27] LABS: MAGNESIUM 2.4 mg/dL (1.8-2.4)
[2023-01-18 07:29] LABS: CREATININE 0.6 mg/dL (0.55-1.3); PHOSPHOROUS 4.8 mg/dL (2.5-4.9)
[2023-01-18 07:31] LABS: TOT PROT 6.8 g/dl (6.4-8.2)
[2023-01-18 07:37] LABS: BILIRUBIN,TOTAL 0.2 mg/dL (0.2-1)
[2023-01-18] MEDS: ALBUTEROL SO4 0.083% IH SOL 2.5 MG/3 ML VIAL.NEB. NEB SCH ×3 (08:10→20:05)
[2023-01-18] MEDS: ASCORBIC ACID 500 MG TABLET (FP) GT SCH (10:11)
[2023-01-18] MEDS: DIGOXIN 0.125 MG TABLET GT SCH (10:12)
[2023-01-18] MEDS: AMINO ACIDS/PROTEIN HYDROLYS 30 ML LIQUID.PKT GT SCH ×2 (10:12→17:42)
[2023-01-18] MEDS: SODIUM ZIRCONIUM CYCLOSILICATE (LOKELMA) 5 GM PACKET PO SCH ×2 (10:12→21:29)
[2023-01-18] MEDS: ZINC SULFATE 220 MG CAPSULE (FP) PO SCH (10:12)
[2023-01-18] MEDS: PANTOPRAZOLE SODIUM 40 MG VIAL IVPUSH SCH ×2 (10:12→21:29)
[2023-01-18] MEDS: COLLAGENASE CLOSTRIDIUM HIST. 30 GRAMS TUBE TP SCH (10:40)
[2023-01-18] MEDS: POLYETHYLENE GLYCOL (HEALTHYLAX) 3350 17 GM PACKET GT SCH (12:43)
[2023-01-18] MEDS: MULTIVIT-MINERALS ORAL LIQUID GT SCH (17:41)
[2023-01-18] MEDS: ASCORBIC ACID 500 MG TABLET (FP) PO SCH ×2 (17:41→21:29)
[2023-01-18] MEDS: CHLORHEXIDINE GLUCONATE 4% CLEANSER FOR DECOLONIZATION TP SCH (21:30)
[2023-01-19] MEDS: oxyCODONE HCL 5 MG TABLET PO PRN ×3 (00:14→21:33)
[2023-01-19] MEDS: GABAPENTIN 250 MG/5 ML ORAL SOLUTION, 470 ML BOTTLE GT SCH ×3 (05:06→22:16)
[2023-01-19] MEDS: BANATROL PLUS POWDER PACKET PO SCH ×3 (05:11→21:32)
[2023-01-19] MEDS: LEVOTHYROXINE NA 125 MCG TABLET (FP) GT SCH (06:23)
[2023-01-19] MEDS: ALBUTEROL SO4 0.083% IH SOL 2.5 MG/3 ML VIAL.NEB. NEB SCH ×4 (08:40→20:18)
[2023-01-19] MEDS: SODIUM HYPOCHLORITE 0.25%- 473 ML BULK BOTTLE TP SCH ×2 (08:55→11:34)
[2023-01-19 09:18] LABS: BASO % 0.9 % (0-2.0); EOS % 1.6 % (0-4.5); HEMATOCRIT 26.4 % (32.4-45.2); HEMOGLOBIN 8.3 GM/dL (10.7-15.3); MCH 29.5 pg (25.7-33.7); MCHC 31.5 g/dl (32.0-36.0); MEAN CELL VOLUME 93.6 fl (80-96); MEAN PLT VOLUME 8.3 fl (7.5-11.1); MONO % 6.5 % (3.8-10.2); PLATELET COUNT 289 10^3/uL (134-434); RBC 2.83 M/mm3 (3.60-5.2); WHITE BLOOD COUNT 6.8 K/mm3 (4.0-10.0)
[2023-01-19 09:40] LABS: CHLORIDE 96 mmol/L (98-107); POTASSIUM 5.5 mmol/L (3.5-5.1); SODIUM 135 mmol/L (136-145)
[2023-01-19 09:42] LABS: CALCIUM 8.2 mg/dL (8.5-10.1)
[2023-01-19 09:43] LABS: ALBUMIN 1.2 g/dl (3.4-5.0); ANION GAP 2 MMOL/L (8-16); BLOOD UREA NITROGEN 30.9 mg/dL (7-18); CO2 37 mmol/L (21-32); GLUCOSE,RANDOM 122 mg/dL (74-106); MAGNESIUM 2.4 mg/dL (1.8-2.4)
[2023-01-19 09:46] LABS: CREATININE 0.6 mg/dL (0.55-1.3); PHOSPHOROUS 4.5 mg/dL (2.5-4.9); SGOT/AST 64 U/L (15-37); SGPT/ALT 50 U/L (13-61)
[2023-01-19 09:47] LABS: TOT PROT 6.9 g/dl (6.4-8.2)
[2023-01-19 09:48] LABS: BILIRUBIN,TOTAL < 0.1 mg/dL (0.2-1)
[2023-01-19 09:49] LABS: ALK PHOS 139 U/L (45-117)
[2023-01-19] MEDS: AMINO ACIDS/PROTEIN HYDROLYS 30 ML LIQUID.PKT GT SCH ×2 (10:09→17:12)
[2023-01-19] MEDS: SODIUM ZIRCONIUM CYCLOSILICATE (LOKELMA) 5 GM PACKET PO SCH ×2 (10:09→21:32)
[2023-01-19] MEDS: MIDODRINE HCL 5 MG TABLET GT SCH ×3 (10:09→17:12)
[2023-01-19] MEDS: PANTOPRAZOLE SODIUM 40 MG VIAL IVPUSH SCH ×2 (10:09→22:13)
[2023-01-19] MEDS: DULoxetine HCL 20 MG CAPSULE.DR GT SCH (10:10)
[2023-01-19] MEDS: ZINC SULFATE 220 MG CAPSULE (FP) PO SCH (10:10)
[2023-01-19] MEDS: DIGOXIN 0.125 MG TABLET GT SCH (10:10)
[2023-01-19] MEDS: ASCORBIC ACID 500 MG TABLET (FP) PO SCH ×2 (10:10→21:32)
[2023-01-19] MEDS: POLYETHYLENE GLYCOL (HEALTHYLAX) 3350 17 GM PACKET GT SCH (10:11)
[2023-01-19] MEDS: MULTIVIT-MINERALS ORAL LIQUID GT SCH (10:11)
[2023-01-19] MEDS: COLLAGENASE CLOSTRIDIUM HIST. 30 GRAMS TUBE TP SCH (11:34)
[2023-01-19] MEDS ORDERED: ALBUTEROL SO4 2.5/IPRATROPIUM 0.5 INH SOL 3 ML VIAL.NEB. NEB ONE (14:00)
[2023-01-19] MEDS: CHLORHEXIDINE GLUCONATE 4% CLEANSER FOR DECOLONIZATION TP SCH (22:13)
[2023-01-20] MEDS: oxyCODONE HCL 5 MG TABLET PO PRN ×3 (01:18→22:33)
[2023-01-20] MEDS: LEVOTHYROXINE NA 125 MCG TABLET (FP) GT SCH (06:36)
[2023-01-20] MEDS: BANATROL PLUS POWDER PACKET PO SCH ×3 (06:36→21:09)
[2023-01-20] MEDS: GABAPENTIN 250 MG/5 ML ORAL SOLUTION, 470 ML BOTTLE GT SCH ×3 (06:36→21:08)
[2023-01-20 07:33] LABS: POTASSIUM 5.2 mmol/L (3.5-5.1)
[2023-01-20 07:34] LABS: BASO % 0.7 % (0-2.0); EOS % 1.4 % (0-4.5); HEMATOCRIT 22.8 % (32.4-45.2); HEMOGLOBIN 7.6 GM/dL (10.7-15.3); MCHC 33.5 g/dl (32.0-36.0); MEAN CELL VOLUME 92.6 fl (80-96); MEAN PLT VOLUME 8.3 fl (7.5-11.1); MONO % 7.3 % (3.8-10.2); NEUT % 68.6 % (42.8-82.8); PLATELET COUNT 232 10^3/uL (134-434); RBC 2.46 M/mm3 (3.60-5.2); RDW 18.8 % (11.6-15.6); WHITE BLOOD COUNT 6.3 K/mm3 (4.0-10.0)
[2023-01-20 07:37] LABS: ALBUMIN 1.2 g/dl (3.4-5.0); CALCIUM 7.9 mg/dL (8.5-10.1); MAGNESIUM 2.3 mg/dL (1.8-2.4)
[2023-01-20 07:40] LABS: CREATININE 0.6 mg/dL (0.55-1.3); PHOSPHOROUS 4.6 mg/dL (2.5-4.9)
[2023-01-20 07:42] LABS: BILIRUBIN,TOTAL 0.2 mg/dL (0.2-1); TOT PROT 6.6 g/dl (6.4-8.2)
[2023-01-20] MEDS: ALBUTEROL SO4 0.083% IH SOL 2.5 MG/3 ML VIAL.NEB. NEB SCH ×3 (08:15→20:35)
[2023-01-20] MEDS: AMINO ACIDS/PROTEIN HYDROLYS 30 ML LIQUID.PKT GT SCH ×2 (09:54→17:26)
[2023-01-20] MEDS: DULoxetine HCL 20 MG CAPSULE.DR GT SCH (09:55)
[2023-01-20] MEDS: DIGOXIN 0.125 MG TABLET GT SCH (09:55)
[2023-01-20] MEDS: SODIUM HYPOCHLORITE 0.25%- 473 ML BULK BOTTLE TP SCH (09:55)
[2023-01-20] MEDS: POLYETHYLENE GLYCOL (HEALTHYLAX) 3350 17 GM PACKET GT SCH (09:55)
[2023-01-20] MEDS: MULTIVIT-MINERALS ORAL LIQUID GT SCH (09:55)
[2023-01-20] MEDS: ASCORBIC ACID 500 MG TABLET (FP) PO SCH ×2 (09:56→21:08)
[2023-01-20] MEDS: ZINC SULFATE 220 MG CAPSULE (FP) PO SCH (09:56)
[2023-01-20] MEDS: MIDODRINE HCL 5 MG TABLET GT SCH ×3 (09:56→17:26)
[2023-01-20] MEDS: COLLAGENASE CLOSTRIDIUM HIST. 30 GRAMS TUBE TP SCH (09:56)
[2023-01-20] MEDS: SODIUM ZIRCONIUM CYCLOSILICATE (LOKELMA) 5 GM PACKET PO SCH ×2 (09:56→21:08)
[2023-01-20] MEDS: PANTOPRAZOLE SODIUM 40 MG VIAL IVPUSH SCH ×2 (09:56→21:09)
[2023-01-20] MEDS ORDERED: ONDANSETRON 4 MG/2 ML VIAL IVPUSH ONE (12:57)
[2023-01-20] MEDS: CHLORHEXIDINE GLUCONATE 4% CLEANSER FOR DECOLONIZATION TP SCH (21:08)
[2023-01-21] MEDS: oxyCODONE HCL 5 MG TABLET PO PRN ×2 (00:19→08:03)
[2023-01-21] MEDS: GABAPENTIN 250 MG/5 ML ORAL SOLUTION, 470 ML BOTTLE GT SCH ×3 (05:55→21:18)
[2023-01-21] MEDS: BANATROL PLUS POWDER PACKET PO SCH ×3 (05:55→21:13)
[2023-01-21] MEDS: LEVOTHYROXINE NA 125 MCG TABLET (FP) GT SCH (06:28)
[2023-01-21 07:29] LABS: BASO % 0.6 % (0-2.0); EOS % 0.7 % (0-4.5); HEMATOCRIT 22.6 % (32.4-45.2); HEMOGLOBIN 7.4 GM/dL (10.7-15.3); LYMPH % 20.7 % (8-40); MCH 31.1 pg (25.7-33.7); MEAN CELL VOLUME 94.2 fl (80-96); MEAN PLT VOLUME 8.6 fl (7.5-11.1); MONO % 6.4 % (3.8-10.2); NEUT % 71.6 % (42.8-82.8); PLATELET COUNT 251 10^3/uL (134-434); RDW 18.6 % (11.6-15.6); WHITE BLOOD COUNT 5.9 K/mm3 (4.0-10.0)
[2023-01-21 07:46] LABS: POTASSIUM 5.2 mmol/L (3.5-5.1)
[2023-01-21 07:53] LABS: CALCIUM 8.1 mg/dL (8.5-10.1)
[2023-01-21 07:54] LABS: ALBUMIN 1.3 g/dl (3.4-5.0); BLOOD UREA NITROGEN 42.6 mg/dL (7-18); MAGNESIUM 2.4 mg/dL (1.8-2.4)
[2023-01-21 07:56] LABS: PHOSPHOROUS 4.8 mg/dL (2.5-4.9)
[2023-01-21 07:57] LABS: BILIRUBIN,TOTAL 0.2 mg/dL (0.2-1); CREATININE 0.7 mg/dL (0.55-1.3); TOT PROT 6.7 g/dl (6.4-8.2)
[2023-01-21] MEDS: AMINO ACIDS/PROTEIN HYDROLYS 30 ML LIQUID.PKT GT SCH ×2 (08:03→17:09)
[2023-01-21] MEDS: ALBUTEROL SO4 0.083% IH SOL 2.5 MG/3 ML VIAL.NEB. NEB SCH ×3 (08:08→20:05)
[2023-01-21] MEDS: DIGOXIN 0.125 MG TABLET GT SCH (10:00)
[2023-01-21] MEDS: DULoxetine HCL 20 MG CAPSULE.DR GT SCH (10:17)
[2023-01-21] MEDS: SODIUM ZIRCONIUM CYCLOSILICATE (LOKELMA) 5 GM PACKET PO SCH ×2 (10:17→21:13)
[2023-01-21] MEDS: MIDODRINE HCL 5 MG TABLET GT SCH ×3 (10:17→17:10)
[2023-01-21] MEDS: COLLAGENASE CLOSTRIDIUM HIST. 30 GRAMS TUBE TP SCH (10:18)
[2023-01-21] MEDS: MULTIVIT-MINERALS ORAL LIQUID GT SCH (10:18)
[2023-01-21] MEDS: ASCORBIC ACID 500 MG TABLET (FP) PO SCH ×2 (10:18→21:13)
[2023-01-21] MEDS: PANTOPRAZOLE SODIUM 40 MG VIAL IVPUSH SCH ×2 (10:18→21:13)
[2023-01-21] MEDS: ZINC SULFATE 220 MG CAPSULE (FP) PO SCH (10:18)
[2023-01-21] MEDS: SODIUM HYPOCHLORITE 0.25%- 473 ML BULK BOTTLE TP SCH (10:19)
[2023-01-21] MEDS: POLYETHYLENE GLYCOL (HEALTHYLAX) 3350 17 GM PACKET GT SCH (10:19)
[2023-01-21] MEDS: CHLORHEXIDINE GLUCONATE 4% CLEANSER FOR DECOLONIZATION TP SCH (21:13)
[2023-01-22] MEDS: BANATROL PLUS POWDER PACKET PO SCH ×3 (05:59→21:31)
[2023-01-22] MEDS: LEVOTHYROXINE NA 125 MCG TABLET (FP) GT SCH (06:01)
[2023-01-22] MEDS: GABAPENTIN 250 MG/5 ML ORAL SOLUTION, 470 ML BOTTLE GT SCH ×3 (06:01→21:31)
[2023-01-22 08:09] LABS: BASO % 0.3 % (0-2.0); EOS % 0.7 % (0-4.5); HEMATOCRIT 24.7 % (32.4-45.2); HEMOGLOBIN 7.8 GM/dL (10.7-15.3); LYMPH % 15.8 % (8-40); MCH 29.9 pg (25.7-33.7); MCHC 31.6 g/dl (32.0-36.0); MEAN CELL VOLUME 94.7 fl (80-96); MEAN PLT VOLUME 8.8 fl (7.5-11.1); MONO % 4.5 % (3.8-10.2); NEUT % 78.7 % (42.8-82.8); PLATELET COUNT 283 10^3/uL (134-434); RBC 2.61 M/mm3 (3.60-5.2); RDW 18.4 % (11.6-15.6); WHITE BLOOD COUNT 8.7 K/mm3 (4.0-10.0)
[2023-01-22 08:15] LABS: POTASSIUM 5.2 mmol/L (3.5-5.1)
[2023-01-22 08:18] LABS: CALCIUM 7.9 mg/dL (8.5-10.1)
[2023-01-22 08:19] LABS: ALBUMIN 1.3 g/dl (3.4-5.0); MAGNESIUM 2.3 mg/dL (1.8-2.4)
[2023-01-22 08:22] LABS: CREATININE 0.7 mg/dL (0.55-1.3); PHOSPHOROUS 4.8 mg/dL (2.5-4.9)
[2023-01-22 08:23] LABS: BILIRUBIN,TOTAL 0.2 mg/dL (0.2-1); TOT PROT 6.9 g/dl (6.4-8.2)
[2023-01-22] MEDS ORDERED: SODIUM CHLORIDE 250 ML IV STA (08:57)
[2023-01-22] MEDS ORDERED: SODIUM CHLORIDE 1,000 ML IV SCH (09:00)
[2023-01-22] MEDS: ALBUTEROL SO4 0.083% IH SOL 2.5 MG/3 ML VIAL.NEB. NEB SCH ×3 (09:30→21:00)
[2023-01-22] MEDS: ZINC SULFATE 220 MG CAPSULE (FP) PO SCH (09:59)
[2023-01-22] MEDS: MIDODRINE HCL 5 MG TABLET GT SCH ×3 (09:59→17:14)
[2023-01-22] MEDS: PANTOPRAZOLE SODIUM 40 MG VIAL IVPUSH SCH ×2 (09:59→21:31)
[2023-01-22] MEDS: DULoxetine HCL 20 MG CAPSULE.DR GT SCH (09:59)
[2023-01-22] MEDS: AMINO ACIDS/PROTEIN HYDROLYS 30 ML LIQUID.PKT GT SCH ×2 (09:59→17:12)
[2023-01-22] MEDS: ASCORBIC ACID 500 MG TABLET (FP) PO SCH ×2 (09:59→21:32)
[2023-01-22] MEDS: DIGOXIN 0.125 MG TABLET GT SCH (09:59)
[2023-01-22] MEDS: POLYETHYLENE GLYCOL (HEALTHYLAX) 3350 17 GM PACKET GT SCH (10:00)
[2023-01-22] MEDS: SODIUM HYPOCHLORITE 0.25%- 473 ML BULK BOTTLE TP SCH (10:00)
[2023-01-22] MEDS: SODIUM ZIRCONIUM CYCLOSILICATE (LOKELMA) 5 GM PACKET PO SCH ×2 (10:23→21:31)
[2023-01-22] MEDS: MULTIVIT-MINERALS ORAL LIQUID GT SCH (11:47)
[2023-01-22] MEDS: COLLAGENASE CLOSTRIDIUM HIST. 30 GRAMS TUBE TP SCH (11:48)
[2023-01-22] MEDS: oxyCODONE HCL 5 MG TABLET PO PRN (14:56)
[2023-01-22] MEDS: SODIUM CHLORIDE 1 GM TABLET PO SCH ×2 (17:12→21:33)
[2023-01-22] MEDS: CHLORHEXIDINE GLUCONATE 4% CLEANSER FOR DECOLONIZATION TP SCH (21:31)
[2023-01-23] MEDS: GABAPENTIN 250 MG/5 ML ORAL SOLUTION, 470 ML BOTTLE GT SCH ×3 (05:29→21:20)
[2023-01-23] MEDS: BANATROL PLUS POWDER PACKET PO SCH ×3 (05:29→21:20)
[2023-01-23] MEDS: LEVOTHYROXINE NA 125 MCG TABLET (FP) GT SCH (06:28)
[2023-01-23 06:45] LABS: ALBUMIN 1.2 g/dl (3.4-5.0); MAGNESIUM 2.4 mg/dL (1.8-2.4)
[2023-01-23 06:48] LABS: BASO % 0.5 % (0-2.0); CREATININE 0.6 mg/dL (0.55-1.3); EOS % 1.1 % (0-4.5); HEMATOCRIT 23.8 % (32.4-45.2); HEMOGLOBIN 7.6 GM/dL (10.7-15.3); LYMPH % 22.1 % (8-40); MCHC 32.1 g/dl (32.0-36.0); MEAN CELL VOLUME 93.5 fl (80-96); MEAN PLT VOLUME 8.5 fl (7.5-11.1); NEUT % 70.3 % (42.8-82.8); PHOSPHOROUS 4.2 mg/dL (2.5-4.9); PLATELET COUNT 238 10^3/uL (134-434); RBC 2.55 M/mm3 (3.60-5.2); RDW 18.5 % (11.6-15.6); WHITE BLOOD COUNT 6.2 K/mm3 (4.0-10.0)
[2023-01-23 06:49] LABS: BILIRUBIN,TOTAL 0.2 mg/dL (0.2-1)
[2023-01-23 06:50] LABS: TOT PROT 6.6 g/dl (6.4-8.2)
[2023-01-23] MEDS: ALBUTEROL SO4 0.083% IH SOL 2.5 MG/3 ML VIAL.NEB. NEB SCH ×3 (08:37→21:04)
[2023-01-23] MEDS: POLYETHYLENE GLYCOL (HEALTHYLAX) 3350 17 GM PACKET GT SCH (09:15)
[2023-01-23] MEDS: SODIUM ZIRCONIUM CYCLOSILICATE (LOKELMA) 5 GM PACKET PO SCH ×2 (09:15→21:20)
[2023-01-23] MEDS: AMINO ACIDS/PROTEIN HYDROLYS 30 ML LIQUID.PKT GT SCH ×2 (09:15→17:03)
[2023-01-23] MEDS: DIGOXIN 0.125 MG TABLET GT SCH (09:16)
[2023-01-23] MEDS: ZINC SULFATE 220 MG CAPSULE (FP) PO SCH (09:16)
[2023-01-23] MEDS: ASCORBIC ACID 500 MG TABLET (FP) PO SCH ×2 (09:16→21:20)
[2023-01-23] MEDS: SODIUM HYPOCHLORITE 0.25%- 473 ML BULK BOTTLE TP SCH (09:16)
[2023-01-23] MEDS: PANTOPRAZOLE SODIUM 40 MG VIAL IVPUSH SCH ×2 (09:16→21:20)
[2023-01-23] MEDS: MIDODRINE HCL 5 MG TABLET GT SCH (09:16)
[2023-01-23] MEDS: COLLAGENASE CLOSTRIDIUM HIST. 30 GRAMS TUBE TP SCH (09:16)
[2023-01-23] MEDS: DULoxetine HCL 20 MG CAPSULE.DR GT SCH (09:16)
[2023-01-23] MEDS: MULTIVIT-MINERALS ORAL LIQUID GT SCH (09:16)
[2023-01-23] MEDS: oxyCODONE HCL 5 MG TABLET PO PRN ×2 (12:14→21:20)
[2023-01-23] MEDS ORDERED: MIDODRINE HCL 5 MG TABLET GT SCH (13:39)
[2023-01-23] MEDS: MIDODRINE HCL 2.5 MG, MIDODRINE HCL 5 MG GT SCH (17:03)
[2023-01-23] MEDS: CHLORHEXIDINE GLUCONATE 4% CLEANSER FOR DECOLONIZATION TP SCH (21:20)
[2023-01-24] MEDS: LEVOTHYROXINE NA 125 MCG TABLET (FP) GT SCH (06:14)
[2023-01-24] MEDS: GABAPENTIN 250 MG/5 ML ORAL SOLUTION, 470 ML BOTTLE GT SCH ×3 (06:14→21:04)
[2023-01-24] MEDS: BANATROL PLUS POWDER PACKET PO SCH ×3 (06:14→21:04)
[2023-01-24 07:02] LABS: HEMATOCRIT 24.6 % (32.4-45.2); HEMOGLOBIN 7.9 GM/dL (10.7-15.3); MCH 30.1 pg (25.7-33.7); MCHC 32.1 g/dl (32.0-36.0); MEAN CELL VOLUME 93.7 fl (80-96); MEAN PLT VOLUME 8.7 fl (7.5-11.1); PLATELET COUNT 291 10^3/uL (134-434); RBC 2.62 M/mm3 (3.60-5.2); RDW 18.9 % (11.6-15.6); WHITE BLOOD COUNT 9.7 K/mm3 (4.0-10.0)
[2023-01-24 07:35] LABS: POTASSIUM 5.3 mmol/L (3.5-5.1)
[2023-01-24 07:38] LABS: ALBUMIN 1.3 g/dl (3.4-5.0); BLOOD UREA NITROGEN 45.3 mg/dL (7-18); MAGNESIUM 2.4 mg/dL (1.8-2.4)
[2023-01-24 07:41] LABS: CREATININE 0.6 mg/dL (0.55-1.3); PHOSPHOROUS 3.9 mg/dL (2.5-4.9)
[2023-01-24 07:43] LABS: BILIRUBIN,TOTAL 0.2 mg/dL (0.2-1)
[2023-01-24] MEDS: ALBUTEROL SO4 0.083% IH SOL 2.5 MG/3 ML VIAL.NEB. NEB SCH ×3 (08:05→20:45)
[2023-01-24] MEDS: PANTOPRAZOLE SODIUM 40 MG VIAL IVPUSH SCH ×2 (09:24→21:04)
[2023-01-24] MEDS: SODIUM ZIRCONIUM CYCLOSILICATE (LOKELMA) 5 GM PACKET PO SCH ×2 (09:24→21:04)
[2023-01-24] MEDS: AMINO ACIDS/PROTEIN HYDROLYS 30 ML LIQUID.PKT GT SCH ×2 (09:24→17:06)
[2023-01-24] MEDS: DIGOXIN 0.125 MG TABLET GT SCH (09:25)
[2023-01-24] MEDS: DULoxetine HCL 20 MG CAPSULE.DR GT SCH (09:25)
[2023-01-24] MEDS: MIDODRINE HCL 2.5 MG, MIDODRINE HCL 5 MG GT SCH ×3 (09:25→17:06)
[2023-01-24] MEDS: ASCORBIC ACID 500 MG TABLET (FP) PO SCH ×2 (09:25→21:04)
[2023-01-24] MEDS: POLYETHYLENE GLYCOL (HEALTHYLAX) 3350 17 GM PACKET GT SCH (09:25)
[2023-01-24] MEDS: ZINC SULFATE 220 MG CAPSULE (FP) PO SCH (09:25)
[2023-01-24] MEDS: MULTIVIT-MINERALS ORAL LIQUID GT SCH (09:25)
[2023-01-24] MEDS: SODIUM HYPOCHLORITE 0.25%- 473 ML BULK BOTTLE TP SCH (09:26)
[2023-01-24] MEDS: COLLAGENASE CLOSTRIDIUM HIST. 30 GRAMS TUBE TP SCH (09:26)
[2023-01-24] MEDS: oxyCODONE HCL 5 MG TABLET PO PRN (09:28)
[2023-01-24] MEDS: CHLORHEXIDINE GLUCONATE 4% CLEANSER FOR DECOLONIZATION TP SCH (21:05)
[2023-01-25] MEDS: GABAPENTIN 250 MG/5 ML ORAL SOLUTION, 470 ML BOTTLE GT SCH ×3 (05:58→21:14)
[2023-01-25] MEDS: BANATROL PLUS POWDER PACKET PO SCH ×3 (05:58→21:03)
[2023-01-25] MEDS: LEVOTHYROXINE NA 125 MCG TABLET (FP) GT SCH (05:59)
[2023-01-25 06:59] LABS: HEMATOCRIT 23.8 % (32.4-45.2); HEMOGLOBIN 7.6 GM/dL (10.7-15.3); MCHC 32.1 g/dl (32.0-36.0); MEAN CELL VOLUME 93.4 fl (80-96); MEAN PLT VOLUME 8.3 fl (7.5-11.1); PLATELET COUNT 225 10^3/uL (134-434); RBC 2.55 M/mm3 (3.60-5.2); WHITE BLOOD COUNT 6.7 K/mm3 (4.0-10.0)
[2023-01-25 07:26] LABS: POTASSIUM 5.5 mmol/L (3.5-5.1)
[2023-01-25 07:30] LABS: ALBUMIN 1.2 g/dl (3.4-5.0); BLOOD UREA NITROGEN 41.6 mg/dL (7-18); CALCIUM 7.7 mg/dL (8.5-10.1); MAGNESIUM 2.5 mg/dL (1.8-2.4)
[2023-01-25 07:33] LABS: PHOSPHOROUS 3.7 mg/dL (2.5-4.9)
[2023-01-25 07:34] LABS: CREATININE 0.6 mg/dL (0.55-1.3)
[2023-01-25 07:35] LABS: TOT PROT 6.3 g/dl (6.4-8.2)
[2023-01-25 08:04] LABS: BILIRUBIN,TOTAL 0.1 mg/dL (0.2-1)
[2023-01-25] MEDS: ASCORBIC ACID 500 MG TABLET (FP) PO SCH ×2 (09:37→21:04)
[2023-01-25] MEDS: MULTIVIT-MINERALS ORAL LIQUID GT SCH (09:37)
[2023-01-25] MEDS: POLYETHYLENE GLYCOL (HEALTHYLAX) 3350 17 GM PACKET GT SCH (09:37)
[2023-01-25] MEDS: ZINC SULFATE 220 MG CAPSULE (FP) PO SCH (09:37)
[2023-01-25] MEDS: DULoxetine HCL 20 MG CAPSULE.DR GT SCH (09:37)
[2023-01-25] MEDS: MIDODRINE HCL 2.5 MG, MIDODRINE HCL 5 MG GT SCH ×3 (09:37→17:42)
[2023-01-25] MEDS: DIGOXIN 0.125 MG TABLET GT SCH (09:37)
[2023-01-25] MEDS: PANTOPRAZOLE SODIUM 40 MG VIAL IVPUSH SCH ×2 (09:37→21:04)
[2023-01-25] MEDS: SODIUM HYPOCHLORITE 0.25%- 473 ML BULK BOTTLE TP SCH (09:37)
[2023-01-25] MEDS: COLLAGENASE CLOSTRIDIUM HIST. 30 GRAMS TUBE TP SCH (09:38)
[2023-01-25] MEDS: SODIUM ZIRCONIUM CYCLOSILICATE (LOKELMA) 5 GM PACKET PO SCH ×2 (09:38→21:03)
[2023-01-25] MEDS: AMINO ACIDS/PROTEIN HYDROLYS 30 ML LIQUID.PKT GT SCH ×2 (09:38→16:42)
[2023-01-25] MEDS ORDERED: MIDODRINE HCL 2.5 MG TABLET ONE (13:50)
[2023-01-25] MEDS: oxyCODONE HCL 5 MG TABLET PO PRN (15:21)
[2023-01-25] MEDS: CHLORHEXIDINE GLUCONATE 4% CLEANSER FOR DECOLONIZATION TP SCH (21:03)
[2023-01-26] MEDS: BANATROL PLUS POWDER PACKET PO SCH ×3 (05:13→21:46)
[2023-01-26] MEDS: GABAPENTIN 250 MG/5 ML ORAL SOLUTION, 470 ML BOTTLE GT SCH ×3 (05:13→21:48)
[2023-01-26] MEDS: LEVOTHYROXINE NA 125 MCG TABLET (FP) GT SCH (06:00)
[2023-01-26] MEDS: MULTIVIT-MINERALS ORAL LIQUID GT SCH (10:00)
[2023-01-26] MEDS: ZINC SULFATE 220 MG CAPSULE (FP) PO SCH (10:24)
[2023-01-26] MEDS: DULoxetine HCL 20 MG CAPSULE.DR GT SCH (10:24)
[2023-01-26] MEDS: ASCORBIC ACID 500 MG TABLET (FP) PO SCH ×2 (10:24→21:48)
[2023-01-26] MEDS: POLYETHYLENE GLYCOL (HEALTHYLAX) 3350 17 GM PACKET GT SCH (10:24)
[2023-01-26] MEDS: AMINO ACIDS/PROTEIN HYDROLYS 30 ML LIQUID.PKT GT SCH ×2 (10:24→19:09)
[2023-01-26] MEDS: SODIUM ZIRCONIUM CYCLOSILICATE (LOKELMA) 5 GM PACKET PO SCH ×2 (10:24→21:48)
[2023-01-26] MEDS: DIGOXIN 0.125 MG TABLET GT SCH (10:24)
[2023-01-26] MEDS: MIDODRINE HCL 2.5 MG, MIDODRINE HCL 5 MG GT SCH ×3 (10:24→19:09)
[2023-01-26] MEDS: COLLAGENASE CLOSTRIDIUM HIST. 30 GRAMS TUBE TP SCH (10:25)
[2023-01-26] MEDS: PANTOPRAZOLE SODIUM 40 MG VIAL IVPUSH SCH ×2 (10:25→21:48)
[2023-01-26] MEDS: SODIUM HYPOCHLORITE 0.25%- 473 ML BULK BOTTLE TP SCH (12:04)
[2023-01-26] MEDS: oxyCODONE HCL 5 MG TABLET PO PRN (15:37)
[2023-01-26] MEDS: CHLORHEXIDINE GLUCONATE 4% CLEANSER FOR DECOLONIZATION TP SCH (21:48)
[2023-01-27] MEDS: BANATROL PLUS POWDER PACKET PO SCH ×3 (06:25→21:13)
[2023-01-27] MEDS: GABAPENTIN 250 MG/5 ML ORAL SOLUTION, 470 ML BOTTLE GT SCH ×3 (06:27→21:16)
[2023-01-27] MEDS: LEVOTHYROXINE NA 125 MCG TABLET (FP) GT SCH (06:27)
[2023-01-27] MEDS: oxyCODONE HCL 5 MG TABLET PO PRN ×3 (07:12→16:57)
[2023-01-27] MEDS: AMINO ACIDS/PROTEIN HYDROLYS 30 ML LIQUID.PKT GT SCH ×2 (07:13→16:58)
[2023-01-27 07:53] LABS: HEMATOCRIT 24.9 % (32.4-45.2); HEMOGLOBIN 7.8 GM/dL (10.7-15.3); MCH 29.9 pg (25.7-33.7); MCHC 31.5 g/dl (32.0-36.0); MEAN CELL VOLUME 94.7 fl (80-96); MEAN PLT VOLUME 8.6 fl (7.5-11.1); PLATELET COUNT 240 10^3/uL (134-434); RBC 2.63 M/mm3 (3.60-5.2)
[2023-01-27 08:05] LABS: POTASSIUM 5.4 mmol/L (3.5-5.1)
[2023-01-27 08:06] LABS: CALCIUM 7.9 mg/dL (8.5-10.1)
[2023-01-27 08:07] LABS: ALBUMIN 1.2 g/dl (3.4-5.0); MAGNESIUM 2.4 mg/dL (1.8-2.4)
[2023-01-27 08:10] LABS: CREATININE 0.6 mg/dL (0.55-1.3)
[2023-01-27 08:11] LABS: BILIRUBIN,TOTAL 0.2 mg/dL (0.2-1); TOT PROT 6.5 g/dl (6.4-8.2)
[2023-01-27] MEDS ORDERED: MIDODRINE HCL 2.5 MG TABLET ONE (09:25)
[2023-01-27] MEDS: PANTOPRAZOLE SODIUM 40 MG VIAL IVPUSH SCH ×2 (10:20→21:13)
[2023-01-27] MEDS: ASCORBIC ACID 500 MG TABLET (FP) PO SCH ×2 (10:20→21:13)
[2023-01-27] MEDS: DIGOXIN 0.125 MG TABLET GT SCH (10:20)
[2023-01-27] MEDS: MIDODRINE HCL 2.5 MG, MIDODRINE HCL 5 MG GT SCH ×3 (10:20→17:23)
[2023-01-27] MEDS: DULoxetine HCL 20 MG CAPSULE.DR GT SCH (10:20)
[2023-01-27] MEDS: SODIUM ZIRCONIUM CYCLOSILICATE (LOKELMA) 5 GM PACKET PO SCH ×2 (10:20→21:13)
[2023-01-27] MEDS: ZINC SULFATE 220 MG CAPSULE (FP) PO SCH (10:20)
[2023-01-27] MEDS: POLYETHYLENE GLYCOL (HEALTHYLAX) 3350 17 GM PACKET GT SCH (10:21)
[2023-01-27] MEDS: SODIUM HYPOCHLORITE 0.25%- 473 ML BULK BOTTLE TP SCH (10:21)
[2023-01-27] MEDS: MULTIVIT-MINERALS ORAL LIQUID GT SCH (10:21)
[2023-01-27] MEDS: COLLAGENASE CLOSTRIDIUM HIST. 30 GRAMS TUBE TP SCH (10:22)
[2023-01-27] MEDS: CHLORHEXIDINE GLUCONATE 4% CLEANSER FOR DECOLONIZATION TP SCH (21:13)
[2023-01-28] MEDS: GABAPENTIN 250 MG/5 ML ORAL SOLUTION, 470 ML BOTTLE GT SCH ×3 (05:29→21:20)
[2023-01-28] MEDS: BANATROL PLUS POWDER PACKET PO SCH ×3 (05:30→21:20)
[2023-01-28] MEDS: LEVOTHYROXINE NA 125 MCG TABLET (FP) GT SCH (06:43)
[2023-01-28] MEDS: DIGOXIN 0.125 MG TABLET GT SCH (10:17)
[2023-01-28] MEDS: SODIUM ZIRCONIUM CYCLOSILICATE (LOKELMA) 5 GM PACKET PO SCH ×2 (10:18→21:20)
[2023-01-28] MEDS: MULTIVIT-MINERALS ORAL LIQUID GT SCH (10:18)
[2023-01-28] MEDS: MIDODRINE HCL 5 MG TABLET GT SCH ×3 (10:18→17:01)
[2023-01-28] MEDS: POLYETHYLENE GLYCOL (HEALTHYLAX) 3350 17 GM PACKET GT SCH (10:18)
[2023-01-28] MEDS: ASCORBIC ACID 500 MG TABLET (FP) PO SCH ×2 (10:18→21:20)
[2023-01-28] MEDS: ZINC SULFATE 220 MG CAPSULE (FP) PO SCH (10:18)
[2023-01-28] MEDS: DULoxetine HCL 20 MG CAPSULE.DR GT SCH (10:18)
[2023-01-28] MEDS: PANTOPRAZOLE SODIUM 40 MG VIAL IVPUSH SCH ×2 (10:18→21:22)
[2023-01-28] MEDS: AMINO ACIDS/PROTEIN HYDROLYS 30 ML LIQUID.PKT GT SCH ×2 (10:18→16:59)
[2023-01-28] MEDS: COLLAGENASE CLOSTRIDIUM HIST. 30 GRAMS TUBE TP SCH (10:19)
[2023-01-28] MEDS: SODIUM HYPOCHLORITE 0.25%- 473 ML BULK BOTTLE TP SCH (10:20)
[2023-01-28] MEDS: MIDODRINE HCL 2.5 MG, MIDODRINE HCL 5 MG GT SCH (10:20)
[2023-01-28] MEDS: CHLORHEXIDINE GLUCONATE 4% CLEANSER FOR DECOLONIZATION TP SCH (21:20)
[2023-01-29] MEDS: GABAPENTIN 250 MG/5 ML ORAL SOLUTION, 470 ML BOTTLE GT SCH ×3 (06:09→21:09)
[2023-01-29] MEDS: LEVOTHYROXINE NA 125 MCG TABLET (FP) GT SCH (06:09)
[2023-01-29] MEDS: BANATROL PLUS POWDER PACKET PO SCH ×3 (06:09→21:09)
[2023-01-29 07:38] LABS: POTASSIUM 5.8 mmol/L (3.5-5.1)
[2023-01-29 07:42] LABS: CALCIUM 7.9 mg/dL (8.5-10.1)
[2023-01-29 07:43] LABS: ALBUMIN 1.2 g/dl (3.4-5.0); BLOOD UREA NITROGEN 45.6 mg/dL (7-18)
[2023-01-29 07:46] LABS: CREATININE 0.6 mg/dL (0.55-1.3)
[2023-01-29 07:47] LABS: BILIRUBIN,TOTAL 0.2 mg/dL (0.2-1); TOT PROT 6.6 g/dl (6.4-8.2)
[2023-01-29] MEDS: ASCORBIC ACID 500 MG TABLET (FP) PO SCH ×2 (09:58→21:09)
[2023-01-29] MEDS: AMINO ACIDS/PROTEIN HYDROLYS 30 ML LIQUID.PKT GT SCH ×2 (09:58→17:15)
[2023-01-29] MEDS: ZINC SULFATE 220 MG CAPSULE (FP) PO SCH (09:58)
[2023-01-29] MEDS: DULoxetine HCL 20 MG CAPSULE.DR GT SCH (09:58)
[2023-01-29] MEDS: MIDODRINE HCL 5 MG TABLET GT SCH ×3 (09:58→17:07)
[2023-01-29] MEDS: MULTIVIT-MINERALS ORAL LIQUID GT SCH (10:00)
[2023-01-29] MEDS: SODIUM HYPOCHLORITE 0.25%- 473 ML BULK BOTTLE TP SCH (10:00)
[2023-01-29] MEDS: POLYETHYLENE GLYCOL (HEALTHYLAX) 3350 17 GM PACKET GT SCH (10:00)
[2023-01-29] MEDS: SODIUM ZIRCONIUM CYCLOSILICATE (LOKELMA) 5 GM PACKET PO SCH ×2 (10:00→21:09)
[2023-01-29] MEDS: PANTOPRAZOLE SODIUM 40 MG VIAL IVPUSH SCH ×2 (10:00→21:09)
[2023-01-29] MEDS: COLLAGENASE CLOSTRIDIUM HIST. 30 GRAMS TUBE TP SCH (10:00)
[2023-01-29] MEDS: DIGOXIN 0.125 MG TABLET GT SCH (10:41)
[2023-01-29] MEDS: oxyCODONE HCL 5 MG TABLET PO PRN ×3 (10:44→23:21)
[2023-01-29] MEDS: CHLORHEXIDINE GLUCONATE 4% CLEANSER FOR DECOLONIZATION TP SCH (22:30)
[2023-01-30] MEDS: BANATROL PLUS POWDER PACKET PO SCH ×3 (06:13→21:23)
[2023-01-30] MEDS: GABAPENTIN 250 MG/5 ML ORAL SOLUTION, 470 ML BOTTLE GT SCH ×3 (06:13→21:22)
[2023-01-30] MEDS: LEVOTHYROXINE NA 125 MCG TABLET (FP) GT SCH (06:14)
[2023-01-30 07:14] LABS: BASO % 0.7 % (0-2.0); EOS % 0.9 % (0-4.5); HEMATOCRIT 23.9 % (32.4-45.2); HEMOGLOBIN 7.6 GM/dL (10.7-15.3); LYMPH % 24.1 % (8-40); MCH 30.5 pg (25.7-33.7); MCHC 31.9 g/dl (32.0-36.0); MEAN CELL VOLUME 95.5 fl (80-96); MONO % 6.7 % (3.8-10.2); NEUT % 67.6 % (42.8-82.8); PLATELET COUNT 200 10^3/uL (134-434); RDW 18.8 % (11.6-15.6); WHITE BLOOD COUNT 9.7 K/mm3 (4.0-10.0)
[2023-01-30 07:36] LABS: POTASSIUM 5.5 mmol/L (3.5-5.1)
[2023-01-30 07:40] LABS: ALBUMIN 1.2 g/dl (3.4-5.0); BLOOD UREA NITROGEN 45.4 mg/dL (7-18)
[2023-01-30 07:43] LABS: CREATININE 0.7 mg/dL (0.55-1.3)
[2023-01-30 07:45] LABS: BILIRUBIN,TOTAL 0.1 mg/dL (0.2-1); TOT PROT 6.6 g/dl (6.4-8.2)
[2023-01-30] MEDS: PANTOPRAZOLE SODIUM 40 MG VIAL IVPUSH SCH ×2 (09:48→21:23)
[2023-01-30] MEDS: ZINC SULFATE 220 MG CAPSULE (FP) PO SCH (09:48)
[2023-01-30] MEDS: oxyCODONE HCL 5 MG TABLET PO PRN ×2 (09:48→17:33)
[2023-01-30] MEDS: MULTIVIT-MINERALS ORAL LIQUID GT SCH (09:48)
[2023-01-30] MEDS: SODIUM ZIRCONIUM CYCLOSILICATE (LOKELMA) 5 GM PACKET PO SCH ×2 (09:48→21:22)
[2023-01-30] MEDS: AMINO ACIDS/PROTEIN HYDROLYS 30 ML LIQUID.PKT GT SCH ×2 (09:49→17:33)
[2023-01-30] MEDS: SODIUM HYPOCHLORITE 0.25%- 473 ML BULK BOTTLE TP SCH (09:49)
[2023-01-30] MEDS: MIDODRINE HCL 5 MG TABLET GT SCH ×3 (09:49→17:33)
[2023-01-30] MEDS: COLLAGENASE CLOSTRIDIUM HIST. 30 GRAMS TUBE TP SCH (09:49)
[2023-01-30] MEDS: DIGOXIN 0.125 MG TABLET GT SCH (09:49)
[2023-01-30] MEDS: DULoxetine HCL 20 MG CAPSULE.DR GT SCH (09:49)
[2023-01-30] MEDS: POLYETHYLENE GLYCOL (HEALTHYLAX) 3350 17 GM PACKET GT SCH (09:49)
[2023-01-30] MEDS: ASCORBIC ACID 500 MG TABLET (FP) PO SCH ×2 (09:50→21:23)
[2023-01-30] MEDS ORDERED: SODIUM HYPOCHLORITE 0.5% 473 ML- BULK BOTTLE TP SCH (15:45)
[2023-01-30] MEDS: CHLORHEXIDINE GLUCONATE 4% CLEANSER FOR DECOLONIZATION TP SCH (21:23)
[2023-01-31] MEDS: BANATROL PLUS POWDER PACKET PO SCH ×3 (05:33→21:18)
[2023-01-31] MEDS: GABAPENTIN 250 MG/5 ML ORAL SOLUTION, 470 ML BOTTLE GT SCH ×3 (05:33→21:18)
[2023-01-31] MEDS: LEVOTHYROXINE NA 125 MCG TABLET (FP) GT SCH (06:02)
[2023-01-31 07:03] LABS: BASO % 0.9 % (0-2.0); EOS % 1.5 % (0-4.5); HEMATOCRIT 22.3 % (32.4-45.2); HEMOGLOBIN 7.2 GM/dL (10.7-15.3); LYMPH % 23.2 % (8-40); MCH 30.1 pg (25.7-33.7); MCHC 32.1 g/dl (32.0-36.0); MEAN CELL VOLUME 93.7 fl (80-96); MEAN PLT VOLUME 8.1 fl (7.5-11.1); MONO % 8.5 % (3.8-10.2); NEUT % 65.9 % (42.8-82.8); PLATELET COUNT 176 10^3/uL (134-434); RBC 2.38 M/mm3 (3.60-5.2); RDW 19.2 % (11.6-15.6); WHITE BLOOD COUNT 6.3 K/mm3 (4.0-10.0)
[2023-01-31 07:23] LABS: POTASSIUM 5.3 mmol/L (3.5-5.1)
[2023-01-31 07:29] LABS: CALCIUM 7.9 mg/dL (8.5-10.1)
[2023-01-31 07:30] LABS: ALBUMIN 1.1 g/dl (3.4-5.0); BLOOD UREA NITROGEN 51.3 mg/dL (7-18)
[2023-01-31 07:33] LABS: CREATININE 0.7 mg/dL (0.55-1.3)
[2023-01-31 07:35] LABS: BILIRUBIN,TOTAL 0.2 mg/dL (0.2-1); TOT PROT 6.3 g/dl (6.4-8.2)
[2023-01-31] MEDS: SODIUM ZIRCONIUM CYCLOSILICATE (LOKELMA) 5 GM PACKET PO SCH ×2 (09:14→21:19)
[2023-01-31] MEDS: MIDODRINE HCL 5 MG TABLET GT SCH ×3 (09:15→17:23)
[2023-01-31] MEDS: DULoxetine HCL 20 MG CAPSULE.DR GT SCH (09:15)
[2023-01-31] MEDS: ASCORBIC ACID 500 MG TABLET (FP) PO SCH ×2 (09:15→21:18)
[2023-01-31] MEDS: DIGOXIN 0.125 MG TABLET GT SCH (09:15)
[2023-01-31] MEDS: AMINO ACIDS/PROTEIN HYDROLYS 30 ML LIQUID.PKT GT SCH ×2 (09:16→17:23)
[2023-01-31] MEDS: MULTIVIT-MINERALS ORAL LIQUID GT SCH (09:17)
[2023-01-31] MEDS: SODIUM HYPOCHLORITE 0.25%- 473 ML BULK BOTTLE TP SCH (09:17)
[2023-01-31] MEDS: ZINC SULFATE 220 MG CAPSULE (FP) PO SCH (09:17)
[2023-01-31] MEDS: POLYETHYLENE GLYCOL (HEALTHYLAX) 3350 17 GM PACKET GT SCH (09:17)
[2023-01-31] MEDS: POVIDONE-IODINE OINTMENT 10% - 28.4 GM TUBE TP SCH (09:17)
[2023-01-31] MEDS: PANTOPRAZOLE SODIUM 40 MG VIAL IVPUSH SCH ×2 (09:18→21:18)
[2023-01-31] MEDS: COLLAGENASE CLOSTRIDIUM HIST. 30 GRAMS TUBE TP SCH (09:18)
[2023-01-31] MEDS: oxyCODONE HCL 5 MG TABLET PO PRN ×2 (09:36→14:39)
[2023-01-31] MEDS: CHLORHEXIDINE GLUCONATE 4% CLEANSER FOR DECOLONIZATION TP SCH (21:18)
[2023-02-01] MEDS: oxyCODONE HCL 5 MG TABLET PO PRN (04:33)
[2023-02-01] MEDS: BANATROL PLUS POWDER PACKET PO SCH ×3 (06:13→21:17)
[2023-02-01] MEDS: LEVOTHYROXINE NA 125 MCG TABLET (FP) GT SCH (06:13)
[2023-02-01] MEDS: GABAPENTIN 250 MG/5 ML ORAL SOLUTION, 470 ML BOTTLE GT SCH ×3 (06:13→21:17)
[2023-02-01 06:59] LABS: BASO % 0.8 % (0-2.0); HEMATOCRIT 20.5 % (32.4-45.2); LYMPH % 19.3 % (8-40); MCH 30.9 pg (25.7-33.7); MCHC 32.2 g/dl (32.0-36.0); MEAN CELL VOLUME 95.9 fl (80-96); MEAN PLT VOLUME 8.5 fl (7.5-11.1); MONO % 9.7 % (3.8-10.2); NEUT % 69.2 % (42.8-82.8); PLATELET COUNT 170 10^3/uL (134-434); RBC 2.14 M/mm3 (3.60-5.2); RDW 18.8 % (11.6-15.6); WHITE BLOOD COUNT 7.2 K/mm3 (4.0-10.0)
[2023-02-01 07:11] LABS: POTASSIUM 5.2 mmol/L (3.5-5.1)
[2023-02-01 07:13] LABS: CALCIUM 7.5 mg/dL (8.5-10.1)
[2023-02-01 07:14] LABS: BLOOD UREA NITROGEN 48.5 mg/dL (7-18); MAGNESIUM 2.6 mg/dL (1.8-2.4)
[2023-02-01 07:15] LABS: HEMOGLOBIN 6.6 GM/dL (10.7-15.3)
[2023-02-01 07:17] LABS: CREATININE 0.7 mg/dL (0.55-1.3); PHOSPHOROUS 4.6 mg/dL (2.5-4.9)
[2023-02-01 07:19] LABS: BILIRUBIN,TOTAL 0.4 mg/dL (0.2-1); TOT PROT 5.9 g/dl (6.4-8.2)
[2023-02-01] MEDS: MIDODRINE HCL 5 MG TABLET GT SCH ×3 (09:55→18:21)
[2023-02-01] MEDS: SODIUM ZIRCONIUM CYCLOSILICATE (LOKELMA) 5 GM PACKET PO SCH ×2 (09:57→21:18)
[2023-02-01] MEDS: DIGOXIN 0.125 MG TABLET GT SCH (09:57)
[2023-02-01] MEDS: DULoxetine HCL 20 MG CAPSULE.DR GT SCH (09:57)
[2023-02-01] MEDS: ASCORBIC ACID 500 MG TABLET (FP) PO SCH ×2 (09:57→21:17)
[2023-02-01] MEDS: ZINC SULFATE 220 MG CAPSULE (FP) PO SCH (09:57)
[2023-02-01] MEDS: AMINO ACIDS/PROTEIN HYDROLYS 30 ML LIQUID.PKT GT SCH ×2 (09:58→18:21)
[2023-02-01] MEDS: MULTIVIT-MINERALS ORAL LIQUID GT SCH (09:58)
[2023-02-01] MEDS: PANTOPRAZOLE SODIUM 40 MG VIAL IVPUSH SCH ×2 (10:25→21:17)
[2023-02-01] MEDS: POLYETHYLENE GLYCOL (HEALTHYLAX) 3350 17 GM PACKET GT SCH (10:25)
[2023-02-01] MEDS: COLLAGENASE CLOSTRIDIUM HIST. 30 GRAMS TUBE TP SCH (15:45)
[2023-02-01] MEDS: POVIDONE-IODINE OINTMENT 10% - 28.4 GM TUBE TP SCH (15:45)
[2023-02-01] MEDS: SODIUM HYPOCHLORITE 0.25%- 473 ML BULK BOTTLE TP SCH (15:45)
[2023-02-01] MEDS: CHLORHEXIDINE GLUCONATE 4% CLEANSER FOR DECOLONIZATION TP SCH (21:18)
[2023-02-02] MEDS: LEVOTHYROXINE NA 125 MCG TABLET (FP) GT SCH (06:02)
[2023-02-02] MEDS: BANATROL PLUS POWDER PACKET PO SCH ×3 (06:02→21:29)
[2023-02-02] MEDS: GABAPENTIN 250 MG/5 ML ORAL SOLUTION, 470 ML BOTTLE GT SCH ×3 (06:24→21:29)
[2023-02-02 07:37] LABS: HEMATOCRIT 24.5 % (32.4-45.2); HEMOGLOBIN 7.9 GM/dL (10.7-15.3); MCH 30.7 pg (25.7-33.7); MCHC 32.3 g/dl (32.0-36.0); MEAN PLT VOLUME 8.6 fl (7.5-11.1); PLATELET COUNT 191 10^3/uL (134-434); RBC 2.58 M/mm3 (3.60-5.2); RDW 18.2 % (11.6-15.6); WHITE BLOOD COUNT 7.4 K/mm3 (4.0-10.0)
[2023-02-02 08:35] LABS: BLOOD UREA NITROGEN 55.7 mg/dL (7-18)
[2023-02-02 08:37] LABS: CALCIUM 7.9 mg/dL (8.5-10.1)
[2023-02-02 08:40] LABS: CREATININE 0.8 mg/dL (0.55-1.3)
[2023-02-02 08:41] LABS: TOT PROT 6.3 g/dl (6.4-8.2)
[2023-02-02 08:42] LABS: BILIRUBIN,TOTAL 0.3 mg/dL (0.2-1)
[2023-02-02] MEDS: MIDODRINE HCL 5 MG TABLET GT SCH ×3 (10:59→18:11)
[2023-02-02] MEDS: MULTIVIT-MINERALS ORAL LIQUID GT SCH (10:59)
[2023-02-02] MEDS: ASCORBIC ACID 500 MG TABLET (FP) PO SCH ×2 (10:59→21:29)
[2023-02-02] MEDS: SODIUM HYPOCHLORITE 0.25%- 473 ML BULK BOTTLE TP SCH (10:59)
[2023-02-02] MEDS: AMINO ACIDS/PROTEIN HYDROLYS 30 ML LIQUID.PKT GT SCH ×2 (10:59→18:10)
[2023-02-02] MEDS: ZINC SULFATE 220 MG CAPSULE (FP) PO SCH (10:59)
[2023-02-02] MEDS: POLYETHYLENE GLYCOL (HEALTHYLAX) 3350 17 GM PACKET GT SCH (10:59)
[2023-02-02] MEDS: PANTOPRAZOLE SODIUM 40 MG VIAL IVPUSH SCH ×2 (10:59→21:33)
[2023-02-02] MEDS: POVIDONE-IODINE OINTMENT 10% - 28.4 GM TUBE TP SCH (10:59)
[2023-02-02] MEDS: DULoxetine HCL 20 MG CAPSULE.DR GT SCH (10:59)
[2023-02-02] MEDS: DIGOXIN 0.125 MG TABLET GT SCH (11:00)
[2023-02-02] MEDS: COLLAGENASE CLOSTRIDIUM HIST. 30 GRAMS TUBE TP SCH (11:00)
[2023-02-02] MEDS: SODIUM ZIRCONIUM CYCLOSILICATE (LOKELMA) 5 GM PACKET PO SCH ×2 (11:00→21:34)
[2023-02-02] MEDS: oxyCODONE HCL 5 MG TABLET PO PRN ×2 (15:01→16:01)
[2023-02-02] MEDS: SCOPOLAMINE HYDROBROMIDE 1 PATCH PATCH.TD72 TD SCH (18:11)
[2023-02-02] MEDS: CHLORHEXIDINE GLUCONATE 4% CLEANSER FOR DECOLONIZATION TP SCH (21:34)
[2023-02-03] MEDS ORDERED: ALBUTEROL SO4 2.5/IPRATROPIUM 0.5 INH SOL 3 ML VIAL.NEB. NEB ONE (01:47)
[2023-02-03] MEDS: LEVOTHYROXINE NA 125 MCG TABLET (FP) GT SCH (06:14)
[2023-02-03] MEDS: BANATROL PLUS POWDER PACKET PO SCH ×3 (06:15→21:22)
[2023-02-03] MEDS: GABAPENTIN 250 MG/5 ML ORAL SOLUTION, 470 ML BOTTLE GT SCH ×2 (06:24→21:22)
[2023-02-03 07:07] LABS: BASO % 0.8 % (0-2.0); EOS % 0.7 % (0-4.5); HEMOGLOBIN 7.9 GM/dL (10.7-15.3); LYMPH % 18.1 % (8-40); MCH 30.6 pg (25.7-33.7); MCHC 32.8 g/dl (32.0-36.0); MEAN CELL VOLUME 93.4 fl (80-96); MEAN PLT VOLUME 7.8 fl (7.5-11.1); MONO % 6.2 % (3.8-10.2); NEUT % 74.2 % (42.8-82.8); PLATELET COUNT 210 10^3/uL (134-434); RBC 2.57 M/mm3 (3.60-5.2); RDW 18.5 % (11.6-15.6); WHITE BLOOD COUNT 8.6 K/mm3 (4.0-10.0)
[2023-02-03 07:29] LABS: POTASSIUM 4.7 mmol/L (3.5-5.1)
[2023-02-03 07:31] LABS: CALCIUM 7.8 mg/dL (8.5-10.1)
[2023-02-03 07:33] LABS: BLOOD UREA NITROGEN 55.5 mg/dL (7-18); MAGNESIUM 2.6 mg/dL (1.8-2.4)
[2023-02-03 07:35] LABS: CREATININE 0.8 mg/dL (0.55-1.3); PHOSPHOROUS 4.7 mg/dL (2.5-4.9)
[2023-02-03 07:36] LABS: BILIRUBIN,TOTAL 0.2 mg/dL (0.2-1); TOT PROT 6.2 g/dl (6.4-8.2)
[2023-02-03] MEDS: AMINO ACIDS/PROTEIN HYDROLYS 30 ML LIQUID.PKT GT SCH ×2 (07:42→16:29)
[2023-02-03] MEDS: MULTIVIT-MINERALS ORAL LIQUID GT SCH (09:01)
[2023-02-03] MEDS: PANTOPRAZOLE SODIUM 40 MG VIAL IVPUSH SCH ×2 (09:01→21:23)
[2023-02-03] MEDS: DIGOXIN 0.125 MG TABLET GT SCH (09:01)
[2023-02-03] MEDS: POVIDONE-IODINE OINTMENT 10% - 28.4 GM TUBE TP SCH (09:01)
[2023-02-03] MEDS: SODIUM HYPOCHLORITE 0.25%- 473 ML BULK BOTTLE TP SCH (09:01)
[2023-02-03] MEDS: DULoxetine HCL 20 MG CAPSULE.DR GT SCH (09:02)
[2023-02-03] MEDS: ZINC SULFATE 220 MG CAPSULE (FP) PO SCH (09:02)
[2023-02-03] MEDS: ASCORBIC ACID 500 MG TABLET (FP) PO SCH ×2 (09:02→21:23)
[2023-02-03] MEDS: MIDODRINE HCL 5 MG TABLET GT SCH ×3 (09:02→16:59)
[2023-02-03] MEDS: POLYETHYLENE GLYCOL (HEALTHYLAX) 3350 17 GM PACKET GT SCH (09:02)
[2023-02-03] MEDS: COLLAGENASE CLOSTRIDIUM HIST. 30 GRAMS TUBE TP SCH (09:03)
[2023-02-03] MEDS: SODIUM ZIRCONIUM CYCLOSILICATE (LOKELMA) 5 GM PACKET PO SCH (09:27)
[2023-02-03] MEDS: CHLORHEXIDINE GLUCONATE 4% CLEANSER FOR DECOLONIZATION TP SCH (21:23)
[2023-02-04] MEDS: BANATROL PLUS POWDER PACKET PO SCH ×3 (06:02→21:46)
[2023-02-04] MEDS: LEVOTHYROXINE NA 125 MCG TABLET (FP) GT SCH (06:02)
[2023-02-04] MEDS: AMINO ACIDS/PROTEIN HYDROLYS 30 ML LIQUID.PKT GT SCH ×2 (09:51→16:51)
[2023-02-04] MEDS: ZINC SULFATE 220 MG CAPSULE (FP) PO SCH (09:52)
[2023-02-04] MEDS: DULoxetine HCL 20 MG CAPSULE.DR GT SCH (09:52)
[2023-02-04] MEDS: PANTOPRAZOLE SODIUM 40 MG VIAL IVPUSH SCH (09:52)
[2023-02-04] MEDS: DIGOXIN 0.125 MG TABLET GT SCH (09:52)
[2023-02-04] MEDS: GABAPENTIN 250 MG/5 ML ORAL SOLUTION, 470 ML BOTTLE GT SCH ×2 (09:52→21:46)
[2023-02-04] MEDS: SODIUM ZIRCONIUM CYCLOSILICATE (LOKELMA) 5 GM PACKET PO SCH (09:52)
[2023-02-04] MEDS: ASCORBIC ACID 500 MG TABLET (FP) PO SCH ×2 (09:52→21:46)
[2023-02-04] MEDS: MIDODRINE HCL 5 MG TABLET GT SCH ×3 (09:52→17:18)
[2023-02-04] MEDS: MULTIVIT-MINERALS ORAL LIQUID GT SCH (09:53)
[2023-02-04] MEDS: POLYETHYLENE GLYCOL (HEALTHYLAX) 3350 17 GM PACKET GT SCH (09:53)
[2023-02-04] MEDS: COLLAGENASE CLOSTRIDIUM HIST. 30 GRAMS TUBE TP SCH (09:55)
[2023-02-04] MEDS: SODIUM HYPOCHLORITE 0.25%- 473 ML BULK BOTTLE TP SCH (09:55)
[2023-02-04] MEDS: POVIDONE-IODINE OINTMENT 10% - 28.4 GM TUBE TP SCH (09:55)
[2023-02-04] MEDS: oxyCODONE HCL 5 MG TABLET PO PRN ×2 (10:12→17:18)
[2023-02-04] MEDS: CHLORHEXIDINE GLUCONATE 4% CLEANSER FOR DECOLONIZATION TP SCH (21:46)
[2023-02-05] MEDS: LEVOTHYROXINE NA 125 MCG TABLET (FP) GT SCH (06:33)
[2023-02-05] MEDS: BANATROL PLUS POWDER PACKET PO SCH ×3 (06:33→21:17)
[2023-02-05] MEDS: AMINO ACIDS/PROTEIN HYDROLYS 30 ML LIQUID.PKT GT SCH ×2 (08:20→17:58)
[2023-02-05] MEDS: GABAPENTIN 250 MG/5 ML ORAL SOLUTION, 470 ML BOTTLE GT SCH ×2 (09:34→21:17)
[2023-02-05] MEDS: PANTOPRAZOLE SODIUM 40 MG VIAL IVPUSH SCH (09:34)
[2023-02-05] MEDS: ZINC SULFATE 220 MG CAPSULE (FP) PO SCH (09:35)
[2023-02-05] MEDS: MIDODRINE HCL 5 MG TABLET GT SCH ×3 (09:35→17:58)
[2023-02-05] MEDS: DULoxetine HCL 20 MG CAPSULE.DR GT SCH (09:36)
[2023-02-05] MEDS: DIGOXIN 0.125 MG TABLET GT SCH ×2 (09:36→09:52)
[2023-02-05] MEDS: SODIUM ZIRCONIUM CYCLOSILICATE (LOKELMA) 5 GM PACKET PO SCH (09:36)
[2023-02-05] MEDS: POVIDONE-IODINE OINTMENT 10% - 28.4 GM TUBE TP SCH (09:37)
[2023-02-05] MEDS: MULTIVIT-MINERALS ORAL LIQUID GT SCH (09:37)
[2023-02-05] MEDS: ASCORBIC ACID 500 MG TABLET (FP) PO SCH ×2 (09:37→21:17)
[2023-02-05] MEDS: COLLAGENASE CLOSTRIDIUM HIST. 30 GRAMS TUBE TP SCH (09:37)
[2023-02-05] MEDS: oxyCODONE HCL 5 MG TABLET PO PRN (09:40)
[2023-02-05] MEDS ORDERED: oxyCODONE HCL 5 MG TABLET GT PRN (09:43)
[2023-02-05] MEDS: POLYETHYLENE GLYCOL (HEALTHYLAX) 3350 17 GM PACKET GT SCH (10:02)
[2023-02-05] MEDS: SODIUM HYPOCHLORITE 0.25%- 473 ML BULK BOTTLE TP SCH (12:03)
[2023-02-05] MEDS: SCOPOLAMINE HYDROBROMIDE 1 PATCH PATCH.TD72 TD SCH (15:35)
[2023-02-05] MEDS: CHLORHEXIDINE GLUCONATE 4% CLEANSER FOR DECOLONIZATION TP SCH (21:17)
[2023-02-06] MEDS: BANATROL PLUS POWDER PACKET PO SCH ×2 (06:11→14:03)
[2023-02-06] MEDS: LEVOTHYROXINE NA 125 MCG TABLET (FP) GT SCH (06:12)
[2023-02-06 07:48] LABS: BASO % 0.9 % (0-2.0); HEMATOCRIT 24.8 % (32.4-45.2); HEMOGLOBIN 7.8 GM/dL (10.7-15.3); MCH 30.7 pg (25.7-33.7); MCHC 31.6 g/dl (32.0-36.0); MEAN CELL VOLUME 97.1 fl (80-96); MEAN PLT VOLUME 8.9 fl (7.5-11.1); NEUT % 68.1 % (42.8-82.8); PLATELET COUNT 228 10^3/uL (134-434); RBC 2.55 M/mm3 (3.60-5.2); RDW 18.1 % (11.6-15.6); WHITE BLOOD COUNT 7.6 K/mm3 (4.0-10.0)
[2023-02-06 08:11] LABS: POTASSIUM 4.8 mmol/L (3.5-5.1)
[2023-02-06 08:17] LABS: CALCIUM 7.9 mg/dL (8.5-10.1)
[2023-02-06 08:18] LABS: BLOOD UREA NITROGEN 46.1 mg/dL (7-18); MAGNESIUM 2.4 mg/dL (1.8-2.4)
[2023-02-06 08:21] LABS: CREATININE 0.7 mg/dL (0.55-1.3); PHOSPHOROUS 4.3 mg/dL (2.5-4.9)
[2023-02-06] MEDS: POLYETHYLENE GLYCOL (HEALTHYLAX) 3350 17 GM PACKET GT SCH (10:17)
[2023-02-06] MEDS: SODIUM ZIRCONIUM CYCLOSILICATE (LOKELMA) 5 GM PACKET PO SCH (10:17)
[2023-02-06] MEDS: MIDODRINE HCL 5 MG TABLET GT SCH ×3 (10:18→17:02)
[2023-02-06] MEDS: ASCORBIC ACID 500 MG TABLET (FP) PO SCH (10:18)
[2023-02-06] MEDS: DULoxetine HCL 20 MG CAPSULE.DR GT SCH (10:18)
[2023-02-06] MEDS: PANTOPRAZOLE SODIUM 40 MG VIAL IVPUSH SCH (10:18)
[2023-02-06] MEDS: MULTIVIT-MINERALS ORAL LIQUID GT SCH (10:18)
[2023-02-06] MEDS: AMINO ACIDS/PROTEIN HYDROLYS 30 ML LIQUID.PKT GT SCH ×2 (10:18→17:02)
[2023-02-06] MEDS: ZINC SULFATE 220 MG CAPSULE (FP) PO SCH (10:18)
[2023-02-06] MEDS: COLLAGENASE CLOSTRIDIUM HIST. 30 GRAMS TUBE TP SCH (10:19)
[2023-02-06] MEDS: SODIUM HYPOCHLORITE 0.25%- 473 ML BULK BOTTLE TP SCH (10:19)
[2023-02-06] MEDS: POVIDONE-IODINE OINTMENT 10% - 28.4 GM TUBE TP SCH (10:19)
[2023-02-06] MEDS: GABAPENTIN 250 MG/5 ML ORAL SOLUTION, 470 ML BOTTLE GT SCH (10:24)
[2023-02-06] MEDS: DIGOXIN 0.125 MG TABLET GT SCH (10:56)
[2023-02-06 17:45] VITALS: BP 95/50; PULSE 76; RESP 15; TEMP 97.8
== END 2023-02-06 18:00 | DRG 870 ==
LOC: JER 10:42 → JERBED 13:05 → JICU 15:46 → J2W 12-19 11:05 → JICU 12-26 16:08 → J2W 01-10 17:30
PROVIDERS: ADMIT Internal Medicine Pulmonary Disease; ATTEND Internal Medicine
PROC: 4A133B1 Monitoring of Arterial Pressure, Peripheral, Percutaneous Approach (ICD-10-PCS; principal; 2022-12-12)
PROC: 5A1955Z Respiratory Ventilation, Greater than 96 Consecutive Hours (ICD-10-PCS; 2022-12-12)
PROC: 4A133J1 Monitoring of Arterial Pulse, Peripheral, Percutaneous Approach (ICD-10-PCS; 2022-12-12)
PROC: 30233N1 Transfusion of Nonautologous Red Blood Cells into Peripheral Vein, Percutaneous Approach (ICD-10-PCS; 2022-12-14)
PROC: 05HM33Z Insertion of Infusion Device into Right Internal Jugular Vein, Percutaneous Approach (ICD-10-PCS; 2022-12-26)
PROC: B543ZZA Ultrasonography of Right Jugular Veins, Guidance (ICD-10-PCS; 2022-12-26)
DX: A41.89 Other specified sepsis (principal); L89.154 Pressure ulcer of sacral region, stage 4; L89.894 Pressure ulcer of other site, stage 4; L89.223 Pressure ulcer of left hip, stage 3; L89.613 Pressure ulcer of right heel, stage 3; R65.21 Severe sepsis with septic shock; J96.21 Acute and chronic respiratory failure with hypoxia; J18.9 Pneumonia, unspecified organism; E87.20 Acidosis, unspecified; I13.0 Hypertensive heart and chronic kidney disease with heart failure and stage 1 through stage 4 chronic kidney disease, or unspecified chronic kidney disease; I50.32 Chronic diastolic (congestive) heart failure; N39.0 Urinary tract infection, site not specified; J98.11 Atelectasis; I48.19 Other persistent atrial fibrillation; A04.72 Enterocolitis due to Clostridium difficile, not specified as recurrent; R64 Cachexia; B97.4 Respiratory syncytial virus as the cause of diseases classified elsewhere; E11.51 Type 2 diabetes mellitus with diabetic peripheral angiopathy without gangrene; E03.9 Hypothyroidism, unspecified; J44.9 Chronic obstructive pulmonary disease, unspecified; L93.0 Discoid lupus erythematosus; F41.9 Anxiety disorder, unspecified; E87.5 Hyperkalemia; D72.829 Elevated white blood cell count, unspecified; E11.42 Type 2 diabetes mellitus with diabetic polyneuropathy; K21.9 Gastro-esophageal reflux disease without esophagitis; E11.22 Type 2 diabetes mellitus with diabetic chronic kidney disease; N18.9 Chronic kidney disease, unspecified; B96.1 Klebsiella pneumoniae [K. pneumoniae] as the cause of diseases classified elsewhere; L89.142 Pressure ulcer of left lower back, stage 2; L89.132 Pressure ulcer of right lower back, stage 2; D63.1 Anemia in chronic kidney disease; Z93.0 Tracheostomy status; Z93.1 Gastrostomy status; Z68.31 Body mass index [BMI] 31.0-31.9, adult
CPT/HCPCS: 0241U-QW; 36415; 36430; 36600; 71045-TC-FY; 74018-TC-FY; 74176-TC; 80048; 80053; 80162; 81003; 82272; 82308; 82550; 82553; 82728; 82803; 82962; 83540; 83550; 83605; 83735; 84100; 84484; 85025; 85027; 85610; 85730; 86140; 86850; 86900; 86901; 86922; 87040; 87070; 87086; 87186; 87205; 87324; 87449; 87635; 93005; 93010; 94002; 94640; 99285-25; J0878; J3490; P9038; P9058

== ENCOUNTER 2023-02-11 10:02 | Inpatient (IN) | payer OTHER ==
[2023-02-11 11:15] LABS: BASO % 0.6 % (0-2.0); EOS % 0.2 % (0-4.5); HEMATOCRIT 25.5 % (32.4-45.2); HEMOGLOBIN 8.1 GM/dL (10.7-15.3); LYMPH % 10.9 % (8-40); MCH 30.7 pg (25.7-33.7); MCHC 31.7 g/dl (32.0-36.0); MEAN CELL VOLUME 96.8 fl (80-96); MEAN PLT VOLUME 9.7 fl (7.5-11.1); MONO % 3.5 % (3.8-10.2); NEUT % 84.8 % (42.8-82.8); PLATELET COUNT 333 10^3/uL (134-434); RBC 2.64 M/mm3 (3.60-5.2); RDW 17.5 % (11.6-15.6)
[2023-02-11 11:18] LABS: INR 1.5 (0.83-1.09); PROTHROMBIN TIME (PATIENT) 17.3 SEC (9.7-13.0)
[2023-02-11 11:26] LABS: LACTIC ACID 10.3 mmol/L (0.4-2.0)
[2023-02-11 11:29] LABS: POTASSIUM 5.1 mmol/L (3.5-5.1)
[2023-02-11 11:31] LABS: CALCIUM 8.6 mg/dL (8.5-10.1)
[2023-02-11 11:32] LABS: BLOOD UREA NITROGEN 67.8 mg/dL (7-18); MAGNESIUM 3.1 mg/dL (1.8-2.4)
[2023-02-11 11:35] LABS: CREATININE 1.6 mg/dL (0.55-1.3); PHOSPHOROUS 7.8 mg/dL (2.5-4.9)
[2023-02-11 11:36] LABS: BILIRUBIN,TOTAL 0.4 mg/dL (0.2-1)
[2023-02-11 11:38] LABS: N-TERMINAL BNP 31151.3 pg/ml (5-125)
[2023-02-11 11:44] LABS: ALBUMIN 1.2 g/dl (3.4-5.0)
[2023-02-11 11:55] LABS: EPI CELLS >36 /uL (0-25.1); HYALINE CASTS 416 /uL (0-3.1); PH,URINE 5.5 (5.0-8.0); URINE APPEARANCE TURBID; URINE BACTERIA 118 /uL (0-1359); URINE BILIRUBIN NEGATIVE (NEGATIVE); URINE COLOR DK YELLOW; URINE GLUCOSE (UA) NEGATIVE (NEGATIVE); URINE KETONE NEGATIVE (NEGATIVE); URINE LEUK ESTERASE 3+ (NEGATIVE); URINE NITRITE NEGATIVE (NEGATIVE); URINE PROTEIN 2+ (NEGATIVE); URINE RBC 866 /uL (0-23.9); URINE UROBILINOGEN 0.2 mg/dL (0.2-1.0); URINE WBC 5064 /uL (0-25.8)
[2023-02-11 11:56] LABS: YEAST PRESENT (NEGATIVE)
[2023-02-11 12:25] LABS: ARTERIAL BLD GAS O2 SATURATION 99.6 % (95-98); ARTERIAL BLOOD GAS BASE EXCESS 4.7 mmol/L (-2-2); ARTERIAL BLOOD GAS PO2 276.9 mmHg (80-100); ARTERIAL BLOOD GAS pH 7.294 (7.350-7.450)
[2023-02-11 12:34] LABS: ALLENS TEST POSITIVE; VENT MODE VOL/AC; VENT RATE 18
[2023-02-11] MEDS ORDERED: PIPERACILLIN/TAZOB 4.5 GM 4.5 GM in DEXTROSE 5%-WATER 100 ML IVPB ONE (13:59)
[2023-02-11] MEDS ORDERED: VANCOMYCIN HCL 1,500 MG in DEXTROSE 5%-WATER - 500 ML IVPB ONE (13:59)
[2023-02-11] MEDS ORDERED: LACTATED RINGERS SOLUTION 1000 ML INFUS.BAG IV ONE (14:07)
[2023-02-11] MEDS ORDERED: PIPERACILLIN/TAZOB 4.5 GM 4.5 GM/100 ML BAG IVPB ONE (14:07)
[2023-02-11] MEDS ORDERED: NOREPINEPHRINE BITARTRATE 4,000 MCG in DEXTROSE 5%-WATER - 496 ML IV SCH ×2 (14:15→17:01)
[2023-02-11] MEDS ORDERED: ERTAPENEM SODIUM 1 GM in SODIUM CHLORIDE 50 ML IVPB SCH (15:00)
[2023-02-11] MEDS ORDERED: DAPTOMYCIN 900 MG in SODIUM CHLORIDE 50 ML IVPB ONE (16:44)
[2023-02-11] MEDS: HEPARIN NA (PORCINE) 5,000 UNITS/ML 1ML VIAL SQ SCH ×2 (17:40→21:50)
[2023-02-11] MEDS: LACTATED RINGERS SOLUTION 1,000 ML/1,000 ML INFUS.BAG IV SCH (17:41)
[2023-02-11] MEDS: MEROPENEM 1 GM in DEXTROSE 5%-WATER 100 ML IVPB SCH ×2 (17:42→18:45)
[2023-02-11] MEDS ORDERED: VANCOMYCIN PREMIX 1.5 GM 1,500 MG/300 ML BAG IVPB ONE (18:15)
[2023-02-11 18:25] LABS: LACTIC ACID 5.7 mmol/L (0.4-2.0)
[2023-02-11] MEDS: NOREPINEPHRINE BITARTRATE/D5W 8 MG/250 ML BAG IVPB SCH (20:52)
[2023-02-11] MEDS: CHLORHEXIDINE GLUCONATE 4% CLEANSER FOR DECOLONIZATION TP SCH (21:50)
[2023-02-11] MEDS: MUPIROCIN 2% TOPICAL OINTMENT FOR DECOLONIZATION NS SCH (21:51)
[2023-02-12] MEDS ORDERED: FUROSEMIDE 40 MG/4 ML INJECTABLE VIAL IVPUSH ONE ×3 (04:27→15:00)
[2023-02-12] MEDS ORDERED: METOLAZONE 5 MG TABLET PO ONE (04:28)
[2023-02-12] MEDS ORDERED: ALBUMIN HUMAN 25% 12.5 GM/50 ML VIAL IV SCH (04:30)
[2023-02-12] MEDS ORDERED: ALBUMIN HUMAN 25% 12.5 GM/50 ML VIAL IV ONE (04:45)
[2023-02-12] MEDS ORDERED: ALBUMIN HUMAN 25% 100 ML VIAL IV SCH (04:45)
[2023-02-12] MEDS: NOREPINEPHRINE BITARTRATE/D5W 8 MG/250 ML BAG IVPB SCH ×2 (05:09→21:33)
[2023-02-12] MEDS: MEROPENEM 1 GM in DEXTROSE 5%-WATER 100 ML IVPB SCH ×3 (05:09→17:16)
[2023-02-12] MEDS: HEPARIN NA (PORCINE) 5,000 UNITS/ML 1ML VIAL SQ SCH ×3 (05:10→21:31)
[2023-02-12 08:10] LABS: INR 1.44 (0.83-1.09); PROTHROMBIN TIME (PATIENT) 16.6 SEC (9.7-13.0)
[2023-02-12 08:13] LABS: ACTIVATED PTT 33.7 SECONDS (25.2-36.5)
[2023-02-12 08:16] LABS: BASO % 0.4 % (0-2.0); EOS % 1.9 % (0-4.5); HEMATOCRIT 21.7 % (32.4-45.2); LYMPH % 14.7 % (8-40); MCH 30.5 pg (25.7-33.7); MCHC 32.2 g/dl (32.0-36.0); MEAN CELL VOLUME 94.8 fl (80-96); MEAN PLT VOLUME 9.5 fl (7.5-11.1); MONO % 4.8 % (3.8-10.2); NEUT % 78.2 % (42.8-82.8); PLATELET COUNT 314 10^3/uL (134-434); RBC 2.29 M/mm3 (3.60-5.2); RDW 17.6 % (11.6-15.6); WHITE BLOOD COUNT 7.1 K/mm3 (4.0-10.0)
[2023-02-12 08:23] LABS: POTASSIUM 4.9 mmol/L (3.5-5.1)
[2023-02-12 08:31] LABS: ALBUMIN 1.3 g/dl (3.4-5.0); CALCIUM 8.1 mg/dL (8.5-10.1)
[2023-02-12 08:32] LABS: BLOOD UREA NITROGEN 64.9 mg/dL (7-18); MAGNESIUM 2.9 mg/dL (1.8-2.4)
[2023-02-12 08:34] LABS: CREATININE 1.5 mg/dL (0.55-1.3); PHOSPHOROUS 6.4 mg/dL (2.5-4.9)
[2023-02-12 08:36] LABS: BILIRUBIN,TOTAL 0.3 mg/dL (0.2-1)
[2023-02-12] MEDS: MUPIROCIN 2% TOPICAL OINTMENT FOR DECOLONIZATION NS SCH ×2 (09:26→21:36)
[2023-02-12] MEDS: LACTATED RINGERS SOLUTION 1,000 ML/1,000 ML INFUS.BAG IV SCH (09:27)
[2023-02-12] MEDS: PANTOPRAZOLE SODIUM 40 MG VIAL IVPUSH SCH (09:27)
[2023-02-12] MEDS ORDERED: ALBUMIN HUMAN 25% 100 ML VIAL IV ONE ×2 (11:00→15:00)
[2023-02-12] MEDS ORDERED: MIDAZOLAM HCL 2 MG/2 ML SINGLE DOSE VIAL IVPUSH ONE (12:00)
[2023-02-12] MEDS: VASOPRESSIN 40 UNITS/100 ML BAG IV SCH (14:45)
[2023-02-12] MEDS: CHLORHEXIDINE GLUCONATE 4% CLEANSER FOR DECOLONIZATION TP SCH (21:31)
[2023-02-12] MEDS ORDERED: ACETAMINOPHEN 1000 MG/100 ML BAG IVPB ONE (21:44)
[2023-02-12] MEDS: FLUDROCORTISONE ACETATE 0.1 MG TABLET (FP) PO SCH (22:07)
[2023-02-12] MEDS: HYDROCORTISONE SOD SUCCINATE 100 MG/2 ML VIAL IVPUSH SCH (22:07)
[2023-02-13] MEDS ORDERED: ALBUMIN HUMAN 25% 100 ML VIAL IV ONE (04:30)
[2023-02-13] MEDS ORDERED: FUROSEMIDE 40 MG/4 ML INJECTABLE VIAL IVPUSH ONE (04:30)
[2023-02-13] MEDS: MEROPENEM 1 GM in DEXTROSE 5%-WATER 100 ML IVPB SCH ×2 (05:32→17:41)
[2023-02-13] MEDS: HYDROCORTISONE SOD SUCCINATE 100 MG/2 ML VIAL IVPUSH SCH ×3 (05:32→22:12)
[2023-02-13] MEDS: HEPARIN NA (PORCINE) 5,000 UNITS/ML 1ML VIAL SQ SCH ×3 (05:32→22:13)
[2023-02-13 07:04] LABS: BASO % 0.5 % (0-2.0); EOS % 0.1 % (0-4.5); HEMATOCRIT 20.5 % (32.4-45.2); LYMPH % 21.9 % (8-40); MCH 30.9 pg (25.7-33.7); MCHC 32.6 g/dl (32.0-36.0); MEAN CELL VOLUME 94.6 fl (80-96); MEAN PLT VOLUME 9.1 fl (7.5-11.1); MONO % 1.8 % (3.8-10.2); NEUT % 75.7 % (42.8-82.8); PLATELET COUNT 275 10^3/uL (134-434); RBC 2.16 M/mm3 (3.60-5.2); RDW 17.5 % (11.6-15.6); WHITE BLOOD COUNT 5.4 K/mm3 (4.0-10.0)
[2023-02-13 07:25] LABS: POTASSIUM 4.6 mmol/L (3.5-5.1)
[2023-02-13 07:29] LABS: BLOOD UREA NITROGEN 58.7 mg/dL (7-18); CALCIUM 8.1 mg/dL (8.5-10.1); MAGNESIUM 2.8 mg/dL (1.8-2.4)
[2023-02-13 07:32] LABS: CREATININE 1.7 mg/dL (0.55-1.3); PHOSPHOROUS 6.7 mg/dL (2.5-4.9)
[2023-02-13 07:34] LABS: BILIRUBIN,TOTAL 0.6 mg/dL (0.2-1); TOT PROT 6.5 g/dl (6.4-8.2)
[2023-02-13 07:45] LABS: ALBUMIN 2.1 g/dl (3.4-5.0)
[2023-02-13] MEDS ORDERED: ACETAMINOPHEN 1000 MG/100 ML BAG IVPB PRN (08:05)
[2023-02-13 08:17] LABS: HEMOGLOBIN 6.7 GM/dL (10.7-15.3)
[2023-02-13] MEDS: PANTOPRAZOLE SODIUM 40 MG VIAL IVPUSH SCH (09:14)
[2023-02-13] MEDS: FLUDROCORTISONE ACETATE 0.1 MG TABLET (FP) PO SCH (09:14)
[2023-02-13] MEDS: MUPIROCIN 2% TOPICAL OINTMENT FOR DECOLONIZATION NS SCH ×2 (09:15→22:20)
[2023-02-13] MEDS: VASOPRESSIN 40 UNITS/100 ML BAG IV SCH (14:49)
[2023-02-13] MEDS: COLLAGENASE CLOSTRIDIUM HIST. 30 GRAMS TUBE TP SCH (14:50)
[2023-02-13] MEDS: MIDODRINE HCL 5 MG TABLET GT SCH ×2 (14:51→22:13)
[2023-02-13] MEDS ORDERED: MIDAZOLAM HCL 2 MG/2 ML SINGLE DOSE VIAL IVPUSH ONE (17:19)
[2023-02-13] MEDS: AMINO ACIDS/PROTEIN HYDROLYS 30 ML LIQUID.PKT GT SCH (17:22)
[2023-02-13 18:54] LABS: HEMATOCRIT 22.3 % (32.4-45.2); HEMOGLOBIN 7.4 GM/dL (10.7-15.3); MCH 30.2 pg (25.7-33.7); MCHC 33.1 g/dl (32.0-36.0); MEAN CELL VOLUME 91.2 fl (80-96); MEAN PLT VOLUME 8.5 fl (7.5-11.1); PLATELET COUNT 243 10^3/uL (134-434); RBC 2.44 M/mm3 (3.60-5.2); RDW 18.4 % (11.6-15.6); WHITE BLOOD COUNT 5.3 K/mm3 (4.0-10.0)
[2023-02-13] MEDS: CHLORHEXIDINE GLUCONATE 4% CLEANSER FOR DECOLONIZATION TP SCH (22:13)
[2023-02-13] MEDS: NOREPINEPHRINE BITARTRATE/D5W 8 MG/250 ML BAG IVPB SCH (22:19)
[2023-02-14] MEDS: HEPARIN NA (PORCINE) 5,000 UNITS/ML 1ML VIAL SQ SCH ×2 (05:34→13:25)
[2023-02-14] MEDS: MIDODRINE HCL 5 MG TABLET GT SCH ×3 (05:35→22:19)
[2023-02-14] MEDS: HYDROCORTISONE SOD SUCCINATE 100 MG/2 ML VIAL IVPUSH SCH ×3 (05:35→22:19)
[2023-02-14] MEDS: MEROPENEM 1 GM in DEXTROSE 5%-WATER 100 ML IVPB SCH ×2 (05:35→17:49)
[2023-02-14 07:22] LABS: BASO % 0.2 % (0-2.0); HEMATOCRIT 23.1 % (32.4-45.2); HEMOGLOBIN 7.5 GM/dL (10.7-15.3); LYMPH % 17.1 % (8-40); MCH 30.3 pg (25.7-33.7); MCHC 32.6 g/dl (32.0-36.0); MEAN CELL VOLUME 92.8 fl (80-96); MONO % 3.9 % (3.8-10.2); NEUT % 78.8 % (42.8-82.8); PLATELET COUNT 238 10^3/uL (134-434); RBC 2.49 M/mm3 (3.60-5.2); RDW 18.8 % (11.6-15.6); WHITE BLOOD COUNT 7.7 K/mm3 (4.0-10.0)
[2023-02-14 07:50] LABS: POTASSIUM 4.2 mmol/L (3.5-5.1)
[2023-02-14 08:03] LABS: ALBUMIN 1.8 g/dl (3.4-5.0)
[2023-02-14 08:04] LABS: MAGNESIUM 2.8 mg/dL (1.8-2.4)
[2023-02-14 08:06] LABS: CREATININE 1.9 mg/dL (0.55-1.3); PHOSPHOROUS 8.1 mg/dL (2.5-4.9)
[2023-02-14 08:07] LABS: BILIRUBIN,TOTAL 0.6 mg/dL (0.2-1)
[2023-02-14 08:08] LABS: TOT PROT 6.2 g/dl (6.4-8.2)
[2023-02-14] MEDS ORDERED: PROPOFOL 1,000,000 MCG/100 ML VIAL ONE (08:35)
[2023-02-14] MEDS: AMINO ACIDS/PROTEIN HYDROLYS 30 ML LIQUID.PKT GT SCH ×2 (10:18→17:48)
[2023-02-14] MEDS: PANTOPRAZOLE SODIUM 40 MG VIAL IVPUSH SCH (10:19)
[2023-02-14] MEDS: LEVOTHYROXINE NA 125 MCG TABLET (FP) GT SCH (10:19)
[2023-02-14] MEDS: FLUDROCORTISONE ACETATE 0.1 MG TABLET (FP) PO SCH (10:19)
[2023-02-14] MEDS: MUPIROCIN 2% TOPICAL OINTMENT FOR DECOLONIZATION NS SCH ×2 (10:55→22:19)
[2023-02-14] MEDS: ASCORBIC ACID 500 MG/5 ML GT SCH (11:54)
[2023-02-14] MEDS: COLLAGENASE CLOSTRIDIUM HIST. 30 GRAMS TUBE TP SCH (11:55)
[2023-02-14] MEDS: VASOPRESSIN 40 UNITS/100 ML BAG IV SCH (17:49)
[2023-02-14] MEDS ORDERED: FUROSEMIDE 40 MG/4 ML INJECTABLE VIAL IVPUSH ONE (19:35)
[2023-02-14] MEDS ORDERED: ALBUMIN HUMAN 25% 12.5 GM/50 ML VIAL IV ONE (19:35)
[2023-02-14] MEDS ORDERED: ALBUMIN HUMAN 25% 100 ML VIAL IV ONE (21:30)
[2023-02-14] MEDS: NOREPINEPHRINE BITARTRATE/D5W 8 MG/250 ML BAG IVPB SCH (22:19)
[2023-02-14] MEDS: CHLORHEXIDINE GLUCONATE 4% CLEANSER FOR DECOLONIZATION TP SCH (22:19)
[2023-02-15] MEDS: MEROPENEM 1 GM in DEXTROSE 5%-WATER 100 ML IVPB SCH ×2 (06:41→17:32)
[2023-02-15] MEDS: LEVOTHYROXINE NA 125 MCG TABLET (FP) GT SCH (06:42)
[2023-02-15] MEDS: MIDODRINE HCL 5 MG TABLET GT SCH ×3 (06:42→23:14)
[2023-02-15] MEDS: HYDROCORTISONE SOD SUCCINATE 100 MG/2 ML VIAL IVPUSH SCH (06:42)
[2023-02-15 07:18] LABS: BASO % 0.1 % (0-2.0); HEMOGLOBIN 8.1 GM/dL (10.7-15.3); MCHC 33.7 g/dl (32.0-36.0); MEAN CELL VOLUME 92.1 fl (80-96); MEAN PLT VOLUME 8.8 fl (7.5-11.1); MONO % 4.2 % (3.8-10.2); NEUT % 81.7 % (42.8-82.8); PLATELET COUNT 229 10^3/uL (134-434); WHITE BLOOD COUNT 6.9 K/mm3 (4.0-10.0)
[2023-02-15 07:26] LABS: POTASSIUM 3.5 mmol/L (3.5-5.1)
[2023-02-15 07:32] LABS: BLOOD UREA NITROGEN 75.4 mg/dL (7-18); CALCIUM 7.9 mg/dL (8.5-10.1); MAGNESIUM 2.6 mg/dL (1.8-2.4)
[2023-02-15 07:37] LABS: BILIRUBIN,TOTAL 0.4 mg/dL (0.2-1); TOT PROT 6.6 g/dl (6.4-8.2)
[2023-02-15] MEDS: AMINO ACIDS/PROTEIN HYDROLYS 30 ML LIQUID.PKT GT SCH ×2 (08:36→17:32)
[2023-02-15] MEDS: PANTOPRAZOLE SODIUM 40 MG VIAL IVPUSH SCH (09:43)
[2023-02-15] MEDS: FLUDROCORTISONE ACETATE 0.1 MG TABLET (FP) PO SCH (09:43)
[2023-02-15] MEDS: ASCORBIC ACID 500 MG/5 ML GT SCH (09:43)
[2023-02-15] MEDS: COLLAGENASE CLOSTRIDIUM HIST. 30 GRAMS TUBE TP SCH (09:44)
[2023-02-15] MEDS: MUPIROCIN 2% TOPICAL OINTMENT FOR DECOLONIZATION NS SCH ×2 (09:44→23:13)
[2023-02-15] MEDS ORDERED: oxyCODONE HCL 5 MG TABLET PO ONE (11:11)
[2023-02-15 12:25] VITALS: BMI 30.1
[2023-02-15 12:51] LABS: INR 1.12 (0.83-1.09)
[2023-02-15] MEDS: CHLORHEXIDINE GLUCONATE 4% CLEANSER FOR DECOLONIZATION TP SCH (23:13)
[2023-02-16] MEDS: MEROPENEM 1 GM in DEXTROSE 5%-WATER 100 ML IVPB SCH ×2 (06:06→18:29)
[2023-02-16] MEDS: LEVOTHYROXINE NA 125 MCG TABLET (FP) GT SCH (06:07)
[2023-02-16] MEDS: MIDODRINE HCL 5 MG TABLET GT SCH ×3 (06:07→21:17)
[2023-02-16 07:18] LABS: CHLORIDE 87 mmol/L (98-107); SODIUM 136 mmol/L (136-145)
[2023-02-16 07:20] LABS: CALCIUM 7.8 mg/dL (8.5-10.1)
[2023-02-16 07:21] LABS: ALBUMIN 1.8 g/dl (3.4-5.0); BLOOD UREA NITROGEN 69.7 mg/dL (7-18); CO2 43 mmol/L (21-32); GLUCOSE,RANDOM 265 mg/dL (74-106); MAGNESIUM 2.5 mg/dL (1.8-2.4)
[2023-02-16 07:24] LABS: CREATININE 1.7 mg/dL (0.55-1.3); PHOSPHOROUS 6.3 mg/dL (2.5-4.9); SGOT/AST 11 U/L (15-37); SGPT/ALT 18 U/L (13-61)
[2023-02-16 07:25] LABS: BILIRUBIN,TOTAL 0.5 mg/dL (0.2-1); TOT PROT 6.3 g/dl (6.4-8.2)
[2023-02-16 07:26] LABS: ALK PHOS 110 U/L (45-117)
[2023-02-16 07:32] LABS: ANION GAP 6 MMOL/L (8-16); POTASSIUM 2.7 mmol/L (3.5-5.1)
[2023-02-16 07:50] LABS: BASO % 0.1 % (0-2.0); HEMATOCRIT 24.8 % (32.4-45.2); HEMOGLOBIN 8.4 GM/dL (10.7-15.3); LYMPH % 14.4 % (8-40); MEAN CELL VOLUME 91.4 fl (80-96); MEAN PLT VOLUME 7.6 fl (7.5-11.1); NEUT % 77.5 % (42.8-82.8); PLATELET COUNT 211 10^3/uL (134-434); RBC 2.72 M/mm3 (3.60-5.2); RDW 18.3 % (11.6-15.6); WHITE BLOOD COUNT 5.7 K/mm3 (4.0-10.0)
[2023-02-16] MEDS: AMINO ACIDS/PROTEIN HYDROLYS 30 ML LIQUID.PKT GT SCH ×2 (08:44→17:27)
[2023-02-16] MEDS: ASCORBIC ACID 500 MG/5 ML GT SCH (09:01)
[2023-02-16] MEDS: PANTOPRAZOLE SODIUM 40 MG VIAL IVPUSH SCH (09:01)
[2023-02-16] MEDS: HYDROCORTISONE SOD SUCCINATE 100 MG/2 ML VIAL IVPUSH SCH (09:02)
[2023-02-16] MEDS: COLLAGENASE CLOSTRIDIUM HIST. 30 GRAMS TUBE TP SCH (09:04)
[2023-02-16] MEDS: MUPIROCIN 2% TOPICAL OINTMENT FOR DECOLONIZATION NS SCH (09:05)
[2023-02-16] MEDS ORDERED: FLUDROCORTISONE ACETATE 0.1 MG TABLET (FP) PO SCH (10:00)
[2023-02-16] MEDS ORDERED: POTASSIUM CHLORIDE ORAL LIQUID 20 MEQ/15 ML PO ONE ×2 (10:15→22:00)
[2023-02-16] MEDS: KCL 10 MEQ IVPB 10 MEQ/100 ML INFUS.BAG IVPB SCH ×3 (10:22→12:15)
[2023-02-16] MEDS: CHLORHEXIDINE GLUCONATE 4% CLEANSER FOR DECOLONIZATION TP SCH (21:18)
[2023-02-17] MEDS: LORazepam 2 MG/ML SDV VIAL IVPUSH PRN (01:11)
[2023-02-17] MEDS: MEROPENEM 1 GM in DEXTROSE 5%-WATER 100 ML IVPB SCH (05:35)
[2023-02-17] MEDS: MIDODRINE HCL 5 MG TABLET GT SCH ×3 (05:35→22:09)
[2023-02-17] MEDS: LEVOTHYROXINE NA 125 MCG TABLET (FP) GT SCH (06:17)
[2023-02-17 08:32] LABS: CHLORIDE 88 mmol/L (98-107); SODIUM 138 mmol/L (136-145)
[2023-02-17 08:33] LABS: BASO % 0.2 % (0-2.0); EOS % 0.7 % (0-4.5); HEMATOCRIT 27.3 % (32.4-45.2); HEMOGLOBIN 9.2 GM/dL (10.7-15.3); LYMPH % 23.6 % (8-40); MCHC 33.7 g/dl (32.0-36.0); MEAN CELL VOLUME 92.1 fl (80-96); MEAN PLT VOLUME 7.7 fl (7.5-11.1); MONO % 6.2 % (3.8-10.2); NEUT % 69.3 % (42.8-82.8); PLATELET COUNT 212 10^3/uL (134-434); RBC 2.96 M/mm3 (3.60-5.2); WHITE BLOOD COUNT 5.6 K/mm3 (4.0-10.0)
[2023-02-17 08:34] LABS: CALCIUM 7.5 mg/dL (8.5-10.1)
[2023-02-17 08:35] LABS: ALBUMIN 1.7 g/dl (3.4-5.0); BLOOD UREA NITROGEN 62.1 mg/dL (7-18); CO2 44 mmol/L (21-32); GLUCOSE,RANDOM 285 mg/dL (74-106)
[2023-02-17 08:38] LABS: CREATININE 1.2 mg/dL (0.55-1.3); SGOT/AST 13 U/L (15-37); SGPT/ALT 18 U/L (13-61)
[2023-02-17 08:39] LABS: BILIRUBIN,TOTAL 0.2 mg/dL (0.2-1)
[2023-02-17 08:41] LABS: ALK PHOS 122 U/L (45-117)
[2023-02-17 08:44] LABS: ANION GAP 6 MMOL/L (8-16); POTASSIUM 2.8 mmol/L (3.5-5.1)
[2023-02-17] MEDS: PANTOPRAZOLE SODIUM 40 MG VIAL IVPUSH SCH (09:41)
[2023-02-17] MEDS: HYDROCORTISONE SOD SUCCINATE 100 MG/2 ML VIAL IVPUSH SCH (09:41)
[2023-02-17] MEDS: ASCORBIC ACID 500 MG/5 ML GT SCH (09:42)
[2023-02-17] MEDS: COLLAGENASE CLOSTRIDIUM HIST. 30 GRAMS TUBE TP SCH (09:42)
[2023-02-17] MEDS: AMINO ACIDS/PROTEIN HYDROLYS 30 ML LIQUID.PKT GT SCH ×2 (09:42→17:19)
[2023-02-17] MEDS ORDERED: POTASSIUM CHLORIDE ORAL LIQUID 20 MEQ/15 ML PO ONE (12:30)
[2023-02-17] MEDS: KCL 10 MEQ IVPB 10 MEQ/100 ML INFUS.BAG IVPB SCH ×3 (13:15→15:05)
[2023-02-17] MEDS: INSULIN SLIDING SCALE (NOVOLOG) 1 VIAL SQ SCH ×2 (17:18→22:17)
[2023-02-17] MEDS: CHLORHEXIDINE GLUCONATE 4% CLEANSER FOR DECOLONIZATION TP SCH (22:09)
[2023-02-17] MEDS: INSULIN (LEVEMIR) 100 UNITS/ML UNITS SQ SCH (22:17)
[2023-02-18] MEDS: MIDODRINE HCL 5 MG TABLET GT SCH ×3 (05:40→21:07)
[2023-02-18] MEDS: INSULIN SLIDING SCALE (NOVOLOG) 1 VIAL SQ SCH (06:56)
[2023-02-18] MEDS: LEVOTHYROXINE NA 125 MCG TABLET (FP) GT SCH (06:58)
[2023-02-18 07:02] LABS: BASO % 0.1 % (0-2.0); EOS % 1.4 % (0-4.5); HEMATOCRIT 29.4 % (32.4-45.2); HEMOGLOBIN 9.7 GM/dL (10.7-15.3); LYMPH % 21.9 % (8-40); MCH 30.6 pg (25.7-33.7); MCHC 32.9 g/dl (32.0-36.0); MEAN CELL VOLUME 93.1 fl (80-96); MEAN PLT VOLUME 7.8 fl (7.5-11.1); MONO % 4.8 % (3.8-10.2); NEUT % 71.8 % (42.8-82.8); PLATELET COUNT 244 10^3/uL (134-434); RBC 3.16 M/mm3 (3.60-5.2); RDW 18.1 % (11.6-15.6); WHITE BLOOD COUNT 8.2 K/mm3 (4.0-10.0)
[2023-02-18 07:25] LABS: CHLORIDE 91 mmol/L (98-107); SODIUM 140 mmol/L (136-145)
[2023-02-18 07:27] LABS: ALBUMIN 1.6 g/dl (3.4-5.0); GLUCOSE,RANDOM 105 mg/dL (74-106)
[2023-02-18 07:28] LABS: BLOOD UREA NITROGEN 54.5 mg/dL (7-18)
[2023-02-18 07:30] LABS: SGPT/ALT 16 U/L (13-61)
[2023-02-18 07:34] LABS: ALK PHOS 93 U/L (45-117); BILIRUBIN,TOTAL 0.3 mg/dL (0.2-1); CREATININE 0.8 mg/dL (0.55-1.3); SGOT/AST 15 U/L (15-37)
[2023-02-18 07:35] LABS: ANION GAP 4 MMOL/L (8-16); CO2 > 45 mmol/L (21-32); POTASSIUM 2.8 mmol/L (3.5-5.1)
[2023-02-18] MEDS: AMINO ACIDS/PROTEIN HYDROLYS 30 ML LIQUID.PKT GT SCH ×2 (09:00→18:13)
[2023-02-18] MEDS: PANTOPRAZOLE SODIUM 40 MG VIAL IVPUSH SCH (09:03)
[2023-02-18] MEDS: ASCORBIC ACID 500 MG/5 ML UNIT DOSE CUP GT SCH (09:04)
[2023-02-18] MEDS: HYDROCORTISONE SOD SUCCINATE 100 MG/2 ML VIAL IVPUSH SCH (09:05)
[2023-02-18] MEDS: COLLAGENASE CLOSTRIDIUM HIST. 30 GRAMS TUBE TP SCH (09:05)
[2023-02-18] MEDS: INSULIN (LEVEMIR) 100 UNITS/ML UNITS SQ SCH (09:05)
[2023-02-18] MEDS ORDERED: INSULIN (LEVEMIR) 100 UNITS/ML UNITS SQ ONE (09:55)
[2023-02-18] MEDS: KCL 10 MEQ IVPB 10 MEQ/100 ML INFUS.BAG IVPB SCH ×5 (10:45→22:12)
[2023-02-18] MEDS ORDERED: NAPHAZOLINE/PHENIRAMINE OPHTHALMIC 15 ML BOTTLE OU PRN (13:52)
[2023-02-18] MEDS: CHLORHEXIDINE GLUCONATE 4% CLEANSER FOR DECOLONIZATION TP SCH (21:07)
[2023-02-18] MEDS: LORazepam 2 MG/ML SDV VIAL IVPUSH PRN (22:12)
[2023-02-19] MEDS: KCL 10 MEQ IVPB 10 MEQ/100 ML INFUS.BAG IVPB SCH (00:15)
[2023-02-19] MEDS: MIDODRINE HCL 5 MG TABLET GT SCH ×3 (05:18→21:27)
[2023-02-19] MEDS: LEVOTHYROXINE NA 125 MCG TABLET (FP) GT SCH (06:34)
[2023-02-19 07:37] LABS: BASO % 0.2 % (0-2.0); EOS % 3.6 % (0-4.5); HEMATOCRIT 28.8 % (32.4-45.2); HEMOGLOBIN 9.4 GM/dL (10.7-15.3); LYMPH % 16.5 % (8-40); MCH 30.7 pg (25.7-33.7); MCHC 32.6 g/dl (32.0-36.0); NEUT % 76.7 % (42.8-82.8); PLATELET COUNT 226 10^3/uL (134-434); RBC 3.06 M/mm3 (3.60-5.2); RDW 18.2 % (11.6-15.6); WHITE BLOOD COUNT 8.1 K/mm3 (4.0-10.0)
[2023-02-19 07:54] LABS: CHLORIDE 92 mmol/L (98-107); POTASSIUM 3.4 mmol/L (3.5-5.1); SODIUM 140 mmol/L (136-145)
[2023-02-19 07:57] LABS: CALCIUM 7.5 mg/dL (8.5-10.1)
[2023-02-19 07:58] LABS: ALBUMIN 1.4 g/dl (3.4-5.0); BLOOD UREA NITROGEN 44.6 mg/dL (7-18); GLUCOSE,RANDOM 173 mg/dL (74-106)
[2023-02-19 08:01] LABS: CREATININE 0.6 mg/dL (0.55-1.3); SGOT/AST 13 U/L (15-37); SGPT/ALT 15 U/L (13-61)
[2023-02-19 08:03] LABS: BILIRUBIN,TOTAL 0.3 mg/dL (0.2-1); TOT PROT 5.2 g/dl (6.4-8.2)
[2023-02-19 08:04] LABS: ALK PHOS 87 U/L (45-117)
[2023-02-19 08:19] LABS: ANION GAP 3 MMOL/L (8-16); CO2 > 45 mmol/L (21-32)
[2023-02-19] MEDS: PANTOPRAZOLE SODIUM 40 MG VIAL IVPUSH SCH (09:53)
[2023-02-19] MEDS: ASCORBIC ACID 500 MG/5 ML UNIT DOSE CUP GT SCH (09:53)
[2023-02-19] MEDS: COLLAGENASE CLOSTRIDIUM HIST. 30 GRAMS TUBE TP SCH (09:54)
[2023-02-19] MEDS: AMINO ACIDS/PROTEIN HYDROLYS 30 ML LIQUID.PKT GT SCH ×2 (09:55→18:20)
[2023-02-19] MEDS: CHLORHEXIDINE GLUCONATE 4% CLEANSER FOR DECOLONIZATION TP SCH (21:28)
[2023-02-20] MEDS: MIDODRINE HCL 5 MG TABLET GT SCH ×3 (05:51→21:15)
[2023-02-20] MEDS: LEVOTHYROXINE NA 125 MCG TABLET (FP) GT SCH (06:28)
[2023-02-20 07:28] LABS: BASO % 0.3 % (0-2.0); EOS % 2.6 % (0-4.5); HEMATOCRIT 30.9 % (32.4-45.2); HEMOGLOBIN 10.1 GM/dL (10.7-15.3); LYMPH % 21.4 % (8-40); MCH 30.7 pg (25.7-33.7); MCHC 32.6 g/dl (32.0-36.0); MEAN CELL VOLUME 94.2 fl (80-96); MEAN PLT VOLUME 8.1 fl (7.5-11.1); MONO % 2.2 % (3.8-10.2); NEUT % 73.5 % (42.8-82.8); PLATELET COUNT 276 10^3/uL (134-434); RBC 3.28 M/mm3 (3.60-5.2); RDW 19.1 % (11.6-15.6)
[2023-02-20 07:33] LABS: INR 1.16 (0.83-1.09); PROTHROMBIN TIME (PATIENT) 13.4 SEC (9.7-13.0)
[2023-02-20 07:36] LABS: ACTIVATED PTT 31.7 SECONDS (25.2-36.5)
[2023-02-20 07:49] LABS: POTASSIUM 3.5 mmol/L (3.5-5.1)
[2023-02-20 07:54] LABS: ALBUMIN 1.5 g/dl (3.4-5.0); CALCIUM 7.3 mg/dL (8.5-10.1)
[2023-02-20 07:55] LABS: MAGNESIUM 1.7 mg/dL (1.8-2.4)
[2023-02-20 07:57] LABS: CREATININE 0.5 mg/dL (0.55-1.3); PHOSPHOROUS 2.1 mg/dL (2.5-4.9)
[2023-02-20 07:58] LABS: BILIRUBIN,TOTAL 0.4 mg/dL (0.2-1); TOT PROT 5.2 g/dl (6.4-8.2)
[2023-02-20] MEDS: PANTOPRAZOLE SODIUM 40 MG VIAL IVPUSH SCH (09:17)
[2023-02-20] MEDS: AMINO ACIDS/PROTEIN HYDROLYS 30 ML LIQUID.PKT GT SCH ×2 (09:18→16:55)
[2023-02-20] MEDS: ASCORBIC ACID 500 MG/5 ML UNIT DOSE CUP GT SCH (09:18)
[2023-02-20] MEDS ORDERED: POTASSIUM CHLORIDE ORAL LIQUID 20 MEQ/15 ML PO ONE (13:15)
[2023-02-20] MEDS ORDERED: MAGNESIUM 2GM/50ML STERILE WATER IVPB IVPB ONE (13:15)
[2023-02-20] MEDS: NAPH,MB-DB/K PH,MBDB POWDER PACKET PO SCH ×2 (13:41→21:15)
[2023-02-20] MEDS: COLLAGENASE CLOSTRIDIUM HIST. 30 GRAMS TUBE TP SCH (13:42)
[2023-02-20] MEDS: CHLORHEXIDINE GLUCONATE 4% CLEANSER FOR DECOLONIZATION TP SCH (21:15)
[2023-02-21] MEDS: LEVOTHYROXINE NA 125 MCG TABLET (FP) GT SCH (06:02)
[2023-02-21] MEDS: MIDODRINE HCL 5 MG TABLET GT SCH ×3 (06:02→21:24)
[2023-02-21] MEDS: AMINO ACIDS/PROTEIN HYDROLYS 30 ML LIQUID.PKT GT SCH ×2 (08:23→18:57)
[2023-02-21] MEDS: ASCORBIC ACID 500 MG/5 ML UNIT DOSE CUP GT SCH (11:25)
[2023-02-21] MEDS: PANTOPRAZOLE SODIUM 40 MG VIAL IVPUSH SCH (12:23)
[2023-02-21] MEDS: NAPH,MB-DB/K PH,MBDB POWDER PACKET PO SCH ×2 (12:23→21:24)
[2023-02-21] MEDS ORDERED: POTASSIUM CHLORIDE ORAL LIQUID 20 MEQ/15 ML PO ONE (13:00)
[2023-02-21] MEDS: COLLAGENASE CLOSTRIDIUM HIST. 30 GRAMS TUBE TP SCH (15:00)
[2023-02-21] MEDS: FUROSEMIDE 40 MG/5 ML UNIT-DOSE CUP PO SCH (18:57)
[2023-02-21] MEDS: CHLORHEXIDINE GLUCONATE 4% CLEANSER FOR DECOLONIZATION TP SCH (21:25)
[2023-02-22] MEDS: MIDODRINE HCL 5 MG TABLET GT SCH ×3 (06:10→21:11)
[2023-02-22] MEDS: LEVOTHYROXINE NA 125 MCG TABLET (FP) GT SCH (06:10)
[2023-02-22 08:09] LABS: POTASSIUM 4.2 mmol/L (3.5-5.1)
[2023-02-22 08:13] LABS: ALBUMIN 1.6 g/dl (3.4-5.0); CALCIUM 7.8 mg/dL (8.5-10.1)
[2023-02-22 08:16] LABS: CREATININE 0.5 mg/dL (0.55-1.3)
[2023-02-22 08:18] LABS: BILIRUBIN,TOTAL 0.7 mg/dL (0.2-1); TOT PROT 6.1 g/dl (6.4-8.2)
[2023-02-22] MEDS: NAPH,MB-DB/K PH,MBDB POWDER PACKET PO SCH ×2 (09:05→21:11)
[2023-02-22] MEDS: PANTOPRAZOLE SODIUM 40 MG VIAL IVPUSH SCH (09:05)
[2023-02-22] MEDS: AMINO ACIDS/PROTEIN HYDROLYS 30 ML LIQUID.PKT GT SCH ×2 (09:05→18:31)
[2023-02-22] MEDS: ASCORBIC ACID 500 MG/5 ML UNIT DOSE CUP GT SCH (09:05)
[2023-02-22] MEDS: FUROSEMIDE 40 MG/5 ML UNIT-DOSE CUP PO SCH (12:00)
[2023-02-22] MEDS: COLLAGENASE CLOSTRIDIUM HIST. 30 GRAMS TUBE TP SCH (16:20)
[2023-02-22] MEDS: CHLORHEXIDINE GLUCONATE 4% CLEANSER FOR DECOLONIZATION TP SCH (21:11)
[2023-02-22] MEDS ORDERED: FUROSEMIDE 40 MG/5 ML UNIT-DOSE CUP GT SCH (21:20)
[2023-02-23] MEDS: MIDODRINE HCL 5 MG TABLET GT SCH ×3 (06:14→21:27)
[2023-02-23] MEDS: LEVOTHYROXINE NA 125 MCG TABLET (FP) GT SCH (06:14)
[2023-02-23 07:48] LABS: POTASSIUM 3.9 mmol/L (3.5-5.1)
[2023-02-23 07:51] LABS: CALCIUM 7.7 mg/dL (8.5-10.1)
[2023-02-23 07:52] LABS: BLOOD UREA NITROGEN 31.7 mg/dL (7-18); MAGNESIUM 1.6 mg/dL (1.8-2.4)
[2023-02-23 07:54] LABS: CREATININE 0.5 mg/dL (0.55-1.3); PHOSPHOROUS 3.4 mg/dL (2.5-4.9)
[2023-02-23 08:31] LABS: BASO % 0.4 % (0-2.0); EOS % 0.7 % (0-4.5); HEMATOCRIT 30.8 % (32.4-45.2); HEMOGLOBIN 10.1 GM/dL (10.7-15.3); LYMPH % 10.1 % (8-40); MCH 30.6 pg (25.7-33.7); MCHC 32.8 g/dl (32.0-36.0); MEAN CELL VOLUME 93.3 fl (80-96); MEAN PLT VOLUME 7.7 fl (7.5-11.1); MONO % 3.8 % (3.8-10.2); PLATELET COUNT 317 10^3/uL (134-434); RDW 18.1 % (11.6-15.6); WHITE BLOOD COUNT 14.2 K/mm3 (4.0-10.0)
[2023-02-23] MEDS: NAPH,MB-DB/K PH,MBDB POWDER PACKET PO SCH ×2 (10:14→21:28)
[2023-02-23] MEDS: AMINO ACIDS/PROTEIN HYDROLYS 30 ML LIQUID.PKT GT SCH ×2 (10:14→17:53)
[2023-02-23] MEDS: ASCORBIC ACID 500 MG/5 ML UNIT DOSE CUP GT SCH (10:14)
[2023-02-23] MEDS: COLLAGENASE CLOSTRIDIUM HIST. 30 GRAMS TUBE TP SCH (10:15)
[2023-02-23] MEDS ORDERED: MAGNESIUM 2GM/50ML STERILE WATER IVPB IVPB ONE (14:42)
[2023-02-23] MEDS: PANTOPRAZOLE SODIUM 40 MG VIAL IVPUSH SCH (15:05)
[2023-02-23] MEDS: CHLORHEXIDINE GLUCONATE 4% CLEANSER FOR DECOLONIZATION TP SCH (21:28)
[2023-02-24] MEDS ORDERED: HALOPERIDOL 1 MG TABLET GT ONE (01:43)
[2023-02-24] MEDS: MIDODRINE HCL 5 MG TABLET GT SCH ×3 (06:36→21:04)
[2023-02-24] MEDS: LEVOTHYROXINE NA 125 MCG TABLET (FP) GT SCH (06:36)
[2023-02-24 07:39] LABS: HEMATOCRIT 28.4 % (32.4-45.2); HEMOGLOBIN 9.3 GM/dL (10.7-15.3); MCH 30.6 pg (25.7-33.7); MCHC 32.9 g/dl (32.0-36.0); MEAN CELL VOLUME 93.1 fl (80-96); MEAN PLT VOLUME 7.6 fl (7.5-11.1); PLATELET COUNT 303 10^3/uL (134-434); RBC 3.05 M/mm3 (3.60-5.2); RDW 17.4 % (11.6-15.6); WHITE BLOOD COUNT 12.2 K/mm3 (4.0-10.0)
[2023-02-24 08:01] LABS: POTASSIUM 3.8 mmol/L (3.5-5.1)
[2023-02-24 08:06] LABS: ALBUMIN 1.6 g/dl (3.4-5.0); BLOOD UREA NITROGEN 30.2 mg/dL (7-18); CALCIUM 7.6 mg/dL (8.5-10.1); MAGNESIUM 1.8 mg/dL (1.8-2.4)
[2023-02-24 08:10] LABS: BILIRUBIN,TOTAL 0.5 mg/dL (0.2-1); CREATININE 0.5 mg/dL (0.55-1.3); PHOSPHOROUS 4.1 mg/dL (2.5-4.9); TOT PROT 6.2 g/dl (6.4-8.2)
[2023-02-24] MEDS: ASCORBIC ACID 500 MG/5 ML UNIT DOSE CUP GT SCH (09:46)
[2023-02-24] MEDS: NAPH,MB-DB/K PH,MBDB POWDER PACKET PO SCH ×2 (09:46→21:04)
[2023-02-24] MEDS: AMINO ACIDS/PROTEIN HYDROLYS 30 ML LIQUID.PKT GT SCH ×2 (09:46→16:29)
[2023-02-24] MEDS: FUROSEMIDE 40 MG/4 ML INJECTABLE VIAL IVPB SCH (09:46)
[2023-02-24] MEDS: PANTOPRAZOLE SODIUM 40 MG VIAL IVPUSH SCH (09:47)
[2023-02-24] MEDS: COLLAGENASE CLOSTRIDIUM HIST. 30 GRAMS TUBE TP SCH (16:29)
[2023-02-24] MEDS: CHLORHEXIDINE GLUCONATE 4% CLEANSER FOR DECOLONIZATION TP SCH (21:04)
[2023-02-25] MEDS: LEVOTHYROXINE NA 125 MCG TABLET (FP) GT SCH (06:12)
[2023-02-25] MEDS: MIDODRINE HCL 5 MG TABLET GT SCH ×3 (06:12→21:07)
[2023-02-25 07:46] LABS: POTASSIUM 3.6 mmol/L (3.5-5.1)
[2023-02-25 07:52] LABS: CALCIUM 7.6 mg/dL (8.5-10.1)
[2023-02-25 07:53] LABS: ALBUMIN 1.5 g/dl (3.4-5.0); BLOOD UREA NITROGEN 29.3 mg/dL (7-18); MAGNESIUM 1.6 mg/dL (1.8-2.4)
[2023-02-25 07:56] LABS: CREATININE 0.5 mg/dL (0.55-1.3)
[2023-02-25 07:57] LABS: BILIRUBIN,TOTAL 0.3 mg/dL (0.2-1); TOT PROT 5.7 g/dl (6.4-8.2)
[2023-02-25 08:23] LABS: HEMATOCRIT 25.5 % (32.4-45.2); HEMOGLOBIN 8.3 GM/dL (10.7-15.3); MCH 30.8 pg (25.7-33.7); MCHC 32.6 g/dl (32.0-36.0); MEAN CELL VOLUME 94.6 fl (80-96); MEAN PLT VOLUME 7.6 fl (7.5-11.1); PLATELET COUNT 263 10^3/uL (134-434); RBC 2.69 M/mm3 (3.60-5.2); RDW 17.3 % (11.6-15.6); WHITE BLOOD COUNT 7.9 K/mm3 (4.0-10.0)
[2023-02-25] MEDS: FUROSEMIDE 40 MG/4 ML INJECTABLE VIAL IVPB SCH (11:06)
[2023-02-25] MEDS: ASCORBIC ACID 500 MG/5 ML UNIT DOSE CUP GT SCH (11:06)
[2023-02-25] MEDS: PANTOPRAZOLE SODIUM 40 MG VIAL IVPUSH SCH (11:06)
[2023-02-25] MEDS: AMINO ACIDS/PROTEIN HYDROLYS 30 ML LIQUID.PKT GT SCH ×2 (11:06→16:53)
[2023-02-25] MEDS: LORazepam 2 MG/ML SDV VIAL IVPUSH PRN (11:06)
[2023-02-25] MEDS: COLLAGENASE CLOSTRIDIUM HIST. 30 GRAMS TUBE TP SCH (11:07)
[2023-02-25] MEDS: NAPH,MB-DB/K PH,MBDB POWDER PACKET PO SCH ×2 (11:07→21:07)
[2023-02-25] MEDS: GABAPENTIN 250 MG/5 ML ORAL SOLUTION, 470 ML BOTTLE GT SCH ×2 (15:34→21:08)
[2023-02-25] MEDS: CHLORHEXIDINE GLUCONATE 4% CLEANSER FOR DECOLONIZATION TP SCH (21:08)
[2023-02-26] MEDS: MIDODRINE HCL 5 MG TABLET GT SCH ×3 (05:36→21:50)
[2023-02-26] MEDS: LEVOTHYROXINE NA 125 MCG TABLET (FP) GT SCH (06:50)
[2023-02-26 07:02] LABS: HEMATOCRIT 23.6 % (32.4-45.2); HEMOGLOBIN 7.9 GM/dL (10.7-15.3); MCH 31.5 pg (25.7-33.7); MCHC 33.5 g/dl (32.0-36.0); MEAN CELL VOLUME 94.1 fl (80-96); MEAN PLT VOLUME 7.7 fl (7.5-11.1); PLATELET COUNT 258 10^3/uL (134-434); RBC 2.51 M/mm3 (3.60-5.2); RDW 17.3 % (11.6-15.6); WHITE BLOOD COUNT 7.9 K/mm3 (4.0-10.0)
[2023-02-26 07:16] LABS: POTASSIUM 3.8 mmol/L (3.5-5.1)
[2023-02-26 07:21] LABS: ALBUMIN 1.5 g/dl (3.4-5.0); CALCIUM 7.5 mg/dL (8.5-10.1)
[2023-02-26 07:22] LABS: BLOOD UREA NITROGEN 33.2 mg/dL (7-18); MAGNESIUM 1.8 mg/dL (1.8-2.4)
[2023-02-26 07:24] LABS: CREATININE 0.7 mg/dL (0.55-1.3); PHOSPHOROUS 4.3 mg/dL (2.5-4.9)
[2023-02-26 07:26] LABS: BILIRUBIN,TOTAL 0.4 mg/dL (0.2-1)
[2023-02-26] MEDS: FUROSEMIDE 40 MG/4 ML INJECTABLE VIAL IVPB SCH (09:08)
[2023-02-26] MEDS: AMINO ACIDS/PROTEIN HYDROLYS 30 ML LIQUID.PKT GT SCH ×2 (09:09→16:39)
[2023-02-26] MEDS: ASCORBIC ACID 500 MG/5 ML UNIT DOSE CUP GT SCH (09:09)
[2023-02-26] MEDS: ASPIRIN 81 MG CHEWABLE TABLETS GT SCH (09:09)
[2023-02-26] MEDS: PANTOPRAZOLE SODIUM 40 MG VIAL IVPUSH SCH (09:09)
[2023-02-26] MEDS: LORazepam 2 MG/ML SDV VIAL IVPUSH PRN (09:09)
[2023-02-26] MEDS: NAPH,MB-DB/K PH,MBDB POWDER PACKET PO SCH ×2 (09:09→21:51)
[2023-02-26] MEDS: COLLAGENASE CLOSTRIDIUM HIST. 30 GRAMS TUBE TP SCH (13:13)
[2023-02-26] MEDS: GABAPENTIN 250 MG/5 ML ORAL SOLUTION, 470 ML BOTTLE GT SCH ×2 (17:50→21:42)
[2023-02-26] MEDS ORDERED: LORazepam 2 MG/ML SDV VIAL IVPUSH ONE (19:16)
[2023-02-26] MEDS ORDERED: NOREPINEPHRINE BITARTRATE 4 MG/4 ML ML IV ONE (20:34)
[2023-02-26] MEDS ORDERED: ALBUMIN HUMAN 25% 100 ML VIAL IV ONE (20:42)
[2023-02-26] MEDS ORDERED: NOREPINEPHRINE BITARTRATE/D5W 8 MG/250 ML BAG IVPB SCH (21:45)
[2023-02-26] MEDS: CHLORHEXIDINE GLUCONATE 4% CLEANSER FOR DECOLONIZATION TP SCH (21:51)
[2023-02-26 22:00] LABS: BF WBC & OTHER NUCLEATED CELLS 319 /mm3
[2023-02-26 22:01] LABS: BODY FLUID MONOCYTE 26 %
[2023-02-27] MEDS: GABAPENTIN 250 MG/5 ML ORAL SOLUTION, 470 ML BOTTLE GT SCH ×4 (06:05→21:14)
[2023-02-27] MEDS: LEVOTHYROXINE NA 125 MCG TABLET (FP) GT SCH (06:30)
[2023-02-27] MEDS: MIDODRINE HCL 5 MG TABLET GT SCH ×3 (06:30→21:09)
[2023-02-27 07:55] LABS: HEMATOCRIT 24.4 % (32.4-45.2); HEMOGLOBIN 8.1 GM/dL (10.7-15.3); MCH 31.1 pg (25.7-33.7); MEAN CELL VOLUME 94.2 fl (80-96); MEAN PLT VOLUME 7.7 fl (7.5-11.1); PLATELET COUNT 221 10^3/uL (134-434); RBC 2.59 M/mm3 (3.60-5.2); RDW 17.1 % (11.6-15.6); WHITE BLOOD COUNT 7.3 K/mm3 (4.0-10.0)
[2023-02-27 08:18] LABS: POTASSIUM 3.5 mmol/L (3.5-5.1)
[2023-02-27 08:20] LABS: BLOOD UREA NITROGEN 35.5 mg/dL (7-18); CALCIUM 7.8 mg/dL (8.5-10.1); MAGNESIUM 1.8 mg/dL (1.8-2.4)
[2023-02-27 08:23] LABS: CREATININE 0.7 mg/dL (0.55-1.3); PHOSPHOROUS 4.3 mg/dL (2.5-4.9)
[2023-02-27] MEDS ORDERED: INSULIN REGULAR HUMAN 100 UNITS/ML *VIAL ONE (09:25)
[2023-02-27] MEDS ORDERED: INSULIN (NOVOLOG) ASPART 100 UNITS/ML 10ML VIAL ONE (09:26)
[2023-02-27] MEDS: PANTOPRAZOLE SODIUM 40 MG VIAL IVPUSH SCH (09:31)
[2023-02-27] MEDS: FUROSEMIDE 40 MG/4 ML INJECTABLE VIAL IVPB SCH (09:31)
[2023-02-27] MEDS: NAPH,MB-DB/K PH,MBDB POWDER PACKET PO SCH ×2 (09:31→21:09)
[2023-02-27] MEDS: AMINO ACIDS/PROTEIN HYDROLYS 30 ML LIQUID.PKT GT SCH ×2 (09:31→18:45)
[2023-02-27] MEDS: ASCORBIC ACID 500 MG/5 ML UNIT DOSE CUP GT SCH (09:31)
[2023-02-27] MEDS: ASPIRIN 81 MG CHEWABLE TABLETS GT SCH (09:31)
[2023-02-27] MEDS: COLLAGENASE CLOSTRIDIUM HIST. 30 GRAMS TUBE TP SCH (09:59)
[2023-02-27] MEDS: LORazepam 2 MG/ML SDV VIAL IVPUSH PRN (09:59)
[2023-02-27] MEDS ORDERED: SODIUM CHLORIDE 500 ML IV STA ×2 (10:45→15:07)
[2023-02-27] MEDS ORDERED: morphine CARPU-JECT 2 MG/1 ML DISP.SYRIN IM PRN (11:28)
[2023-02-27] MEDS ORDERED: morphine CARPU-JECT 2 MG/1 ML DISP.SYRIN IVPUSH PRN (11:46)
[2023-02-27] MEDS: MUPIROCIN 2% TOPICAL OINTMENT FOR DECOLONIZATION NS SCH ×2 (12:25→21:20)
[2023-02-27] MEDS ORDERED: LORazepam 2 MG/ML SDV VIAL IVPUSH ONE (14:00)
[2023-02-27] MEDS ORDERED: LIDOCAINE HCL 2% 100 MG/5 ML DISP.SYRIN ONE (14:15)
[2023-02-27] MEDS ORDERED: ALBUMIN HUMAN 25% 100 ML VIAL IV ONE (14:38)
[2023-02-27] MEDS: SODIUM CHLORIDE 1,000 ML IV SCH (15:27)
[2023-02-27] MEDS ORDERED: NAPHAZOLINE/PHENIRAMINE OPHTHALMIC 15 ML BOTTLE OU PRN (18:54)
[2023-02-27] MEDS: NOREPINEPHRINE BITARTRATE/D5W 8 MG/250 ML BAG IVPB SCH (19:00)
[2023-02-27] MEDS: CHLORHEXIDINE GLUCONATE 4% CLEANSER FOR DECOLONIZATION TP SCH (21:09)
[2023-02-27] MEDS ORDERED: CHLORHEXIDINE GLUCONATE 4% CLEANSER FOR DECOLONIZATION TP SCH (22:00)
[2023-02-28] MEDS: MIDODRINE HCL 5 MG TABLET GT SCH ×3 (06:14→21:32)
[2023-02-28] MEDS: GABAPENTIN 250 MG/5 ML ORAL SOLUTION, 470 ML BOTTLE GT SCH ×3 (06:14→21:38)
[2023-02-28] MEDS: LEVOTHYROXINE NA 125 MCG TABLET (FP) GT SCH (06:15)
[2023-02-28] MEDS ORDERED: LACTATED RINGERS SOLUTION 1000 ML INFUS.BAG IV ONE (06:15)
[2023-02-28 07:20] LABS: BASO % 0.9 % (0-2.0); EOS % 1.3 % (0-4.5); HEMATOCRIT 27.4 % (32.4-45.2); HEMOGLOBIN 8.9 GM/dL (10.7-15.3); LYMPH % 17.9 % (8-40); MCH 30.6 pg (25.7-33.7); MCHC 32.5 g/dl (32.0-36.0); MEAN CELL VOLUME 94.1 fl (80-96); MEAN PLT VOLUME 7.6 fl (7.5-11.1); MONO % 5.2 % (3.8-10.2); NEUT % 74.7 % (42.8-82.8); PLATELET COUNT 233 10^3/uL (134-434); RBC 2.91 M/mm3 (3.60-5.2); RDW 16.7 % (11.6-15.6); WHITE BLOOD COUNT 7.2 K/mm3 (4.0-10.0)
[2023-02-28 07:45] LABS: POTASSIUM 3.3 mmol/L (3.5-5.1)
[2023-02-28 07:49] LABS: BLOOD UREA NITROGEN 29.4 mg/dL (7-18); CALCIUM 7.6 mg/dL (8.5-10.1); MAGNESIUM 1.6 mg/dL (1.8-2.4)
[2023-02-28 07:52] LABS: CREATININE 0.8 mg/dL (0.55-1.3); PHOSPHOROUS 3.8 mg/dL (2.5-4.9)
[2023-02-28 07:54] LABS: BILIRUBIN,TOTAL 0.4 mg/dL (0.2-1)
[2023-02-28] MEDS ORDERED: MAGNESIUM 2GM/50ML STERILE WATER IVPB IVPB ONE (07:58)
[2023-02-28 08:04] LABS: ALBUMIN 1.9 g/dl (3.4-5.0)
[2023-02-28] MEDS: KCL 10 MEQ IVPB 10 MEQ/100 ML INFUS.BAG IVPB SCH ×3 (08:36→09:36)
[2023-02-28] MEDS: AMINO ACIDS/PROTEIN HYDROLYS 30 ML LIQUID.PKT GT SCH ×2 (09:37→17:23)
[2023-02-28] MEDS: ASPIRIN 81 MG CHEWABLE TABLETS GT SCH (09:37)
[2023-02-28] MEDS: MUPIROCIN 2% TOPICAL OINTMENT FOR DECOLONIZATION NS SCH ×2 (09:37→21:38)
[2023-02-28] MEDS: POLYETHYLENE GLYCOL (HEALTHYLAX) 3350 17 GM PACKET GT SCH (09:37)
[2023-02-28] MEDS: NAPH,MB-DB/K PH,MBDB POWDER PACKET PO SCH ×2 (09:37→21:32)
[2023-02-28] MEDS: PANTOPRAZOLE SODIUM 40 MG VIAL IVPUSH SCH (09:37)
[2023-02-28] MEDS: COLLAGENASE CLOSTRIDIUM HIST. 30 GRAMS TUBE TP SCH (09:38)
[2023-02-28] MEDS: ASCORBIC ACID 500 MG/5 ML UNIT DOSE CUP GT SCH (09:38)
[2023-02-28] MEDS ORDERED: FUROSEMIDE 40 MG/4 ML INJECTABLE VIAL IVPB SCH (10:00)
[2023-02-28 10:12] LABS: BF WBC & OTHER NUCLEATED CELLS 94 /mm3; BODY FLUID MACROPHAGES 26 %
[2023-02-28] MEDS: SODIUM CHLORIDE 1,000 ML IV SCH (16:35)
[2023-02-28] MEDS: NOREPINEPHRINE BITARTRATE/D5W 8 MG/250 ML BAG IVPB SCH (21:06)
[2023-02-28] MEDS: CHLORHEXIDINE GLUCONATE 4% CLEANSER FOR DECOLONIZATION TP SCH (21:32)
[2023-03-01] MEDS: MIDODRINE HCL 5 MG TABLET GT SCH ×3 (05:24→21:40)
[2023-03-01] MEDS: GABAPENTIN 250 MG/5 ML ORAL SOLUTION, 470 ML BOTTLE GT SCH ×3 (05:25→21:40)
[2023-03-01] MEDS: LEVOTHYROXINE NA 125 MCG TABLET (FP) GT SCH (06:03)
[2023-03-01 07:11] LABS: HEMATOCRIT 25.2 % (32.4-45.2); HEMOGLOBIN 8.2 GM/dL (10.7-15.3); MCH 30.8 pg (25.7-33.7); MCHC 32.6 g/dl (32.0-36.0); MEAN CELL VOLUME 94.6 fl (80-96); MEAN PLT VOLUME 7.8 fl (7.5-11.1); PLATELET COUNT 193 10^3/uL (134-434); RBC 2.66 M/mm3 (3.60-5.2); RDW 17.3 % (11.6-15.6)
[2023-03-01 07:39] LABS: POTASSIUM 3.5 mmol/L (3.5-5.1)
[2023-03-01 07:45] LABS: CALCIUM 7.5 mg/dL (8.5-10.1)
[2023-03-01 07:46] LABS: ALBUMIN 1.7 g/dl (3.4-5.0); BLOOD UREA NITROGEN 24.4 mg/dL (7-18); MAGNESIUM 2.1 mg/dL (1.8-2.4)
[2023-03-01 07:48] LABS: PHOSPHOROUS 3.2 mg/dL (2.5-4.9)
[2023-03-01 07:49] LABS: CREATININE 0.7 mg/dL (0.55-1.3)
[2023-03-01 07:50] LABS: BILIRUBIN,TOTAL 0.3 mg/dL (0.2-1); TOT PROT 5.8 g/dl (6.4-8.2)
[2023-03-01] MEDS ORDERED: SODIUM CHLORIDE 500 ML IV STA (08:54)
[2023-03-01] MEDS: ASPIRIN 81 MG CHEWABLE TABLETS GT SCH (09:46)
[2023-03-01] MEDS: PANTOPRAZOLE SODIUM 40 MG VIAL IVPUSH SCH (09:46)
[2023-03-01] MEDS: ASCORBIC ACID 500 MG/5 ML UNIT DOSE CUP GT SCH (09:46)
[2023-03-01] MEDS: AMINO ACIDS/PROTEIN HYDROLYS 30 ML LIQUID.PKT GT SCH ×2 (09:47→16:32)
[2023-03-01] MEDS: POLYETHYLENE GLYCOL (HEALTHYLAX) 3350 17 GM PACKET GT SCH (09:47)
[2023-03-01] MEDS: NAPH,MB-DB/K PH,MBDB POWDER PACKET PO SCH ×2 (09:47→21:39)
[2023-03-01] MEDS: MUPIROCIN 2% TOPICAL OINTMENT FOR DECOLONIZATION NS SCH ×2 (09:47→21:41)
[2023-03-01] MEDS: COLLAGENASE CLOSTRIDIUM HIST. 30 GRAMS TUBE TP SCH (10:48)
[2023-03-01] MEDS: LORazepam 2 MG/ML SDV VIAL IVPUSH PRN (11:43)
[2023-03-01] MEDS: CHLORHEXIDINE GLUCONATE 4% CLEANSER FOR DECOLONIZATION TP SCH (21:39)
[2023-03-01] MEDS: NOREPINEPHRINE BITARTRATE/D5W 8 MG/250 ML BAG IVPB SCH (21:39)
[2023-03-02] MEDS: LORazepam 2 MG/ML SDV VIAL IVPUSH PRN (00:58)
[2023-03-02] MEDS: MIDODRINE HCL 5 MG TABLET GT SCH ×3 (06:00→23:20)
[2023-03-02] MEDS: LEVOTHYROXINE NA 125 MCG TABLET (FP) GT SCH (06:00)
[2023-03-02] MEDS: GABAPENTIN 250 MG/5 ML ORAL SOLUTION, 470 ML BOTTLE GT SCH ×3 (06:00→21:02)
[2023-03-02 06:59] LABS: BASO % 2.5 % (0-2.0); EOS % 4.1 % (0-4.5); HEMATOCRIT 24.2 % (32.4-45.2); HEMOGLOBIN 7.9 GM/dL (10.7-15.3); LYMPH % 26.3 % (8-40); MCH 30.8 pg (25.7-33.7); MCHC 32.6 g/dl (32.0-36.0); MEAN CELL VOLUME 94.4 fl (80-96); MEAN PLT VOLUME 7.7 fl (7.5-11.1); MONO % 8.2 % (3.8-10.2); NEUT % 58.9 % (42.8-82.8); PLATELET COUNT 188 10^3/uL (134-434); RBC 2.57 M/mm3 (3.60-5.2); RDW 17.1 % (11.6-15.6); WHITE BLOOD COUNT 4.5 K/mm3 (4.0-10.0)
[2023-03-02 07:09] LABS: POTASSIUM 3.4 mmol/L (3.5-5.1)
[2023-03-02 07:12] LABS: CALCIUM 7.8 mg/dL (8.5-10.1)
[2023-03-02 07:13] LABS: ALBUMIN 1.6 g/dl (3.4-5.0); BLOOD UREA NITROGEN 25.9 mg/dL (7-18)
[2023-03-02 07:15] LABS: MAGNESIUM 1.9 mg/dL (1.8-2.4); PHOSPHOROUS 3.5 mg/dL (2.5-4.9)
[2023-03-02 07:16] LABS: CREATININE 0.7 mg/dL (0.55-1.3)
[2023-03-02 07:17] LABS: BILIRUBIN,TOTAL 0.4 mg/dL (0.2-1); TOT PROT 5.7 g/dl (6.4-8.2)
[2023-03-02] MEDS: KCL 10 MEQ IVPB 10 MEQ/100 ML INFUS.BAG IVPB SCH ×3 (08:20→10:32)
[2023-03-02] MEDS: AMINO ACIDS/PROTEIN HYDROLYS 30 ML LIQUID.PKT GT SCH ×2 (08:21→16:48)
[2023-03-02] MEDS: PANTOPRAZOLE SODIUM 40 MG VIAL IVPUSH SCH (09:04)
[2023-03-02] MEDS: ASPIRIN 81 MG CHEWABLE TABLETS GT SCH (09:04)
[2023-03-02] MEDS: NAPH,MB-DB/K PH,MBDB POWDER PACKET PO SCH ×2 (09:04→21:02)
[2023-03-02] MEDS: ASCORBIC ACID 500 MG/5 ML UNIT DOSE CUP GT SCH (09:04)
[2023-03-02] MEDS: POLYETHYLENE GLYCOL (HEALTHYLAX) 3350 17 GM PACKET GT SCH (09:04)
[2023-03-02] MEDS: MUPIROCIN 2% TOPICAL OINTMENT FOR DECOLONIZATION NS SCH ×2 (09:04→21:01)
[2023-03-02] MEDS: COLLAGENASE CLOSTRIDIUM HIST. 30 GRAMS TUBE TP SCH (15:20)
[2023-03-02 16:08] LABS: BODY FLUID ALBUMIN 1.1 g/dL (Not Estab.)
[2023-03-02] MEDS: CHLORHEXIDINE GLUCONATE 4% CLEANSER FOR DECOLONIZATION TP SCH (21:02)
[2023-03-03] MEDS: NOREPINEPHRINE BITARTRATE/D5W 8 MG/250 ML BAG IVPB SCH ×2 (05:22→21:09)
[2023-03-03] MEDS: GABAPENTIN 250 MG/5 ML ORAL SOLUTION, 470 ML BOTTLE GT SCH ×3 (05:23→21:10)
[2023-03-03] MEDS: LEVOTHYROXINE NA 125 MCG TABLET (FP) GT SCH (06:12)
[2023-03-03] MEDS: MIDODRINE HCL 5 MG TABLET GT SCH ×3 (07:37→23:15)
[2023-03-03] MEDS: AMINO ACIDS/PROTEIN HYDROLYS 30 ML LIQUID.PKT GT SCH ×2 (07:37→16:32)
[2023-03-03 07:49] LABS: HEMATOCRIT 24.4 % (32.4-45.2); HEMOGLOBIN 8.1 GM/dL (10.7-15.3); MCH 31.4 pg (25.7-33.7); MCHC 33.3 g/dl (32.0-36.0); MEAN CELL VOLUME 94.2 fl (80-96); MEAN PLT VOLUME 7.9 fl (7.5-11.1); PLATELET COUNT 208 10^3/uL (134-434); RBC 2.59 M/mm3 (3.60-5.2); RDW 17.2 % (11.6-15.6); WHITE BLOOD COUNT 4.9 K/mm3 (4.0-10.0)
[2023-03-03 08:27] LABS: ALBUMIN 1.6 g/dl (3.4-5.0); BLOOD UREA NITROGEN 25.3 mg/dL (7-18); MAGNESIUM 1.9 mg/dL (1.8-2.4)
[2023-03-03 08:30] LABS: CREATININE 0.6 mg/dL (0.55-1.3)
[2023-03-03 08:32] LABS: BILIRUBIN,TOTAL 0.4 mg/dL (0.2-1)
[2023-03-03] MEDS: POLYETHYLENE GLYCOL (HEALTHYLAX) 3350 17 GM PACKET GT SCH (09:04)
[2023-03-03] MEDS: ASCORBIC ACID 500 MG/5 ML UNIT DOSE CUP GT SCH (09:04)
[2023-03-03] MEDS: ASPIRIN 81 MG CHEWABLE TABLETS GT SCH (09:04)
[2023-03-03] MEDS: PANTOPRAZOLE SODIUM 40 MG VIAL IVPUSH SCH (09:04)
[2023-03-03] MEDS: NAPH,MB-DB/K PH,MBDB POWDER PACKET PO SCH ×2 (09:04→21:10)
[2023-03-03 09:05] LABS: ANISOCYTOSIS 0; HELMET CELLS 0; HOWELL-JOLLY BODIES 0; MACROCYTOSIS 0; OVALOCYTE 0; ROULEAU 0; SICKELED CELLS 0; TARGET CELLS 0; TEAR DROP CELLS 0; TOXIC GRANULATION 0
[2023-03-03] MEDS: COLLAGENASE CLOSTRIDIUM HIST. 30 GRAMS TUBE TP SCH (09:05)
[2023-03-03] MEDS: MUPIROCIN 2% TOPICAL OINTMENT FOR DECOLONIZATION NS SCH ×2 (09:06→21:10)
[2023-03-03] MEDS: LORazepam 2 MG/ML SDV VIAL IVPUSH PRN ×2 (14:18→23:34)
[2023-03-03] MEDS: CHLORHEXIDINE GLUCONATE 4% CLEANSER FOR DECOLONIZATION TP SCH (21:10)
[2023-03-04] MEDS: GABAPENTIN 250 MG/5 ML ORAL SOLUTION, 470 ML BOTTLE GT SCH ×3 (06:07→21:34)
[2023-03-04] MEDS: LEVOTHYROXINE NA 125 MCG TABLET (FP) GT SCH (06:07)
[2023-03-04] MEDS: MIDODRINE HCL 5 MG TABLET GT SCH ×3 (08:55→23:55)
[2023-03-04] MEDS: PANTOPRAZOLE SODIUM 40 MG VIAL IVPUSH SCH (09:54)
[2023-03-04] MEDS: ASCORBIC ACID 500 MG/5 ML UNIT DOSE CUP GT SCH (09:54)
[2023-03-04] MEDS: ASPIRIN 81 MG CHEWABLE TABLETS GT SCH (09:55)
[2023-03-04] MEDS: AMINO ACIDS/PROTEIN HYDROLYS 30 ML LIQUID.PKT GT SCH ×2 (09:55→17:54)
[2023-03-04] MEDS: NAPH,MB-DB/K PH,MBDB POWDER PACKET PO SCH ×2 (09:55→21:34)
[2023-03-04] MEDS: COLLAGENASE CLOSTRIDIUM HIST. 30 GRAMS TUBE TP SCH (09:55)
[2023-03-04] MEDS: POLYETHYLENE GLYCOL (HEALTHYLAX) 3350 17 GM PACKET GT SCH (09:55)
[2023-03-04] MEDS: LORazepam 2 MG/ML SDV VIAL IVPUSH PRN ×2 (15:32→21:35)
[2023-03-04] MEDS: FUROSEMIDE 40 MG/5 ML UNIT-DOSE CUP PO SCH (15:33)
[2023-03-04] MEDS: CHLORHEXIDINE GLUCONATE 4% CLEANSER FOR DECOLONIZATION TP SCH (21:34)
[2023-03-05] MEDS: GABAPENTIN 250 MG/5 ML ORAL SOLUTION, 470 ML BOTTLE GT SCH ×3 (06:12→21:34)
[2023-03-05 06:42] LABS: HEMATOCRIT 22.9 % (32.4-45.2); HEMOGLOBIN 7.5 GM/dL (10.7-15.3); MCH 30.9 pg (25.7-33.7); MCHC 32.9 g/dl (32.0-36.0); MEAN CELL VOLUME 93.7 fl (80-96); MEAN PLT VOLUME 7.5 fl (7.5-11.1); PLATELET COUNT 204 10^3/uL (134-434); RBC 2.45 M/mm3 (3.60-5.2); RDW 16.7 % (11.6-15.6); WHITE BLOOD COUNT 5.6 K/mm3 (4.0-10.0)
[2023-03-05] MEDS: LEVOTHYROXINE NA 125 MCG TABLET (FP) GT SCH (07:12)
[2023-03-05 07:23] LABS: POTASSIUM 3.8 mmol/L (3.5-5.1)
[2023-03-05 07:24] LABS: CALCIUM 7.8 mg/dL (8.5-10.1)
[2023-03-05 07:25] LABS: BLOOD UREA NITROGEN 29.4 mg/dL (7-18); MAGNESIUM 1.8 mg/dL (1.8-2.4)
[2023-03-05 07:28] LABS: CREATININE 0.7 mg/dL (0.55-1.3); PHOSPHOROUS 4.9 mg/dL (2.5-4.9)
[2023-03-05] MEDS: POLYETHYLENE GLYCOL (HEALTHYLAX) 3350 17 GM PACKET GT SCH (09:32)
[2023-03-05] MEDS: AMINO ACIDS/PROTEIN HYDROLYS 30 ML LIQUID.PKT GT SCH ×2 (09:33→17:01)
[2023-03-05] MEDS: MIDODRINE HCL 5 MG TABLET GT SCH ×2 (09:33→17:01)
[2023-03-05] MEDS: NAPH,MB-DB/K PH,MBDB POWDER PACKET PO SCH ×2 (09:33→21:34)
[2023-03-05] MEDS: ASCORBIC ACID 500 MG/5 ML UNIT DOSE CUP GT SCH (09:33)
[2023-03-05] MEDS: FUROSEMIDE 40 MG/5 ML UNIT-DOSE CUP PO SCH (09:33)
[2023-03-05] MEDS: ASPIRIN 81 MG CHEWABLE TABLETS GT SCH (09:33)
[2023-03-05] MEDS: PANTOPRAZOLE SODIUM 40 MG VIAL IVPUSH SCH (09:33)
[2023-03-05] MEDS: COLLAGENASE CLOSTRIDIUM HIST. 30 GRAMS TUBE TP SCH (09:34)
[2023-03-05] MEDS: CHLORHEXIDINE GLUCONATE 4% CLEANSER FOR DECOLONIZATION TP SCH (21:34)
[2023-03-06] MEDS: LORazepam 2 MG/ML SDV VIAL IVPUSH PRN ×2 (00:48→10:40)
[2023-03-06] MEDS: MIDODRINE HCL 5 MG TABLET GT SCH ×3 (00:49→16:55)
[2023-03-06] MEDS: LEVOTHYROXINE NA 125 MCG TABLET (FP) GT SCH (06:24)
[2023-03-06] MEDS: GABAPENTIN 250 MG/5 ML ORAL SOLUTION, 470 ML BOTTLE GT SCH ×2 (06:36→21:47)
[2023-03-06 07:47] LABS: HEMATOCRIT 21.6 % (32.4-45.2); HEMOGLOBIN 7.1 GM/dL (10.7-15.3); MCH 30.7 pg (25.7-33.7); MCHC 32.6 g/dl (32.0-36.0); MEAN CELL VOLUME 94.1 fl (80-96); MEAN PLT VOLUME 7.7 fl (7.5-11.1); PLATELET COUNT 211 10^3/uL (134-434); WHITE BLOOD COUNT 5.2 K/mm3 (4.0-10.0)
[2023-03-06 08:00] LABS: BLOOD UREA NITROGEN 32.7 mg/dL (7-18); CALCIUM 7.8 mg/dL (8.5-10.1); POTASSIUM 3.7 mmol/L (3.5-5.1)
[2023-03-06 08:04] LABS: CREATININE 0.8 mg/dL (0.55-1.3)
[2023-03-06] MEDS: AMINO ACIDS/PROTEIN HYDROLYS 30 ML LIQUID.PKT GT SCH ×2 (10:24→17:18)
[2023-03-06] MEDS: POLYETHYLENE GLYCOL (HEALTHYLAX) 3350 17 GM PACKET GT SCH (10:24)
[2023-03-06] MEDS: ASCORBIC ACID 500 MG/5 ML UNIT DOSE CUP GT SCH (10:24)
[2023-03-06] MEDS: PANTOPRAZOLE SODIUM 40 MG VIAL IVPUSH SCH (10:24)
[2023-03-06] MEDS: ASPIRIN 81 MG CHEWABLE TABLETS GT SCH (10:25)
[2023-03-06] MEDS: FUROSEMIDE 40 MG/5 ML UNIT-DOSE CUP PO SCH (10:25)
[2023-03-06] MEDS: NAPH,MB-DB/K PH,MBDB POWDER PACKET PO SCH ×2 (10:25→21:48)
[2023-03-06] MEDS: COLLAGENASE CLOSTRIDIUM HIST. 30 GRAMS TUBE TP SCH (10:47)
[2023-03-06] MEDS ORDERED: ARTIFICIAL TEARS (POLYVINYL ALCOHOL) OPTH DROPS OU PRN (11:02)
[2023-03-06 18:28] LABS: HEMATOCRIT 22.4 % (32.4-45.2); HEMOGLOBIN 7.3 GM/dL (10.7-15.3); MCH 30.2 pg (25.7-33.7); MCHC 32.7 g/dl (32.0-36.0); MEAN CELL VOLUME 92.3 fl (80-96); MEAN PLT VOLUME 7.7 fl (7.5-11.1); PLATELET COUNT 247 10^3/uL (134-434); RBC 2.42 M/mm3 (3.60-5.2); RDW 16.9 % (11.6-15.6); WHITE BLOOD COUNT 6.5 K/mm3 (4.0-10.0)
[2023-03-06 20:10] LABS: ANISOCYTOSIS 2+; MACROCYTOSIS 2+; TARGET CELLS 1+
[2023-03-06] MEDS: BUDESONIDE/FORMETEROL FUMARATE 80/4.5 mcg INHALER IH SCH (21:48)
[2023-03-06] MEDS: CHLORHEXIDINE GLUCONATE 4% CLEANSER FOR DECOLONIZATION TP SCH (21:48)
[2023-03-07] MEDS: MIDODRINE HCL 5 MG TABLET GT SCH ×3 (00:18→16:18)
[2023-03-07] MEDS: LEVOTHYROXINE NA 125 MCG TABLET (FP) GT SCH (06:25)
[2023-03-07 06:36] LABS: POTASSIUM 3.8 mmol/L (3.5-5.1)
[2023-03-07 06:38] LABS: ALBUMIN 1.4 g/dl (3.4-5.0); BLOOD UREA NITROGEN 32.8 mg/dL (7-18); CALCIUM 7.7 mg/dL (8.5-10.1); MAGNESIUM 1.9 mg/dL (1.8-2.4)
[2023-03-07 06:41] LABS: BASO % 0.6 % (0-2.0); CREATININE 0.8 mg/dL (0.55-1.3); EOS % 5.8 % (0-4.5); HEMATOCRIT 22.5 % (32.4-45.2); HEMOGLOBIN 7.5 GM/dL (10.7-15.3); LYMPH % 34.3 % (8-40); MCH 31.2 pg (25.7-33.7); MCHC 33.2 g/dl (32.0-36.0); MEAN PLT VOLUME 7.8 fl (7.5-11.1); MONO % 8.4 % (3.8-10.2); NEUT % 50.9 % (42.8-82.8); PHOSPHOROUS 4.6 mg/dL (2.5-4.9); PLATELET COUNT 266 10^3/uL (134-434); RBC 2.39 M/mm3 (3.60-5.2); WHITE BLOOD COUNT 5.6 K/mm3 (4.0-10.0)
[2023-03-07 06:43] LABS: BILIRUBIN,TOTAL 0.2 mg/dL (0.2-1); TOT PROT 6.2 g/dl (6.4-8.2)
[2023-03-07] MEDS: AMINO ACIDS/PROTEIN HYDROLYS 30 ML LIQUID.PKT GT SCH ×2 (08:44→16:47)
[2023-03-07] MEDS: POLYETHYLENE GLYCOL (HEALTHYLAX) 3350 17 GM PACKET GT SCH (09:26)
[2023-03-07] MEDS: ASCORBIC ACID 500 MG/5 ML UNIT DOSE CUP GT SCH (09:26)
[2023-03-07] MEDS: NAPH,MB-DB/K PH,MBDB POWDER PACKET PO SCH ×2 (09:26→21:53)
[2023-03-07] MEDS: ASPIRIN 81 MG CHEWABLE TABLETS GT SCH (09:26)
[2023-03-07] MEDS: PANTOPRAZOLE SODIUM 40 MG VIAL IVPUSH SCH (09:26)
[2023-03-07] MEDS: FUROSEMIDE 40 MG/5 ML UNIT-DOSE CUP PO SCH (09:27)
[2023-03-07] MEDS: FOLIC ACID 1 MG TABLET (FP) GT SCH (09:27)
[2023-03-07] MEDS: BUDESONIDE/FORMETEROL FUMARATE 80/4.5 mcg INHALER IH SCH ×2 (09:28→21:53)
[2023-03-07] MEDS: COLLAGENASE CLOSTRIDIUM HIST. 30 GRAMS TUBE TP SCH (09:29)
[2023-03-07] MEDS: GABAPENTIN 250 MG/5 ML ORAL SOLUTION, 470 ML BOTTLE GT SCH ×2 (09:32→21:52)
[2023-03-07] MEDS: CHLORHEXIDINE GLUCONATE 4% CLEANSER FOR DECOLONIZATION TP SCH (21:52)
[2023-03-07] MEDS: LORazepam 2 MG/ML SDV VIAL IVPUSH PRN (21:52)
[2023-03-08] MEDS: MIDODRINE HCL 5 MG TABLET GT SCH ×4 (00:19→23:27)
[2023-03-08] MEDS ORDERED: LACTATED RINGERS SOLUTION 1000 ML INFUS.BAG IV ONE (01:15)
[2023-03-08] MEDS: LEVOTHYROXINE NA 125 MCG TABLET (FP) GT SCH (05:59)
[2023-03-08] MEDS: AMINO ACIDS/PROTEIN HYDROLYS 30 ML LIQUID.PKT GT SCH ×2 (08:17→17:00)
[2023-03-08] MEDS: NAPH,MB-DB/K PH,MBDB POWDER PACKET PO SCH ×2 (09:02→21:20)
[2023-03-08] MEDS: FOLIC ACID 1 MG TABLET (FP) GT SCH (09:02)
[2023-03-08] MEDS: GABAPENTIN 250 MG/5 ML ORAL SOLUTION, 470 ML BOTTLE GT SCH ×3 (09:02→21:20)
[2023-03-08] MEDS: ASPIRIN 81 MG CHEWABLE TABLETS GT SCH (09:02)
[2023-03-08] MEDS: ASCORBIC ACID 500 MG/5 ML UNIT DOSE CUP GT SCH (09:03)
[2023-03-08] MEDS: COLLAGENASE CLOSTRIDIUM HIST. 30 GRAMS TUBE TP SCH (09:03)
[2023-03-08] MEDS: POLYETHYLENE GLYCOL (HEALTHYLAX) 3350 17 GM PACKET GT SCH (09:03)
[2023-03-08] MEDS: FUROSEMIDE 40 MG/5 ML UNIT-DOSE CUP PO SCH (09:03)
[2023-03-08] MEDS: BUDESONIDE/FORMETEROL FUMARATE 80/4.5 mcg INHALER IH SCH ×2 (10:03→21:20)
[2023-03-08 14:07] LABS: HEMATOCRIT 26.4 % (32.4-45.2); HEMOGLOBIN 8.7 GM/dL (10.7-15.3); MCH 30.7 pg (25.7-33.7); MEAN PLT VOLUME 7.5 fl (7.5-11.1); PLATELET COUNT 329 10^3/uL (134-434); RBC 2.84 M/mm3 (3.60-5.2); RDW 15.9 % (11.6-15.6); WHITE BLOOD COUNT 5.8 K/mm3 (4.0-10.0)
[2023-03-08 14:28] LABS: POTASSIUM 3.7 mmol/L (3.5-5.1)
[2023-03-08 14:30] LABS: BLOOD UREA NITROGEN 31.6 mg/dL (7-18); MAGNESIUM 1.9 mg/dL (1.8-2.4)
[2023-03-08 14:34] LABS: CREATININE 0.8 mg/dL (0.55-1.3)
[2023-03-08] MEDS: CHLORHEXIDINE GLUCONATE 4% CLEANSER FOR DECOLONIZATION TP SCH (21:20)
[2023-03-08] MEDS: LORazepam 2 MG/ML SDV VIAL IVPUSH PRN (23:25)
[2023-03-09] MEDS: LEVOTHYROXINE NA 125 MCG TABLET (FP) GT SCH (06:17)
[2023-03-09] MEDS: MIDODRINE HCL 5 MG TABLET GT SCH ×2 (09:05→16:39)
[2023-03-09] MEDS: AMINO ACIDS/PROTEIN HYDROLYS 30 ML LIQUID.PKT GT SCH ×2 (09:19→17:39)
[2023-03-09] MEDS: POLYETHYLENE GLYCOL (HEALTHYLAX) 3350 17 GM PACKET GT SCH (09:19)
[2023-03-09] MEDS: GABAPENTIN 250 MG/5 ML ORAL SOLUTION, 470 ML BOTTLE GT SCH ×2 (09:19→21:13)
[2023-03-09] MEDS: ASCORBIC ACID 500 MG/5 ML UNIT DOSE CUP GT SCH (09:19)
[2023-03-09] MEDS: NAPH,MB-DB/K PH,MBDB POWDER PACKET PO SCH ×2 (09:21→21:13)
[2023-03-09] MEDS: ASPIRIN 81 MG CHEWABLE TABLETS GT SCH (09:21)
[2023-03-09] MEDS: FOLIC ACID 1 MG TABLET (FP) GT SCH (09:21)
[2023-03-09] MEDS: FUROSEMIDE 40 MG/5 ML UNIT-DOSE CUP PO SCH (09:21)
[2023-03-09] MEDS: BUDESONIDE/FORMETEROL FUMARATE 80/4.5 mcg INHALER IH SCH ×2 (09:23→21:13)
[2023-03-09] MEDS: COLLAGENASE CLOSTRIDIUM HIST. 30 GRAMS TUBE TP SCH (09:23)
[2023-03-09] MEDS: LORazepam 0.5 MG TABLET GT PRN (21:13)
[2023-03-09] MEDS: CHLORHEXIDINE GLUCONATE 4% CLEANSER FOR DECOLONIZATION TP SCH (21:13)
[2023-03-10] MEDS: MIDODRINE HCL 5 MG TABLET GT SCH ×4 (00:31→23:09)
[2023-03-10] MEDS: LEVOTHYROXINE NA 125 MCG TABLET (FP) GT SCH (06:05)
[2023-03-10 07:11] LABS: HEMATOCRIT 24.1 % (32.4-45.2); HEMOGLOBIN 8.1 GM/dL (10.7-15.3); MCH 31.3 pg (25.7-33.7); MCHC 33.5 g/dl (32.0-36.0); MEAN CELL VOLUME 93.5 fl (80-96); MEAN PLT VOLUME 7.6 fl (7.5-11.1); PLATELET COUNT 370 10^3/uL (134-434); RBC 2.58 M/mm3 (3.60-5.2); RDW 15.8 % (11.6-15.6)
[2023-03-10 07:36] LABS: POTASSIUM 3.7 mmol/L (3.5-5.1)
[2023-03-10 07:38] LABS: BLOOD UREA NITROGEN 29.5 mg/dL (7-18); CALCIUM 7.7 mg/dL (8.5-10.1); MAGNESIUM 1.9 mg/dL (1.8-2.4)
[2023-03-10 07:41] LABS: PHOSPHOROUS 3.7 mg/dL (2.5-4.9)
[2023-03-10 07:42] LABS: CREATININE 0.7 mg/dL (0.55-1.3)
[2023-03-10] MEDS: ASCORBIC ACID 500 MG/5 ML UNIT DOSE CUP GT SCH (09:05)
[2023-03-10] MEDS: NAPH,MB-DB/K PH,MBDB POWDER PACKET PO SCH ×2 (09:05→21:07)
[2023-03-10] MEDS: AMINO ACIDS/PROTEIN HYDROLYS 30 ML LIQUID.PKT GT SCH ×2 (09:05→17:15)
[2023-03-10] MEDS: ASPIRIN 81 MG CHEWABLE TABLETS GT SCH (09:06)
[2023-03-10] MEDS: FOLIC ACID 1 MG TABLET (FP) GT SCH (09:06)
[2023-03-10] MEDS: FUROSEMIDE 40 MG/5 ML UNIT-DOSE CUP PO SCH (09:06)
[2023-03-10] MEDS: POLYETHYLENE GLYCOL (HEALTHYLAX) 3350 17 GM PACKET GT SCH (09:06)
[2023-03-10] MEDS: GABAPENTIN 250 MG/5 ML ORAL SOLUTION, 470 ML BOTTLE GT SCH ×2 (09:56→21:39)
[2023-03-10] MEDS: BUDESONIDE/FORMETEROL FUMARATE 80/4.5 mcg INHALER IH SCH ×2 (10:48→21:08)
[2023-03-10 11:27] LABS: ANISOCYTOSIS 1+; MACROCYTOSIS 0
[2023-03-10] MEDS: POVIDONE-IODINE 10% SOLN 118 ML BOTTLE TP SCH (17:15)
[2023-03-10] MEDS: LORazepam 0.5 MG TABLET GT PRN (17:15)
[2023-03-10] MEDS: CHLORHEXIDINE GLUCONATE 4% CLEANSER FOR DECOLONIZATION TP SCH (21:07)
[2023-03-10] MEDS ORDERED: NAPHAZOLINE/PHENIRAMINE OPHTHALMIC 15 ML BOTTLE OU PRN (22:40)
[2023-03-11] MEDS: LEVOTHYROXINE NA 125 MCG TABLET (FP) GT SCH (06:24)
[2023-03-11] MEDS: MIDODRINE HCL 5 MG TABLET GT SCH ×3 (09:27→23:02)
[2023-03-11] MEDS: FOLIC ACID 1 MG TABLET (FP) GT SCH (09:27)
[2023-03-11] MEDS: AMINO ACIDS/PROTEIN HYDROLYS 30 ML LIQUID.PKT GT SCH ×2 (09:28→17:09)
[2023-03-11] MEDS: POLYETHYLENE GLYCOL (HEALTHYLAX) 3350 17 GM PACKET GT SCH (09:28)
[2023-03-11] MEDS: FUROSEMIDE 40 MG/5 ML UNIT-DOSE CUP GT SCH (09:28)
[2023-03-11] MEDS: ASPIRIN 81 MG CHEWABLE TABLETS GT SCH (09:28)
[2023-03-11] MEDS: ASCORBIC ACID 500 MG/5 ML UNIT DOSE CUP GT SCH (09:28)
[2023-03-11] MEDS: POVIDONE-IODINE 10% SOLN 118 ML BOTTLE TP SCH (09:29)
[2023-03-11] MEDS: GABAPENTIN 250 MG/5 ML ORAL SOLUTION, 470 ML BOTTLE GT SCH ×2 (09:29→21:20)
[2023-03-11] MEDS: BUDESONIDE/FORMETEROL FUMARATE 80/4.5 mcg INHALER IH SCH ×2 (09:30→21:18)
[2023-03-11] MEDS: NAPH,MB-DB/K PH,MBDB POWDER PACKET GT SCH ×2 (09:30→21:17)
[2023-03-11] MEDS: LORazepam 0.5 MG TABLET GT PRN (19:50)
[2023-03-11] MEDS: CHLORHEXIDINE GLUCONATE 4% CLEANSER FOR DECOLONIZATION TP SCH (21:18)
[2023-03-12] MEDS: LEVOTHYROXINE NA 125 MCG TABLET (FP) GT SCH (06:03)
[2023-03-12] MEDS: MIDODRINE HCL 5 MG TABLET GT SCH ×3 (07:14→23:23)
[2023-03-12] MEDS: AMINO ACIDS/PROTEIN HYDROLYS 30 ML LIQUID.PKT GT SCH (07:14)
[2023-03-12 07:44] LABS: HEMOGLOBIN 7.8 GM/dL (10.7-15.3); MCH 31.3 pg (25.7-33.7); MEAN CELL VOLUME 92.1 fl (80-96); MEAN PLT VOLUME 7.5 fl (7.5-11.1); PLATELET COUNT 400 10^3/uL (134-434); RDW 16.5 % (11.6-15.6); WHITE BLOOD COUNT 6.1 K/mm3 (4.0-10.0)
[2023-03-12 07:51] LABS: POTASSIUM 3.6 mmol/L (3.5-5.1)
[2023-03-12 07:53] LABS: ALBUMIN 1.3 g/dl (3.4-5.0); CALCIUM 7.5 mg/dL (8.5-10.1)
[2023-03-12 07:57] LABS: CREATININE 0.6 mg/dL (0.55-1.3)
[2023-03-12 07:59] LABS: BILIRUBIN,TOTAL 0.3 mg/dL (0.2-1)
[2023-03-12] MEDS: FUROSEMIDE 40 MG/5 ML UNIT-DOSE CUP GT SCH (09:27)
[2023-03-12] MEDS: POLYETHYLENE GLYCOL (HEALTHYLAX) 3350 17 GM PACKET GT SCH (09:27)
[2023-03-12] MEDS: ASPIRIN 81 MG CHEWABLE TABLETS GT SCH (09:27)
[2023-03-12] MEDS: FOLIC ACID 1 MG TABLET (FP) GT SCH (09:27)
[2023-03-12] MEDS: NAPH,MB-DB/K PH,MBDB POWDER PACKET GT SCH ×2 (09:27→21:09)
[2023-03-12] MEDS: GABAPENTIN 250 MG/5 ML ORAL SOLUTION, 470 ML BOTTLE GT SCH ×2 (09:29→21:08)
[2023-03-12] MEDS: ASCORBIC ACID 500 MG/5 ML UNIT DOSE CUP GT SCH (09:29)
[2023-03-12] MEDS: POVIDONE-IODINE 10% SOLN 118 ML BOTTLE TP SCH (09:29)
[2023-03-12] MEDS: BUDESONIDE/FORMETEROL FUMARATE 80/4.5 mcg INHALER IH SCH ×2 (09:29→21:11)
[2023-03-12] MEDS: LORazepam 0.5 MG TABLET GT PRN ×2 (12:07→21:09)
[2023-03-12] MEDS: CHLORHEXIDINE GLUCONATE 4% CLEANSER FOR DECOLONIZATION TP SCH (21:09)
[2023-03-13] MEDS: LEVOTHYROXINE NA 125 MCG TABLET (FP) GT SCH (06:40)
[2023-03-13] MEDS: AMINO ACIDS/PROTEIN HYDROLYS 30 ML LIQUID.PKT GT SCH ×3 (10:08→17:37)
[2023-03-13] MEDS: ASCORBIC ACID 500 MG/5 ML UNIT DOSE CUP GT SCH (10:15)
[2023-03-13] MEDS: ASPIRIN 81 MG CHEWABLE TABLETS GT SCH (10:15)
[2023-03-13] MEDS: MIDODRINE HCL 5 MG TABLET GT SCH ×3 (10:15→23:41)
[2023-03-13] MEDS: NAPH,MB-DB/K PH,MBDB POWDER PACKET GT SCH ×2 (10:15→21:10)
[2023-03-13] MEDS: POLYETHYLENE GLYCOL (HEALTHYLAX) 3350 17 GM PACKET GT SCH (10:16)
[2023-03-13] MEDS: FUROSEMIDE 40 MG/5 ML UNIT-DOSE CUP GT SCH (10:16)
[2023-03-13] MEDS: FOLIC ACID 1 MG TABLET (FP) GT SCH (10:16)
[2023-03-13] MEDS: BUDESONIDE/FORMETEROL FUMARATE 80/4.5 mcg INHALER IH SCH ×2 (10:35→21:10)
[2023-03-13] MEDS: GABAPENTIN 250 MG/5 ML ORAL SOLUTION, 470 ML BOTTLE GT SCH ×2 (10:54→21:10)
[2023-03-13] MEDS: POVIDONE-IODINE 10% SOLN 118 ML BOTTLE TP SCH (10:55)
[2023-03-13] MEDS: LORazepam 0.5 MG TABLET GT PRN (13:32)
[2023-03-13] MEDS: CHLORHEXIDINE GLUCONATE 4% CLEANSER FOR DECOLONIZATION TP SCH (21:10)
[2023-03-14] MEDS: LEVOTHYROXINE NA 125 MCG TABLET (FP) GT SCH (06:02)
[2023-03-14] MEDS: ASCORBIC ACID 500 MG/5 ML UNIT DOSE CUP GT SCH (10:49)
[2023-03-14] MEDS: NAPH,MB-DB/K PH,MBDB POWDER PACKET GT SCH ×2 (10:50→21:31)
[2023-03-14] MEDS: GABAPENTIN 250 MG/5 ML ORAL SOLUTION, 470 ML BOTTLE GT SCH ×2 (10:50→21:33)
[2023-03-14] MEDS: POLYETHYLENE GLYCOL (HEALTHYLAX) 3350 17 GM PACKET GT SCH (10:50)
[2023-03-14] MEDS: FOLIC ACID 1 MG TABLET (FP) GT SCH (10:50)
[2023-03-14] MEDS: AMINO ACIDS/PROTEIN HYDROLYS 30 ML LIQUID.PKT GT SCH ×2 (10:50→17:05)
[2023-03-14] MEDS: LORazepam 0.5 MG TABLET GT PRN ×2 (10:51→21:31)
[2023-03-14] MEDS: FUROSEMIDE 40 MG/5 ML UNIT-DOSE CUP GT SCH (10:51)
[2023-03-14] MEDS: MIDODRINE HCL 5 MG TABLET GT SCH ×3 (10:51→23:44)
[2023-03-14] MEDS: BUDESONIDE/FORMETEROL FUMARATE 80/4.5 mcg INHALER IH SCH ×2 (11:46→21:45)
[2023-03-14] MEDS: ASPIRIN 81 MG CHEWABLE TABLETS GT SCH (11:46)
[2023-03-14] MEDS: POVIDONE-IODINE 10% SOLN 118 ML BOTTLE TP SCH (14:17)
[2023-03-14] MEDS: CHLORHEXIDINE GLUCONATE 4% CLEANSER FOR DECOLONIZATION TP SCH (21:33)
[2023-03-15] MEDS: LEVOTHYROXINE NA 125 MCG TABLET (FP) GT SCH (06:11)
[2023-03-15] MEDS: POLYETHYLENE GLYCOL (HEALTHYLAX) 3350 17 GM PACKET GT SCH (09:20)
[2023-03-15] MEDS: FUROSEMIDE 40 MG/5 ML UNIT-DOSE CUP GT SCH (09:20)
[2023-03-15] MEDS: MIDODRINE HCL 5 MG TABLET GT SCH ×3 (09:20→23:05)
[2023-03-15] MEDS: POVIDONE-IODINE 10% SOLN 118 ML BOTTLE TP SCH (09:20)
[2023-03-15] MEDS: ASCORBIC ACID 500 MG/5 ML UNIT DOSE CUP GT SCH (09:20)
[2023-03-15] MEDS: NAPH,MB-DB/K PH,MBDB POWDER PACKET GT SCH ×2 (09:20→21:33)
[2023-03-15] MEDS: AMINO ACIDS/PROTEIN HYDROLYS 30 ML LIQUID.PKT GT SCH ×2 (09:20→18:00)
[2023-03-15] MEDS: FOLIC ACID 1 MG TABLET (FP) GT SCH (09:21)
[2023-03-15] MEDS: ASPIRIN 81 MG CHEWABLE TABLETS GT SCH (09:21)
[2023-03-15] MEDS: GABAPENTIN 250 MG/5 ML ORAL SOLUTION, 470 ML BOTTLE GT SCH ×2 (10:00→21:33)
[2023-03-15] MEDS: BUDESONIDE/FORMETEROL FUMARATE 80/4.5 mcg INHALER IH SCH ×2 (10:03→21:33)
[2023-03-15] MEDS: LORazepam 0.5 MG TABLET GT PRN ×2 (14:48→21:34)
[2023-03-15] MEDS: CHLORHEXIDINE GLUCONATE 4% CLEANSER FOR DECOLONIZATION TP SCH (21:33)
[2023-03-16] MEDS: LEVOTHYROXINE NA 125 MCG TABLET (FP) GT SCH (06:00)
[2023-03-16] MEDS: AMINO ACIDS/PROTEIN HYDROLYS 30 ML LIQUID.PKT GT SCH ×2 (08:53→17:21)
[2023-03-16] MEDS: MIDODRINE HCL 5 MG TABLET GT SCH ×4 (08:53→23:02)
[2023-03-16] MEDS: NAPH,MB-DB/K PH,MBDB POWDER PACKET GT SCH ×2 (09:01→21:31)
[2023-03-16] MEDS: ASPIRIN 81 MG CHEWABLE TABLETS GT SCH (09:02)
[2023-03-16] MEDS: ASCORBIC ACID 500 MG/5 ML UNIT DOSE CUP GT SCH (09:02)
[2023-03-16] MEDS: FOLIC ACID 1 MG TABLET (FP) GT SCH (09:02)
[2023-03-16] MEDS: GABAPENTIN 250 MG/5 ML ORAL SOLUTION, 470 ML BOTTLE GT SCH ×2 (09:02→21:31)
[2023-03-16] MEDS: POLYETHYLENE GLYCOL (HEALTHYLAX) 3350 17 GM PACKET GT SCH (09:03)
[2023-03-16] MEDS: FUROSEMIDE 40 MG/5 ML UNIT-DOSE CUP GT SCH (09:05)
[2023-03-16] MEDS: BUDESONIDE/FORMETEROL FUMARATE 80/4.5 mcg INHALER IH SCH ×2 (10:21→21:33)
[2023-03-16] MEDS: LORazepam 0.5 MG TABLET GT PRN (12:11)
[2023-03-16] MEDS: POVIDONE-IODINE 10% SOLN 118 ML BOTTLE TP SCH (14:21)
[2023-03-16] MEDS ORDERED: IBUPROFEN 800 MG/8 ML IJ IVPB ONE (17:15)
[2023-03-16 18:47] LABS: EPI CELLS >36 /uL (0-25.1); HYALINE CASTS 42 /uL (0-3.1); PH,URINE 5.5 (5.0-8.0); URINE APPEARANCE TURBID; URINE BACTERIA 4183 /uL (0-1359); URINE BILIRUBIN NEGATIVE (NEGATIVE); URINE COLOR DK YELLOW; URINE GLUCOSE (UA) NEGATIVE (NEGATIVE); URINE KETONE NEGATIVE (NEGATIVE); URINE LEUK ESTERASE 3+ (NEGATIVE); URINE NITRITE NEGATIVE (NEGATIVE); URINE PROTEIN 1+ (NEGATIVE); URINE WBC 37799 /uL (0-25.8)
[2023-03-16 18:58] LABS: BASO % 0.7 % (0-2.0); EOS % 0.1 % (0-4.5); HEMATOCRIT 25.5 % (32.4-45.2); HEMOGLOBIN 8.4 GM/dL (10.7-15.3); LYMPH % 4.2 % (8-40); MCH 30.2 pg (25.7-33.7); MCHC 32.7 g/dl (32.0-36.0); MEAN CELL VOLUME 92.1 fl (80-96); MEAN PLT VOLUME 7.3 fl (7.5-11.1); PLATELET COUNT 466 10^3/uL (134-434); RBC 2.77 M/mm3 (3.60-5.2); RDW 16.5 % (11.6-15.6); WHITE BLOOD COUNT 19.5 K/mm3 (4.0-10.0)
[2023-03-16 19:09] LABS: POTASSIUM 3.7 mmol/L (3.5-5.1)
[2023-03-16 19:11] LABS: ALBUMIN 1.6 g/dl (3.4-5.0); CALCIUM 8.1 mg/dL (8.5-10.1)
[2023-03-16 19:12] LABS: BLOOD UREA NITROGEN 29.9 mg/dL (7-18)
[2023-03-16 19:15] LABS: URINE RBC 389.3 /uL (0-23.9); YEAST FEW (NEGATIVE)
[2023-03-16 19:15] LABS: CREATININE 0.6 mg/dL (0.55-1.3)
[2023-03-16 19:16] LABS: BILIRUBIN,TOTAL 0.4 mg/dL (0.2-1); TOT PROT 6.5 g/dl (6.4-8.2)
[2023-03-16 19:57] LABS: ANISOCYTOSIS 1+
[2023-03-16] MEDS ORDERED: SODIUM CHLORIDE 1,000 ML IV STA (20:20)
[2023-03-16] MEDS ORDERED: LACTATED RINGERS SOLUTION 1,000 ML/1,000 ML INFUS.BAG IV STA (20:53)
[2023-03-16] MEDS ORDERED: VANCOMYCIN/WATER FOR INJ (PEG) 1,000 MG/200 ML BAG IVPB ONE (20:59)
[2023-03-16] MEDS: MEROPENEM 1 GM in DEXTROSE 5%-WATER 100 ML IVPB SCH (21:26)
[2023-03-16] MEDS: CHLORHEXIDINE GLUCONATE 4% CLEANSER FOR DECOLONIZATION TP SCH (21:31)
[2023-03-16] MEDS ORDERED: NOREPINEPHRINE BITARTRATE 16,000 MCG in SODIUM CHLORIDE 484 ML IV SCH (23:15)
[2023-03-16] MEDS ORDERED: NOREPINEPHRINE BITARTRATE/D5W 8 MG/250 ML BAG IVPB SCH (23:45)
[2023-03-17] MEDS: MUPIROCIN 2% TOPICAL OINTMENT FOR DECOLONIZATION NS SCH ×4 (00:10→21:31)
[2023-03-17 00:36] LABS: ARTERIAL BLD GAS O2 SATURATION 96.5 % (95-98); ARTERIAL BLOOD GAS BASE EXCESS 11.2 mmol/L (-2-2); ARTERIAL BLOOD GAS PO2 92.3 mmHg (80-100); ARTERIAL BLOOD GAS pH 7.361 (7.350-7.450)
[2023-03-17 00:37] LABS: ALLENS TEST POSITIVE
[2023-03-17 00:38] LABS: VENT MODE A/C; VENT RATE 14
[2023-03-17] MEDS: NOREPINEPHRINE BITARTRATE 16,000 MCG in SODIUM CHLORIDE 484 ML IV SCH (01:00)
[2023-03-17] MEDS: MEROPENEM 1 GM in DEXTROSE 5%-WATER 100 ML IVPB SCH ×3 (01:10→17:01)
[2023-03-17] MEDS: LEVOTHYROXINE NA 125 MCG TABLET (FP) GT SCH (06:00)
[2023-03-17 07:46] LABS: POTASSIUM 3.7 mmol/L (3.5-5.1)
[2023-03-17 07:49] LABS: BLOOD UREA NITROGEN 32.6 mg/dL (7-18); CALCIUM 7.8 mg/dL (8.5-10.1)
[2023-03-17 07:50] LABS: ALBUMIN 1.6 g/dl (3.4-5.0)
[2023-03-17 07:52] LABS: CREATININE 0.8 mg/dL (0.55-1.3)
[2023-03-17 07:54] LABS: BILIRUBIN,TOTAL 0.4 mg/dL (0.2-1); TOT PROT 6.8 g/dl (6.4-8.2)
[2023-03-17] MEDS: MIDODRINE HCL 5 MG TABLET GT SCH ×3 (09:01→23:21)
[2023-03-17] MEDS: AMINO ACIDS/PROTEIN HYDROLYS 30 ML LIQUID.PKT GT SCH ×2 (09:02→16:32)
[2023-03-17] MEDS: NAPH,MB-DB/K PH,MBDB POWDER PACKET GT SCH ×2 (09:02→21:28)
[2023-03-17] MEDS: ASPIRIN 81 MG CHEWABLE TABLETS GT SCH (09:02)
[2023-03-17] MEDS: ASCORBIC ACID 500 MG/5 ML UNIT DOSE CUP GT SCH (09:02)
[2023-03-17] MEDS: FOLIC ACID 1 MG TABLET (FP) GT SCH (09:02)
[2023-03-17] MEDS: POLYETHYLENE GLYCOL (HEALTHYLAX) 3350 17 GM PACKET GT SCH (09:02)
[2023-03-17] MEDS: GABAPENTIN 250 MG/5 ML ORAL SOLUTION, 470 ML BOTTLE GT SCH ×2 (09:03→22:10)
[2023-03-17] MEDS: BUDESONIDE/FORMETEROL FUMARATE 80/4.5 mcg INHALER IH SCH ×2 (09:04→21:29)
[2023-03-17] MEDS ORDERED: SODIUM CHLORIDE 500 ML IV STA (12:26)
[2023-03-17] MEDS: POVIDONE-IODINE 10% SOLN 118 ML BOTTLE TP SCH (12:32)
[2023-03-17 14:11] LABS: BASO % 0.7 % (0-2.0); EOS % 0.3 % (0-4.5); LYMPH % 21.4 % (8-40); MCH 30.1 pg (25.7-33.7); MCHC 31.8 g/dl (32.0-36.0); MEAN CELL VOLUME 94.7 fl (80-96); MEAN PLT VOLUME 7.4 fl (7.5-11.1); MONO % 6.9 % (3.8-10.2); NEUT % 70.7 % (42.8-82.8); PLATELET COUNT 356 10^3/uL (134-434); RBC 2.33 M/mm3 (3.60-5.2); RDW 16.2 % (11.6-15.6); WHITE BLOOD COUNT 13.3 K/mm3 (4.0-10.0)
[2023-03-17] MEDS ORDERED: MEROPENEM 1 GM in DEXTROSE 5%-WATER 100 ML IVPB SCH (20:39)
[2023-03-17] MEDS: CHLORHEXIDINE GLUCONATE 4% CLEANSER FOR DECOLONIZATION TP SCH (21:28)
[2023-03-17] MEDS ORDERED: CHLORHEXIDINE GLUCONATE 4% CLEANSER FOR DECOLONIZATION TP SCH (22:00)
[2023-03-18] MEDS: NOREPINEPHRINE BITARTRATE 16,000 MCG in SODIUM CHLORIDE 484 ML IV SCH (00:05)
[2023-03-18] MEDS: MEROPENEM 1 GM in DEXTROSE 5%-WATER 100 ML IVPB SCH ×3 (01:00→17:00)
[2023-03-18] MEDS: LEVOTHYROXINE NA 125 MCG TABLET (FP) GT SCH (06:17)
[2023-03-18] MEDS ORDERED: MEROPENEM 1 GM VIAL (RESTRICTED TO ID) IVPB ONE (08:41)
[2023-03-18] MEDS: NOREPINEPHRINE 0.9 % NACL 8 MG/250 ML BAG IVPB SCH (08:58)
[2023-03-18] MEDS: AMINO ACIDS/PROTEIN HYDROLYS 30 ML LIQUID.PKT GT SCH ×2 (08:58→16:38)
[2023-03-18] MEDS: MIDODRINE HCL 5 MG TABLET GT SCH ×3 (08:58→23:26)
[2023-03-18] MEDS: GABAPENTIN 250 MG/5 ML ORAL SOLUTION, 470 ML BOTTLE GT SCH ×2 (09:05→22:48)
[2023-03-18] MEDS: ASPIRIN 81 MG CHEWABLE TABLETS GT SCH (09:05)
[2023-03-18] MEDS: ASCORBIC ACID 500 MG/5 ML UNIT DOSE CUP GT SCH (09:05)
[2023-03-18] MEDS: FOLIC ACID 1 MG TABLET (FP) GT SCH (09:05)
[2023-03-18] MEDS: NAPH,MB-DB/K PH,MBDB POWDER PACKET GT SCH ×2 (09:05→22:50)
[2023-03-18] MEDS: POLYETHYLENE GLYCOL (HEALTHYLAX) 3350 17 GM PACKET GT SCH (09:05)
[2023-03-18] MEDS: BUDESONIDE/FORMETEROL FUMARATE 80/4.5 mcg INHALER IH SCH ×2 (09:06→22:50)
[2023-03-18] MEDS: POVIDONE-IODINE 10% SOLN 118 ML BOTTLE TP SCH (09:06)
[2023-03-18] MEDS: MUPIROCIN 2% TOPICAL OINTMENT FOR DECOLONIZATION NS SCH ×2 (09:06→22:51)
[2023-03-18] MEDS ORDERED: ARTIFICIAL TEARS (POLYVINYL ALCOHOL) OPTH DROPS OU PRN (19:14)
[2023-03-18] MEDS ORDERED: NAPHAZOLINE/PHENIRAMINE OPHTHALMIC 15 ML BOTTLE OU PRN (19:14)
[2023-03-18] MEDS: CHLORHEXIDINE GLUCONATE 4% CLEANSER FOR DECOLONIZATION TP SCH (22:50)
[2023-03-19] MEDS: MEROPENEM 1 GM in DEXTROSE 5%-WATER 100 ML IVPB SCH ×3 (02:55→17:33)
[2023-03-19] MEDS: LEVOTHYROXINE NA 125 MCG TABLET (FP) GT SCH (06:11)
[2023-03-19 07:00] LABS: HEMATOCRIT 25.2 % (32.4-45.2); HEMOGLOBIN 8.6 GM/dL (10.7-15.3); MCH 31.4 pg (25.7-33.7); MCHC 34.2 g/dl (32.0-36.0); MEAN PLT VOLUME 7.2 fl (7.5-11.1); PLATELET COUNT 424 10^3/uL (134-434); RBC 2.74 M/mm3 (3.60-5.2); RDW 16.4 % (11.6-15.6); WHITE BLOOD COUNT 7.7 K/mm3 (4.0-10.0)
[2023-03-19 07:12] LABS: POTASSIUM 3.6 mmol/L (3.5-5.1)
[2023-03-19 07:14] LABS: BLOOD UREA NITROGEN 29.8 mg/dL (7-18); CALCIUM 8.1 mg/dL (8.5-10.1); MAGNESIUM 2.1 mg/dL (1.8-2.4)
[2023-03-19 07:18] LABS: CREATININE 0.5 mg/dL (0.55-1.3); PHOSPHOROUS 3.2 mg/dL (2.5-4.9)
[2023-03-19] MEDS ORDERED: MEROPENEM 1 GM VIAL (RESTRICTED TO ID) IVPB ONE (08:03)
[2023-03-19] MEDS: MIDODRINE HCL 5 MG TABLET GT SCH ×3 (08:58→23:07)
[2023-03-19] MEDS: AMINO ACIDS/PROTEIN HYDROLYS 30 ML LIQUID.PKT GT SCH ×2 (08:58→17:34)
[2023-03-19] MEDS: GABAPENTIN 250 MG/5 ML ORAL SOLUTION, 470 ML BOTTLE GT SCH ×2 (09:30→21:11)
[2023-03-19] MEDS: POLYETHYLENE GLYCOL (HEALTHYLAX) 3350 17 GM PACKET GT SCH (09:31)
[2023-03-19] MEDS: ASPIRIN 81 MG CHEWABLE TABLETS GT SCH (09:31)
[2023-03-19] MEDS: NAPH,MB-DB/K PH,MBDB POWDER PACKET GT SCH ×2 (09:32→21:23)
[2023-03-19] MEDS: POVIDONE-IODINE 10% SOLN 118 ML BOTTLE TP SCH (09:32)
[2023-03-19] MEDS: FOLIC ACID 1 MG TABLET (FP) GT SCH (09:32)
[2023-03-19] MEDS: MUPIROCIN 2% TOPICAL OINTMENT FOR DECOLONIZATION NS SCH ×2 (09:32→21:12)
[2023-03-19] MEDS: BUDESONIDE/FORMETEROL FUMARATE 80/4.5 mcg INHALER IH SCH ×2 (09:33→21:23)
[2023-03-19] MEDS: ASCORBIC ACID 500 MG/5 ML UNIT DOSE CUP GT SCH (09:33)
[2023-03-19] MEDS: KCL 10 MEQ IVPB 10 MEQ/100 ML INFUS.BAG IVPB SCH ×2 (10:49→13:04)
[2023-03-19] MEDS: NOREPINEPHRINE 0.9 % NACL 8 MG/250 ML BAG IVPB SCH (11:00)
[2023-03-19] MEDS: CHLORHEXIDINE GLUCONATE 4% CLEANSER FOR DECOLONIZATION TP SCH (21:11)
[2023-03-20] MEDS: MEROPENEM 1 GM in DEXTROSE 5%-WATER 100 ML IVPB SCH ×3 (01:42→17:28)
[2023-03-20] MEDS: LEVOTHYROXINE NA 125 MCG TABLET (FP) GT SCH (06:22)
[2023-03-20 07:20] LABS: HEMOGLOBIN 7.6 GM/dL (10.7-15.3); MCH 31.3 pg (25.7-33.7); MEAN CELL VOLUME 94.7 fl (80-96); MEAN PLT VOLUME 7.1 fl (7.5-11.1); PLATELET COUNT 354 10^3/uL (134-434); RBC 2.43 M/mm3 (3.60-5.2); RDW 16.6 % (11.6-15.6); WHITE BLOOD COUNT 7.8 K/mm3 (4.0-10.0)
[2023-03-20 07:40] LABS: POTASSIUM 4.1 mmol/L (3.5-5.1)
[2023-03-20 07:42] LABS: BLOOD UREA NITROGEN 25.4 mg/dL (7-18); CALCIUM 8.2 mg/dL (8.5-10.1); MAGNESIUM 1.9 mg/dL (1.8-2.4)
[2023-03-20 07:45] LABS: CREATININE 0.4 mg/dL (0.55-1.3)
[2023-03-20 07:46] LABS: PHOSPHOROUS 3.2 mg/dL (2.5-4.9)
[2023-03-20] MEDS: AMINO ACIDS/PROTEIN HYDROLYS 30 ML LIQUID.PKT GT SCH ×2 (09:40→17:26)
[2023-03-20] MEDS: NOREPINEPHRINE 0.9 % NACL 8 MG/250 ML BAG IVPB SCH (09:40)
[2023-03-20] MEDS: MUPIROCIN 2% TOPICAL OINTMENT FOR DECOLONIZATION NS SCH ×2 (09:44→21:22)
[2023-03-20] MEDS: ASPIRIN 81 MG CHEWABLE TABLETS GT SCH (09:44)
[2023-03-20] MEDS: MIDODRINE HCL 5 MG TABLET GT SCH ×3 (09:44→23:27)
[2023-03-20] MEDS: FOLIC ACID 1 MG TABLET (FP) GT SCH (09:45)
[2023-03-20] MEDS: NAPH,MB-DB/K PH,MBDB POWDER PACKET GT SCH ×2 (09:45→21:23)
[2023-03-20] MEDS: GABAPENTIN 250 MG/5 ML ORAL SOLUTION, 470 ML BOTTLE GT SCH ×2 (09:45→21:22)
[2023-03-20] MEDS: POLYETHYLENE GLYCOL (HEALTHYLAX) 3350 17 GM PACKET GT SCH (09:45)
[2023-03-20] MEDS: POVIDONE-IODINE 10% SOLN 118 ML BOTTLE TP SCH (09:45)
[2023-03-20] MEDS: BUDESONIDE/FORMETEROL FUMARATE 80/4.5 mcg INHALER IH SCH ×2 (09:46→21:23)
[2023-03-20] MEDS: ASCORBIC ACID 500 MG/5 ML UNIT DOSE CUP GT SCH (09:46)
[2023-03-20] MEDS ORDERED: SENNOSIDES 8.8 MG/5 ML SYRUP PO ONE (16:00)
[2023-03-20] MEDS ORDERED: DOCUSATE SODIUM 100 MG CAPSULE (FP) PO ONE (16:00)
[2023-03-20] MEDS ORDERED: MINERAL OIL ENEMA 133 ML ENEMA PR ONE (18:04)
[2023-03-20] MEDS ORDERED: MINERAL OIL ENEMA 133 ML ENEMA RC ONE (20:00)
[2023-03-20] MEDS: CHLORHEXIDINE GLUCONATE 4% CLEANSER FOR DECOLONIZATION TP SCH (21:22)
[2023-03-20] MEDS: SENNOSIDES 8.8 MG/5 ML SYRUP PO SCH (23:24)
[2023-03-21] MEDS: MEROPENEM 1 GM in DEXTROSE 5%-WATER 100 ML IVPB SCH ×3 (01:36→17:21)
[2023-03-21] MEDS: LEVOTHYROXINE NA 125 MCG TABLET (FP) GT SCH (06:12)
[2023-03-21] MEDS: AMINO ACIDS/PROTEIN HYDROLYS 30 ML LIQUID.PKT GT SCH ×2 (09:43→16:45)
[2023-03-21] MEDS: POLYETHYLENE GLYCOL (HEALTHYLAX) 3350 17 GM PACKET GT SCH (09:43)
[2023-03-21] MEDS: NAPH,MB-DB/K PH,MBDB POWDER PACKET GT SCH ×2 (09:43→21:45)
[2023-03-21] MEDS: MIDODRINE HCL 5 MG TABLET GT SCH ×2 (09:43→16:44)
[2023-03-21] MEDS: ASPIRIN 81 MG CHEWABLE TABLETS GT SCH (09:43)
[2023-03-21] MEDS: ASCORBIC ACID 500 MG/5 ML UNIT DOSE CUP GT SCH (09:44)
[2023-03-21] MEDS: BUDESONIDE/FORMETEROL FUMARATE 80/4.5 mcg INHALER IH SCH ×2 (09:44→21:42)
[2023-03-21] MEDS: MUPIROCIN 2% TOPICAL OINTMENT FOR DECOLONIZATION NS SCH ×2 (09:44→21:49)
[2023-03-21] MEDS: FOLIC ACID 1 MG TABLET (FP) GT SCH (09:45)
[2023-03-21] MEDS: POVIDONE-IODINE 10% SOLN 118 ML BOTTLE TP SCH (09:45)
[2023-03-21] MEDS: GABAPENTIN 250 MG/5 ML ORAL SOLUTION, 470 ML BOTTLE GT SCH ×2 (10:03→21:49)
[2023-03-21] MEDS: CHLORHEXIDINE GLUCONATE 4% CLEANSER FOR DECOLONIZATION TP SCH (21:41)
[2023-03-21] MEDS: SENNOSIDES 8.8 MG/5 ML SYRUP PO SCH (21:45)
[2023-03-22] MEDS: MIDODRINE HCL 5 MG TABLET GT SCH ×3 (00:14→17:10)
[2023-03-22] MEDS: MEROPENEM 1 GM in DEXTROSE 5%-WATER 100 ML IVPB SCH ×3 (01:03→17:10)
[2023-03-22] MEDS ORDERED: INSULIN REGULAR HUMAN 100 UNITS/ML *VIAL ONE (05:22)
[2023-03-22] MEDS: LEVOTHYROXINE NA 125 MCG TABLET (FP) GT SCH (06:04)
[2023-03-22] MEDS: NAPH,MB-DB/K PH,MBDB POWDER PACKET GT SCH ×2 (09:51→21:15)
[2023-03-22] MEDS: AMINO ACIDS/PROTEIN HYDROLYS 30 ML LIQUID.PKT GT SCH ×2 (09:51→17:10)
[2023-03-22] MEDS: GABAPENTIN 250 MG/5 ML ORAL SOLUTION, 470 ML BOTTLE GT SCH ×2 (09:51→21:15)
[2023-03-22] MEDS: ASPIRIN 81 MG CHEWABLE TABLETS GT SCH (09:51)
[2023-03-22] MEDS: POVIDONE-IODINE 10% SOLN 118 ML BOTTLE TP SCH (09:52)
[2023-03-22] MEDS: POLYETHYLENE GLYCOL (HEALTHYLAX) 3350 17 GM PACKET GT SCH (09:52)
[2023-03-22] MEDS: ASCORBIC ACID 500 MG/5 ML UNIT DOSE CUP GT SCH (09:52)
[2023-03-22] MEDS: FOLIC ACID 1 MG TABLET (FP) GT SCH (09:52)
[2023-03-22] MEDS: BUDESONIDE/FORMETEROL FUMARATE 80/4.5 mcg INHALER IH SCH ×2 (10:49→21:16)
[2023-03-22] MEDS: oxyCODONE HCL 5 MG TABLET PO PRN (21:00)
[2023-03-22] MEDS: SENNOSIDES 8.8 MG/5 ML SYRUP PO SCH (21:15)
[2023-03-22] MEDS: CHLORHEXIDINE GLUCONATE 4% CLEANSER FOR DECOLONIZATION TP SCH (21:16)
[2023-03-23] MEDS: MIDODRINE HCL 5 MG TABLET GT SCH ×4 (00:02→23:30)
[2023-03-23] MEDS: MEROPENEM 1 GM in DEXTROSE 5%-WATER 100 ML IVPB SCH ×2 (01:07→10:10)
[2023-03-23] MEDS: LEVOTHYROXINE NA 125 MCG TABLET (FP) GT SCH (06:20)
[2023-03-23 07:20] LABS: BASO % 1.1 % (0-2.0); EOS % 2.4 % (0-4.5); HEMATOCRIT 24.2 % (32.4-45.2); HEMOGLOBIN 8.1 GM/dL (10.7-15.3); MCH 31.5 pg (25.7-33.7); MCHC 33.4 g/dl (32.0-36.0); MEAN CELL VOLUME 94.3 fl (80-96); MEAN PLT VOLUME 7.2 fl (7.5-11.1); MONO % 7.3 % (3.8-10.2); NEUT % 50.2 % (42.8-82.8); PLATELET COUNT 337 10^3/uL (134-434); RBC 2.56 M/mm3 (3.60-5.2); RDW 15.7 % (11.6-15.6); WHITE BLOOD COUNT 6.3 K/mm3 (4.0-10.0)
[2023-03-23 08:20] LABS: POTASSIUM 4.2 mmol/L (3.5-5.1)
[2023-03-23 08:46] LABS: CALCIUM 8.1 mg/dL (8.5-10.1); CREATININE 0.4 mg/dL (0.55-1.3)
[2023-03-23 08:48] LABS: ALBUMIN 1.3 g/dl (3.4-5.0); BILIRUBIN,TOTAL 0.2 mg/dL (0.2-1); BLOOD UREA NITROGEN 22.4 mg/dL (7-18)
[2023-03-23] MEDS: ASCORBIC ACID 500 MG/5 ML UNIT DOSE CUP GT SCH (10:09)
[2023-03-23] MEDS: AMINO ACIDS/PROTEIN HYDROLYS 30 ML LIQUID.PKT GT SCH ×2 (10:09→17:08)
[2023-03-23] MEDS: ASPIRIN 81 MG CHEWABLE TABLETS GT SCH (10:09)
[2023-03-23] MEDS: NAPH,MB-DB/K PH,MBDB POWDER PACKET GT SCH ×2 (10:09→22:18)
[2023-03-23] MEDS: FOLIC ACID 1 MG TABLET (FP) GT SCH (10:09)
[2023-03-23] MEDS: POLYETHYLENE GLYCOL (HEALTHYLAX) 3350 17 GM PACKET GT SCH (10:10)
[2023-03-23] MEDS: BUDESONIDE/FORMETEROL FUMARATE 80/4.5 mcg INHALER IH SCH ×2 (10:10→22:26)
[2023-03-23] MEDS: GABAPENTIN 250 MG/5 ML ORAL SOLUTION, 470 ML BOTTLE GT SCH ×2 (10:16→22:19)
[2023-03-23] MEDS: POVIDONE-IODINE 10% SOLN 118 ML BOTTLE TP SCH (12:09)
[2023-03-23] MEDS: oxyCODONE HCL 5 MG TABLET PO PRN ×2 (14:09→21:18)
[2023-03-23] MEDS ORDERED: NAPHAZOLINE/PHENIRAMINE OPHTHALMIC 15 ML BOTTLE OU PRN (21:13)
[2023-03-23] MEDS ORDERED: ARTIFICIAL TEARS (POLYVINYL ALCOHOL) OPTH DROPS OU PRN (21:13)
[2023-03-23] MEDS: LORazepam 0.5 MG TABLET GT PRN (21:18)
[2023-03-23] MEDS ORDERED: CHLORHEXIDINE GLUCONATE 4% CLEANSER FOR DECOLONIZATION TP SCH (22:00)
[2023-03-23] MEDS: SENNOSIDES 8.8 MG/5 ML SYRUP PO SCH (22:20)
[2023-03-24] MEDS ORDERED: MELATONIN 5 MG TABLETS PO ONE ×3 (00:24→21:30)
[2023-03-24] MEDS: LEVOTHYROXINE NA 125 MCG TABLET (FP) GT SCH (06:07)
[2023-03-24] MEDS: oxyCODONE HCL 5 MG TABLET PO PRN ×2 (08:11→14:09)
[2023-03-24] MEDS: MIDODRINE HCL 5 MG TABLET GT SCH ×2 (08:11→17:28)
[2023-03-24] MEDS: AMINO ACIDS/PROTEIN HYDROLYS 30 ML LIQUID.PKT GT SCH ×2 (08:12→18:22)
[2023-03-24] MEDS: NAPH,MB-DB/K PH,MBDB POWDER PACKET GT SCH ×2 (10:22→21:47)
[2023-03-24] MEDS: GABAPENTIN 250 MG/5 ML ORAL SOLUTION, 470 ML BOTTLE GT SCH ×2 (10:22→21:47)
[2023-03-24] MEDS: POLYETHYLENE GLYCOL (HEALTHYLAX) 3350 17 GM PACKET GT SCH (10:22)
[2023-03-24] MEDS: ASPIRIN 81 MG CHEWABLE TABLETS GT SCH (10:22)
[2023-03-24] MEDS: FOLIC ACID 1 MG TABLET (FP) GT SCH (10:22)
[2023-03-24] MEDS: ASCORBIC ACID 500 MG/5 ML UNIT DOSE CUP GT SCH (10:22)
[2023-03-24 10:23] LABS: EOS % 1.7 % (0-4.5); HEMATOCRIT 24.6 % (32.4-45.2); HEMOGLOBIN 8.1 GM/dL (10.7-15.3); LYMPH % 31.8 % (8-40); MCH 30.8 pg (25.7-33.7); MCHC 32.9 g/dl (32.0-36.0); MEAN CELL VOLUME 93.8 fl (80-96); MEAN PLT VOLUME 7.5 fl (7.5-11.1); MONO % 5.8 % (3.8-10.2); NEUT % 59.7 % (42.8-82.8); PLATELET COUNT 355 10^3/uL (134-434); RBC 2.62 M/mm3 (3.60-5.2); RDW 16.1 % (11.6-15.6); WHITE BLOOD COUNT 8.1 K/mm3 (4.0-10.0)
[2023-03-24] MEDS: BUDESONIDE/FORMETEROL FUMARATE 80/4.5 mcg INHALER IH SCH ×2 (10:31→21:48)
[2023-03-24 10:37] LABS: POTASSIUM 4.2 mmol/L (3.5-5.1)
[2023-03-24 10:42] LABS: CALCIUM 8.1 mg/dL (8.5-10.1)
[2023-03-24 10:43] LABS: ALBUMIN 1.4 g/dl (3.4-5.0); BLOOD UREA NITROGEN 23.3 mg/dL (7-18)
[2023-03-24 10:46] LABS: CREATININE 0.4 mg/dL (0.55-1.3)
[2023-03-24 10:48] LABS: TOT PROT 6.3 g/dl (6.4-8.2)
[2023-03-24 10:51] LABS: BILIRUBIN,TOTAL 0.3 mg/dL (0.2-1)
[2023-03-24] MEDS: SENNOSIDES 8.8 MG/5 ML SYRUP PO SCH (21:47)
[2023-03-25] MEDS: MIDODRINE HCL 5 MG TABLET GT SCH ×3 (00:05→16:54)
[2023-03-25] MEDS: LEVOTHYROXINE NA 125 MCG TABLET (FP) GT SCH (06:04)
[2023-03-25 08:20] LABS: BASO % 0.8 % (0-2.0); EOS % 1.3 % (0-4.5); HEMATOCRIT 23.4 % (32.4-45.2); HEMOGLOBIN 8.1 GM/dL (10.7-15.3); LYMPH % 34.3 % (8-40); MCH 31.9 pg (25.7-33.7); MCHC 34.5 g/dl (32.0-36.0); MEAN CELL VOLUME 92.4 fl (80-96); MEAN PLT VOLUME 7.7 fl (7.5-11.1); MONO % 6.3 % (3.8-10.2); NEUT % 57.3 % (42.8-82.8); PLATELET COUNT 296 10^3/uL (134-434); RBC 2.53 M/mm3 (3.60-5.2); RDW 16.2 % (11.6-15.6); WHITE BLOOD COUNT 8.1 K/mm3 (4.0-10.0)
[2023-03-25 08:26] LABS: POTASSIUM 4.3 mmol/L (3.5-5.1)
[2023-03-25 08:39] LABS: ALBUMIN 1.4 g/dl (3.4-5.0); BLOOD UREA NITROGEN 23.6 mg/dL (7-18)
[2023-03-25 08:42] LABS: CREATININE 0.5 mg/dL (0.55-1.3)
[2023-03-25 08:43] LABS: BILIRUBIN,TOTAL 0.2 mg/dL (0.2-1); TOT PROT 6.3 g/dl (6.4-8.2)
[2023-03-25] MEDS: AMINO ACIDS/PROTEIN HYDROLYS 30 ML LIQUID.PKT GT SCH ×2 (09:00→16:54)
[2023-03-25] MEDS: NAPH,MB-DB/K PH,MBDB POWDER PACKET GT SCH ×2 (09:13→22:46)
[2023-03-25] MEDS: POLYETHYLENE GLYCOL (HEALTHYLAX) 3350 17 GM PACKET GT SCH (09:13)
[2023-03-25] MEDS: FOLIC ACID 1 MG TABLET (FP) GT SCH (09:14)
[2023-03-25] MEDS: ASPIRIN 81 MG CHEWABLE TABLETS GT SCH (09:14)
[2023-03-25] MEDS: ASCORBIC ACID 500 MG/5 ML UNIT DOSE CUP GT SCH (09:15)
[2023-03-25] MEDS: GABAPENTIN 250 MG/5 ML ORAL SOLUTION, 470 ML BOTTLE GT SCH ×2 (09:15→22:55)
[2023-03-25] MEDS: BUDESONIDE/FORMETEROL FUMARATE 80/4.5 mcg INHALER IH SCH ×2 (09:26→22:45)
[2023-03-25] MEDS: LORazepam 0.5 MG TABLET GT PRN (09:42)
[2023-03-25] MEDS: FAMOTIDINE 20 MG/2.5 ML ORAL LIQUID PEG SCH (14:21)
[2023-03-25] MEDS: FUROSEMIDE 40 MG/5 ML UNIT-DOSE CUP PO SCH (14:21)
[2023-03-25] MEDS: oxyCODONE HCL 5 MG TABLET PO PRN ×2 (16:53→22:46)
[2023-03-25] MEDS: SENNOSIDES 8.8 MG/5 ML SYRUP PO SCH (22:51)
[2023-03-26] MEDS: MIDODRINE HCL 5 MG TABLET GT SCH ×3 (00:16→15:32)
[2023-03-26] MEDS: LEVOTHYROXINE NA 125 MCG TABLET (FP) GT SCH (06:31)
[2023-03-26] MEDS: AMINO ACIDS/PROTEIN HYDROLYS 30 ML LIQUID.PKT GT SCH ×2 (08:45→17:14)
[2023-03-26 10:37] LABS: BASO % 1.2 % (0-2.0); EOS % 1.7 % (0-4.5); HEMATOCRIT 24.1 % (32.4-45.2); LYMPH % 29.9 % (8-40); MCH 31.1 pg (25.7-33.7); MCHC 33.1 g/dl (32.0-36.0); MEAN CELL VOLUME 93.9 fl (80-96); MEAN PLT VOLUME 7.8 fl (7.5-11.1); MONO % 5.5 % (3.8-10.2); NEUT % 61.7 % (42.8-82.8); PLATELET COUNT 289 10^3/uL (134-434); RBC 2.57 M/mm3 (3.60-5.2); RDW 15.8 % (11.6-15.6); WHITE BLOOD COUNT 7.5 K/mm3 (4.0-10.0)
[2023-03-26] MEDS: BUDESONIDE/FORMETEROL FUMARATE 80/4.5 mcg INHALER IH SCH ×3 (10:55→22:28)
[2023-03-26] MEDS: ASCORBIC ACID 500 MG/5 ML UNIT DOSE CUP GT SCH (11:06)
[2023-03-26] MEDS: FAMOTIDINE 20 MG/2.5 ML ORAL LIQUID PEG SCH (11:06)
[2023-03-26] MEDS: FOLIC ACID 1 MG TABLET (FP) GT SCH (11:06)
[2023-03-26] MEDS: ASPIRIN 81 MG CHEWABLE TABLETS GT SCH (11:06)
[2023-03-26] MEDS: NAPH,MB-DB/K PH,MBDB POWDER PACKET GT SCH ×2 (11:06→22:28)
[2023-03-26] MEDS: GABAPENTIN 250 MG/5 ML ORAL SOLUTION, 470 ML BOTTLE GT SCH ×2 (11:12→22:28)
[2023-03-26] MEDS: POLYETHYLENE GLYCOL (HEALTHYLAX) 3350 17 GM PACKET GT SCH (11:14)
[2023-03-26] MEDS: FUROSEMIDE 40 MG/5 ML UNIT-DOSE CUP PO SCH (12:17)
[2023-03-26] MEDS: oxyCODONE HCL 5 MG TABLET PO PRN (15:32)
[2023-03-26] MEDS: SENNOSIDES 8.8 MG/5 ML SYRUP PO SCH (22:57)
[2023-03-27] MEDS: MIDODRINE HCL 5 MG TABLET GT SCH ×3 (00:07→16:23)
[2023-03-27] MEDS: LEVOTHYROXINE NA 125 MCG TABLET (FP) GT SCH (06:07)
[2023-03-27] MEDS: AMINO ACIDS/PROTEIN HYDROLYS 30 ML LIQUID.PKT GT SCH ×2 (08:56→17:10)
[2023-03-27] MEDS: FAMOTIDINE 20 MG/2.5 ML ORAL LIQUID PEG SCH (09:33)
[2023-03-27] MEDS: ASCORBIC ACID 500 MG/5 ML UNIT DOSE CUP GT SCH (09:33)
[2023-03-27] MEDS: ASPIRIN 81 MG CHEWABLE TABLETS GT SCH (09:33)
[2023-03-27] MEDS: FOLIC ACID 1 MG TABLET (FP) GT SCH (09:33)
[2023-03-27] MEDS: NAPH,MB-DB/K PH,MBDB POWDER PACKET GT SCH ×2 (09:34→22:17)
[2023-03-27] MEDS: GABAPENTIN 250 MG/5 ML ORAL SOLUTION, 470 ML BOTTLE GT SCH ×2 (09:35→22:17)
[2023-03-27] MEDS: POLYETHYLENE GLYCOL (HEALTHYLAX) 3350 17 GM PACKET GT SCH (09:38)
[2023-03-27] MEDS: BUDESONIDE/FORMETEROL FUMARATE 80/4.5 mcg INHALER IH SCH ×2 (10:13→22:17)
[2023-03-27] MEDS: FUROSEMIDE 40 MG/5 ML UNIT-DOSE CUP GT SCH (10:14)
[2023-03-27 10:32] LABS: POTASSIUM 4.3 mmol/L (3.5-5.1)
[2023-03-27 10:34] LABS: CALCIUM 8.2 mg/dL (8.5-10.1)
[2023-03-27 10:35] LABS: ALBUMIN 1.4 g/dl (3.4-5.0); BLOOD UREA NITROGEN 26.5 mg/dL (7-18)
[2023-03-27 10:38] LABS: CREATININE 0.5 mg/dL (0.55-1.3)
[2023-03-27 10:39] LABS: BILIRUBIN,TOTAL 0.2 mg/dL (0.2-1); TOT PROT 6.4 g/dl (6.4-8.2)
[2023-03-27] MEDS: oxyCODONE HCL 5 MG TABLET PO PRN (16:24)
[2023-03-27] MEDS: LORazepam 0.5 MG TABLET GT PRN (22:17)
[2023-03-27] MEDS: SENNOSIDES 8.8 MG/5 ML SYRUP PO SCH (23:01)
[2023-03-28] MEDS: MIDODRINE HCL 5 MG TABLET GT SCH ×4 (01:12→23:13)
[2023-03-28] MEDS: LEVOTHYROXINE NA 125 MCG TABLET (FP) GT SCH (06:32)
[2023-03-28] MEDS: AMINO ACIDS/PROTEIN HYDROLYS 30 ML LIQUID.PKT GT SCH ×2 (09:31→17:56)
[2023-03-28] MEDS: ASPIRIN 81 MG CHEWABLE TABLETS GT SCH (10:45)
[2023-03-28] MEDS: NAPH,MB-DB/K PH,MBDB POWDER PACKET GT SCH ×2 (10:45→21:06)
[2023-03-28] MEDS: ASCORBIC ACID 500 MG/5 ML UNIT DOSE CUP GT SCH (10:45)
[2023-03-28] MEDS: FOLIC ACID 1 MG TABLET (FP) GT SCH (10:45)
[2023-03-28] MEDS: POLYETHYLENE GLYCOL (HEALTHYLAX) 3350 17 GM PACKET GT SCH (10:46)
[2023-03-28] MEDS: FUROSEMIDE 40 MG/5 ML UNIT-DOSE CUP GT SCH (10:46)
[2023-03-28] MEDS: BUDESONIDE/FORMETEROL FUMARATE 80/4.5 mcg INHALER IH SCH ×2 (10:47→21:08)
[2023-03-28] MEDS: FAMOTIDINE 20 MG/2.5 ML ORAL LIQUID PEG SCH (10:47)
[2023-03-28] MEDS: GABAPENTIN 250 MG/5 ML ORAL SOLUTION, 470 ML BOTTLE GT SCH ×2 (10:47→21:06)
[2023-03-28] MEDS: oxyCODONE HCL 5 MG TABLET PO PRN (14:50)
[2023-03-28] MEDS: LORazepam 0.5 MG TABLET GT PRN (21:06)
[2023-03-28] MEDS: SENNOSIDES 8.8 MG/5 ML SYRUP PO SCH (21:07)
[2023-03-29] MEDS: LEVOTHYROXINE NA 125 MCG TABLET (FP) GT SCH (06:30)
[2023-03-29] MEDS ORDERED: oxyCODONE HCL 5 MG TABLET GT PRN (07:47)
[2023-03-29] MEDS: FAMOTIDINE 20 MG/2.5 ML ORAL LIQUID PEG SCH (09:24)
[2023-03-29] MEDS: NAPH,MB-DB/K PH,MBDB POWDER PACKET GT SCH ×2 (09:25→23:00)
[2023-03-29] MEDS: ASCORBIC ACID 500 MG/5 ML UNIT DOSE CUP GT SCH (09:25)
[2023-03-29] MEDS: ASPIRIN 81 MG CHEWABLE TABLETS GT SCH (09:25)
[2023-03-29] MEDS: POLYETHYLENE GLYCOL (HEALTHYLAX) 3350 17 GM PACKET GT SCH (09:25)
[2023-03-29] MEDS: GABAPENTIN 250 MG/5 ML ORAL SOLUTION, 470 ML BOTTLE GT SCH ×2 (09:25→23:00)
[2023-03-29] MEDS: AMINO ACIDS/PROTEIN HYDROLYS 30 ML LIQUID.PKT GT SCH ×2 (09:25→17:20)
[2023-03-29] MEDS: MIDODRINE HCL 5 MG TABLET GT SCH ×2 (09:26→17:20)
[2023-03-29] MEDS: morphine SULFATE 10 MG/5 ML UNIT-DOSE CUP GT PRN ×2 (09:27→14:22)
[2023-03-29] MEDS: BUDESONIDE/FORMETEROL FUMARATE 80/4.5 mcg INHALER IH SCH ×2 (09:27→23:00)
[2023-03-29] MEDS: FUROSEMIDE 40 MG/5 ML UNIT-DOSE CUP GT SCH ×2 (09:27→11:07)
[2023-03-29] MEDS: FOLIC ACID 1 MG TABLET (FP) GT SCH (11:06)
[2023-03-29] MEDS: SENNOSIDES 8.8 MG/5 ML SYRUP PO SCH (23:00)
[2023-03-30] MEDS: MIDODRINE HCL 5 MG TABLET GT SCH ×4 (00:15→23:51)
[2023-03-30] MEDS: LEVOTHYROXINE NA 125 MCG TABLET (FP) GT SCH (06:58)
[2023-03-30] MEDS: morphine SULFATE 10 MG/5 ML UNIT-DOSE CUP GT PRN ×3 (08:33→15:25)
[2023-03-30] MEDS: AMINO ACIDS/PROTEIN HYDROLYS 30 ML LIQUID.PKT GT SCH ×2 (08:33→18:11)
[2023-03-30] MEDS: LORazepam 0.5 MG TABLET GT PRN (09:43)
[2023-03-30] MEDS: FOLIC ACID 1 MG TABLET (FP) GT SCH (11:42)
[2023-03-30] MEDS: ASPIRIN 81 MG CHEWABLE TABLETS GT SCH (11:42)
[2023-03-30] MEDS: ASCORBIC ACID 500 MG/5 ML UNIT DOSE CUP GT SCH (11:42)
[2023-03-30] MEDS: NAPH,MB-DB/K PH,MBDB POWDER PACKET GT SCH ×2 (11:42→23:48)
[2023-03-30] MEDS: POLYETHYLENE GLYCOL (HEALTHYLAX) 3350 17 GM PACKET GT SCH (11:43)
[2023-03-30] MEDS: GABAPENTIN 250 MG/5 ML ORAL SOLUTION, 470 ML BOTTLE GT SCH ×2 (11:44→23:48)
[2023-03-30] MEDS ORDERED: ALBUTEROL SO4 0.083% IH SOL 2.5 MG/3 ML VIAL.NEB. NEB PRN (12:14)
[2023-03-30] MEDS: FAMOTIDINE 20 MG/2.5 ML ORAL LIQUID PEG SCH (13:07)
[2023-03-30] MEDS: BUDESONIDE/FORMETEROL FUMARATE 80/4.5 mcg INHALER IH SCH ×2 (13:08→23:50)
[2023-03-30] MEDS: FUROSEMIDE 40 MG/5 ML UNIT-DOSE CUP GT SCH (13:08)
[2023-03-30 18:20] LABS: ARTERIAL BLD GAS O2 SATURATION 99.4 % (95-98); ARTERIAL BLOOD GAS BASE EXCESS 10.2 mmol/L (-2-2); ARTERIAL BLOOD GAS PO2 204.9 mmHg (80-100); ARTERIAL BLOOD GAS pH 7.427 (7.350-7.450)
[2023-03-30 18:24] LABS: ALLENS TEST POSITIVE
[2023-03-30 18:25] LABS: VENT MODE A/C; VENT RATE 14
[2023-03-30] MEDS: SENNOSIDES 8.8 MG/5 ML SYRUP PO SCH (23:02)
[2023-03-31] MEDS: morphine SULFATE 10 MG/5 ML UNIT-DOSE CUP GT PRN ×4 (03:33→23:39)
[2023-03-31] MEDS: LEVOTHYROXINE NA 125 MCG TABLET (FP) GT SCH (07:04)
[2023-03-31] MEDS: AMINO ACIDS/PROTEIN HYDROLYS 30 ML LIQUID.PKT GT SCH ×2 (09:00→18:10)
[2023-03-31] MEDS: MIDODRINE HCL 5 MG TABLET GT SCH ×3 (09:10→23:44)
[2023-03-31] MEDS: GABAPENTIN 250 MG/5 ML ORAL SOLUTION, 470 ML BOTTLE GT SCH ×2 (10:11→23:41)
[2023-03-31] MEDS: NAPH,MB-DB/K PH,MBDB POWDER PACKET GT SCH ×2 (10:12→23:40)
[2023-03-31] MEDS: FOLIC ACID 1 MG TABLET (FP) GT SCH (11:11)
[2023-03-31] MEDS: ASPIRIN 81 MG CHEWABLE TABLETS GT SCH (11:11)
[2023-03-31] MEDS: BUDESONIDE/FORMETEROL FUMARATE 80/4.5 mcg INHALER IH SCH ×2 (11:12→23:40)
[2023-03-31] MEDS: ASCORBIC ACID 500 MG/5 ML UNIT DOSE CUP GT SCH (11:12)
[2023-03-31] MEDS: FAMOTIDINE 20 MG/2.5 ML ORAL LIQUID PEG SCH (11:13)
[2023-03-31] MEDS: POLYETHYLENE GLYCOL (HEALTHYLAX) 3350 17 GM PACKET GT SCH (12:12)
[2023-03-31 12:32] LABS: HEMATOCRIT 23.8 % (32.4-45.2); MCH 31.8 pg (25.7-33.7); MCHC 33.5 g/dl (32.0-36.0); MEAN CELL VOLUME 94.9 fl (80-96); MEAN PLT VOLUME 7.8 fl (7.5-11.1); PLATELET COUNT 299 10^3/uL (134-434); RDW 16.1 % (11.6-15.6); WHITE BLOOD COUNT 7.4 K/mm3 (4.0-10.0)
[2023-03-31 12:51] LABS: POTASSIUM 4.5 mmol/L (3.5-5.1)
[2023-03-31 12:56] LABS: BLOOD UREA NITROGEN 27.5 mg/dL (7-18); CALCIUM 8.8 mg/dL (8.5-10.1)
[2023-03-31 12:57] LABS: ALBUMIN 1.5 g/dl (3.4-5.0)
[2023-03-31 12:59] LABS: BILIRUBIN,DIRECT 0.1 mg/dL (0.0-0.2)
[2023-03-31 13:00] LABS: CREATININE 0.5 mg/dL (0.55-1.3)
[2023-03-31 13:01] LABS: BILIRUBIN,TOTAL 0.2 mg/dL (0.2-1); TOT PROT 6.8 g/dl (6.4-8.2)
[2023-03-31 13:58] LABS: ANISOCYTOSIS 1+; MACROCYTOSIS 0
[2023-03-31] MEDS ORDERED: SODIUM CHLORIDE 500 ML IV STA (14:35)
[2023-03-31] MEDS ORDERED: PIPERACILLIN/TAZOB 4.5 GM 4.5 GM in DEXTROSE 5%-WATER 100 ML IVPB SCH (14:45)
[2023-03-31] MEDS ORDERED: ALBUMIN HUMAN 25% 12.5 GM/50 ML VIAL IV SCH (15:00)
[2023-03-31] MEDS: ALBUMIN HUMAN 25% 12.5 GM/50 ML VIAL IV SCH ×3 (17:45→23:58)
[2023-03-31] MEDS: PIPERACILLIN/TAZOB 4.5 GM 4.5 GM in DEXTROSE 5%-WATER 100 ML IVPB SCH (18:32)
[2023-03-31] MEDS: SENNOSIDES 8.8 MG/5 ML SYRUP PO SCH (23:40)
[2023-04-01] MEDS: ALBUMIN HUMAN 25% 12.5 GM/50 ML VIAL IV SCH ×3 (01:25→11:12)
[2023-04-01] MEDS: PIPERACILLIN/TAZOB 4.5 GM 4.5 GM in DEXTROSE 5%-WATER 100 ML IVPB SCH ×3 (02:37→17:23)
[2023-04-01] MEDS: LEVOTHYROXINE NA 125 MCG TABLET (FP) GT SCH (06:39)
[2023-04-01] MEDS: AMINO ACIDS/PROTEIN HYDROLYS 30 ML LIQUID.PKT GT SCH ×2 (08:48→17:23)
[2023-04-01] MEDS: MIDODRINE HCL 5 MG TABLET GT SCH ×2 (08:48→17:22)
[2023-04-01] MEDS: morphine SULFATE 10 MG/5 ML UNIT-DOSE CUP GT PRN ×3 (08:48→23:17)
[2023-04-01] MEDS: NAPH,MB-DB/K PH,MBDB POWDER PACKET GT SCH ×2 (10:17→23:18)
[2023-04-01] MEDS: GABAPENTIN 250 MG/5 ML ORAL SOLUTION, 470 ML BOTTLE GT SCH ×2 (10:34→23:18)
[2023-04-01] MEDS: FAMOTIDINE 20 MG/2.5 ML ORAL LIQUID PEG SCH (10:34)
[2023-04-01] MEDS: ASPIRIN 81 MG CHEWABLE TABLETS GT SCH (10:34)
[2023-04-01] MEDS: FOLIC ACID 1 MG TABLET (FP) GT SCH (10:34)
[2023-04-01] MEDS: ASCORBIC ACID 500 MG/5 ML UNIT DOSE CUP GT SCH (10:34)
[2023-04-01] MEDS: POLYETHYLENE GLYCOL (HEALTHYLAX) 3350 17 GM PACKET GT SCH (10:35)
[2023-04-01] MEDS: BUDESONIDE/FORMETEROL FUMARATE 80/4.5 mcg INHALER IH SCH ×2 (11:14→23:37)
[2023-04-01] MEDS: SENNOSIDES 8.8 MG/5 ML SYRUP PO SCH (23:19)
[2023-04-02] MEDS: MIDODRINE HCL 5 MG TABLET GT SCH ×4 (01:00→23:43)
[2023-04-02] MEDS: morphine SULFATE 10 MG/5 ML UNIT-DOSE CUP GT PRN ×4 (03:21→22:45)
[2023-04-02] MEDS: LORazepam 0.5 MG TABLET GT PRN (03:22)
[2023-04-02] MEDS: LEVOTHYROXINE NA 125 MCG TABLET (FP) GT SCH (06:10)
[2023-04-02 10:23] LABS: BASO % 0.9 % (0-2.0); EOS % 3.1 % (0-4.5); HEMATOCRIT 23.7 % (32.4-45.2); HEMOGLOBIN 8.4 GM/dL (10.7-15.3); LYMPH % 29.4 % (8-40); MCH 32.3 pg (25.7-33.7); MCHC 35.4 g/dl (32.0-36.0); MEAN CELL VOLUME 91.2 fl (80-96); MEAN PLT VOLUME 7.6 fl (7.5-11.1); MONO % 5.2 % (3.8-10.2); NEUT % 61.4 % (42.8-82.8); PLATELET COUNT 242 10^3/uL (134-434); RDW 15.9 % (11.6-15.6); WHITE BLOOD COUNT 5.9 K/mm3 (4.0-10.0)
[2023-04-02 10:35] LABS: POTASSIUM 4.2 mmol/L (3.5-5.1)
[2023-04-02 10:39] LABS: CALCIUM 8.2 mg/dL (8.5-10.1)
[2023-04-02 10:40] LABS: ALBUMIN 1.8 g/dl (3.4-5.0)
[2023-04-02 10:42] LABS: CREATININE 0.6 mg/dL (0.55-1.3)
[2023-04-02] MEDS: FAMOTIDINE 20 MG/2.5 ML ORAL LIQUID PEG SCH (10:43)
[2023-04-02] MEDS: BUDESONIDE/FORMETEROL FUMARATE 80/4.5 mcg INHALER IH SCH ×2 (10:43→22:43)
[2023-04-02] MEDS: AMINO ACIDS/PROTEIN HYDROLYS 30 ML LIQUID.PKT GT SCH ×2 (10:43→17:22)
[2023-04-02 10:44] LABS: BILIRUBIN,TOTAL 0.5 mg/dL (0.2-1); TOT PROT 6.6 g/dl (6.4-8.2)
[2023-04-02] MEDS: FOLIC ACID 1 MG TABLET (FP) GT SCH (10:44)
[2023-04-02] MEDS: NAPH,MB-DB/K PH,MBDB POWDER PACKET GT SCH ×2 (10:44→22:42)
[2023-04-02] MEDS: ASCORBIC ACID 500 MG/5 ML UNIT DOSE CUP GT SCH (10:44)
[2023-04-02] MEDS: ASPIRIN 81 MG CHEWABLE TABLETS GT SCH (10:44)
[2023-04-02] MEDS: GABAPENTIN 250 MG/5 ML ORAL SOLUTION, 470 ML BOTTLE GT SCH ×2 (10:44→22:42)
[2023-04-02] MEDS: POLYETHYLENE GLYCOL (HEALTHYLAX) 3350 17 GM PACKET GT SCH (10:45)
[2023-04-02 10:46] LABS: EPI CELLS >36 /uL (0-25.1); HYALINE CASTS 0 /uL (0-3.1); PH,URINE 8.5 (5.0-8.0); URINE APPEARANCE CLOUDY; URINE BILIRUBIN NEGATIVE (NEGATIVE); URINE COLOR YELLOW; URINE GLUCOSE (UA) NEGATIVE (NEGATIVE); URINE KETONE NEGATIVE (NEGATIVE); URINE LEUK ESTERASE 2+ (NEGATIVE); URINE NITRITE POSITIVE (NEGATIVE); URINE PROTEIN 1+ (NEGATIVE); URINE RBC 54 /uL (0-23.9); URINE UROBILINOGEN 0.2 mg/dL (0.2-1.0); URINE WBC 100 /uL (0-25.8)
[2023-04-02 11:10] LABS: URINE BACTERIA 906.8 /uL (0-1359); URINE CRYSTALS TRIPLE PHOS 2+ /hpf; YEAST NEGATIVE (NEGATIVE)
[2023-04-02] MEDS: SENNOSIDES 8.8 MG/5 ML SYRUP PO SCH (22:47)
[2023-04-03] MEDS: LEVOTHYROXINE NA 125 MCG TABLET (FP) GT SCH (06:03)
[2023-04-03] MEDS: AMINO ACIDS/PROTEIN HYDROLYS 30 ML LIQUID.PKT GT SCH ×2 (08:40→17:40)
[2023-04-03] MEDS: MIDODRINE HCL 5 MG TABLET GT SCH ×2 (08:41→17:40)
[2023-04-03] MEDS: FOLIC ACID 1 MG TABLET (FP) GT SCH (11:13)
[2023-04-03] MEDS: FAMOTIDINE 20 MG/2.5 ML ORAL LIQUID PEG SCH (11:13)
[2023-04-03] MEDS: ASPIRIN 81 MG CHEWABLE TABLETS GT SCH (11:13)
[2023-04-03] MEDS: NAPH,MB-DB/K PH,MBDB POWDER PACKET GT SCH ×2 (11:13→21:29)
[2023-04-03] MEDS: GABAPENTIN 250 MG/5 ML ORAL SOLUTION, 470 ML BOTTLE GT SCH ×2 (11:13→21:30)
[2023-04-03] MEDS: BUDESONIDE/FORMETEROL FUMARATE 80/4.5 mcg INHALER IH SCH ×2 (11:18→21:31)
[2023-04-03] MEDS: POLYETHYLENE GLYCOL (HEALTHYLAX) 3350 17 GM PACKET GT SCH (11:18)
[2023-04-03 12:12] LABS: BASO % 0.9 % (0-2.0); EOS % 2.3 % (0-4.5); HEMATOCRIT 25.3 % (32.4-45.2); HEMOGLOBIN 8.8 GM/dL (10.7-15.3); LYMPH % 30.5 % (8-40); MCH 31.9 pg (25.7-33.7); MCHC 34.7 g/dl (32.0-36.0); MEAN CELL VOLUME 91.9 fl (80-96); MEAN PLT VOLUME 7.7 fl (7.5-11.1); MONO % 5.7 % (3.8-10.2); NEUT % 60.6 % (42.8-82.8); PLATELET COUNT 270 10^3/uL (134-434); RBC 2.75 M/mm3 (3.60-5.2); RDW 15.9 % (11.6-15.6); WHITE BLOOD COUNT 6.6 K/mm3 (4.0-10.0)
[2023-04-03] MEDS: ASCORBIC ACID 500 MG/5 ML UNIT DOSE CUP GT SCH (12:19)
[2023-04-03 12:44] LABS: POTASSIUM 4.3 mmol/L (3.5-5.1)
[2023-04-03 12:48] LABS: ALBUMIN 1.7 g/dl (3.4-5.0)
[2023-04-03 12:49] LABS: CALCIUM 8.2 mg/dL (8.5-10.1)
[2023-04-03 12:50] LABS: BLOOD UREA NITROGEN 28.4 mg/dL (7-18)
[2023-04-03 12:52] LABS: CREATININE 0.5 mg/dL (0.55-1.3)
[2023-04-03 12:53] LABS: BILIRUBIN,TOTAL 0.4 mg/dL (0.2-1)
[2023-04-03] MEDS: morphine SULFATE 10 MG/5 ML UNIT-DOSE CUP GT PRN ×3 (13:50→21:28)
[2023-04-03] MEDS: SENNOSIDES 8.8 MG/5 ML SYRUP PO SCH (21:30)
[2023-04-04] MEDS: MIDODRINE HCL 5 MG TABLET GT SCH ×4 (02:18→23:48)
[2023-04-04] MEDS: LEVOTHYROXINE NA 125 MCG TABLET (FP) GT SCH (06:13)
[2023-04-04] MEDS: AMINO ACIDS/PROTEIN HYDROLYS 30 ML LIQUID.PKT GT SCH ×2 (09:50→19:23)
[2023-04-04] MEDS ORDERED: DEXTROSE 50%-WATER - 25 GM/50 ML VIAL IVPUSH PRN (09:56)
[2023-04-04] MEDS: BUDESONIDE/FORMETEROL FUMARATE 80/4.5 mcg INHALER IH SCH ×2 (10:33→21:22)
[2023-04-04] MEDS: AMINO ACIDS 4.25%/D5W 1,000 ML IV SCH (12:07)
[2023-04-04] MEDS: ASPIRIN 81 MG CHEWABLE TABLETS GT SCH (13:31)
[2023-04-04] MEDS: FOLIC ACID 1 MG TABLET (FP) GT SCH (13:31)
[2023-04-04] MEDS: NAPH,MB-DB/K PH,MBDB POWDER PACKET GT SCH ×2 (13:32→21:22)
[2023-04-04] MEDS: POLYETHYLENE GLYCOL (HEALTHYLAX) 3350 17 GM PACKET GT SCH (13:32)
[2023-04-04] MEDS: GABAPENTIN 250 MG/5 ML ORAL SOLUTION, 470 ML BOTTLE GT SCH ×2 (13:32→21:21)
[2023-04-04] MEDS: FAMOTIDINE 20 MG/2.5 ML ORAL LIQUID PEG SCH (13:32)
[2023-04-04] MEDS: ASCORBIC ACID 500 MG/5 ML UNIT DOSE CUP GT SCH (13:32)
[2023-04-04] MEDS: FAMOTIDINE 20 MG/50 ML IVPB 20 MG/50 ML MG IVPB SCH (18:30)
[2023-04-04] MEDS: LEVOTHYROXINE SODIUM 100 MCG 5 ML VIAL IVPUSH SCH (21:18)
[2023-04-04] MEDS: SENNOSIDES 8.8 MG/5 ML SYRUP PO SCH (21:22)
[2023-04-04] MEDS: PIPERACILLIN/TAZOB 4.5 GM 4.5 GM in DEXTROSE 5%-WATER 100 ML IVPB SCH (23:47)
[2023-04-05] MEDS: PIPERACILLIN/TAZOB 4.5 GM 4.5 GM in DEXTROSE 5%-WATER 100 ML IVPB SCH ×2 (05:48→15:23)
[2023-04-05] MEDS: LEVOTHYROXINE SODIUM 100 MCG 5 ML VIAL IVPUSH SCH (06:02)
[2023-04-05] MEDS: MIDODRINE HCL 5 MG TABLET GT SCH ×2 (08:41→16:55)
[2023-04-05] MEDS: AMINO ACIDS/PROTEIN HYDROLYS 30 ML LIQUID.PKT GT SCH ×2 (08:41→17:22)
[2023-04-05 09:22] LABS: HEMATOCRIT 25.3 % (32.4-45.2); MCH 29.8 pg (25.7-33.7); MCHC 31.5 g/dl (32.0-36.0); MEAN CELL VOLUME 94.6 fl (80-96); MEAN PLT VOLUME 7.4 fl (7.5-11.1); PLATELET COUNT 264 10^3/uL (134-434); RBC 2.68 M/mm3 (3.60-5.2); RDW 15.5 % (11.6-15.6)
[2023-04-05 09:37] LABS: POTASSIUM 3.7 mmol/L (3.5-5.1)
[2023-04-05 09:41] LABS: CALCIUM 8.6 mg/dL (8.5-10.1)
[2023-04-05 09:42] LABS: ALBUMIN 1.8 g/dl (3.4-5.0); BLOOD UREA NITROGEN 32.4 mg/dL (7-18)
[2023-04-05 09:45] LABS: CREATININE 0.7 mg/dL (0.55-1.3)
[2023-04-05 09:47] LABS: BILIRUBIN,TOTAL 1.2 mg/dL (0.2-1); TOT PROT 6.9 g/dl (6.4-8.2)
[2023-04-05 09:57] LABS: ANISOCYTOSIS 1+; MACROCYTOSIS 0
[2023-04-05] MEDS: FAMOTIDINE 20 MG/50 ML IVPB 20 MG/50 ML MG IVPB SCH (11:17)
[2023-04-05] MEDS: AMINO ACIDS 4.25%/D5W 1,000 ML IV SCH (11:18)
[2023-04-05] MEDS: ASPIRIN 81 MG CHEWABLE TABLETS GT SCH (11:20)
[2023-04-05] MEDS: FOLIC ACID 1 MG TABLET (FP) GT SCH (11:20)
[2023-04-05] MEDS: POLYETHYLENE GLYCOL (HEALTHYLAX) 3350 17 GM PACKET GT SCH (11:21)
[2023-04-05] MEDS: GABAPENTIN 250 MG/5 ML ORAL SOLUTION, 470 ML BOTTLE GT SCH ×2 (11:24→21:58)
[2023-04-05] MEDS: BUDESONIDE/FORMETEROL FUMARATE 80/4.5 mcg INHALER IH SCH ×2 (11:24→21:59)
[2023-04-05] MEDS: NAPH,MB-DB/K PH,MBDB POWDER PACKET GT SCH ×2 (11:24→21:58)
[2023-04-05] MEDS: ASCORBIC ACID 500 MG/5 ML UNIT DOSE CUP GT SCH (11:25)
[2023-04-05] MEDS ORDERED: SODIUM CHLORIDE 500 ML IV STA (13:48)
[2023-04-05] MEDS ORDERED: SODIUM CHLORIDE 0.9% 500 ML INFUS.BAG IV ONE (13:58)
[2023-04-05] MEDS ORDERED: oxyCODONE HCL 5 MG TABLET GT PRN (13:59)
[2023-04-05] MEDS: KETOROLAC TROMETHAMINE 15 MG/ML VIAL IVPUSH PRN ×2 (16:22→21:57)
[2023-04-05] MEDS: SENNOSIDES 8.8 MG/5 ML SYRUP GT SCH (21:59)
[2023-04-05] MEDS ORDERED: MEROPENEM 1 GM in DEXTROSE 5%-WATER 100 ML IVPB SCH (23:30)
[2023-04-06] MEDS: MEROPENEM 1 GM in DEXTROSE 5%-WATER 100 ML IVPB SCH ×3 (00:07→16:34)
[2023-04-06] MEDS: KETOROLAC TROMETHAMINE 15 MG/ML VIAL IVPUSH PRN (04:04)
[2023-04-06] MEDS: LEVOTHYROXINE SODIUM 100 MCG 5 ML VIAL IVPUSH SCH (06:18)
[2023-04-06] MEDS: MIDODRINE HCL 5 MG TABLET GT SCH ×3 (08:26→16:27)
[2023-04-06] MEDS: AMINO ACIDS/PROTEIN HYDROLYS 30 ML LIQUID.PKT GT SCH ×2 (08:27→17:35)
[2023-04-06 08:37] LABS: BASO % 0.4 % (0-2.0); EOS % 1.3 % (0-4.5); HEMATOCRIT 22.8 % (32.4-45.2); HEMOGLOBIN 7.6 GM/dL (10.7-15.3); LYMPH % 15.3 % (8-40); MCH 30.9 pg (25.7-33.7); MCHC 33.3 g/dl (32.0-36.0); MEAN PLT VOLUME 7.6 fl (7.5-11.1); MONO % 6.3 % (3.8-10.2); NEUT % 76.7 % (42.8-82.8); PLATELET COUNT 232 10^3/uL (134-434); RBC 2.45 M/mm3 (3.60-5.2); RDW 16.3 % (11.6-15.6); WHITE BLOOD COUNT 8.6 K/mm3 (4.0-10.0)
[2023-04-06 09:07] LABS: POTASSIUM 3.4 mmol/L (3.5-5.1)
[2023-04-06 09:11] LABS: ALBUMIN 1.5 g/dl (3.4-5.0); CALCIUM 8.1 mg/dL (8.5-10.1)
[2023-04-06 09:12] LABS: BLOOD UREA NITROGEN 40.5 mg/dL (7-18); MAGNESIUM 1.7 mg/dL (1.8-2.4)
[2023-04-06 09:15] LABS: CREATININE 0.7 mg/dL (0.55-1.3); PHOSPHOROUS 2.5 mg/dL (2.5-4.9)
[2023-04-06 09:17] LABS: BILIRUBIN,TOTAL 0.4 mg/dL (0.2-1); TOT PROT 6.3 g/dl (6.4-8.2)
[2023-04-06] MEDS: FOLIC ACID 1 MG TABLET (FP) GT SCH (09:20)
[2023-04-06] MEDS: ASPIRIN 81 MG CHEWABLE TABLETS GT SCH (09:20)
[2023-04-06] MEDS: POLYETHYLENE GLYCOL (HEALTHYLAX) 3350 17 GM PACKET GT SCH (09:20)
[2023-04-06] MEDS: GABAPENTIN 250 MG/5 ML ORAL SOLUTION, 470 ML BOTTLE GT SCH ×2 (09:20→22:02)
[2023-04-06] MEDS: ASCORBIC ACID 500 MG/5 ML UNIT DOSE CUP GT SCH (09:21)
[2023-04-06] MEDS: NAPH,MB-DB/K PH,MBDB POWDER PACKET GT SCH ×2 (09:21→22:02)
[2023-04-06] MEDS: FAMOTIDINE 20 MG/50 ML IVPB 20 MG/50 ML MG IVPB SCH (09:21)
[2023-04-06] MEDS: BUDESONIDE/FORMETEROL FUMARATE 80/4.5 mcg INHALER IH SCH ×2 (09:48→22:10)
[2023-04-06] MEDS ORDERED: MAGNESIUM OXIDE 400 MG TABLET (FP) PO ONE (11:45)
[2023-04-06] MEDS ORDERED: SODIUM CHLORIDE 250 ML IV ONE (13:45)
[2023-04-06] MEDS: AMINO ACIDS 4.25%/D5W 1,000 ML IV SCH (16:27)
[2023-04-07] MEDS ORDERED: hydrOXYzine HCL 100 MG/2 ML VIAL IM ONE (00:04)
[2023-04-07] MEDS ORDERED: hydrOXYzine PAMOATE 25 MG CAPSULE (FP) PO ONE (00:25)
[2023-04-07] MEDS: SENNOSIDES 8.8 MG/5 ML SYRUP GT SCH (00:55)
[2023-04-07] MEDS: MIDODRINE HCL 5 MG TABLET GT SCH ×3 (00:55→16:00)
[2023-04-07] MEDS ORDERED: MEROPENEM 1 GM in DEXTROSE 5%-WATER 100 ML IVPB ONE (01:00)
[2023-04-07] MEDS: KETOROLAC TROMETHAMINE 15 MG/ML VIAL IVPUSH PRN (06:05)
[2023-04-07] MEDS ORDERED: LEVOTHYROXINE NA 125 MCG TABLET (FP) PO SCH (07:00)
[2023-04-07] MEDS ORDERED: MAGNESIUM 2GM/50ML STERILE WATER IVPB IVPB ONE (07:43)
[2023-04-07] MEDS: AMINO ACIDS/PROTEIN HYDROLYS 30 ML LIQUID.PKT GT SCH (08:49)
[2023-04-07] MEDS: FOLIC ACID 1 MG TABLET (FP) GT SCH (09:47)
[2023-04-07] MEDS: ASCORBIC ACID 500 MG/5 ML UNIT DOSE CUP GT SCH (09:47)
[2023-04-07] MEDS: ASPIRIN 81 MG CHEWABLE TABLETS GT SCH (09:47)
[2023-04-07] MEDS: FAMOTIDINE 20 MG/50 ML IVPB 20 MG/50 ML MG IVPB SCH (09:48)
[2023-04-07] MEDS: NAPH,MB-DB/K PH,MBDB POWDER PACKET GT SCH (09:48)
[2023-04-07] MEDS: POLYETHYLENE GLYCOL (HEALTHYLAX) 3350 17 GM PACKET GT SCH (09:50)
[2023-04-07] MEDS: BUDESONIDE/FORMETEROL FUMARATE 80/4.5 mcg INHALER IH SCH (09:51)
[2023-04-07] MEDS: GABAPENTIN 250 MG/5 ML ORAL SOLUTION, 470 ML BOTTLE GT SCH (10:51)
[2023-04-07] MEDS ORDERED: POTASSIUM CHLORIDE ORAL LIQUID 20 MEQ/15 ML GT ONE (11:00)
[2023-04-07] MEDS ORDERED: POTASSIUM CHLORIDE ORAL LIQUID 20 MEQ/15 ML PO ONE (11:00)
[2023-04-07 13:08] LABS: BASO % 0.9 % (0-2.0); EOS % 1.6 % (0-4.5); HEMATOCRIT 25.8 % (32.4-45.2); HEMOGLOBIN 8.3 GM/dL (10.7-15.3); LYMPH % 21.7 % (8-40); MCH 30.5 pg (25.7-33.7); MCHC 32.1 g/dl (32.0-36.0); MEAN PLT VOLUME 7.8 fl (7.5-11.1); MONO % 5.2 % (3.8-10.2); NEUT % 70.6 % (42.8-82.8); PLATELET COUNT 279 10^3/uL (134-434); RBC 2.72 M/mm3 (3.60-5.2); RDW 15.8 % (11.6-15.6); WHITE BLOOD COUNT 7.8 K/mm3 (4.0-10.0)
[2023-04-07 13:29] LABS: POTASSIUM 3.9 mmol/L (3.5-5.1)
[2023-04-07 13:49] LABS: TOT PROT 6.8 g/dl (6.4-8.2)
[2023-04-07 14:07] LABS: ALBUMIN 1.7 g/dl (3.4-5.0); BLOOD UREA NITROGEN 41.9 mg/dL (7-18)
[2023-04-07 14:09] LABS: CALCIUM 8.6 mg/dL (8.5-10.1); PHOSPHOROUS 2.9 mg/dL (2.5-4.9)
[2023-04-07 14:10] LABS: BILIRUBIN,TOTAL 0.4 mg/dL (0.2-1); CREATININE 0.8 mg/dL (0.55-1.3); MAGNESIUM 2.1 mg/dL (1.8-2.4)
[2023-04-07 15:10] VITALS: PULSE 90; RESP 20
[2023-04-07] MEDS: AMINO ACIDS 4.25%/D5W 1,000 ML IV SCH (16:19)
[2023-04-07 16:33] VITALS: BP 118/57; TEMP 97.8
== END 2023-04-07 17:03 | DRG 870 ==
LOC: JER 10:02 → JERBED 14:00 → JICU 15:31 → J2W 02-15 16:26 → JICU 02-27 16:49 → J2W 03-10 19:45 → JICU 03-17 06:39 → J5S 03-23 20:37
PROVIDERS: ADMIT Internal Medicine Pulmonary Disease
PROC: 5A1955Z Respiratory Ventilation, Greater than 96 Consecutive Hours (ICD-10-PCS; principal; 2023-02-11)
PROC: 4A133B1 Monitoring of Arterial Pressure, Peripheral, Percutaneous Approach (ICD-10-PCS; 2023-02-12)
PROC: 4A133J1 Monitoring of Arterial Pulse, Peripheral, Percutaneous Approach (ICD-10-PCS; 2023-02-12)
PROC: 30233N1 Transfusion of Nonautologous Red Blood Cells into Peripheral Vein, Percutaneous Approach (ICD-10-PCS; 2023-02-13)
PROC: 05HM33Z Insertion of Infusion Device into Right Internal Jugular Vein, Percutaneous Approach (ICD-10-PCS; 2023-02-13)
PROC: B543ZZA Ultrasonography of Right Jugular Veins, Guidance (ICD-10-PCS; 2023-02-13)
PROC: 05HD33Z Insertion of Infusion Device into Right Cephalic Vein, Percutaneous Approach (ICD-10-PCS; 2023-02-25)
PROC: 0B9P30Z Drainage of Left Pleura with Drainage Device, Percutaneous Approach (ICD-10-PCS; 2023-02-26)
PROC: 0B9N30Z Drainage of Right Pleura with Drainage Device, Percutaneous Approach (ICD-10-PCS; 2023-02-27)
PROC: 0D20XUZ Change Feeding Device in Upper Intestinal Tract, External Approach (ICD-10-PCS; 2023-04-06)
DX: A41.89 Other specified sepsis (principal); I50.33 Acute on chronic diastolic (congestive) heart failure; L89.614 Pressure ulcer of right heel, stage 4; J96.21 Acute and chronic respiratory failure with hypoxia; L89.154 Pressure ulcer of sacral region, stage 4; R65.21 Severe sepsis with septic shock; N39.0 Urinary tract infection, site not specified; I13.0 Hypertensive heart and chronic kidney disease with heart failure and stage 1 through stage 4 chronic kidney disease, or unspecified chronic kidney disease; N17.9 Acute kidney failure, unspecified; J44.0 Chronic obstructive pulmonary disease with (acute) lower respiratory infection; E87.20 Acidosis, unspecified; J95.851 Ventilator associated pneumonia; E87.3 Alkalosis; E46 Unspecified protein-calorie malnutrition; J90 Pleural effusion, not elsewhere classified; Z93.0 Tracheostomy status; L89.210 Pressure ulcer of right hip, unstageable; I48.91 Unspecified atrial fibrillation; D64.9 Anemia, unspecified; R31.9 Hematuria, unspecified; E03.9 Hypothyroidism, unspecified; E86.0 Dehydration; R19.7 Diarrhea, unspecified; E87.70 Fluid overload, unspecified; K21.9 Gastro-esophageal reflux disease without esophagitis; Z93.1 Gastrostomy status
CPT/HCPCS: 0241U-QW; 36415; 36430; 36600; 49450; 71045-TC-FY; 74018-TC-FY; 74176-TC; 76604-TC; 76775-TC; 76937; 80048; 80053; 80076; 80162; 81003; 82042; 82150; 82803; 82945; 82962; 83605; 83615; 83735; 83880; 83986; 83993; 84100; 84155; 84157; 84439; 84443; 84484; 85025; 85027; 85610; 85730; 86850; 86900; 86901; 86922; 87040; 87070; 87075; 87077; 87081; 87086; 87186; 87205; 87324; 87449; 87635; 88108; 88305-TC; 93005; 93010; 93306-TC; 93308; 94002; 99285-25; J0878; J1644; J3490; P9047; P9058

== ENCOUNTER 2023-04-27 16:17 | Inpatient (IN) | payer OTHER ==
[2023-04-27] MEDS ORDERED: SODIUM CHLORIDE 2,245 ML IV ONE (16:47)
[2023-04-27] MEDS ORDERED: EPINEPHrine 1:10,000 (P-F SYR) 1 MG/10 ML DISP.SYRIN ONE (18:09)
[2023-04-27 18:15] LABS: HEMATOCRIT 22.9 % (32.4-45.2); HEMOGLOBIN 7.1 GM/dL (10.7-15.3); MCH 29.9 pg (25.7-33.7); MEAN CELL VOLUME 96.5 fl (80-96); MEAN PLT VOLUME 7.4 fl (7.5-11.1); PLATELET COUNT 494 10^3/uL (134-434); RBC 2.37 M/mm3 (3.60-5.2); WHITE BLOOD COUNT 10.2 K/mm3 (4.0-10.0)
[2023-04-27] MEDS: EPINEPHrine 1:1,000 1,000 MCG in SODIUM CHLORIDE 249 ML IVPB SCH ×2 (18:15→22:00)
[2023-04-27 18:23] LABS: INR 1.66 (0.83-1.09); PROTHROMBIN TIME (PATIENT) 19.2 SEC (9.7-13.0)
[2023-04-27 18:26] LABS: ACTIVATED PTT 32.5 SECONDS (25.2-36.5)
[2023-04-27 18:34] LABS: POTASSIUM 3.3 mmol/L (3.5-5.1)
[2023-04-27 18:37] LABS: ALBUMIN 1.4 g/dl (3.4-5.0); CALCIUM 11.6 mg/dL (8.5-10.1)
[2023-04-27 18:40] LABS: CREATININE 1.2 mg/dL (0.55-1.3)
[2023-04-27 18:42] LABS: BILIRUBIN,TOTAL 0.4 mg/dL (0.2-1); TOT PROT 6.1 g/dl (6.4-8.2)
[2023-04-27] MEDS ORDERED: DEXTROSE 50%-WATER 25 GM/50 ML DISP.SYRIN IVPUSH ONE (18:46)
[2023-04-27] MEDS ORDERED: DEXTROSE 50%-WATER 25 GM/50 ML DISP.SYRIN ONE (19:11)
[2023-04-27 19:12] LABS: LACTIC ACID 12.5 mmol/L (0.4-2.0)
[2023-04-27 19:23] LABS: ANISOCYTOSIS 1+; MACROCYTOSIS 1+; OVALOCYTE 1+
[2023-04-27 19:31] LABS: TOXIC GRANULATION 1+
[2023-04-27] MEDS ORDERED: EPINEPHrine/PF 1 MG/1 ML (1:1,000) AMPULE ONE ×2 (20:03→21:57)
[2023-04-27] MEDS ORDERED: VASOPRESSIN 20 UNITS/ML VIAL IV ONE (20:36)
[2023-04-27] MEDS: NOREPINEPHRINE 0.9 % NACL 8 MG/250 ML BAG IVPB SCH (20:45)
[2023-04-27] MEDS ORDERED: NOREPINEPHRINE 0.9 % NACL 8 MG/250 ML BAG IVPB SCH (20:45)
[2023-04-27] MEDS: VASOPRESSIN 40 UNITS/100 ML BAG IV SCH (20:45)
[2023-04-27] MEDS ORDERED: EPINEPHrine 1:1,000 1,000 MCG/ML ML IV ONE ×2 (20:47→20:51)
[2023-04-27] MEDS ORDERED: EPINEPHrine 1:1,000 1 MG/ML VIAL IV ONE (20:53)
[2023-04-27] MEDS ORDERED: EPINEPHrine 1:1,000 1 MG/ML VIAL IVPUSH ONE (20:55)
[2023-04-27] MEDS ORDERED: EPINEPHrine 1:10,000 (P-F SYR) 1 MG/10 ML DISP.SYRIN IVPUSH ONE (20:57)
[2023-04-27 21:06] LABS: ARTERIAL BLOOD GAS BASE EXCESS -10.3 mmol/L (-2-2); ARTERIAL BLOOD GAS PO2 169.9 mmHg (80-100)
[2023-04-27] MEDS ORDERED: LACTATED RINGERS SOLUTION 1,000 ML/1,000 ML INFUS.BAG IV STA (21:09)
[2023-04-27 21:10] LABS: ARTERIAL BLOOD GAS pH 6.972 (7.350-7.450)
[2023-04-27] MEDS ORDERED: SODIUM BICARBONATE 8.4% 50 MEQ/50 ML DISP.SYRIN ONE (21:16)
[2023-04-27] MEDS ORDERED: DEXTROSE 50%-WATER - 25 GM/50 ML VIAL IVPUSH ONE (21:28)
[2023-04-27] MEDS: SODIUM BICARBONATE 8.4% 50 MEQ/50 ML DISP.SYRIN IVPUSH SCH ×2 (21:40→23:01)
[2023-04-27] MEDS: EPINEPHrine 1:10,000 (P-F SYR) 1 MG/10 ML DISP.SYRIN IVPUSH SCH (21:40)
[2023-04-27] MEDS ORDERED: MINERAL OIL/PETROLATUM,WHITE 3.5 GM TUBE OU PRN (21:59)
[2023-04-27] MEDS ORDERED: CHLORHEXIDINE GLUCONATE 4% CLEANSER FOR DECOLONIZATION TP SCH (22:00)
[2023-04-27] MEDS ORDERED: ROCURONIUM BROMIDE 500 MG/300 ML BAG IVPB SCH (22:00)
[2023-04-27] MEDS ORDERED: PROPOFOL 1,000,000 MCG/100 ML VIAL IVPB SCH (22:00)
[2023-04-27] MEDS: KCL 20 MEQ PREMIX BAG 100 ML IVPB SCH ×2 (22:03→22:06)
[2023-04-27] MEDS: MUPIROCIN 2% TOPICAL OINTMENT FOR DECOLONIZATION NS SCH (22:03)
[2023-04-27 22:07] LABS: ARTERIAL BLD GAS O2 SATURATION 88.7 % (95-98); ARTERIAL BLOOD GAS BASE EXCESS -7.5 mmol/L (-2-2); ARTERIAL BLOOD GAS PO2 75.6 mmHg (80-100)
[2023-04-27 22:13] LABS: ARTERIAL BLOOD GAS pH 7.091 (7.350-7.450)
[2023-04-27] MEDS ORDERED: ROCURONIUM BROMIDE 50 MG/5 ML VIAL IV ONE (22:16)
[2023-04-27 22:41] LABS: LACTIC ACID 14.9 mmol/L (0.4-2.0)
[2023-04-27] MEDS ORDERED: HYDROCORTISONE SOD SUCCINATE 100 MG/2 ML VIAL IVPB ONE (22:43)
[2023-04-27] MEDS ORDERED: VANCOMYCIN 1 GM PREMIX - 1 GM/200 ML BAG IVPB SCH (22:45)
[2023-04-27] MEDS ORDERED: PIPERACILLIN/TAZOB 3.375 GM 3.375 GM in DEXTROSE 5%-WATER - 50 ML IVPB SCH (23:00)
[2023-04-27 23:11] VITALS: BMI 26.6
[2023-04-27 23:59] LABS: ARTERIAL BLD GAS O2 SATURATION 89.1 % (95-98); ARTERIAL BLOOD GAS BASE EXCESS -9.5 mmol/L (-2-2); ARTERIAL BLOOD GAS PO2 81.9 mmHg (80-100)
[2023-04-28 00:01] LABS: ARTERIAL BLOOD GAS pH 7.026 (7.350-7.450)
[2023-04-28 00:18] LABS: CHLORIDE 88 mmol/L (98-107); POTASSIUM 3.8 mmol/L (3.5-5.1); SODIUM 136 mmol/L (136-145)
[2023-04-28 00:20] LABS: ALBUMIN 1.3 g/dl (3.4-5.0); CALCIUM 10.8 mg/dL (8.5-10.1)
[2023-04-28 00:21] LABS: ANION GAP 14 mmol/L (4-13); CO2 33 mmol/L (21-32); MAGNESIUM 2.2 mg/dL (1.8-2.4)
[2023-04-28 00:23] LABS: CREATININE 1.3 mg/dL (0.55-1.3); SGOT/AST 121 U/L (15-37)
[2023-04-28 00:24] LABS: PHOSPHOROUS 5.7 mg/dL (2.5-4.9); SGPT/ALT 59 U/L (13-61)
[2023-04-28 00:25] LABS: BILIRUBIN,TOTAL 0.6 mg/dL (0.2-1); TOT PROT 5.8 g/dl (6.4-8.2)
[2023-04-28 00:26] LABS: ALK PHOS 166 U/L (45-117)
[2023-04-28 00:27] LABS: GLUCOSE,RANDOM 45 mg/dL (74-106)
[2023-04-28] MEDS ORDERED: DEXTROSE 50%-WATER 25 GM/50 ML DISP.SYRIN ONE ×3 (00:32→06:39)
[2023-04-28] MEDS: DEXTROSE 50%-WATER - 25 GM/50 ML VIAL IVPUSH SCH ×2 (00:33→00:38)
[2023-04-28 00:34] LABS: HEMATOCRIT 23.6 % (32.4-45.2); HEMOGLOBIN 7.3 GM/dL (10.7-15.3); MCH 30.1 pg (25.7-33.7); MCHC 30.8 g/dl (32.0-36.0); MEAN CELL VOLUME 97.6 fl (80-96); MEAN PLT VOLUME 7.6 fl (7.5-11.1); PLATELET COUNT 459 10^3/uL (134-434); RBC 2.42 M/mm3 (3.60-5.2); RDW 15.3 % (11.6-15.6); WHITE BLOOD COUNT 10.7 K/mm3 (4.0-10.0)
[2023-04-28 00:34] LABS: LACTIC ACID > 15.0 mmol/L (0.4-2.0)
[2023-04-28] MEDS: NOREPINEPHRINE 0.9 % NACL 8 MG/250 ML BAG IVPB SCH (00:39)
[2023-04-28] MEDS ORDERED: VANCOMYCIN/WATER FOR INJ (PEG) 1 GM/200 ML BAG IVPB SCH (01:00)
[2023-04-28] MEDS: ALBUTEROL SO4 0.083% IH SOL 2.5 MG/3 ML VIAL.NEB. NEB SCH ×4 (01:12→11:40)
[2023-04-28] MEDS: IPRATROPIUM BR 0.02% 0.5 MG/2.5 ML VIAL.NEB. NEB SCH ×4 (01:12→11:40)
[2023-04-28] MEDS: PIPERACILLIN/TAZOB 3.375 GM 3.375 GM in DEXTROSE 5%-WATER - 50 ML IVPB SCH ×2 (01:13→11:08)
[2023-04-28] MEDS: EPINEPHrine 1:1,000 1,000 MCG in SODIUM CHLORIDE 249 ML IVPB SCH ×4 (01:17→06:30)
[2023-04-28 02:05] LABS: ANISOCYTOSIS 1+; MACROCYTOSIS 0
[2023-04-28 02:50] LABS: ARTERIAL BLD GAS O2 SATURATION 97.2 % (95-98); ARTERIAL BLOOD GAS BASE EXCESS -8.9 mmol/L (-2-2); ARTERIAL BLOOD GAS PO2 131.4 mmHg (80-100)
[2023-04-28 02:53] LABS: ARTERIAL BLOOD GAS pH 7.069 (7.350-7.450)
[2023-04-28] MEDS: HYDROCORTISONE SOD SUCCINATE 100 MG/2 ML VIAL IVPB SCH ×2 (05:31→11:08)
[2023-04-28] MEDS ORDERED: HEPARIN NA (PORCINE) 5,000 UNITS/ML 1ML VIAL SQ SCH (06:00)
[2023-04-28 06:13] VITALS: RESP 35
[2023-04-28] MEDS ORDERED: VASOPRESSIN 20 UNITS/ML VIAL IV ONE (06:20)
[2023-04-28] MEDS: VASOPRESSIN 40 UNITS/100 ML BAG IV SCH (06:22)
[2023-04-28] MEDS ORDERED: EPINEPHrine 1:10,000 (P-F SYR) 1 MG/10 ML DISP.SYRIN IVPUSH ONE (06:25)
[2023-04-28] MEDS ORDERED: CALCIUM CHLORIDE 1 GM/10 ML *DISP.SYRIN IVPB ONE (06:27)
[2023-04-28] MEDS ORDERED: DEXTROSE 50%-WATER - 25 GM/50 ML VIAL IVPUSH SCH (06:30)
[2023-04-28 08:07] VITALS: TEMP 93
[2023-04-28] MEDS ORDERED: NOREPINEPHRINE BITARTRATE 4 MG/4 ML ML IV ONE (08:17)
[2023-04-28 08:37] LABS: CHLORIDE 90 mmol/L (98-107); POTASSIUM 4.5 mmol/L (3.5-5.1); SODIUM 132 mmol/L (136-145)
[2023-04-28 08:43] LABS: CALCIUM 10.7 mg/dL (8.5-10.1)
[2023-04-28 08:44] LABS: ALBUMIN 1.2 g/dl (3.4-5.0); ANION GAP 24 mmol/L (4-13); BLOOD UREA NITROGEN 65.8 mg/dL (7-18); CO2 18 mmol/L (21-32); MAGNESIUM 2.3 mg/dL (1.8-2.4)
[2023-04-28 08:46] LABS: SGPT/ALT 58 U/L (13-61)
[2023-04-28 08:47] LABS: CREATININE 1.3 mg/dL (0.55-1.3); PHOSPHOROUS 6.4 mg/dL (2.5-4.9); SGOT/AST 150 U/L (15-37)
[2023-04-28 08:48] LABS: BILIRUBIN,TOTAL 0.8 mg/dL (0.2-1); HEMATOCRIT 22.6 % (32.4-45.2); MCHC 30.9 g/dl (32.0-36.0); MEAN CELL VOLUME 100.2 fl (80-96); MEAN PLT VOLUME 7.9 fl (7.5-11.1); PLATELET COUNT 366 10^3/uL (134-434); RBC 2.25 M/mm3 (3.60-5.2); TOT PROT 5.3 g/dl (6.4-8.2); WHITE BLOOD COUNT 8.4 K/mm3 (4.0-10.0)
[2023-04-28 08:49] LABS: ALK PHOS 146 U/L (45-117)
[2023-04-28 09:23] LABS: GLUCOSE,RANDOM 10 mg/dL (74-106)
[2023-04-28 09:32] LABS: LACTIC ACID 21.5 mmol/L (0.4-2.0)
[2023-04-28 10:12] VITALS: BP 36/27
[2023-04-28] MEDS: MUPIROCIN 2% TOPICAL OINTMENT FOR DECOLONIZATION NS SCH (11:25)
[2023-04-28 12:05] VITALS: PULSE 28
== END 2023-04-28 12:25 | disposition expired | DRG 296 ==
LOC: JER 16:17 → JERBED 18:24 → JICU 20:02
PROVIDERS: ADMIT Internal Medicine Pulmonary Disease; ATTEND Internal Medicine Pulmonary Disease
PROC: 5A12012 Performance of Cardiac Output, Single, Manual (ICD-10-PCS; principal; 2023-04-27)
PROC: 05HN33Z Insertion of Infusion Device into Left Internal Jugular Vein, Percutaneous Approach (ICD-10-PCS; 2023-04-27)
PROC: 5A1935Z Respiratory Ventilation, Less than 24 Consecutive Hours (ICD-10-PCS; 2023-04-27)
PROC: 4A133B1 Monitoring of Arterial Pressure, Peripheral, Percutaneous Approach (ICD-10-PCS; 2023-04-27)
PROC: 4A133J1 Monitoring of Arterial Pulse, Peripheral, Percutaneous Approach (ICD-10-PCS; 2023-04-27)
DX: I46.9 Cardiac arrest, cause unspecified (principal); J96.02 Acute respiratory failure with hypercapnia; L89.894 Pressure ulcer of other site, stage 4; E87.20 Acidosis, unspecified; I50.32 Chronic diastolic (congestive) heart failure; I95.89 Other hypotension; J44.9 Chronic obstructive pulmonary disease, unspecified; E11.9 Type 2 diabetes mellitus without complications; L93.0 Discoid lupus erythematosus; R00.1 Bradycardia, unspecified; I48.91 Unspecified atrial fibrillation; E03.9 Hypothyroidism, unspecified; R57.8 Other shock; I11.0 Hypertensive heart disease with heart failure; K21.9 Gastro-esophageal reflux disease without esophagitis; E11.42 Type 2 diabetes mellitus with diabetic polyneuropathy; F41.9 Anxiety disorder, unspecified; R41.82 Altered mental status, unspecified; Z93.1 Gastrostomy status; Z74.01 Bed confinement status; Z93.0 Tracheostomy status
CPT/HCPCS: 0241U-QW; 36415; 36600; 71045-TC-FY; 80053; 82550; 82553; 82803; 82962; 83605; 83735; 84100; 84484; 85025; 85027; 85610; 85730; 86850; 86900; 86901; 87040; 87086; 87186; 93005; 93010; 94002; 94640; 99291; J1644; J3490